=== PATIENT | female | born 1945 | race Caucasian/White ===

== ENCOUNTER → 2017-11-28 | Outpatient (CLI) | payer OTHER ==
[~2017-11-28] MED LIST: ALBINS/ INH; ANAS1TAB19 PO; ASPI81TA28 PO; CALC-354 PO; LISI-725 PO; MULT-506 PO; NAPR1TAB9 PO; POTA10CA28 PO; SERT50TA PO
[2017-11-28 14:49] VITALS: BP 158/84; PULSE 86; TEMP 36.9; O2SAT 94
--- NOTE | 2017-11-28 15:49 | Radiation Oncology Follow-Up ---
Radiation Oncology Follow-Up Date of Visit Nov 28, 2017. 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 She received 3850 cGy utilizing accelerated partial breast irradiation. Last Edited By: Alicia Madrid on Nov 05, 2017 16:25 History of Present Illness oneyda Jones is without a family history of breast cancer. She underwent annual bilateral screening mammograms on 07/18/2017. This showed in the right breast a new 5 mm focal asymmetry in the upper outer middle depth. 3-D spot compression views and MLO projections and ultrasound were recommended for further evaluation. On 07/24/2017 patient underwent additional imaging. This again demonstrated a suspicious abnormality in the right breast which persisted at the 10 o'clock position. Targeted ultrasound confirmed a 0.5 x 0.4 x 0.5 cm hypoechoic lesion. Ultrasound of the right axilla demonstrated a 2.4 x 1.2 x 1.4 cm well-defined lymph node with fatty hilum. Biopsy was recommended. On 08/08/2017 the patient underwent ultrasound-guided core biopsy of the right breast lesion at the 10 o'clock position. This confirmed an invasive ductal carcinoma histologic grade 1 of 3 with microcalcifications. The lesion measured at least 0.5 cm and was estrogen receptor strongly positive and progesterone receptor strongly positive. The lesion was HER-2/vikas negative and confirmed negative by FISH analysis. Accession #: [id number]. The patient met with Dr. Alex to discuss surgical treatment options. The patient agreed to proceed with a right needle localized lumpectomy and sentinel node biopsy performed on 09/04/2017. The partial mastectomy specimen confirmed residual invasive mammary carcinoma grade 1 which was initially present at the deep/ posterior margin. However additional tissue was taken and the final margin status was negative. The lesion measured 3 mm in size although the measurement was difficult. There was no lymphovascular invasion identified. There was no DCIS in the specimen. One sentinel lymph node was identified and was negative for metastatic carcinoma. Accession #: [id number]. The final AJCC pathologic staging was therefore pT1b pN0(sn-), ER positive, WA positive and HER-2/vikas negative. The tissue was considered for Oncotype DX analysis. However there was insufficient carcinoma present in the slides and the procedure could not be performed. The patient is scheduled to see Dr. Sheth on October 05 to discuss the role of adjuvant systemic therapy with the patient. She did not require chemotherapy. She returned to our office and had a CT simulation. She was found to be a candidate for accelerated partial breast irradiation. This was completed October 29, 2017. She received 3850 cGy. Interim History She has been doing well over the past month. She does note an area of dry skin where she was treated. She has noted no masses or tenderness and no change of the axilla. She has had no swelling of her arm. She has been seen by Dr. Sheth and started on an aromatase inhibitor. This unfortunately is causing some side effects. She has some dizziness as well as fatigue. She has taken the medication now for [address] Sheth in 1 week. She plans to continue medication and will speak to her about the potential side effects. We did discuss that radiation can cause fatigue also but this should be improving now. Mammography has already been scheduled through Dr. Alex's office. This is scheduled for March 07. Allergies Coded Allergies: Oxycodone (Unverified Adverse Reaction, Severe, HALLUCINATIONS, 12/21/10) PT AWOKE WITH RIGHT HIP PAIN AND TOOK 2 OXYCODONE. LATER SHE AWOKE ON HER BATHROOM FLOOR, CRAWLED FOR HER CELL PHONE AND CALLED FOR HELP. DOES NOT RECALL MUCH OF THE FOLLOWING 2 DAYS. Home Medications Scheduled Anastrozole (Arimidex), 1 TAB PO DAILY Aspirin (Aspirin Ec), 81 MG PO DAILY Calcium Carbonate-Cholecalcife (Caltrate 600+D), 1 TAB PO BID Lisinopril (Zestril), 20 MG PO DAILY Multivitamin (Multivitamin), 1 TAB PO DAILY Potassium Chloride (Micro-K Ext Rel), 10 MEQ PO BID Sertraline (Zoloft), 1 TAB PO DAILY Scheduled PRN Albuterol Sulf (Proventil 0.083% 2.5MG/3ML), 2.5 MG INH QID PRN for Wheezing Naproxen (Aleve), 220 MG PO BIDM PRN for Pain Review of Systems Gastrointestinal: Symptoms: WNL Oral: Symptoms: No Problems Respiratory: Symptoms: WNL Urinary: Symptoms: WNL Skin: Symptoms: No Problems Breast: Right Upper Arm Measurement: 32.0 Right Mid Arm Measurement: 26.0 Right Wrist Measurement: 17.5 Left Upper Arm Measurement: 33.0 Left Mid Arm Measurement: 26.2 Left Wrist Measurement: 17.5 Arm Dominence: Right Physical Exam Vital Signs Date Time Temp Pulse Resp B/P (MAP) Pulse Ox O2 Delivery O2 Flow Rate FiO2 11/28/17 14:49 36.9 86 16 158/84 94 Fatigue: None General Appearance: no apparent distress Eyes: normal inspection, EOMI ENT: normal ENT inspection, hearing grossly normal Neck: no adenopathy, thyroid normal Respiratory/Chest: lungs clear, no respiratory distress, no accessory muscle use Breast: Breast examination reveals well-healed incisions of the right breast. There is an area of hyperpigmentation in dry skin. There are no masses or tenderness and no axillary adenopathy. Using the [place] score cosmesis she has a good outcome. The left breast showed no masses or tenderness and no axillary adenopathy. Cardiovascular: regular rate, rhythm, no gallop, no JVD Extremities: no pedal edema Neurologic/Psychiatric: no motor/sensory deficits, alert, normal mood/affect Skin: warm/dry Pain Management Patient Reports Pain: No Initial Pain Intensity: 0.0 Pain Management Plan She denied pain therefore requires no pain management. Laboratory Laboratory Results: not applicable Pathology Pathology Results: and pertinent findings noted in HPI Imaging Imaging Studies: and pertinent findings noted in HPI Assessment & Plan Plan: Continue follow-up with Dr. Sheth. She will be seeing her next week. She is going to continue the antiestrogen therapy until she sees her and discuss her side effects. Continue follow-up with Dr. Alex she will be seeing her March 26. She has mammography scheduled for March 07. I have recommended Aquaphor for the area of skin dryness. Today we completed a cancer survivorship care plan. A copy of the document was given to the patient. She was given a survivorship booklet. We asked her to return to our office in 6 months. Today we discussed smoke cessation. We had previously discussed this at her initial consultation. She has been offered smoke cessation classes that are available at our hospital. She has been given information about the 1 800 quit line. Today we stressed the potential side effect of secondary malignancies when reviewing the cancer survivorship care plan. With continuation of smoking there is a increased risk of secondary lung cancer. She may call our office if she has any questions or concerns or if she would like to enroll in the smoke cessation program. Total Time In Follow-Up I spent 20 minutes speaking to the patient in performing examination. I spent 20 minutes reviewing information, preparing the survivorship document, and completing this note Copy To Radha Alex MD; Daria Sheth MD; Kim Draper PA-C
== END | disposition home or self-care (01) ==
LOC: C.ONC 14:38
PROVIDERS: ATTEND Physician Assistant Medical
DX: Z08 Encounter for follow-up examination after completed treatment for malignant neoplasm (principal); Z92.3 Personal history of irradiation; Z85.3 Personal history of malignant neoplasm of breast

== ENCOUNTER 2020-05-25 19:56 | Inpatient (IN) ==
[2020-05-25] MEDS ORDERED: METOPROLOL TARTRATE 1 MG/ML VIAL IV STA (20:45)
[2020-05-25] MEDS ORDERED: fentaNYL citrate 100 MCG/2 ML VIAL IV STA ×2 (20:49→21:26)
[2020-05-25] MEDS ORDERED: ONDANSETRON INJ 2 MG/ML 2 ML VIAL IV STA (20:49)
[2020-05-25 20:56] LABS: Basophils # (auto) 0.01 K/uL (0-0.2); Basophils % (auto) 0.1 %; Eosinophils # (auto) 0.07 K/uL (0-0.5); Eosinophils % (auto) 0.6 %; Hematocrit (blood only) 47.2 % (37-47); Immature Granulocytes # (auto) 0.02 K/uL (0.00-0.02); Immature Granulocytes % (auto) 0.2 %; Lymphocytes # (auto) 1.51 K/uL (1.2-3.4); Lymphocytes % (auto) 12.6 %; Mean Corpuscular Hemoglobin 34.3 pg (25-34); Mean Corpuscular Hgb Conc 33.9 g/dL (32-36); Mean Corpuscular Volume 101.3 fL (80-100); Mean Platelet Volume 10.3 fL (7.4-10.4); Monocytes # (auto) 0.93 K/uL (0.11-0.59); Monocytes % (auto) 7.8 %; Neutrophils # (auto) 9.43 K/uL (1.4-6.5); Neutrophils % (auto) 78.7 %; Platelet Count 220 K/uL (130-400); RDW Coefficient of Variation 14.2 % (11.5-14.5); RDW Standard Deviation 52.2 fL (36.4-46.3); Red Blood Count 4.66 M/uL (4.2-5.4); White Blood Count 11.97 K/uL (4.8-10.8)
[2020-05-25] MEDS ORDERED: SODIUM CHLORIDE 0.9% 1000ML 1,000 ML IV SCH (21:00)
[2020-05-25 21:06] LABS: INR 1.1 (0.9-1.1); Partial Thromboplastin Time 26.6 Seconds (21.0-31.0); Prothrombin Time 11.4 Seconds (9.0-12.0)
[2020-05-25 21:20] LABS: Creatine Kinase 742 U/L (26-192); Magnesium 2.3 mg/dl (1.8-2.4); Troponin I < 0.015 ng/ml (0-0.045)
[2020-05-25] MEDS ORDERED: PROPOFOL IV EMULSION 10 MG/ML 20 ML VIAL IV STA (21:24)
[2020-05-25 21:25] LABS: BUN Creatinine Ratio 24.5 (10-20); Calcium 8.7 mg/dl (8.5-10.1); Creatinine Clr Calc Pharmacy 63.8 ml/min; Est GFR (African American) 72.1; Est GFR (Non-African American) 62.2
[2020-05-25 21:32] LABS: Potassium 3.2 mmol/L (3.5-5.1)
--- NOTE | 2020-05-26 00:44 | Emergency Department Note ---
History of Present Illness General Chief complaint: Hip Pain Source: patient, family and RN notes reviewed Mode of arrival: EMS Limitations: no limitations History of Present Illness Provider complaint: Left hip pain Maximum Pain Intensity: 7 This patient is a 74-year-old female who presents to the emergency department with complaints of left hip pain. She states nearly 3 days ago, in the speech therapist early intervention, patient woke up sitting in the corner of her living room. She states she must have fallen the night before but has no recollection of the event. She was unable to get herself up from this position and spent several hours attempting to get a hold of her neighbor. Neighbor got a hold of the facility maintenance mechanic and cut the chain-link lock. The 2 men lifted the patient up off of the floor and placed her into her recliner. Patient states she was unable to get up from this position for 2 days. She called her daughter today who came to the home. Daughter is with her son-in-law were unable to help the patient up therefore they called the ambulance. Patient states she has been fatigued for quite a while. She is unable to specify but thinks it has been months. Her daughter states she has been falling frequently. Patient does admit to smoking 1/2 to 1 pack of cigarettes per day. She states she has a prescription for oxygen but does not use it. Patient states Dr. Reyes performed a NOE in the left hip years ago. Home Medications Home Medications Medication Instructions Recorded Confirmed Type aspirin 81 mg PO DAILY 10/02/19 05/25/20 History budesonide-formoterol [Symbicort] 2 puff INHALATION BID 10/02/19 05/25/20 History bupropion HCl 150 mg PO DAILY 10/02/19 05/25/20 History fluticasone propionate 2 spray INTRANASAL DAILY PRN 10/02/19 05/25/20 History letrozole 2.5 mg PO DAILY 10/02/19 05/25/20 History paroxetine HCl 30 mg PO DAILY 10/02/19 05/25/20 History irbesartan 75 mg PO DAILY 05/25/20 05/25/20 History Allergies Allergy/AdvReac Type Severity Reaction Status Date / Time oxycodone AdvReac Severe Hallucinati Verified 05/25/20 23:24 ons Past Med/Surg History Medical History Abdominal pain DJD (degenerative joint disease) of hip (07/17/13) Malignant neoplasm of upper-outer quadrant of right breast in female, estrogen receptor positive (08/02/17) Status post completion of radiation therapy October 29, 2017. 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 and A total of 10 systems reviewed and were otherwise negative Physical Exam Vital Signs Vital Signs - 24 hr 05/25/20 20:00 05/25/20 20:05 05/25/20 20:15 Temperature 36.8 C Temperature Source Oral Pulse Rate 160 H 159 H 155 H Pulse Rate [Right Finger] Pulse Rate from SpO2 Sensor Pulse Rhythm Irregular Respiratory Rate 27 H 22 18 Respiratory Effort / Characteristics Non-Labored Respiratory Depth Normal Respiratory Pattern Regular Blood Pressure 114/65 114/65 Blood Pressure [Right Arm] Blood Pressure Mean 71 81 Blood Pressure Mean [Right Arm] Pulse Oximetry 90 90 90 Oxygen Delivery Method Nasal Cannula Nasal Cannula Room Air Oxygen Flow Rate 2 2 Sepsis Recent Fever Within 48 Hours No Sepsis New/Unexplained Change in Mental Status N/A Sepsis Action Taken by Nursing No Action Required 05/25/20 20:29 05/25/20 20:30 05/25/20 21:00 Temperature Temperature Source Pulse Rate 147 H 149 H 131 H Pulse Rate [Right Finger] Pulse Rate from SpO2 Sensor Pulse Rhythm Respiratory Rate 16 23 18 Respiratory Effort / Characteristics Respiratory Depth Respiratory Pattern Blood Pressure Blood Pressure [Right Arm] Blood Pressure Mean Blood Pressure Mean [Right Arm] Pulse Oximetry 96 96 92 Oxygen Delivery Method Nasal Cannula Nasal Cannula Nasal Cannula Oxygen Flow Rate 2 2 2 Sepsis Recent Fever Within 48 Hours Sepsis New/Unexplained Change in Mental Status Sepsis Action Taken by Nursing 05/25/20 21:30 05/25/20 22:00 05/25/20 22:08 Temperature Temperature Source Pulse Rate 77 82 80 Pulse Rate [Right Finger] Pulse Rate from SpO2 Sensor Pulse Rhythm Respiratory Rate 22 20 17 Respiratory Effort / Characteristics Respiratory Depth Respiratory Pattern Blood Pressure 121/58 L Blood Pressure [Right Arm] Blood Pressure Mean 72 Blood Pressure Mean [Right Arm] Pulse Oximetry Oxygen Delivery Method Oxygen Flow Rate Sepsis Recent Fever Within 48 Hours Sepsis New/Unexplained Change in Mental Status Sepsis Action Taken by Nursing 05/25/20 22:10 05/25/20 22:12 05/25/20 22:28 Temperature Temperature Source Pulse Rate 82 86 Pulse Rate [Right Finger] 82 Pulse Rate from SpO2 Sensor 85 Pulse Rhythm Respiratory Rate 24 21 23 Respiratory Effort / Characteristics Respiratory Depth Respiratory Pattern Blood Pressure Blood Pressure [Right Arm] 121/76 Blood Pressure Mean Blood Pressure Mean [Right Arm] 91 Pulse Oximetry 96 96 Oxygen Delivery Method Nasal Cannula Oxygen Flow Rate 2 Sepsis Recent Fever Within 48 Hours Sepsis New/Unexplained Change in Mental Status Sepsis Action Taken by Nursing 05/25/20 22:30 05/25/20 22:32 05/25/20 22:34 Temperature Temperature Source Pulse Rate 83 85 84 Pulse Rate [Right Finger] Pulse Rate from SpO2 Sensor Pulse Rhythm Respiratory Rate 22 24 17 Respiratory Effort / Characteristics Respiratory Depth Respiratory Pattern Blood Pressure 89/60 L 92/54 L Blood Pressure [Right Arm] Blood Pressure Mean 72 66 Blood Pressure Mean [Right Arm] Pulse Oximetry Oxygen Delivery Method Oxygen Flow Rate Sepsis Recent Fever Within 48 Hours Sepsis New/Unexplained Change in Mental Status Sepsis Action Taken by Nursing 05/25/20 22:40 05/25/20 22:50 05/25/20 23:00 Temperature Temperature Source Pulse Rate 83 79 87 Pulse Rate [Right Finger] 77 Pulse Rate from SpO2 Sensor 87 Pulse Rhythm Respiratory Rate 18 19 23 Respiratory Effort / Characteristics Respiratory Depth Respiratory Pattern Blood Pressure 144/78 H Blood Pressure [Right Arm] 144/78 H Blood Pressure Mean 83 Blood Pressure Mean [Right Arm] 100 Pulse Oximetry 97 Oxygen Delivery Method Oxygen Flow Rate Sepsis Recent Fever Within 48 Hours Sepsis New/Unexplained Change in Mental Status Sepsis Action Taken by Nursing 05/25/20 23:10 05/25/20 23:20 05/25/20 23:30 Temperature Temperature Source Pulse Rate 86 78 78 Pulse Rate [Right Finger] Pulse Rate from SpO2 Sensor 85 79 81 Pulse Rhythm Respiratory Rate 19 19 19 Respiratory Effort / Characteristics Respiratory Depth Respiratory Pattern Blood Pressure 127/71 Blood Pressure [Right Arm] Blood Pressure Mean 80 Blood Pressure Mean [Right Arm] Pulse Oximetry 96 95 95 Oxygen Delivery Method Oxygen Flow Rate Sepsis Recent Fever Within 48 Hours Sepsis New/Unexplained Change in Mental Status Sepsis Action Taken by Nursing 05/25/20 23:31 05/25/20 23:40 05/25/20 23:50 Temperature Temperature Source Pulse Rate 76 82 82 Pulse Rate [Right Finger] Pulse Rate from SpO2 Sensor 77 Pulse Rhythm Respiratory Rate 19 20 19 Respiratory Effort / Characteristics Respiratory Depth Respiratory Pattern Blood Pressure Blood Pressure [Right Arm] Blood Pressure Mean Blood Pressure Mean [Right Arm] Pulse Oximetry 96 Oxygen Delivery Method Oxygen Flow Rate Sepsis Recent Fever Within 48 Hours Sepsis New/Unexplained Change in Mental Status Sepsis Action Taken by Nursing 05/26/20 00:00 05/26/20 00:01 05/26/20 00:10 Temperature Temperature Source Pulse Rate 82 82 80 Pulse Rate [Right Finger] Pulse Rate from SpO2 Sensor 79 80 77 Pulse Rhythm Respiratory Rate 16 19 19 Respiratory Effort / Characteristics Respiratory Depth Respiratory Pattern Blood Pressure 150/91 H Blood Pressure [Right Arm] Blood Pressure Mean 97 Blood Pressure Mean [Right Arm] Pulse Oximetry 91 92 94 Oxygen Delivery Method Oxygen Flow Rate Sepsis Recent Fever Within 48 Hours Sepsis New/Unexplained Change in Mental Status Sepsis Action Taken by Nursing 05/26/20 00:20 05/26/20 00:30 05/26/20 00:31 Temperature Temperature Source Pulse Rate 78 81 81 Pulse Rate [Right Finger] Pulse Rate from SpO2 Sensor 80 78 81 Pulse Rhythm Respiratory Rate 20 18 33 H Respiratory Effort / Characteristics Respiratory Depth Respiratory Pattern Blood Pressure 149/86 H Blood Pressure [Right Arm] Blood Pressure Mean 97 Blood Pressure Mean [Right Arm] Pulse Oximetry 95 96 95 Oxygen Delivery Method Oxygen Flow Rate Sepsis Recent Fever Within 48 Hours Sepsis New/Unexplained Change in Mental Status Sepsis Action Taken by Nursing 05/26/20 00:40 05/26/20 00:50 05/26/20 00:54 Temperature Temperature Source Pulse Rate 80 80 Pulse Rate [Right Finger] 83 Pulse Rate from SpO2 Sensor 80 Pulse Rhythm Respiratory Rate 20 26 H 19 Respiratory Effort / Characteristics Respiratory Depth Respiratory Pattern Blood Pressure Blood Pressure [Right Arm] 165/77 H Blood Pressure Mean Blood Pressure Mean [Right Arm] 106 Pulse Oximetry 95 96 Oxygen Delivery Method Oxygen Flow Rate Sepsis Recent Fever Within 48 Hours Sepsis New/Unexplained Change in Mental Status Sepsis Action Taken by Nursing 05/26/20 00:55 05/26/20 01:00 05/26/20 01:10 Temperature Temperature Source Pulse Rate 85 81 76 Pulse Rate [Right Finger] Pulse Rate from SpO2 Sensor Pulse Rhythm Respiratory Rate 20 18 26 H Respiratory Effort / Characteristics Respiratory Depth Respiratory Pattern Blood Pressure 165/77 H Blood Pressure [Right Arm] Blood Pressure Mean 95 Blood Pressure Mean [Right Arm] Pulse Oximetry Oxygen Delivery Method Oxygen Flow Rate Sepsis Recent Fever Within 48 Hours Sepsis New/Unexplained Change in Mental Status Sepsis Action Taken by Nursing 05/26/20 01:20 05/26/20 01:30 05/26/20 01:40 Temperature Temperature Source Pulse Rate 83 76 83 Pulse Rate [Right Finger] Pulse Rate from SpO2 Sensor 79 Pulse Rhythm Respiratory Rate 17 20 18 Respiratory Effort / Characteristics Respiratory Depth Respiratory Pattern Blood Pressure Blood Pressure [Right Arm] Blood Pressure Mean Blood Pressure Mean [Right Arm] Pulse Oximetry 90 Oxygen Delivery Method Oxygen Flow Rate Sepsis Recent Fever Within 48 Hours Sepsis New/Unexplained Change in Mental Status Sepsis Action Taken by Nursing Vital signs reviewed. General: Chronically ill-appearing 74-year-old female, in no significant distress HEENT: No scleral icterus, PERRLA, neck supple. Moist mucous membranes. Cardiovascular: Rapid and irregular, no extra sounds Pulmonary: Clear to auscultation bilaterally, normal work of breathing. On nasa l cannula oxygen Abdomen: Soft, nontender, nondistended, positive bowel sounds. Musculoskeletal: Nontender to palpation over the cervical spine. Pain with any movement of the left lower extremity. Leg is shortened and internally rotated. Neurovascularly intact distally. Patient is able to bend the knee with some discomfort. No pain to pelvic rocking. Neurologic: Patient awake alert and oriented x 3, answers questions appropri ately. Skin: Warm, dry, no rash Course Administered Medications Sodium Chloride (Nss 1000ml) 1,000 mls @ 125 mls/hr IV .Q8H ROMEL Stop: 06/24/20 20:59 Last Admin: 05/25/20 21:00 Dose: 125 mls/hr Documented by: [id number] Discontinued Medications Fentanyl Citrate (Fentanyl Citrate 100 Mcg/2 Ml Vial) 25 mcg IV NOW STA Stop: 05/25/20 20:50 Last Admin: 05/25/20 21:00 Dose: 25 mcg Documented by: [id number] Fentanyl Citrate (Fentanyl Citrate 100 Mcg/2 Ml Vial) 25 mcg IV NOW STA Stop: 05/25/20 21:27 Last Admin: 05/25/20 22:09 Dose: 25 mcg Documented by: [id number] Metoprolol Tartrate (Metoprolol Tartrate 1 Mg/Ml Vial) 5 mg IV NOW STA Stop: 05/25/20 20:46 Last Admin: 05/25/20 21:00 Dose: 5 mg Documented by: [id number] Ondansetron HCl (Ondansetron Inj 2 Mg/Ml 2 Ml Vial) 4 mg IV NOW STA Stop: 05/25/20 20:50 Last Admin: 05/25/20 21:00 Dose: 4 mg Documented by: [id number] Propofol (Propofol Iv Emulsion 10 Mg/Ml 20 Ml Vial) 200 mg IV NOW STA Stop: 05/25/20 21:25 Last Admin: 05/25/20 22:28 Dose: Not Given Documented by: [id number] Critical Care Time Critical Care Time: Yes I have personally spent greater than 40 minutes of critical care time in the direct management of this patient. This includes bedside care, interpretation o f diagnostic studies, and testing, discussion with consultants, patient, and family members, and other required patient management activities. This 40 minutes is in excess of all separately billable procedures. Medical Decision Making Differential Diagnosis Differential includes acute coronary syndrome, myocardial infarction, CVA, TIA, anemia, infection, pneumonia, UTI, pyelonephritis, poor nutrition, dehydration, electrolyte disturbance,hypoglycemia, fracture, dislocation. Medical Records Attestation: I reviewed the patient's medical records. Home Medications Current Medication List: was personally reviewed by me Laboratory Data Attestation: I reviewed the patient's lab results. Result diagrams: 05/25/20 20:08 05/25/20 20:08 Lab Results 05/25/20 05/25/20 05/25/20 Range/Units 20:08 20:08 20:08 WBC 11.97 H (4.8-10.8) K/uL RBC 4.66 (4.2-5.4) M/uL Hgb 16.0 (12.0-16.0) g/dL Hct 47.2 H (37-47) % MCV 101.3 H (80-100) fL MCH 34.3 H (25-34) pg MCHC 33.9 (32-36) g/dL RDW Std Deviation 52.2 H (36.4-46.3) fL RDW Coeff of Cesilia 14.2 (11.5-14.5) % Plt Count 220 (130-400) K/uL MPV 10.3 (7.4-10.4) fL Immature Gran % (Auto) 0.2 % Neut % (Auto) 78.7 % Lymph % (Auto) 12.6 % Clinton % (Auto) 7.8 % Eos % (Auto) 0.6 % Baso % (Auto) 0.1 % Neut # (Auto) 9.43 H (1.4-6.5) K/uL Lymph # (Auto) 1.51 (1.2-3.4) K/uL Clinton # (Auto) 0.93 H (0.11-0.59) K/uL Eos # (Auto) 0.07 (0-0.5) K/uL Baso # (Auto) 0.01 (0-0.2) K/uL Immature Gran # (Auto) 0.02 (0.00-0.02) K/uL PT 11.4 (9.0-12.0) Seconds INR 1.1 (0.9-1.1) APTT 26.6 (21.0-31.0) Seconds PTT Ratio 1.0 Sodium 139 (136-145) mmol/L Potassium 3.2 L (3.5-5.1) mmol/L Chloride 102 (98-107) mmol/L Carbon Dioxide 31 (21-32) mmol/L Anion Gap 6.0 (3-11) BUN 23 H (7-18) mg/dl Creatinine 0.92 (0.6-1.2) mg/dl Est Cr Clr Drug Dosing 63.8 ml/min Est GFR ( Amer) 72.1 Est GFR (Non-Af Amer) 62.2 BUN/Creatinine Ratio 24.5 H (10-20) Glucose 174 H (70-99) mg/dl Calcium 8.7 (8.5-10.1) mg/dl Magnesium (1.8-2.4) mg/dl Total Creatine Kinase (26-192) U/L Troponin I (0-0.045) ng/ml Blood Type Antibody Screen 05/25/20 05/25/20 Range/Units 20:08 20:52 WBC (4.8-10.8) K/uL RBC (4.2-5.4) M/uL Hgb (12.0-16.0) g/dL Hct (37-47) % MCV (80-100) fL MCH (25-34) pg MCHC (32-36) g/dL RDW Std Deviation (36.4-46.3) fL RDW Coeff of Cesilia (11.5-14.5) % Plt Count (130-400) K/uL MPV (7.4-10.4) fL Immature Gran % (Auto) % Neut % (Auto) % Lymph % (Auto) % Clinton % (Auto) % Eos % (Auto) % Baso % (Auto) % Neut # (Auto) (1.4-6.5) K/uL Lymph # (Auto) (1.2-3.4) K/uL Clinton # (Auto) (0.11-0.59) K/uL Eos # (Auto) (0-0.5) K/uL Baso # (Auto) (0-0.2) K/uL Immature Gran # (Auto) (0.00-0.02) K/uL PT (9.0-12.0) Seconds INR (0.9-1.1) APTT (21.0-31.0) Seconds PTT Ratio Sodium (136-145) mmol/L Potassium (3.5-5.1) mmol/L Chloride (98-107) mmol/L Carbon Dioxide (21-32) mmol/L Anion Gap (3-11) BUN (7-18) mg/dl Creatinine (0.6-1.2) mg/dl Est Cr Clr Drug Dosing ml/min Est GFR ( Amer) Est GFR (Non-Af Amer) BUN/Creatinine Ratio (10-20) Glucose (70-99) mg/dl Calcium (8.5-10.1) mg/dl Magnesium 2.3 (1.8-2.4) mg/dl Total Creatine Kinase 742 H (26-192) U/L Troponin I < 0.015 (0-0.045) ng/ml Blood Type A Negative Antibody Screen NEGATIVE Imaging Data My Impression: Chest x-ray to my interpretation reveals chronic interstitial change, mediastinal fullness but is negative for focal lung consolidation or failure. Left hip x-ray to my interpretation reveals evidence of a left NOE with dislocation. No evidence of fracture. Left knee x-ray to my interpretation reveals degenerative changes, no fracture or dislocation. Radiologist's Impression: CT head: Comparison to October 02, 2019. The paranasal sinuses and mastoid air cells are normally aerated. There is no skull fracture or scalp hematoma. There is a normal gyral pattern of the brain. There is no mass lesion or midline shift. The adair-white matter differentiation is maintained. There is mild periventricular white matter low-density bilateral consistent with chronic small vessel disease. There is no evidence of acute large vessel infarct or intracranial hemorrhage. Radiologist: Donavan Serrano MD ECG Data Attestation: I personally reviewed and interpreted this ECG as follows: Indication: + weakness Rate (beats per minute): 170 Rhythm: + atrial fibrillation ECG Intervals/blocks: + Normal QT-c ECG [place]: + Normal ECG ST segments: + Nonspecific ST abnormalities ECG Findings: + Q waves (Septal) Additional Comments: EKG #2 at 21:25 reveals a sinus rhythm with occasional PVCs at 79 bpm. QTc is slightly prolonged at 467. ST segments are normal. When compared to previous, sinus rhythm has replaced rapid atrial fibrillation. Blood Pressure Blood Pressure Findings: Elevated blood pressure Blood Pressure Disposition: further management by hospitalist SAL Narrative This pt was evaluated and appeared to be in no distress. IV access was obtained and laboratory work was drawn. An order for cardiac monitoring was placed and the patient is noted to be in a rapid atrial fibrillation. Patient was medicated with IV metoprolol. IV fluids were initiated. Patient did convert to a normal sinus rhythm. X-ray of the left hip reveals hardware consistent with dislocated NOE. This has likely been the case for the last 3 days. Patient is neurovascularly intact distally. She does have an oxygen requirement. Patient states she is a smoker and is prescribed oxygen but does not wear it at home. Chest x-ray was performed and revealed some mediastinal fullness however there is no evidence of focal lung consolidation or failure to my interpretation. Left knee x-ray reveals degenerative change but no acute fracture or dislocation. The patient states she had a full meal prior to leaving the house in the ambulance. This was at approximately 730pm. Given the patient's multiple comorbidities and now a full stomach, I feel the patient would best be served with an n.p.o. status overnight and orthopedic reduction of the hip dislocation tomorrow morning. I did speak with Dr. Porter who is covering for the patient's orthopedic surgeon Dr. Reyes. He agrees with the plan. Patient and daughter are aware of the plan and agree. Dr. Dang of the hospitalist service has been consulted for admission and further management. Impression & Plan Atrial fibrillation with RVR, Hip dislocation, left, S/P total hip arthroplasty, Atrial fibrillation, new onset Discharge Plan Visit Data Chief Complaint: Hip Pain ED Provider: Adeline Wen Discharge Problem: Atrial fibrillation with RVR, Hip dislocation, left, S/P total hip arthroplasty, Atrial fibrillation, new onset Discharge Instructions Interventions: ED Discharge Assessment Last Done: 05/26/20 01:43 Forms Stand Alone Forms: My [facility] Prescriptions Prescriptions: No Action aspirin 81 mg Tablet,Delayed Release (Dr/Ec) 81 mg PO DAILY RF: 0 paroxetine HCl 30 mg tablet 30 mg PO DAILY RF: 0 letrozole 2.5 mg tablet 2.5 mg PO DAILY RF: 0 fluticasone propionate 50 mcg/actuation spray,suspension 2 spray INTRANASAL DAILY PRN (Reason: Allergy Symptoms) RF: 0 bupropion HCl 150 mg tablet extended release 24 hr 150 mg PO DAILY RF: 0 budesonide-formoterol [Symbicort] 160-4.5 mcg/actuation HFA aerosol inhaler 2 puff inhalation BID RF: 0 irbesartan 75 mg tablet 75 mg PO DAILY RF: 0 Referrals Referrals: Kim Draper PA-C [Primary Care Provider] - Discharge Problem: Hip dislocation, left Qualifiers: Encounter type: initial encounter Qualified Code(s): S73.005A - Unspecified dislocation of left hip, initial encounter S/P total hip arthroplasty Qualifiers: Laterality: left Qualified Code(s): Z96.642 - Presence of left artificial hip joint
[2020-05-26] MEDS ORDERED: HYDROmorphone INJ 0.5 MG/0.5 ML SYR ONE (02:18)
[2020-05-26] MEDS: HYDROmorphone INJ 0.5 MG/0.5 ML SYR IV PRN ×2 (02:18→09:33)
[2020-05-26] MEDS ORDERED: IPRATROPIUM BROMIDE NEB SOLN 0.02% 2.5 ML VIAL INH PRN (02:41)
[2020-05-26] MEDS ORDERED: METOPROLOL TARTRATE 1 MG/ML VIAL IV PRN (02:41)
[2020-05-26] MEDS ORDERED: LEVALBUTEROL 1.25MG/0.5ML NEB INH PRN (02:41)
[2020-05-26] MEDS ORDERED: ACETAMINOPHEN 325 MG TAB PO PRN (02:41)
[2020-05-26] MEDS ORDERED: FLUTICASONE PROPIONATE NA SPR 16 GM BTL PRN (02:41)
[2020-05-26] MEDS ORDERED: ONDANSETRON INJ 2 MG/ML 2 ML VIAL IV PRN ×3 (02:41→14:43)
[2020-05-26] MEDS ORDERED: NITROGLYCERIN SL 0.4 MG/TAB TAB SL PRN (02:41)
[2020-05-26] MEDS ORDERED: XOPENEX/ATROVENT 1.25mg/0.5MG NEB COMBO NEB PRN (02:41)
--- NOTE | 2020-05-26 03:42 | History and Physical Report ---
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 The patient lives alone. The patient says she ambulates with walker and she does not remember, but thinks might have fallen on Sunday or Sunday night. She does not remember what time she fell and how did she fall and she does not know how long she was there, but on Sunday afternoon she realized she fell and she had a cell phone with her and she called the neighbor. The neighbor helped her to get up in the chair and she gave food and the patient stayed in the chair whole Sunday and Sunday she called her daughter and she was also having left hip pain and she was brought into the ER. In the ER when she came in, she was in rapid AFib and imaging showed right hip dislocation. After giving 1 dose of IV Lopressor, she converted to sinus rhythm. Ortho was consulted and plan to do reduction of dislocation under anesthesia tomorrow. Her labs are okay. Total CK is 742. Troponin is negative. Potassium is 3.2. WBC 11.9. Currently resting comfortably and hemodynamically stable. Denies any chest pain. No shortness of breath and no palpitations. No nausea, no vomiting, no headache, no blurred visions, no earache, no runny nose, no sore throat. No loss of sense of smell or taste. She has smoker's cough. Denies any fever, chills. No abdominal pain. Normal bowel and bladder movements. ALLERGIES: OXYCODONE. PAST MEDICAL HISTORY: As mentioned above. PAST SURGICAL HISTORY: Right axillary lymph node biopsy, colonoscopy, laparoscopic appendectomy, partial right mastectomy, bilateral removal of cataracts lens, bilateral hip replacements. MEDICATIONS: The patient is on bupropion XL 150 mg p.o. daily, irbesartan 75 mg p.o. daily, Flonase 1 spray into nostrils daily, Femara 2.5 mg p.o. daily, Symbicort 160/4.5 two puffs b.i.d., paroxetine 30 mg p.o. daily, melatonin 5 mg p.o. at bedtime p.r.n., albuterol 2 puffs q. 4 hours p.r.n., albuterol nebulization q. 4 hours p.r.n., aspirin 81 mg p.o. daily, calcium plus vitamin D 1 tablet b.i.d., multivitamins 1 capsule daily. FAMILY HISTORY: Significant for mother had colon cancer. SOCIAL HISTORY: Lives alone. Currently smokes 1 pack a day for 50 years. Currently not drinking any alcohol. No drug use. REVIEW OF SYSTEMS: As per HPI. Rest of the review of systems negative. PHYSICAL EXAMINATION: GENERAL: The patient is of moderate build, not in acute distress. VITAL SIGNS: Temperature 36.8, pulse 83, when she came was in the 150s, respiratory rate 19, blood pressure 165/77, oxygen 96% on 2 liters. HEENT: Pupils equal, round, reactive to light. NECK: No JVD, no neck masses. CARDIOVASCULAR: S1, S2 heard, regular rate and rhythm, no murmur, no gallop. RESPIRATORY SYSTEM: Normal AP diameter. No accessory muscle use. No wheezing, no crackles. ABDOMEN: Soft, bowel sounds present. Nontender. No distention. CENTRAL NERVOUS SYSTEM: Cranial nerves II-XII grossly intact, nonfocal. EXTREMITIES: No edema, no erythema seen. LABORATORY DATA: WBC 7.9, hemoglobin 16, hematocrit 47.2, platelets 220. PT 11.4, INR 1.1, APTT 26.6. Sodium 139, potassium 3.2, chloride 102, bicarbonate 21, BUN 23, creatinine 0.9, serum glucose 174, calcium 8.7, magnesium 2.3, total creatinine kinase 142. Troponin I less than 0.015. IMAGING DATA: CT of the head, no acute findings seen. Chest x-ray, no acute findings. EKG: When she came in, was rapid AFib with rapid ventricular response at 170. ASSESSMENT AND PLAN: This is a 74-year-old female who presents with fall and hip pain and found to have rapid atrial fibrillation and left hip dislocation. 1. Rapid atrial fibrillation, No prior history of atrial fibrillation. The patient fell it looks like a couple of days ago and stayed on the floor. Returned to normal sinus rhythm with 1 dose of IV Lopressor in the ER. Troponin is negative. We will follow serial enzymes, echocardiogram. Monitor in the tele floor. Follow the echocardiogram. IV Lopressor prn. Consult cardiology in a.m. for further recommendations. Not starting on any anticoagulation currently. 2. Left hip dislocation. Ortho was consulted by the ER. Plan to do reduction in the OR tomorrow in the a.m. Pain control. 3. Asthma and chronic obstructive pulmonary disease, currently not on exacerbation. Continue her home inhalers and nebulization p.r.n. 4. History of prediabetes, currently n.p.o. We will check HbA1c levels. Will be restarting diabetic diet when able to take po. ISS.. 5. Hypertension. Continue her home medications of irbesartan. Currently also placed on IV Lopressor p.r.n. We will monitor the blood pressure. 6. Depression. Continue her Wellbutrin and paroxetine. 7. Tobacco use disorder, needs counseling. 8. Elevated ck. Follow repeat labs. Ob fluids. 9. Deep venous thrombosis prophylaxis, sequential compression devices for now. 10. Disposition: Admit to tele floor. Expect to discharge home and follow with family doctor. Level 1 full code. MTDD
[2020-05-26] MEDS: SODIUM CHLORIDE 0.9% 1000ML 1,000 ML IV SCH ×3 (03:59→18:43)
[2020-05-26 05:27] LABS: Basophils # (auto) 0.01 K/uL (0-0.2); Basophils % (auto) 0.1 %; Eosinophils # (auto) 0.13 K/uL (0-0.5); Eosinophils % (auto) 1.3 %; Hematocrit (blood only) 44.3 % (37-47); Hemoglobin 14.3 g/dL (12.0-16.0); Immature Granulocytes # (auto) 0.02 K/uL (0.00-0.02); Immature Granulocytes % (auto) 0.2 %; Lymphocytes # (auto) 1.15 K/uL (1.2-3.4); Lymphocytes % (auto) 11.7 %; Mean Corpuscular Hemoglobin 33.6 pg (25-34); Mean Corpuscular Hgb Conc 32.3 g/dL (32-36); Monocytes # (auto) 0.92 K/uL (0.11-0.59); Monocytes % (auto) 9.4 %; Neutrophils # (auto) 7.59 K/uL (1.4-6.5); Neutrophils % (auto) 77.3 %; Platelet Count 171 K/uL (130-400); RDW Coefficient of Variation 14.5 % (11.5-14.5); Red Blood Count 4.26 M/uL (4.2-5.4); White Blood Count 9.82 K/uL (4.8-10.8)
[2020-05-26 05:31] LABS: Appearance Urine Clear (Clear); Bacteria Urine Automated Negative (Negative); Blood Urine Negative (Negative); Epithelial Cell Urine Auto >30 /lpf (0-5); Glucose Urine UA Negative (Negative); Ketones Urine Negative (Negative); Leukocyte Esterase Urine Trace (Negative); Nitrite Urine Positive (Negative); Protein Urine Trace (Negative); RBC Urine Automated 0-4 /hpf (0-4); Urobilinogen Urine Negative (Negative); pH Urine 5.5 (4.5-7.5)
[2020-05-26 05:37] LABS: Bilirubin Urine Negative (Negative); Color Urine Orange; Ictotest Urine Negative (Negative)
[2020-05-26 05:51] LABS: BUN Creatinine Ratio 31.8 (10-20); Blood Urea Nitrogen 21 mg/dl (7-18); Calcium 8.1 mg/dl (8.5-10.1); Carbon Dioxide 32 mmol/L (21-32); Chloride 107 mmol/L (98-107); Creatinine Clr Calc Pharmacy 89.6 ml/min; Est GFR (African American) 102.8; Est GFR (Non-African American) 88.7; Glucose 110 mg/dl (70-99); Magnesium 2.4 mg/dl (1.8-2.4); Potassium 3.6 mmol/L (3.5-5.1); Sodium 142 mmol/L (136-145)
[2020-05-26 05:55] LABS: Troponin I < 0.015 ng/ml (0-0.045)
[2020-05-26] MEDS ORDERED: GLUCOSE 10 TABS/TUBE PO PRN (06:15)
[2020-05-26] MEDS ORDERED: GLUCOSE 40% GEL 15 GM TUBE PO PRN (06:15)
[2020-05-26] MEDS ORDERED: GLUCAGON FOR INJ 1 MG VIAL IM PRN (06:15)
[2020-05-26] MEDS ORDERED: CARBOHYDRATES FOR HYPOGLYCEMIA PO PRN (06:15)
[2020-05-26] MEDS ORDERED: DEXTROSE 50% 50 ML SYRINGE IV PRN (06:15)
[2020-05-26] MEDS: INSULIN ASPART 100 UNITS/ML 3 ML PEN SC SCH ×4 (06:47→20:12)
--- NOTE | 2020-05-26 07:10 | CT Scan Report ---
HEAD CT NONCONTRAST CT DOSE: 614.27 mGy.cm HISTORY: fall, + LOC TECHNIQUE: Multiaxial CT images of the head were performed without the use of intravenous contrast. A utomated exposure control was utilized for this study. A dose lowering technique was utilized adheri ng to the principles of ALARA. Comparison: Head CT 10/02/2019. Findings: The paranasal sinuses and mastoid air cells are clear. The calvarium and skull base are int act. There is no mass, hematoma, midline shift, acute infarct. White matter hypodensity is nonspecifi c but suggestive of microvascular ischemic change. The ventricles and sulci demonstrate mild age-rela hilary involutional changes. Impression: No significant change compared to the prior study. No acute intracranial abnormality. ACT 112: Negative or not required by law. Electronically signed by: Agusto Bourgeois M.D. 05/26/2020 7:08 AM
--- NOTE | 2020-05-26 07:51 | XRay Report ---
LEFT HIP 2 VIEWS CLINICAL HISTORY: Fall. Left hip injury. FINDINGS: AP and crosstable lateral views of the left hip are compared to study dated 07/17/2013. The skeletal structures are osteopenic. No fracture is seen. A left hip arthroplasty is in place. There is superior dislocation of the femoral component of the arthroplasty. No periprosthetic lucency is id entified. Overlying soft tissue edema is noted. IMPRESSION: 1. No fracture is identified. 2. Dislocated left hip arthroplasty as above with overlying soft tissue edema. Electronically signed by: Tejinder Garza M.D. 05/26/2020 7:50 AM
--- NOTE | 2020-05-26 07:53 | XRay Report ---
SINGLE VIEW CHEST CLINICAL HISTORY: Preoperative examination. FINDINGS: An AP, portable, supine chest radiograph is compared to study dated 12/01/2013. The examinat ion is degraded by portable technique and patient rotation. The heart is top normal for projection. T he mediastinal contour is within normal limits. There is mild atherosclerotic calcification of the th oracic aorta. Chronic interstitial thickening is similar to previous. No airspace consolidation or la rge pleural effusion is identified. No pneumothorax is seen. The skeletal structures are osteopenic. The bony thorax is grossly intact. IMPRESSION: No active disease in the chest. ACT 112: Negative or not required by law. Electronically signed by: Tejinder Garza M.D. 05/26/2020 7:51 AM
--- NOTE | 2020-05-26 07:55 | XRay Report ---
LEFT KNEE 2 VIEWS CLINICAL HISTORY: Fall with left knee injury. FINDINGS: Oblique views of the left knee are compared to study dated 05/12/2019. The skeletal structur es are osteopenic. There is no radiographic evidence of fracture. There is at least mild tricompartme ntal degenerative joint space narrowing. The presence of a joint effusion cannot be assessed. Mild so ft tissue edema is noted around the knee. IMPRESSION: Soft tissue swelling with no fracture identified on the provided images. Electronically signed by: Tejinder Garza M.D. 05/26/2020 7:54 AM
[2020-05-26] MEDS: PARoxetine HCL 20 MG TAB PO SCH (08:18)
[2020-05-26] MEDS: FLUTICASONE/VILANTEROL 200/25MCG 14 PUFFS/INHALER INH SCH (08:18)
[2020-05-26] MEDS: LETROZOLE 2.5 MG TAB PO SCH (08:20)
[2020-05-26] MEDS: BuPROPion XL 150 MG TABCR PO SCH (08:20)
[2020-05-26] MEDS: ASPIRIN 81 MG ECTAB PO SCH (08:20)
[2020-05-26] MEDS: IRBESARTAN 75 MG TAB PO SCH (08:21)
--- NOTE | 2020-05-26 08:58 | Orthopedic Consultation ---
Date of Consultation May 26, 2020 Assessment & Plan (1) Hip dislocation, left: Patient is currently NPO. She is on the OR schedule for later this AM for closed reduction vs. possible open reduction left total hip arthroplasty. She understands and agrees with the plan. I will call her daughter to discuss plan as well, per patient request. Post operative course was discussed, patient would like to go home immediately, but explained to her that we need to get the A-Fib treated, make sure that she is safe out of bed. She will have physical and occupation therapy after her procedure. She will be wearing a hip brace to prevent further dislocations. Posterior hip precautions will be followed after surgery. She will remain NPO for plans for OR later this morning. Consent will be obtained by Dr. Reyes prior to procedure. We will perform a Rapid COVID test now as well as new updated EKG per Anesthesia request. All questions answered. We will await cardiology clearance, they are aware of surgery planned for this AM. Echo performed this AM. Present on Admission?: Yes History of Present Illness Reason for Consultation: left NOE dislocation Attending Physician: David Meza MD History of Present Illness Patient is a 74 year old female, s/p left total hip replacement by Dr. Reyes approximately 2012. She has been doing fine, no recollection of ever having issues with her hips in the past. No recent hip pain. States that she "woke up Sunday on the floor in the corner of her living room". She does not recall when she fell or how she got there. States that she sat there until Sunday when her neighbor stopped by to check on her and found her, left to get help and got her into a chair. She states that she didn't notice any pain when on the floor until she tried to get up. She states she only had pain in her left hip and was unable to get up herself. She states that she has no pain at rest. She was able to get into a chair with the help of her neighbors, didn't want to come to hospital, but family told her they wanted to get her checked out. She continued to have left hip pain with movement. In the ED, x- rays were taken and she was found to have a left NOE dislocation. She states that she hasn't been out of bed here in the hospital. She doesn't seem to be aware that plans were for her to go to the OR today for reduction. When told that she has a hip dislocation, she asked "well how did that happen". Denies any other injuries, denies any issues with her left hip prior to the fall. She does live alone and uses a walker for ambulation. Upon arrival to the ED she was in atrial fibrillation. She was converted to regular rhythym with medication. Cardiology consult is pending and Echo performed this AM. Allergies Allergy/AdvReac Type Severity Reaction Status Date / Time oxycodone AdvReac Severe Hallucinati Verified 05/25/20 23:24 ons Home Medications Home Medications Medication Instructions Recorded Confirmed Type aspirin 81 mg PO DAILY 10/02/19 05/25/20 History budesonide-formoterol [Symbicort] 2 puff INHALATION BID 10/02/19 05/25/20 Histo ry bupropion HCl 150 mg PO DAILY 10/02/19 05/25/20 History fluticasone propionate 2 spray INTRANASAL DAILY PRN 10/02/19 05/25/20 History letrozole 2.5 mg PO DAILY 10/02/19 05/25/20 History paroxetine HCl 30 mg PO DAILY 10/02/19 05/25/20 History irbesartan 75 mg PO DAILY 05/25/20 05/25/20 History Patient History Medical History (Updated 05/26/20 @ 08:58 by Agusto Abreu MD) Abdominal pain Atrial fibrillation DJD (degenerative joint disease) of hip (07/17/13) Malignant neoplasm of upper-outer quadrant of right breast in female, estrogen receptor positive (08/02/17) Status post completion of radiation therapy October 29, 2017. 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, progesterone receptor positive, and HER-2/vikas negative Status post right partial mastectomy and sentinel lymph node biopsy 09/04/2017 Stage pT1b pN0 M0" Perforated viscus Peritonitis Sepsis Sinusitis Surgical History (Updated 05/26/20 @ 02:08 by Adeline Wen MD) History of hip surgery Family History Other Cancer Diabetes Heart disease Hypertension Social History Smoking Status: Current every day smoker Cigarettes Per Day: 10-20/day; Second Hand Exposure: No; Do You Dip or Chew Tobacco: No; Tobacco Cessation Education Requested by Patient: No Hx Alcohol Use: Yes Alcohol type: beer Hx Substance Use: No Preferred Language: Icelandic Communication Ability: Effective Teletype Technician Required: No Beliefs That Will Affect Care: None Current Living Situation: Alone Feels Safe at Home: Yes Safety Concerns: Feels Safe At This Time Review of Systems Review of Systems: All systems reviewed & are unremarkable except as noted in Subjective Physical Exam Constitutional: WD/WN, vitals as above average body habitus Eyes: PERRL, conjunctivae normal, anicteric sclerae Neck: normal visual inspection Respiratory: normal respiratory effort Cardiovascular: Vessels: dorsalis pedis pulses present Extremities: normal capillary refill; no calf tenderness and no pedal edema Gastrointestinal (Abdomen): Inspection/Auscultation: abdomen normal to inspection Percussion/Palpation: abdomen nontender Musculoskeletal: Tolerates full ROM bilateral upper extremities all joints. No visible ecchymosis bilateral upper extremities. Tolerates active and passive ROM right hip, knee and ankle without discomfort. No visible ecchymosis, nontender to palpation of right hip, right knee, and right ankle. no calf tenderness bilateral lower extremities. no distal edema. Distal sensation normal bilateral lower extremities. Left leg shortened. Tolerates gentle log rolling and flexion of left hip passively. Unable to actively hazel knee more than 10 degrees off the bed due to pain in her left hip. No visible ecchymosis left hip. Skin intact. No open wounds. No effusion to either knee. Full dorsiflexion and plantarflexion left ankle and great toe. Strength at ankle is 5/5. Sensation left lower extremity normal and same as other side. Results & Data ([facility]) Vital Signs (Past 12 Hours) Vital Signs Temp Pulse Pulse Resp BP BP Pulse Ox 05/26/20 06:53 36.7 C 84 16 123/75 92 05/26/20 03:19 36.9 C 83 16 108/66 92 05/26/20 02:41 36.9 C 83 18 117/71 91 05/26/20 02:00 81 05/26/20 01:40 83 18 90 05/26/20 01:30 76 20 05/26/20 01:20 83 17 05/26/20 01:10 76 26 H 05/26/20 01:00 81 18 05/26/20 00:55 85 20 165/77 H 05/26/20 00:54 83 19 165/77 H 96 05/26/20 00:50 80 26 H 95 05/26/20 00:40 80 20 05/26/20 00:31 81 33 H 95 05/26/20 00:30 81 18 149/86 H 96 05/26/20 00:20 78 20 95 05/26/20 00:10 80 19 94 05/26/20 00:01 82 19 92 05/26/20 00:00 82 16 150/91 H 91 05/25/20 23:50 82 19 05/25/20 23:40 82 20 05/25/20 23:31 76 19 96 05/25/20 23:30 78 19 127/71 95 05/25/20 23:20 78 19 95 05/25/20 23:10 86 19 96 05/25/20 23:00 87 77 23 144/78 H 144/78 H 97 05/25/20 22:50 79 19 05/25/20 22:40 83 18 05/25/20 22:34 84 17 92/54 L 05/25/20 22:32 85 24 89/60 L 05/25/20 22:30 83 22 05/25/20 22:28 86 23 96 05/25/20 22:12 82 21 121/76 96 05/25/20 22:10 82 24 05/25/20 22:08 80 17 121/58 L 05/25/20 22:00 82 20 05/25/20 21:30 77 22 05/25/20 21:00 131 H 18 92 Laboratory Results 05/26/20 05/26/20 05/26/20 Range/Units 06:34 05:09 05:09 WBC 9.82 (4.8-10.8) K/uL RBC 4.26 (4.2-5.4) M/uL Hgb 14.3 (12.0-16.0) g/dL Hct 44.3 (37-47) % MCV 104.0 H (80-100) fL MCH 33.6 (25-34) pg MCHC 32.3 (32-36) g/dL RDW Std Deviation 55.0 H (36.4-46.3) fL RDW Coeff of Cesilia 14.5 (11.5-14.5) % Plt Count 171 (130-400) K/uL MPV 10.0 (7.4-10.4) fL Immature Gran % (Auto) 0.2 % Neut % (Auto) 77.3 % Lymph % (Auto) 11.7 % [place] % (Auto) 9.4 % Eos % (Auto) 1.3 % Baso % (Auto) 0.1 % Neut # (Auto) 7.59 H (1.4-6.5) K/uL Lymph # (Auto) 1.15 L (1.2-3.4) K/uL [place] # (Auto) 0.92 H (0.11-0.59) K/uL Eos # (Auto) 0.13 (0-0.5) K/uL Baso # (Auto) 0.01 (0-0.2) K/uL Immature Gran # (Auto) 0.02 (0.00-0.02) K/uL PT (9.0-12.0) Seconds INR (0.9-1.1) APTT (21.0-31.0) Seconds PTT Ratio Sodium 142 (136-145) mmol/L Potassium 3.6 (3.5-5.1) mmol/L Chloride 107 (98-107) mmol/L Carbon Dioxide 32 (21-32) mmol/L Anion Gap 3.0 (3-11) BUN 21 H (7-18) mg/dl Creatinine 0.65 (0.6-1.2) mg/dl Est Cr Clr Drug Dosing 89.6 ml/min Est GFR ( Amer) 102.8 Est GFR (Non-Af Amer) 88.7 BUN/Creatinine Ratio 31.8 H (10-20) Glucose 110 H (70-99) mg/dl POC Glucose 105 H (70-99) mg/dl Calcium 8.1 L (8.5-10.1) mg/dl Magnesium 2.4 (1.8-2.4) mg/dl Total Creatine Kinase (26-192) U/L Troponin I < 0.015 (0-0.045) ng/ml Urine Color Urine Appearance (Clear) Urine pH (4.5-7.5) Ur Specific [place] (1.000-1.030) Urine Protein (Negative) Urine Glucose (UA) (Negative) Urine Ketones (Negative) Urine Blood (Negative) Urine Nitrite (Negative) Urine Bilirubin (Negative) Urine Urobilinogen (Negative) Ur Leukocyte Esterase (Negative) Urine WBC (Auto) (0-5) /hpf Urine RBC (Auto) (0-4) /hpf U Hyaline Cast (Auto) (0-5) /lpf U Epithel Cells (Auto) (0-5) /lpf Urine Bacteria (Auto) (Negative) Blood Type Antibody Screen 05/26/20 05/25/20 05/25/20 Range/Units 04:20 20:52 20:08 WBC (4.8-10.8) K/uL RBC (4.2-5.4) M/uL Hgb (12.0-16.0) g/dL Hct (37-47) % MCV (80-100) fL MCH (25-34) pg MCHC (32-36) g/dL RDW Std Deviation (36.4-46.3) fL RDW Coeff of Cesilia (11.5-14.5) % Plt Count (130-400) K/uL MPV (7.4-10.4) fL Immature Gran % (Auto) % Neut % (Auto) % Lymph % (Auto) % [place] % (Auto) % Eos % (Auto) % Baso % (Auto) % Neut # (Auto) (1.4-6.5) K/uL Lymph # (Auto) (1.2-3.4) K/uL [place] # (Auto) (0.11-0.59) K/uL Eos # (Auto) (0-0.5) K/uL Baso # (Auto) (0-0.2) K/uL Immature Gran # (Auto) (0.00-0.02) K/uL PT (9.0-12.0) Seconds INR (0.9-1.1) APTT (21.0-31.0) Seconds PTT Ratio Sodium (136-145) mmol/L Potassium (3.5-5.1) mmol/L Chloride (98-107) mmol/L Carbon Dioxide (21-32) mmol/L Anion Gap (3-11) BUN (7-18) mg/dl Creatinine (0.6-1.2) mg/dl Est Cr Clr Drug Dosing ml/min Est GFR ( Amer) Est GFR (Non-Af Amer) BUN/Creatinine Ratio (10-20) Glucose (70-99) mg/dl POC Glucose (70-99) mg/dl Calcium (8.5-10.1) mg/dl Magnesium 2.3 (1.8-2.4) mg/dl Total Creatine Kinase 742 H (26-192) U/L Troponin I < 0.015 (0-0.045) ng/ml Urine Color Cooper Urine Appearance Clear (Clear) Urine pH 5.5 (4.5-7.5) Ur Specific [place] 1.030 (1.000-1.030) Urine Protein Trace H (Negative) Urine Glucose (UA) Negative (Negative) Urine Ketones Negative (Negative) Urine Blood Negative (Negative) Urine Nitrite Positive A (Negative) Urine Bilirubin Negative (Negative) Urine Urobilinogen Negative (Negative) Ur Leukocyte Esterase Trace H (Negative) Urine WBC (Auto) 1-5 (0-5) /hpf Urine RBC (Auto) 0-4 (0-4) /hpf U Hyaline Cast (Auto) 10-30 H (0-5) /lpf U Epithel Cells (Auto) >30 H (0-5) /lpf Urine Bacteria (Auto) Negative (Negative) Blood Type A Negative Antibody Screen NEGATIVE 05/25/20 05/25/20 05/25/20 Range/Units 20:08 20:08 20:08 WBC 11.97 H (4.8-10.8) K/uL RBC 4.66 (4.2-5.4) M/uL Hgb 16.0 (12.0-16.0) g/dL Hct 47.2 H (37-47) % MCV 101.3 H (80-100) fL MCH 34.3 H (25-34) pg MCHC 33.9 (32-36) g/dL RDW Std Deviation 52.2 H (36.4-46.3) fL RDW Coeff of Cesilia 14.2 (11.5-14.5) % Plt Count 220 (130-400) K/uL MPV 10.3 (7.4-10.4) fL Immature Gran % (Auto) 0.2 % Neut % (Auto) 78.7 % Lymph % (Auto) 12.6 % [place] % (Auto) 7.8 % Eos % (Auto) 0.6 % Baso % (Auto) 0.1 % Neut # (Auto) 9.43 H (1.4-6.5) K/uL Lymph # (Auto) 1.51 (1.2-3.4) K/uL [place] # (Auto) 0.93 H (0.11-0.59) K/uL Eos # (Auto) 0.07 (0-0.5) K/uL Baso # (Auto) 0.01 (0-0.2) K/uL Immature Gran # (Auto) 0.02 (0.00-0.02) K/uL PT 11.4 (9.0-12.0) Seconds INR 1.1 (0.9-1.1) APTT 26.6 (21.0-31.0) Seconds PTT Ratio 1.0 Sodium 139 (136-145) mmol/L Potassium 3.2 L (3.5-5.1) mmol/L Chloride 102 (98-107) mmol/L Carbon Dioxide 31 (21-32) mmol/L Anion Gap 6.0 (3-11) BUN 23 H (7-18) mg/dl Creatinine 0.92 (0.6-1.2) mg/dl Est Cr Clr Drug Dosing 63.8 ml/min Est GFR ( Amer) 72.1 Est GFR (Non-Af Amer) 62.2 BUN/Creatinine Ratio 24.5 H (10-20) Glucose 174 H (70-99) mg/dl POC Glucose (70-99) mg/dl Calcium 8.7 (8.5-10.1) mg/dl Magnesium (1.8-2.4) mg/dl Total Creatine Kinase (26-192) U/L Troponin I (0-0.045) ng/ml Urine Color Urine Appearance (Clear) Urine pH (4.5-7.5) Ur Specific [place] (1.000-1.030) Urine Protein (Negative) Urine Glucose (UA) (Negative) Urine Ketones (Negative) Urine Blood (Negative) Urine Nitrite (Negative) Urine Bilirubin (Negative) Urine Urobilinogen (Negative) Ur Leukocyte Esterase (Negative) Urine WBC (Auto) (0-5) /hpf Urine RBC (Auto) (0-4) /hpf U Hyaline Cast (Auto) (0-5) /lpf U Epithel Cells (Auto) (0-5) /lpf Urine Bacteria (Auto) (Negative) Blood Type Antibody Screen Diagnostic Findings LEFT HIP 2 VIEWS CLINICAL HISTORY: Fall. Left hip injury. FINDINGS: AP and crosstable lateral views of the left hip are compared to study dated 07/17/2013. The skeletal structures are osteopenic. No fracture is seen. A left hip arthroplasty is in place. There is superior dislocation of the femoral component of the arthroplasty. No periprosthetic lucency is identified. Overlying soft tissue edema is noted. IMPRESSION: 1. No fracture is identified. 2. Dislocated left hip arthroplasty as above with overlying soft tissue edema. LEFT KNEE 2 VIEWS CLINICAL HISTORY: Fall with left knee injury. FINDINGS: Oblique views of the left knee are compared to study dated 05/12/2019. The skeletal structures are osteopenic. There is no radiographic evidence of fracture. There is at least mild tricompartmental degenerative joint space narrowing. The presence of a joint effusion cannot be assessed. Mild soft tissue edema is noted around the knee. IMPRESSION: Soft tissue swelling with no fracture identified on the provided images. SINGLE VIEW CHEST CLINICAL HISTORY: Preoperative examination. FINDINGS: An AP, portable, supine chest radiograph is compared to study dated 12/01/2013. The examination is degraded by portable technique and patient rotation. The heart is top normal for projection. The mediastinal contour is within normal limits. There is mild atherosclerotic calcification of the thoracic aorta. Chronic interstitial thickening is similar to previous. No ai rspace consolidation or large pleural effusion is identified. No pneumothorax is seen. The skeletal structures are osteopenic. The bony thorax is grossly intact. IMPRESSION: No active disease in the chest. HEAD CT NONCONTRAST CT DOSE: 614.27 mGy.cm HISTORY: fall, + LOC TECHNIQUE: Multiaxial CT images of the head were performed without the use of intravenous contrast. Automated exposure control was utilized for this study. A dose lowering technique was utilized adhering to the principles of ALARA. Comparison: Head CT 10/02/2019. Findings: The paranasal sinuses and mastoid air cells are clear. The calvarium and skull base are intact. There is no mass, hematoma, midline shift, acute infarct. White matter hypodensity is nonspecific but suggestive of microvascular ischemic change. The ventricles and sulci demonstrate mild age-related involutional changes. Impression: No significant change compared to the prior study. No acute intracranial abnormality. (1) Hip dislocation, left Encounter type: initial encounter Qualified Code(s): S73.005A - Unspecified dislocation of left hip, initial encounter
[2020-05-26] MEDS ORDERED: ATROPINE SULFATE 0.1 MG/ML 10ML SYR IV PRN (09:49)
[2020-05-26] MEDS ORDERED: PHENYLEPHRINE 100MCG/ML 5ML SYR IV PRN (09:49)
[2020-05-26] MEDS ORDERED: ePHEDrine sulfate 50 MG/ML AMP IV PRN (09:49)
[2020-05-26] MEDS ORDERED: LABETALOL HCL IV 5 MG/ML 20ML IV PRN (09:49)
[2020-05-26] MEDS ORDERED: fentaNYL citrate 100 MCG/2 ML VIAL IV PRN (09:49)
--- NOTE | 2020-05-26 10:02 | Anesthesiology Consultation ---
Date of Service May 26, 2020 Covid 19 negative today. The patient had an echocardiogram this morning. The patient came in atrial fibrillation with RVR. She is now rate controlled in SR with premature SVCs. 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 Assessment & Plan (1) Encounter for pre-operative examination: Chart Review Chart Review: Acceptable Risk for Surgery and Patient NOT seen in Pre Admission Testing Consults Requested none History Surgery Operation Date: 05/26/20 08:10 Proposed Procedures p Left Total Hip Arthroplasty - Jhon Reyes MD Height/Weight Height: 5 ft 7 in Weight: 89 kg Allergies Allergy/AdvReac Type Severity Reaction Status Date / Time oxycodone AdvReac Severe Hallucinati Verified 05/25/20 23:24 ons Medications Home Medications Medication Instructions Recorded Confirmed Last Taken aspirin 81 mg PO DAILY 10/02/19 05/25/20 10/02/19 budesonide-formoterol [Symbicort] 2 puff INHALATION BID 10/02/19 05/25/20 Unknown bupropion HCl 150 mg PO DAILY 10/02/19 05/25/20 10/02/19 fluticasone propionate 2 spray INTRANASAL DAILY PRN 10/02/19 05/25/20 Unknown letrozole 2.5 mg PO DAILY 10/02/19 05/25/20 10/02/19 paroxetine HCl 30 mg PO DAILY 10/02/19 05/25/20 10/02/19 irbesartan 75 mg PO DAILY 05/25/20 05/25/20 Unknown Active Medications Generic Name Dose Route Start Last Admin Trade Name Ernst PRN Reason Stop Dose Admin Aspirin 81 mg 05/26/20 09:00 05/26/20 08:20 Aspirin 81 Mg Ectab PO 06/25/20 08:59 81 mg DAILY ROMEL Administration Bupropion HCl 150 mg 05/26/20 09:00 05/26/20 08:20 Bupropion Xl 150 Mg Tabcr PO 06/25/20 08:59 150 mg DAILY ROMEL Administration Fluticasone/Vilanterol 1 puffs 05/26/20 09:00 05/26/20 08:18 Fluticasone/Vilanterol 200/25mcg 14 Puffs/Inhaler INH 06/25/20 08:59 1 puffs DAILY ROMEL Administration Hydromorphone HCl 0.5 mg 05/26/20 02:41 05/26/20 09:33 Hydromorphone Inj 0.5 Mg/0.5 Ml Syr IV 06/09/20 02:40 0.5 mg Q3H PRN Administration Pain Sodium Chloride 1,000 mls @ 125 mls/hr 05/26/20 02:41 05/26/20 03:59 Nss 1000ml IV 06/25/20 02:40 125 mls/hr .Q8H ROMEL Administration Insulin Aspart 0 units 05/26/20 06:15 05/26/20 06:47 Insulin Aspart 100 Units/Ml 3 Ml Pen SC 06/25/20 06:14 Not Given Q6 ROMEL Irbesartan 75 mg 05/26/20 09:00 05/26/20 08:21 Irbesartan 75 Mg Tab PO 06/25/20 08:59 75 mg DAILY ROMEL Administration Letrozole 2.5 mg 05/26/20 09:00 05/26/20 08:20 Letrozole 2.5 Mg Tab PO 06/25/20 08:59 2.5 mg DAILY ROMEL Administration Paroxetine HCl 30 mg 05/26/20 09:00 05/26/20 08:18 Paroxetine Hcl 20 Mg Tab PO 06/25/20 08:59 30 mg DAILY ROMEL Administration Past Medical History Medical History Abdominal pain Atrial fibrillation DJD (degenerative joint disease) of hip (07/17/13) Malignant neoplasm of upper-outer quadrant of right breast in female, estrogen receptor positive (08/02/17) Status post completion of radiation therapy October 29, 2017. 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, progesterone receptor positive, and HER-2/vikas neg ative Status post right partial mastectomy and sentinel lymph node biopsy 09/04/2017 Stage pT1b pN0 M0" Perforated viscus Peritonitis Sepsis Sinusitis Past Family History Family History Other Cancer Diabetes Heart disease Hypertension Past Surgical History Surgical History History of hip surgery Social History Smoking Status: Current every day smoker tobacco type: cigarettes Smoking cigarettes per day: 10-20/day Do You Dip or Chew Tobacco: No Hx Alcohol Use: Yes Alcohol type: beer alcohol intake frequency: a few times a week Hx Substance Use: No Physical Exam Vital Signs Last Vital Signs Temp 36.7 C 05/26/20 06:53 Pulse 81 05/26/20 08:00 Resp 16 05/26/20 06:53 BP 123/75 05/26/20 06:53 Pulse Ox 92 05/26/20 06:53 Testing Laboratory Results 05/26/20 05:09 05/26/20 05:09 PT 11.4 Seconds (9.0-12.0) 05/25/20 20:08 INR 1.1 (0.9-1.1) 05/25/20 20:08 APTT 26.6 Seconds (21.0-31.0) 05/25/20 20:08 Urine Color Sierra 05/26/20 04:20 Urine Appearance Clear (Clear) 05/26/20 04:20 Urine pH 5.5 (4.5-7.5) 05/26/20 04:20 Ur Specific Kemp 1.030 (1.000-1.030) 05/26/20 04:20 Urine Protein Trace (Negative) H 05/26/20 04:20 Urine Glucose (UA) Negative (Negative) 05/26/20 04:20 Urine Ketones Negative (Negative) 05/26/20 04:20 Urine Nitrite Positive (Negative) A 05/26/20 04:20 Ur Leukocyte Esterase Trace (Negative) H 05/26/20 04:20 Urine WBC (Auto) 1-5 /hpf (0-5) 05/26/20 04:20 Urine RBC (Auto) 0-4 /hpf (0-4) 05/26/20 04:20 U Hyaline Cast (Auto) 10-30 /lpf (0-5) H 05/26/20 04:20 U Epithel Cells (Auto) >30 /lpf (0-5) H 05/26/20 04:20 Urine Bacteria (Auto) Negative (Negative) 05/26/20 04:20 Blood Type A Negative 05/25/20 20:52 Antibody Screen NEGATIVE 05/25/20 20:52 05/26/20 06:34 POC Glucose 105 H Electrocardiogram Date: 05/26/20 SR with premature SVCs rate 82 Chest X-Ray Date: 05/26/20 SINGLE VIEW CHEST CLINICAL HISTORY: Preoperative examination. FINDINGS: An AP, portable, supine chest radiograph is compared to study dated 12/01/2013. The examination is degraded by portable technique and patient rotation. The heart is top normal for projection. The mediastinal contour is within normal limits. There is mild atherosclerotic calcification of the thoracic aorta. Chronic interstitial thickening is similar to previous. No airspace consolidation or large pleural effusion is identified. No pneumothorax is seen. The skeletal structures are osteopenic. The bony thorax is grossly intact. IMPRESSION: No active disease in the chest. ACT 112: Negative or not required by law. Electronically signed by: Tejinder Garza M.D. 05/26/2020 7:51 AM Dictated: 05/26/20 0750 Transcribed: 05/26/[address] NON[address]AST CT DOSE: 614.27 mGy.cm HISTORY: fall, + LOC TECHNIQUE: Multiaxial CT images of the head were performed without the use of intravenous contrast. Automated exposure control was utilized for this study. A dose lowering technique was utilized adhering to the principles of ALARA. Comparison: Head CT 10/02/2019. Findings: The paranasal sinuses and mastoid air cells are clear. The calvarium and skull base are intact. There is no mass, hematoma, midline shift, acute infarct. White matter hypodensity is nonspecific but suggestive of microvascular ischemic change. The ventricles and sulci demonstrate mild age-related involutional changes. Impression: No significant change compared to the prior study. No acute intracranial abnormality. ACT 112: Negative or not required by law. Electronically signed by: Agusto Borugeois M.D. 05/26/2020 7:08 AM Dictated: 05/26/20 0707 Transcribed: 05/26/20706
[2020-05-26] MEDS ORDERED: ONDANSETRON INJ 2 MG/ML 2 ML VIAL ONE (10:27)
[2020-05-26] MEDS ORDERED: LIDOCAINE HCL 2% 2 ML VIAL/AMP(20MG/ML) INFIL ONE (10:27)
[2020-05-26] MEDS ORDERED: PROPOFOL IV EMULSION 10 MG/ML 20 ML VIAL IV ONE (10:27)
[2020-05-26] MEDS ORDERED: fentaNYL citrate 100 MCG/2 ML VIAL ONE (10:27)
[2020-05-26] MEDS ORDERED: MIDAZOLAM HCL 1 MG/ML 2ML VIAL ONE (10:28)
--- NOTE | 2020-05-26 10:46 | Cardiology Consultation ---
Date of Consultation May 26, 2020 Assessment & Plan (1) Atrial fibrillation with RVR: (2) Hip dislocation, left: Patient presented to the emergency department overnight with left hip pain, was found to have a dislocated prosthesis. She was also noted to have newly recognized atrial fibrillation with rapid ventricular response, initial EKG included ventricular rate of 170 bpm. She received 5 mg of IV metoprolol and subsequently converted to sinus rhythm and has remained in sinus rhythm in the meantime. EKG performed on arrival revealed significant inferior lateral ST segment depression consistent with rate related ischemia, which had resolved on the repeat EKG. Initial EKG was also concerning for age-indeterminate septal infarction, this is resolved on follow-up EKG, anterior wall motion was normal on echocardiogram. The details around her injury are still somewhat unclear. Recommend ongoing telemetry monitoring. The patient's rhythm has been stable, and she is optimized from a cardiac perspective to proceed with surgical intervention of her left hip. Her [id number] score is ate least 3 for risk factors of age over 65, female, and history of hypertension and moving forward she is likely best protected against stroke with treatment to include systemic anticoagulation with a direct oral anticoagulant or warfarin. CT of the brain on presentation revealed no acute pathology. We will need to monitor her she recovers from her surgical procedure to determine if she has a candidate for anticoagulation based on her gait and mental status. Post operatively will plan on adding low dose metoprolol. (3) Encounter for pre-operative examination: History of Present Illness Attending Physician: David Meza MD History of Present Illness Mariola Jones is a 74 year old female seen in cardiology consultation per the request of Dr Dang for the evaluation of newly recognized paroxysmal atrial fibrillation and preoperative evaluation prior to surgical intervention for a dislocation of a left hip arthroplasty prosthesis. The patient does not follow with cardiology as an outpatient. She has a long standing history of cigarette smoking and states that she smokes 1/2 to 1 pack of cigarettes per day "depending upon her stress level ". She has a history of hypertension and is on irbesartan. She denies any past cardiac history. She presented to the emergency room yesterday with hip pain. 2 days prior, she describes having woken up in the corner of her home facing the corner, and she did not know how she got there. She received assistance to her recliner, and remained in that position for 2 days until her daughter and son-in-law a sister and she was found to have left hip pain culminating in emergency room visit and x-ray findings of left hip dislocation. At present during my interview, she denies any cardiac complaint. She endorses a chronic history of exertional shortness of breath. EKG performed on arrival revealed atrial fibrillation with very rapid ventricular rate of 170 bpm, and age-indeterminate septal infarction pattern was noted in lead V2. Mild ST segment depression noted in the inferior and lateral leads suggestive of rate related ischemia. Per review of telemetry she spontaneously converted to sinus rhythm last evening while still in the emergency room, 05/25/2020 at 2109. Follow-up EKG performed at 2124 revealed sinus rhythm at 79 bpm with 1 noted PVC. Compared to the prior tracing sinus rhythm had replaced atrial fibrillation and the ventricular rate had decreased by 91 bpm. The previously noted repolarization changes have resolved, and R wave is now noted in V2 rather than age-indeterminate septal infarction pattern. Echocardiogram reveals no regional wall motion abnormalities with normal LVEF, 60-65%. The study was somewhat technically limited in the valvular anatomy was poorly visualized however no significant stenosis or regurgitation noted on Doppler interrogation. Allergies Allergy/AdvReac Type Severity Reaction Status Date / Time oxycodone AdvReac Severe Hallucinati Verified 05/25/20 23:24 ons Home Medications Home Medications Medication Instructions Recorded Confirmed Type aspirin 81 mg PO DAILY 10/02/19 05/25/20 History budesonide-formoterol [Symbicort] 2 puff INHALATION BID 10/02/19 05/25/20 History bupropion HCl 150 mg PO DAILY 10/02/19 05/25/20 History fluticasone propionate 2 spray INTRANASAL DAILY PRN 10/02/19 05/25/20 History letrozole 2.5 mg PO DAILY 10/02/19 05/25/20 History paroxetine HCl 30 mg PO DAILY 10/02/19 05/25/20 History irbesartan 75 mg PO DAILY 05/25/20 05/25/20 History Patient History Medical History Abdominal pain Atrial fibrillation DJD (degenerative joint disease) of hip (07/17/13) Malignant neoplasm of upper-outer quadrant of right breast in female, estrogen receptor positive (08/02/17) Status post completion of radiation therapy October 29, 2017. 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, progesterone receptor positive, and HER-2/vikas negative Status post right partial mastectomy and sentinel lymph node biopsy 09/04/2017 Stage pT1b pN0 M0" Perforated viscus Peritonitis Sepsis Sinusitis Surgical History History of hip surgery Family History Other Cancer Diabetes Heart disease Hypertension Social History Smoking Status: Current every day smoker Cigarettes Per Day: 10-20/day; Second Hand Exposure: No; Do You Dip or Chew Tobacco: No; Tobacco Cessation Education Requested by Patient: No Hx Alcohol Use: Yes Alcohol type: beer Hx Substance Use: No Preferred Language: [place] Communication Ability: Effective Potato Picker Required: No Beliefs That Will Affect Care: None Current Living Situation: Alone Feels Safe at Home: Yes Safety Concerns: Feels Safe At This Time Review of Systems Review of Systems: All systems reviewed & are unremarkable except as noted in HPI & below Physical Exam Physical Exam: Temp Pulse Resp BP Pulse Ox 37 C 78 20 113/70 98 05/26/20 09:44 05/26/20 09:44 05/26/20 09:44 05/26/20 09:44 05/26/20 09:44 Constitutional: WD/WN, vitals as above Respiratory: normal respiratory effort, lungs clear to auscultation Cardiovascular: RRR, no murmur, no edema Gastrointestinal (Abdomen): normal bowel sounds, soft, nontender, no hepatosplenomegaly Neurologic: No focal deficits, although patient is noted to be a poor historian, I am not certain what her baseline mental status is. Results & Data ([facility]) Vital Signs (Past 12 Hours) Vital Signs Temp Pulse Pulse Resp BP BP BP 05/26/20 09:44 37 C 78 20 113/70 05/26/20 08:00 81 05/26/20 06:53 36.7 C 84 16 123/75 05/26/20 03:19 36.9 C 83 16 108/66 05/26/20 02:41 36.9 C 83 18 117/71 05/26/20 02:00 81 05/26/20 01:40 83 18 05/26/20 01:30 76 20 05/26/20 01:20 83 17 05/26/20 01:10 76 26 H 05/26/20 01:00 81 18 05/26/20 00:55 85 20 165/77 H 05/26/20 00:54 83 19 165/77 H 05/26/20 00:50 80 26 H 05/26/20 00:40 80 20 05/26/20 00:31 81 33 H 05/26/20 00:30 81 18 149/86 H 05/26/20 00:20 78 20 05/26/20 00:10 80 19 05/26/20 00:01 82 19 05/26/20 00:00 82 16 150/91 H 05/25/20 23:50 82 19 05/25/20 23:40 82 20 05/25/20 23:31 76 19 05/25/20 23:30 78 19 127/71 05/25/20 23:20 78 19 05/25/20 23:10 86 19 05/25/20 23:00 87 77 23 144/78 H 144/78 H 05/25/20 22:50 79 19 05/25/20 22:40 83 18 05/25/20 22:34 84 17 92/54 L Pulse Ox 05/26/20 09:44 98 05/26/20 08:00 05/26/20 06:53 92 05/26/20 03:19 92 05/26/20 02:41 91 05/26/20 02:00 05/26/20 01:40 90 05/26/20 01:30 05/26/20 01:20 05/26/20 01:10 05/26/20 01:00 05/26/20 00:55 05/26/20 00:54 96 05/26/20 00:50 95 05/26/20 00:40 05/26/20 00:31 95 05/26/20 00:30 96 05/26/20 00:20 95 09/09/20 00:10 94 05/26/20 00:01 92 05/26/20 00:00 91 05/25/20 23:50 05/25/20 23:40 05/25/20 23:31 96 05/25/20 23:30 95 05/25/20 23:20 95 05/25/20 23:10 96 05/25/20 23:00 97 05/25/20 22:50 05/25/20 22:40 05/25/20 22:34 Laboratory Results Cardiac Enzymes 05/25/20 05/26/20 Range/Units 20:08 05:09 Troponin I < 0.015 < 0.015 (0-0.045) ng/ml Coagulation 05/25/20 Range/Units 20:08 PT 11.4 (9.0-12.0) Seconds APTT 26.6 (21.0-31.0) Seconds CBC 05/25/20 05/26/20 Range/Units 20:08 05:09 WBC 11.97 H 9.82 (4.8-10.8) K/uL RBC 4.66 4.26 (4.2-5.4) M/uL Hgb 16.0 14.3 (12.0-16.0) g/dL Hct 47.2 H 44.3 (37-47) % Plt Count 220 171 (130-400) K/uL Neut # (Auto) 9.43 H 7.59 H (1.4-6.5) K/uL Lymph # (Auto) 1.51 1.15 L (1.2-3.4) K/uL Victoria # (Auto) 0.93 H 0.92 H (0.11-0.59) K/uL Eos # (Auto) 0.07 0.13 (0-0.5) K/uL Baso # (Auto) 0.01 0.01 (0-0.2) K/uL Comprehensive Metabolic Panel 05/25/20 05/26/20 Range/Units 20:08 05:09 Sodium 139 142 (136-145) mmol/L Potassium 3.2 L 3.6 (3.5-5.1) mmol/L Chloride 102 107 (98-107) mmol/L Carbon Dioxide 31 32 (21-32) mmol/L BUN 23 H 21 H (7-18) mg/dl Creatinine 0.92 0.65 (0.6-1.2) mg/dl Glucose 174 H 110 H (70-99) mg/dl Calcium 8.7 8.1 L (8.5-10.1) mg/dl Intake and Output 05/25/20 05/26/20 05/26/20 22:59 06:59 14:59 Intake Total 841.667 / 841.667 Output Total 250 / 250 Balance 591.667 / 591.667 Intake: IV 841.667 / 841.667 Nss 1000ML 1,000 ml @ 125 mls/ 841.667 / 841.667 hr IV .Q8H [facility] Rx#:[id number] Output: Urine Amount (Catheter) 250 / 250 Johnson/Indwelling 250 / 250 Other: Other Intake Source NPO Weight 90.36 kg 89 kg 89 kg Patient Weight 05/27/20 06:59 Weight 89 kg (1) Hip dislocation, left Encounter type: initial encounter Qualified Code(s): S73.005A - Unspecified dislocation of left hip, initial encounter
[2020-05-26] MEDS ORDERED: SUCCINYLCHOLINE CHLORIDE 20 MG/ML 10 ML VIAL IV ONE (10:50)
[2020-05-26] MEDS ORDERED: ROCURONIUM BROMIDE 10 MG/ML 5 ML VIAL IV ONE ×2 (10:50→12:29)
--- NOTE | 2020-05-26 11:26 | History & Physical Bridge Note ---
Date of Service May 26, 2020 History & Physical Bridge Note I have examined the patient, reviewed the History & Physical and in the interval since the performance of the History & Physical I have noted the following changes of clinical significance:site verified /consent obtained. no changes noted
[2020-05-26] MEDS ORDERED: ePHEDrine sulfate 50 MG/ML SYR ONE (11:47)
[2020-05-26] MEDS ORDERED: PHENYLEPHRINE 100MCG/ML 5ML SYR ONE (11:51)
[2020-05-26] MEDS ORDERED: DEXAMETHASONE SOD INJ 4 MG/ML VIAL ONE (11:52)
--- NOTE | 2020-05-26 12:28 | Fluoroscopy Report ---
FL hip LT 2-3V CLINICAL HISTORY: OPEN REDUCTION VS CLOSED REDUCTION LEFT HIP COMPARISON STUDY: Left hip 05/25/2020. FLUOROSCOPY TIME: 20 seconds. FINDINGS: A single fluoroscopic spot image of the left hip demonstrates posterior dislocation of the femoral prosthesis in relation to the acetabular cup. IMPRESSION: Fluoroscopy provided for left hip reduction. ACT 112: Negative or not required by law. Electronically signed by: Agusto Bourgeois M.D. 05/26/2020 12:27 PM
[2020-05-26] MEDS ORDERED: NEOSTIGMINE METHYLSULFATE 5 MG/5 ML SYR ONE (12:30)
[2020-05-26] MEDS ORDERED: GLYCOPYRROLATE 0.2 MG/ML VIAL ONE (12:30)
[2020-05-26] MEDS ORDERED: CEFAZOLIN 2000MG 2,000 MG/15 ML SYR IV ONE (12:32)
--- NOTE | 2020-05-26 12:44 | Post Operative Brief Note ---
Immediate Post Op Note v1 Date of Surgery May 26, 2020 Pre & Post Diagnosis Operation Date: 05/26/20 08:10 Pre-Op Diagnosis: Dislocated Left Total Hip Arthroplasty Post-Op Diagnosis: Reduced Dislocated Left Total Hip Arthroplasty I identified the patient and participated in the time-out.: Yes Procedure Operation Date: 05/26/20 08:10 Actual Procedures p attempted Closed Reduction Left Total Hip(Left) - Jhon Reyes MD s successful Open Reduction Left Total Hip Arthroplasty(Left) - Jhon Reyes MD Surgeon Jhon Reyes MD Pharmacy Intake Technician maggi/chelly Estimated Blood Loss 50 Findings Consistent with Post-Op Diagnosis
--- NOTE | 2020-05-26 13:26 | Operative Report (OR) ---
DATE OF OPERATION: 05/26/2020 PREOPERATIVE DIAGNOSIS: Subacute dislocated left total hip replacement. POSTOPERATIVE DIAGNOSIS: Subacute dislocated left total hip replacement. OPERATION PERFORMED: 1. Attempted closed reduction. 2. Open reduction of subacute left hip total hip replacement dislocation. PERIOPERATIVE SITUATION: Medically cleared female who was found on the floor and refused to come to the hospital for several days, up to 3 days since her fall. She does not know why she fell and could have been medically related, please see medical chart. At this point in time, she is cleared for us to try to get her hip to reduce. It was discussed in detail with her that this may not be able to be achieved closed based on the chronicity of the dislocation and the well positioned implants with a lip liner. She states she understands and knows the risks and consequences including sciatic nerve injury. DESCRIPTION OF PROCEDURE: The patient was appropriately identified, site verified, consent verified and antibiotics were held until the open procedure part. Closed reduction was attempted with fluoroscopic control, could not get it to reduce. At this point in time, it was deemed appropriate to proceed with open reduction. She was carefully placed in the right lateral decubitus position with Stulberg positioners. The left lower extremity prepped and draped in the usual routine fashion. The old incision was utilized. Full thickness flaps raised. There was a large buttock. The fascia was then opened. The femoral head was then palpated and it was approximately 5 inches proximal to the center of the hip. Soft tissue releases were performed in order to mobilize the hip in a very careful conservative manner. Care was taken to protect the sciatic nerve by palpation. It was not exposed. The hip cup was cleared of any tissue and appropriate mobility was obtained. It required maximum traction, maximum flexion and maximum pressure from lateral to medial to get it to reduce. It then reduced and was stable with flexion beyond 110-115 degrees. With flexion at 90 degrees, internal rotation of 40 degrees, it was still located and the leg lengths were equal. The procedure was then terminated. All instruments and fluid removed. Fluoroscopy was brought in at the end once it was closed with #2 Vicryl, 2-0 Vicryl and stainless steel clips. The fluoroscopy in the OR revealed a stable reduction. No fractures. The patient's wound was appropriately dressed and then transferred to the recovery room in satisfactory condition having tolerated the procedure well. A hip brace was applied. EBL was roughly 50 mL. She will be weightbearing to tolerance with the brace on for 6 weeks. If this occurs again, she was told that she would need to have things revised based on soft tissue issues. There did not appear to be any major disruption to the hip abductors. The dislocation was buttonholed between the abductors and the capsule and the short external rotator remnants. I attest to the content of the Intraoperative Record and any orders documented therein. Any exceptions are noted below. GISEL
--- NOTE | 2020-05-26 13:30 | Fluoroscopy Report ---
FL hip LT 1V CLINICAL HISTORY: IMPLANT CHECK COMPARISON STUDY: Left hip radiographs May 25, 2020. FLUOROSCOPY TIME: 5 seconds. FLUOROSCOPIC IMAGES: 1 FINDINGS: Fluoroscopy of the left hip was performed. Alignment of the left hip arthroplasty is anatom ic. Acetabular cup is in place. There is an acetabular screw. The mid to distal aspect of the femoral component was not imaged on this exam. IMPRESSION: Anatomic alignment of the left hip arthroplasty ACT 112: Negative or not required by law. Electronically signed by: Toni Mccloud M.D. 05/26/2020 1:29 PM
[2020-05-26] MEDS ORDERED: ALBUT/IPRATROP 3MG/0.5MG NEB 3 ML VIAL NEB STA (13:37)
--- NOTE | 2020-05-26 13:39 | Operative Report ---
Post Operative Report Pre & Post Diagnosis Operation Date: 05/26/20 08:10 Pre-Op Diagnosis: Dislocated Left Total Hip Arthroplasty Post-Op Diagnosis: Dislocated Left Total Hip Arthroplasty I identified the patient and participated in the time-out.: Yes Procedure Operation Date: 05/26/20 08:10 Actual Procedures p Attempted Closed Reduction Left Total Hip(Left) - Jhon Reyes MD s Open Reduction Left Total Hip Arthroplasty(Left) - hJon Reyes MD Surgeon LG Reyes MD Rn Social Work maggi/chelly Estimated Blood Loss 50 Findings Consistent with Post-Op Diagnosis Specimens None Drains None Complications none Disposition Accompanied Patient To Recovery: Yes Disposition: Recovery Room Indications This 74-year-old white female presented to the ED after falling at home and being unable to move. She sat in her chair for 3 days and finally went to the ED for evaluation. She has thought to have had dislocated her total hip arthroplasty 3 days ago. Necessity of reduction was discussed. She elected to proceed with closed versus open reduction after being educated about potential risks and outcomes. Description of Procedure Patient was taken to the operating room where she was given general anesthesia. Close reduction was attempted and was unsuccessful. She was then prepped and draped in usual sterile fashion. Please see Dr. Reyes's operative report for specifics of the procedure. I was present for the entire case from initial patient positioning through final wound closure. Assistance was provided in tissue retraction, hemostasis, implant reduction, and final wound closure. Patient was taken to the recovery room in satisfactory condition. I attest to the content of the Intraoperative Record and any orders documented therein. Any exceptions are noted below.
--- NOTE | 2020-05-26 14:11 | Anesthesiology Progress Note ---
Date of Service May 26, 2020 Anesthesia Post Procedure Vital Signs Vital Signs: Temp Pulse Pulse Pulse Resp BP BP 05/26/20 14:00 89 17 129/63 05/26/20 13:50 93 H 16 131/57 L 05/26/20 13:40 94 H 18 127/63 05/26/20 13:30 96 H 17 139/65 05/26/20 13:20 100 H 16 144/79 H 05/26/20 13:14 36.3 C L 80 28 H 166/73 H 05/26/20 09:44 37 C 78 20 113/70 05/26/20 08:00 81 05/26/20 06:53 36.7 C 84 16 05/26/20 03:19 36.9 C 83 16 05/26/20 02:41 36.9 C 83 18 05/26/20 02:00 81 05/26/20 01:40 83 18 05/26/20 01:30 76 20 05/26/20 01:20 83 17 05/26/20 01:10 76 26 H 05/26/20 01:00 81 18 05/26/20 00:55 85 20 165/77 H 05/26/20 00:54 83 19 05/26/20 00:50 80 26 H 05/26/20 00:40 80 20 05/26/20 00:31 81 33 H 05/26/20 00:30 81 18 149/86 H 05/26/20 00:20 78 20 05/26/20 00:10 80 19 05/26/20 00:01 82 19 05/26/20 00:00 82 16 150/91 H 05/25/20 23:50 82 19 05/25/20 23:40 82 20 05/25/20 23:31 76 19 05/25/20 23:30 78 19 127/71 05/25/20 23:20 78 19 05/25/20 23:10 86 19 05/25/20 23:00 87 77 23 144/78 H 05/25/20 22:50 79 19 05/25/20 22:40 83 18 05/25/20 22:34 84 17 92/54 L 05/25/20 22:32 85 24 89/60 L 05/25/20 22:30 83 22 05/25/20 22:28 86 23 05/25/20 22:12 82 21 05/25/20 22:10 82 24 05/25/20 22:08 80 17 121/58 L 05/25/20 22:00 82 20 05/25/20 21:30 77 22 05/25/20 21:00 131 H 18 05/25/20 20:30 149 H 23 05/25/20 20:29 147 H 16 05/25/20 20:15 36.8 C 155 H 18 114/65 05/25/20 20:05 159 H 22 05/25/20 20:00 160 H 27 H 114/65 BP Pulse Ox 05/26/20 14:00 96 05/26/20 13:50 96 05/26/20 13:40 92 05/26/20 13:30 92 05/26/20 13:20 92 05/26/20 13:14 95 05/26/20 09:44 98 05/26/20 08:00 05/26/20 06:53 123/75 92 05/26/20 03:19 108/66 92 05/26/20 02:41 117/71 91 05/26/20 02:00 05/26/20 01:40 90 05/26/20 01:30 05/26/20 01:20 05/26/20 01:10 05/26/20 01:00 05/26/20 00:55 05/26/20 00:54 165/77 H 96 05/26/20 00:50 95 05/26/20 00:40 05/26/20 00:31 95 05/26/20 00:30 96 05/26/20 00:20 95 05/26/20 00:10 94 05/26/20 00:01 92 05/26/20 00:00 91 05/25/20 23:50 05/25/20 23:40 05/25/20 23:31 96 05/25/20 23:30 95 05/25/20 23:20 95 05/25/20 23:10 96 05/25/20 23:00 144/78 H 97 05/25/20 22:50 05/25/20 22:40 05/25/20 22:34 05/25/20 22:32 05/25/20 22:30 05/25/20 22:28 96 09/08/20 22:12 121/76 96 05/25/20 22:10 05/25/20 22:08 05/25/20 22:00 05/25/20 21:30 05/25/20 21:00 92 05/25/20 20:30 96 05/25/20 20:29 96 05/25/20 20:15 90 05/25/20 20:05 90 05/25/20 20:00 90 Pain Intensity Left Hip: Pain Intensity: 0 Transfer of Care Handoff Completed per policy Notes Mental Status: alert / awake / arousable Patient Amnestic to Procedure: Yes Nausea / Vomiting: adequately controlled Pain: adequately controlled Airway Patency, RR, SpO2: stable & adequate BP & HR: stable & adequate Hydration State: stable & adequate Anesthetic Complications: no major complications apparent and Pt Satisfied with anesthetic care Notes: The patient did well with surgery. In recovery she was initially sleepy and had a smoker's cough. Her SpO2 was 91 on 15 L oxygen by face mask. She was given a Duoneb treatment and an incentive spirometer to use. She is more awake as well. Her SpO2 is now 94 on 4 L oxygen by PA. The patient will have continuous pulse oximetry on the telemetry floor. Her other vital signs have all been stable.
[2020-05-26] MEDS ORDERED: ALUMINUM/MAGNESIUM SUSP 30 ML UDC PO PRN (14:43)
[2020-05-26] MEDS ORDERED: MAGNESIUM HYDROXIDE SUSP 30 ML UDC PO PRN (14:43)
[2020-05-26] MEDS ORDERED: NALOXONE HCL 0.4 MG/1 ML VIAL/CARP IV PRN (14:43)
[2020-05-26] MEDS ORDERED: DiphenhydrAMINE HCL 50 MG/ML VIAL IV PRN (14:43)
[2020-05-26] MEDS ORDERED: METOCLOPRAMIDE HCL INJ 5 MG/ML 2 ML VIAL IV PRN (14:43)
[2020-05-26] MEDS ORDERED: bisacodyL 10 MG SUPP PR PRN (14:43)
--- NOTE | 2020-05-26 15:21 | Hospitalist Progress Note ---
Date of Service May 26, 2020 Assessment & Plan (1) Hip dislocation, left: Patient is a 74 yr female with multiple comorbidities presents with history of left hip pain after a fall, was found to be in Afib RVR. Afib RVR No known history of Afib Converted to Sinus after one dose of IV Lopressor Troponin X 2 :Negative CXR:No active disease in the chest. ECHO: EF 60 to 65%. No regional wall motion abnormalities noted. Diastolic dysfunction, grade II. Poorly visualized valvular anatomy without significant stenosis or regurgitation by Doppler interrogation. Check TSH Started on Metoprolol 25mg BID Monitor on Tele Need to be started on systemic anticoagulation as able (Likely tomorrow as currently Post Op) Left hip dislocation H/O Fall Hip X ray:Dislocated left hip arthroplasty as above with overlying soft tissue edema. 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 Discussed with patient's daughter in detail at bedside No significant pain at surgical site Offers no other complaints Review of Systems Review of Systems: All systems reviewed & are unremarkable except as noted in HPI & below Physical Exam Physical Exam: Physical Exam: Vitals signs as noted above General Appearance:Moderately built and nourished, no apparent distress Head: normocephalic, Atraumatic Eyes: normal inspection, EOMI Neck: supple, Trachea midline Respiratory/Chest: Decreased breath sounds, CTA, No accessory muscle use Cardiovascular: S1, S2, No murmur Abdomen/GI:Soft, Non tender, Bowel sounds present Extremities/Musculoskelatal:normal inspection, no edema, Left hip in surgical dressing Neurologic/Psych:AAOX3, grossly no focal neurological deficits Skin: normal color, warm Results & Data Results & Data ([facility]) Vital Signs (Past 12 Hours) Vital Signs Temp Pulse Pulse Pulse Resp BP BP 05/26/20 15:05 36.7 C 82 18 105/61 05/26/20 14:34 16 05/26/20 14:20 87 18 120/53 L 05/26/20 14:10 37.1 C 88 20 107/55 L 05/26/20 14:00 89 17 129/63 05/26/20 13:50 93 H 16 131/57 L 05/26/20 13:40 94 H 18 127/63 05/26/20 13:30 96 H 17 139/65 05/26/20 13:20 100 H 16 144/79 H 05/26/20 13:14 36.3 C L 80 28 H 166/73 H 05/26/20 09:44 37 C 78 20 113/70 05/26/20 08:00 81 05/26/20 06:53 36.7 C 84 16 123/75 05/26/20 03:19 36.9 C 83 16 108/66 Pulse Ox 05/26/20 15:05 91 05/26/20 14:34 96 05/26/20 14:20 93 05/26/20 14:10 94 05/26/20 14:00 96 05/26/20 13:50 96 05/26/20 13:40 92 05/26/20 13:30 92 05/26/20 13:20 92 05/26/20 13:14 95 05/26/20 09:44 98 05/26/20 08:00 05/26/20 06:53 92 05/26/20 03:19 92 Laboratory Results Short CBC 05/25/20 05/26/20 Range/Units 20:08 05:09 WBC 11.97 H 9.82 (4.8-10.8) K/uL Hgb 16.0 14.3 (12.0-16.0) g/dL Hct 47.2 H 44.3 (37-47) % Plt Count 220 171 (130-400) K/uL BMP 05/25/20 05/26/20 20:08 05:09 Sodium 139 142 Potassium 3.2 L 3.6 Chloride 102 107 Carbon Dioxide 31 32 BUN 23 H 21 H Creatinine 0.92 0.65 Glucose 174 H 110 H Calcium 8.7 8.1 L Cardiac Enzymes 05/25/20 05/26/20 05/26/20 Range/Units 20:08 05:09 10:44 Total Creatine Kinase 742 H (26-192) U/L Troponin I < 0.015 < 0.015 < 0.015 (0-0.045) ng/ml Urine 05/26/20 Range/Units 04:20 Urine Color [place] Urine Appearance Clear (Clear) Urine pH 5.5 (4.5-7.5) Ur Specific [place] 1.030 (1.000-1.030) Urine Protein Trace H (Negative) Urine Glucose (UA) Negative (Negative) (1) Hip dislocation, left Encounter type: initial encounter Qualified Code(s): S73.005A - Unspecified dislocation of left hip, initial encounter
[2020-05-26] MEDS ORDERED: VANCOMYCIN HCL 1,250 MG in SODIUM CHLORIDE 0.9% 250 ML IV ONE (16:00)
[2020-05-26] MEDS ORDERED: METOPROLOL TARTRATE 25 MG TAB PO ONE (16:00)
[2020-05-26] MEDS: ASCORBIC ACID 500 MG TAB PO SCH (16:08)
[2020-05-26] MEDS: FERROUS GLUCONATE 324 MG TAB PO SCH (16:08)
[2020-05-26] MEDS: KETOROLAC TROMETHAMINE 15 MG/ML VIAL IV SCH ×2 (17:13→23:48)
--- NOTE | 2020-05-26 19:12 | Electrocardiogram Report ---
Test Reason : Blood Pressure : / mmHG Vent. Rate : 170 BPM Atrial Rate : 170 BPM P-R Int : 000 ms QRS Dur : 072 ms QT Int : 262 ms P-R-T Axes : 000 078 -88 degrees QTc Int : 440 ms Atrial fibrillation with rapid ventricular response Abnormal ECG Confirmed by Mitchell Gann ([id number]) on 05/26/2020 7:12:03 PM Referred By: REFERRED SELF Confirmed By:August Gann
--- NOTE | 2020-05-26 19:13 | Electrocardiogram Report ---
Test Reason : Blood Pressure : / mmHG Vent. Rate : 079 BPM Atrial Rate : 079 BPM P-R Int : 156 ms QRS Dur : 076 ms QT Int : 408 ms P-R-T Axes : 069 079 073 degrees QTc Int : 467 ms Sinus rhythm with occasional Premature ventricular complexes Otherwise normal ECG When compared with ECG of 25-MAY-2020 20:02, (unconfirmed) Sinus rhythm has replaced Atrial fibrillation Vent. rate has decreased BY [address] no longer depressed in Anterolateral leads T wave inversion no longer evident in Inferior leads T wave inversion no longer evident in Lateral leads Confirmed by Mitchell Gann ([id number]) on 05/26/2020 7:13:02 PM Referred By: REFERRED SELF Confirmed By:August Gann
[2020-05-26] MEDS: SENNA 8.6 MG TAB PO SCH (20:08)
[2020-05-26] MEDS: DOCUSATE SODIUM 100 MG CAP PO SCH (20:08)
[2020-05-26] MEDS: CEFAZOLIN 2000MG 2,000 MG/15 ML SYR IV SCH (20:11)
[2020-05-27] MEDS: CEFAZOLIN 2000MG 2,000 MG/15 ML SYR IV SCH (03:57)
[2020-05-27] MEDS: SODIUM CHLORIDE 0.9% 1000ML 1,000 ML IV SCH (04:37)
[2020-05-27] MEDS: KETOROLAC TROMETHAMINE 15 MG/ML VIAL IV SCH ×2 (05:13→12:45)
[2020-05-27 06:13] LABS: Hematocrit (blood only) 41.2 % (37-47); Hemoglobin 12.8 g/dL (12.0-16.0); Mean Corpuscular Hemoglobin 33.3 pg (25-34); Mean Corpuscular Hgb Conc 31.1 g/dL (32-36); Mean Corpuscular Volume 107.3 fL (80-100); Mean Platelet Volume 10.1 fL (7.4-10.4); Platelet Count 174 K/uL (130-400); RDW Coefficient of Variation 14.4 % (11.5-14.5); RDW Standard Deviation 56.3 fL (36.4-46.3); Red Blood Count 3.84 M/uL (4.2-5.4); White Blood Count 9.46 K/uL (4.8-10.8)
[2020-05-27 06:44] LABS: BUN Creatinine Ratio 40.2 (10-20); Calcium 7.8 mg/dl (8.5-10.1); Creatinine Clr Calc Pharmacy 130.1 ml/min; Est GFR (African American) 114.4; Est GFR (Non-African American) 98.7; Magnesium 2.1 mg/dl (1.8-2.4); Potassium 3.8 mmol/L (3.5-5.1)
[2020-05-27 06:54] LABS: Thyroid Stimulating Hormone 0.299 uIu/ml (0.300-4.500)
[2020-05-27 06:57] LABS: Estimated Average Glucose 111 mg/dl; Hemoglobin A1C 5.5 % (4.5-5.6)
--- NOTE | 2020-05-27 07:02 | Progress Notes ---
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 OBJECTIVE: Neurovascular check, femoral sciatic nerve is normal. Wound dressing clean, dry and intact. Will change it later today. She can be weightbearing. She needs to wear her brace. Her postop hematocrit stable at 41. ASSESSMENT AND PLAN: From orthopedic perspective, can be discharged at any time. Discharge process based more on medical conditions at this point in time. Can be full weightbearing with brace on. She needs to wear the brace for 6 weeks. Needs to have postural discretion for at least another 12 weeks. Advised her and her daughter of such, hopefully she will comply. Told to return if issues arise much sooner than 72 hours. She states she understands.
[2020-05-27 07:07] LABS: T4 Free Thyroxine 1.29 ng/dl (0.8-1.6)
[2020-05-27] MEDS: INSULIN ASPART 100 UNITS/ML 3 ML PEN SC SCH ×3 (07:53→17:55)
[2020-05-27] MEDS ORDERED: dexAMETHasone 10 MG in SYRINGE 0 ML IV SCH (08:00)
[2020-05-27] MEDS: PARoxetine HCL 20 MG TAB PO SCH (08:30)
[2020-05-27] MEDS: BuPROPion XL 150 MG TABCR PO SCH (08:31)
[2020-05-27] MEDS: MULTIVITAMIN TAB PO SCH (08:32)
[2020-05-27] MEDS: LETROZOLE 2.5 MG TAB PO SCH (08:32)
[2020-05-27] MEDS: ASPIRIN 81 MG ECTAB PO SCH (08:33)
[2020-05-27] MEDS: DOCUSATE SODIUM 100 MG CAP PO SCH ×2 (08:33→20:12)
[2020-05-27] MEDS: METOPROLOL TARTRATE 25 MG TAB PO SCH ×2 (08:33→20:12)
[2020-05-27] MEDS: ASCORBIC ACID 500 MG TAB PO SCH ×2 (08:34→19:28)
[2020-05-27] MEDS: IRBESARTAN 75 MG TAB PO SCH (08:34)
[2020-05-27] MEDS: FERROUS GLUCONATE 324 MG TAB PO SCH ×2 (08:35→17:11)
[2020-05-27] MEDS: FLUTICASONE/VILANTEROL 200/25MCG 14 PUFFS/INHALER INH SCH (08:35)
--- NOTE | 2020-05-27 12:06 | Orthopedic Progress Note ---
Date of Service May 27, 2020 Assessment & Plan (1) Hip dislocation, left: Patient's left hip dressing was changed today by me. Brace was readjusted and she stated it felt better. Continue wearing brace at all times. Start PT/OT. We will defer to medicine service regarding anticoagulation and DVT prophylaxis We will continue to follow while she is in the hospital. Follow-up in the office on June 10 for staple removal. Admission and Anticipated Discharge Date Admission Date: May 26, 2020 Subjective Patient is seen in her room this morning. Nursing staff are present as well. She has been out of bed this morning. States her left hip hurts. She denies any chest pain, shortness of breath, nausea, vomiting, or abdominal pain. She does not like her hip brace and states it is tight. Review of Systems Review of Systems: Unchanged from yesterday. Physical Exam Physical Exam: Patient's left hip dressing is intact. No visible exterior drainage. Upon removal, she has several areas of skin abrasion and superficial skin loss from the tape. Wound is closed. No active bleeding. Expected postoperative ecchymosis. Nothing is expressible. Patient is able to actively flex and rotate her left hip. Neurologic: Gross sensation is intact across the left leg by soft touch. Peripheral pulses are 2+. Results & Data ([facility]) Vital Signs (Past 12 Hours) Vital Signs Temp Pulse Resp BP Pulse Ox 05/27/20 11:49 36.7 C 69 20 133/69 95 05/27/20 07:50 36.8 C 76 18 128/74 96 05/27/20 03:26 37 C 88 20 131/97 91 Diagnostic Findings H&H obtained today is 12.8 and 41.2. BUN and creatinine obtained today are elevated at 19 and 0.47. (1) Hip dislocation, left Encounter type: initial encounter Qualified Code(s): S73.005A - Unspecified dislocation of left hip, initial encounter
[2020-05-27 12:55] LABS: Base Excess VBG 2.2 mEq/L; HCO3 VBG 30 mmol/L; PCO2 VBG 63 mmHg (38-50); PO2 VBG 34 mmHg
[2020-05-27] MEDS: NICOTINE 21 MG/24 HR TDSY TD SCH (13:15)
[2020-05-27] MEDS: THIAMINE HCL 100 MG TAB PO SCH (13:16)
[2020-05-27 13:57] LABS: Oxygen Saturation VBG < 60.0 %
--- NOTE | 2020-05-27 16:37 | Hospitalist Progress Note ---
Date of Service May 27, 2020 Assessment & Plan (1) Hip dislocation, left: Patient is a 74 yr female with multiple comorbidities presents with history of left hip pain after a fall, was found to be in Afib RVR. Afib RVR No known history of Afib Converted to Sinus after one dose of IV Lopressor Troponin X 2 :Negative CXR:No active disease in the chest. ECHO: EF 60 to 65%. No regional wall motion abnormalities noted. Diastolic dysfunction, grade II. Poorly visualized valvular anatomy without significant stenosis or regurgitation by Doppler interrogation. TSH near normal, Normal Free T4 Continue Metoprolol 25mg BID Monitor on Tele Started on Lovenox SQ for DVT prophylaxis Monitor CBC for postop anemia Left hip dislocation H/O Fall Hip X ray:Dislocated left hip arthroplasty as above with overlying soft tissue edema. 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 Intermittent confusion per RN Denies chest pain, SOB, dizziness, nausea, abdominal pain Requiring minimal supplemental oxygen to maintain saturations Offers no other complaints Family at bedside Review of Systems Review of Systems: All systems reviewed & are unremarkable except as noted in HPI & below Physical Exam Physical Exam: Physical Exam: Vitals signs as noted above General Appearance:Moderately built and nourished, no apparent distress Head: normocephalic, Atraumatic Eyes: normal inspection, EOMI Neck: supple, Trachea midline Respiratory/Chest: Decreased breath sounds, CTA, No accessory muscle use Cardiovascular: S1, S2, No murmur Abdomen/GI:Soft, Non tender, Bowel sounds present Extremities/Musculoskelatal:normal inspection, no edema, Left hip dressing, +brace Neurologic/Psych:Alert, awake, grossly no focal neurological deficits Skin: normal color, warm Results & Data Results & Data ([facility]) Vital Signs (Past 12 Hours) Vital Signs Temp Pulse Resp BP Pulse Ox Pulse Ox Pulse Ox 05/27/20 16:11 36.3 C L 74 18 139/70 93 05/27/20 14:16 88 L 88 L 05/27/20 13:14 92 05/27/20 11:49 36.7 C 69 20 133/69 95 05/27/20 07:50 36.8 C 76 18 128/74 96 Pulse Ox 05/27/20 16:11 05/27/20 14:16 74 L 05/27/20 13:14 05/27/20 11:49 05/27/20 07:50 Laboratory Results Short CBC 05/27/20 Range/Units 05:19 WBC 9.46 (4.8-10.8) K/uL Hgb 12.8 (12.0-16.0) g/dL Hct 41.2 (37-47) % Plt Count 174 (130-400) K/uL BMP 05/27/20 05:19 Sodium 141 Potassium 3.8 Chloride 107 Carbon Dioxide 34 H BUN 19 H Creatinine 0.47 L Glucose 90 Calcium 7.8 L Cardiac Enzymes 05/27/20 Range/Units 05:19 Total Creatine Kinase 287 H (26-192) U/L (1) Hip dislocation, left Encounter type: initial encounter Qualified Code(s): S73.005A - Unspecified dislocation of left hip, initial encounter
--- NOTE | 2020-05-27 16:48 | Operative Report ---
Post Operative Report Pre & Post Diagnosis Operation Date: 05/26/20 08:10 Pre-Op Diagnosis: Dislocated Left Total Hip Arthroplasty Post-Op Diagnosis: Dislocated Left Total Hip Arthroplasty I identified the patient and participated in the time-out.: Yes Procedure Operation Date: 05/26/20 08:10 Actual Procedures s Attempted Closed Reduction Left Total Hip(Left) - Jhon Reyes MD p Open Reduction Left Total Hip Arthroplasty(Left) - Jhon Reyes MD Surgeon Jhon Reyes Insurance Risk Manager maggi/chelly Estimated Blood Loss 50 Findings Consistent with Post-Op Diagnosis Specimens none Anesthesia Type General Complications none Disposition Accompanied Patient To Recovery: Yes Disposition: Recovery Room Description of Procedure as per dr Reyes's note, I assisted in scrubbing and draping, instruments handling, certain parts of the procedure and wound closure. I attest to the content of the Intraoperative Record and any orders documented therein. Any exceptions are noted below.
--- NOTE | 2020-05-27 16:55 | Cardiology Progress Note ---
Date of Service May 27, 2020 Assessment & Plan (1) Atrial fibrillation: (2) Hip dislocation, left: . Postop day 1, status post open reduction of dislocated left hip arthroplasty, 05/26/20. No recurrence of atrial fibrillation thus far. Toprol. Aspirin and Risk factors of female sex, age, and hypertension, would ideally be on anticoagulation for stroke prophylaxis moving forward, but I think we need to clarify how she dislocated her hip to begin with as the details are not clear. Agree with positive pressure ventilation for presumed CO2 retention, confusion. Admission and Anticipated Discharge Date Admission Date: May 26, 2020 Subjective No cardiac complaints at present. Physical Exam Physical Exam: Temp Pulse Resp BP Pulse Ox 36.3 C L 74 18 139/70 93 05/27/20 16:11 05/27/20 16:11 05/27/20 16:11 05/27/20 16:11 05/27/20 16:11 Respiratory: normal respiratory effort, lungs clear to auscultation Cardiovascular: RRR, no murmur, no edema Neurologic: PERRL, EOMI, accommodation nl, no face palsy, no dysarthria Results & Data ([facility]) Vital Signs (Past 12 Hours) Vital Signs Temp Pulse Resp BP Pulse Ox Pulse Ox Pulse Ox 05/27/20 16:11 36.3 C L 74 18 139/70 93 05/27/20 14:16 88 L 88 L 05/27/20 13:14 92 05/27/20 11:49 36.7 C 69 20 133/69 95 05/27/20 07:50 36.8 C 76 18 128/74 96 Pulse Ox 05/27/20 16:11 05/27/20 14:16 74 L 05/27/20 13:14 05/27/20 11:49 05/27/20 07:50 Laboratory Results CBC 05/27/20 Range/Units 05:19 WBC 9.46 (4.8-10.8) K/uL RBC 3.84 L (4.2-5.4) M/uL Hgb 12.8 (12.0-16.0) g/dL Hct 41.2 (37-47) % Plt Count 174 (130-400) K/uL Comprehensive Metabolic Panel 05/27/20 Range/Units 05:19 Sodium 141 (136-145) mmol/L Potassium 3.8 (3.5-5.1) mmol/L Chloride 107 (98-107) mmol/L Carbon Dioxide 34 H (21-32) mmol/L BUN 19 H (7-18) mg/dl Creatinine 0.47 L (0.6-1.2) mg/dl Glucose 90 (70-99) mg/dl Calcium 7.8 L (8.5-10.1) mg/dl Intake and Output 05/27/20 05/27/20 05/27/20 06:59 14:59 22:59 Intake Total 1000 / 3100 1275.00 / 1275.00 Output Total 300 / 700 Balance 700 / 2400 1275.00 / 1275.00 Intake: IV 1000 / 1900 1000.00 / 1000.00 Nss 1000ML 1,000 ml @ 75 mls/hr 1000 / 1650 1000.00 / 1000.00 IV .[id number] [facility] Rx#:[id number] Oral 275 / 275 Output: Urine Amount (Catheter) 300 / 650 Johnson/Indwelling 300 / 650 Other: Weight 98 kg (1) Hip dislocation, left Encounter type: initial encounter Qualified Code(s): S73.005A - Unspecified dislocation of left hip, initial encounter
[2020-05-27] MEDS ORDERED: LORazepam 1 MG TAB PO PRN (18:28)
--- NOTE | 2020-05-27 18:58 | Electrocardiogram Report ---
Test Reason : Blood Pressure : / mmHG Vent. Rate : 086 BPM Atrial Rate : 086 BPM P-R Int : 128 ms QRS Dur : 076 ms QT Int : 370 ms P-R-T Axes : 060 071 063 degrees QTc Int : 442 ms Sinus rhythm with occasional Premature ventricular complexes Otherwise normal ECG When compared with ECG of 26-MAY-2020 09:11, Premature ventricular complexes are now Present Premature supraventricular complexes are no longer Present Confirmed by Mitchell Gann ([id number]) on 05/27/2020 6:58:37 PM Referred By: REFERRED SELF Confirmed By:August Gann
--- NOTE | 2020-05-27 19:09 | CT Scan Report ---
HEAD CT NONCONTRAST CT DOSE: 537.48 mGy.cm HISTORY: Altered mental status TECHNIQUE: Multiaxial CT images of the head were performed without the use of intravenous contrast. A utomated exposure control was utilized for this study. A dose lowering technique was utilized adheri ng to the principles of ALARA. Comparison: Head CT 05/25/2020. Findings: The paranasal sinuses and mastoid air cells are clear. The calvarium and skull base are int act. There is no mass, hematoma, midline shift, acute infarct. White matter hypodensity is nonspecifi c but suggestive of microvascular ischemic change. The ventricles and sulci demonstrate mild age-rela hilary involutional changes. Impression: No acute intracranial abnormality. Atrophy and microvascular ischemic changes. ACT 112: Negative or not required by law. Electronically signed by: Agusto Bourgeois M.D. 05/27/2020 7:07 PM
[2020-05-27] MEDS: ENOXAPARIN INJ 40 MG/0.4 ML SYR SQ SCH (19:28)
[2020-05-27] MEDS: SENNA 8.6 MG TAB PO SCH (20:11)
[2020-05-27 21:24] LABS: HCO3 ABG 30 mmol/L (19-24); Oxygen Saturation ABG 91.2 % (90-95); PCO2 ABG 48 mmHg (35-46); PO2 ABG 60 mmHg (80-95)
[2020-05-27 21:25] LABS: Allen Test Pos (Pos)
[2020-05-27] MEDS ORDERED: CEFEPIME CONSULT ACTIVE PRN (21:45)
[2020-05-27] MEDS ORDERED: CEFEPIME 2,000 MG/20 ML VIAL IV STA (21:45)
[2020-05-27] MEDS: LACTULOSE SYRUP 30 GM/45 ML UDP PO SCH (22:36)
[2020-05-27] MEDS: CEFEPIME 2,000 MG in SYRINGE 7.5 ML IV SCH (22:36)
--- NOTE | 2020-05-27 22:59 | Communication Note ---
Date of Service: May 27, 2020 Patient with episodic confusion. serum ammonia 53.7 UA (05/26) WBC esterase, nitrite positive AP Encephalopathy Multifactorial Possible hepatic encephalopathy rule out chronic liver disease Complicated UTI Lactulose trial Liver ultrasound in a.m. to rule out chronic liver disease May need GI consultation pending results urine CS (05/26 specimen), IV Cefepime for now. Will relay to AM provider.
[2020-05-28 05:55] LABS: Hematocrit (blood only) 39.6 % (37-47); Hemoglobin 12.7 g/dL (12.0-16.0); Mean Corpuscular Hemoglobin 33.3 pg (25-34); Mean Corpuscular Hgb Conc 32.1 g/dL (32-36); Mean Corpuscular Volume 103.9 fL (80-100); Mean Platelet Volume 9.5 fL (7.4-10.4); Platelet Count 167 K/uL (130-400); RDW Coefficient of Variation 13.9 % (11.5-14.5); RDW Standard Deviation 52.2 fL (36.4-46.3); Red Blood Count 3.81 M/uL (4.2-5.4); White Blood Count 8.81 K/uL (4.8-10.8)
[2020-05-28 06:23] LABS: Albumin Level 2.7 gm/dl (3.4-5.0); BUN Creatinine Ratio 39.8 (10-20); Calcium 8.3 mg/dl (8.5-10.1); Creatinine Clr Calc Pharmacy 149.1 ml/min; Est GFR (African American) 119.6; Est GFR (Non-African American) 103.2
[2020-05-28 06:26] LABS: Albumin Globulin Ratio 0.8 (0.9-2); Bilirubin,Total 1.1 mg/dl (0.2-1); Globulin 3.5 gm/dl (2.5-4.0); Total Protein 6.2 gm/dl (6.4-8.2)
--- NOTE | 2020-05-28 09:46 | Orthopedic Progress Note ---
Date of Service May 28, 2020 Assessment & Plan (1) Hip dislocation, left: Continue wearing brace at all times. Patient is not doing well with PT/OT Anticipate that she will need to be discharged to a SNF. We will defer to medicine service regarding anticoagulation and DVT prophylaxis We will continue to follow while she is in the hospital. Follow-up in the office on June 10 for staple removal. Admission and Anticipated Discharge Date Admission Date: May 26, 2020 Subjective This 74 yo F was seen this AM. She is 2 days s/p left hip dislocation with open reduction. Patient was with nursing staff when I was in room after soiling her bedding. Her dressing and brace were clean, dry and in place. She had no complaints of pain. She denies CP, SOB, nausea or vomiting but state that her bowels have been moving uncontrollably for the past day. Review of Systems Review of Systems: All systems reviewed & are unremarkable except as noted in Subjective Physical Exam Physical Exam: Left Hip: Brace in place and intact. Dressing clean, dry and intact. Patient was able to actively dorsi/plantar flex her foot. Difficulty performing SLRT. Light log roll and very light passive internal/external hip rotation caused no pain. Knee ROM 0-70. NV intact. Results & Data ([facility]) Vital Signs (Past 12 Hours) Vital Signs Temp Pulse Pulse Resp BP Pulse Ox 05/28/20 08:06 37.5 C 82 18 169/78 H 94 05/28/20 04:43 36.8 C 74 18 166/72 H 95 05/27/20 23:39 37.6 C H 73 20 174/95 H 94 05/27/20 22:19 61 20 96 Laboratory Results 05/28/20 05/28/20 05/28/20 Range/Units 07:26 05:40 05:40 WBC (4.8-10.8) K/uL RBC (4.2-5.4) M/uL Hgb (12.0-16.0) g/dL Hct (37-47) % MCV (80-100) fL MCH (25-34) pg MCHC (32-36) g/dL RDW Std Deviation (36.4-46.3) fL RDW Coeff of Cesilia (11.5-14.5) % Plt Count (130-400) K/uL MPV (7.4-10.4) fL ABG pH (7.35-7.45) ABG pCO2 (35-46) mmHg ABG pO2 (80-95) mmHg ABG HCO3 (19-24) mmol/L ABG O2 Saturation (90-95) % ABG Base Excess (-9-1.8) mEq/L Ramez Test (Pos) VBG pH (7.36-7.41) VBG pCO2 (38-50) mmHg VBG pO2 mmHg VBG HCO3 mmol/L VBG O2 Saturation % VBG Base Excess mEq/L Barometric Pressure mm/Hg Oxygen Given Sodium 141 (136-145) mmol/L Potassium 4.0 (3.5-5.1) mmol/L Chloride 107 (98-107) mmol/L Carbon Dioxide 31 (21-32) mmol/L Anion Gap 3.0 (3-11) BUN 16 (7-18) mg/dl Creatinine 0.41 L (0.6-1.2) mg/dl Est Cr Clr Drug Dosing 149.1 ml/min Est GFR ( Amer) 119.6 Est GFR (Non-Af Amer) 103.2 BUN/Creatinine Ratio 39.8 H (10-20) Glucose 124 H (70-99) mg/dl POC Glucose 114 H (70-99) mg/dl Calcium 8.3 L (8.5-10.1) mg/dl Total Bilirubin 1.1 H (0.2-1) mg/dl AST 40 H (15-37) U/L ALT 35 (12-78) U/L Alkaline Phosphatase 91 (45-117) U/L Ammonia 50.0 H (11-32) umol/L Total Protein 6.2 L (6.4-8.2) gm/dl Albumin 2.7 L (3.4-5.0) gm/dl Globulin 3.5 (2.5-4.0) gm/dl Albumin/Globulin Ratio 0.8 L (0.9-2) Folate 05/28/20 05/28/20 05/27/20 Range/Units 05:40 05:40 21:12 WBC 8.81 (4.8-10.8) K/uL RBC 3.81 L (4.2-5.4) M/uL Hgb 12.7 (12.0-16.0) g/dL Hct 39.6 (37-47) % MCV 103.9 H (80-100) fL MCH 33.3 (25-34) pg MCHC 32.1 (32-36) g/dL RDW Std Deviation 52.2 H (36.4-46.3) fL RDW Coeff of Cesilia 13.9 (11.5-14.5) % Plt Count 167 (130-400) K/uL MPV 9.5 (7.4-10.4) fL ABG pH (7.35-7.45) ABG pCO2 (35-46) mmHg ABG pO2 (80-95) mmHg ABG HCO3 (19-24) mmol/L ABG O2 Saturation (90-95) % ABG Base Excess (-9-1.8) mEq/L Ramez Test (Pos) VBG pH (7.36-7.41) VBG pCO2 (38-50) mmHg VBG pO2 mmHg VBG HCO3 mmol/L VBG O2 Saturation % VBG Base Excess mEq/L Barometric Pressure mm/Hg Oxygen Given Sodium (136-145) mmol/L Potassium (3.5-5.1) mmol/L Chloride (98-107) mmol/L Carbon Dioxide (21-32) mmol/L Anion Gap (3-11) BUN (7-18) mg/dl Creatinine (0.6-1.2) mg/dl Est Cr Clr Drug Dosing ml/min Est GFR ( Amer) Est GFR (Non-Af Amer) BUN/Creatinine Ratio (10-20) Glucose (70-99) mg/dl POC Glucose (70-99) mg/dl Calcium (8.5-10.1) mg/dl Total Bilirubin (0.2-1) mg/dl AST (15-37) U/L ALT (12-78) U/L Alkaline Phosphatase (45-117) U/L Ammonia 53.7 H (11-32) umol/L Total Protein (6.4-8.2) gm/dl Albumin (3.4-5.0) gm/dl Globulin (2.5-4.0) gm/dl Albumin/Globulin Ratio (0.9-2) Folate Pending 05/27/20 05/27/20 05/27/20 Range/Units 21:12 20:35 16:46 WBC (4.8-10.8) K/uL RBC (4.2-5.4) M/uL Hgb (12.0-16.0) g/dL Hct (37-47) % MCV (80-100) fL MCH (25-34) pg MCHC (32-36) g/dL RDW Std Deviation (36.4-46.3) fL RDW Coeff of Cesilia (11.5-14.5) % Plt Count (130-400) K/uL MPV (7.4-10.4) fL ABG pH 7.40 (7.35-7.45) ABG pCO2 48 H (35-46) mmHg ABG pO2 60 L (80-95) mmHg ABG HCO3 30 H (19-24) mmol/L ABG O2 Saturation 91.2 (90-95) % ABG Base Excess 4.0 H (-9-1.8) mEq/L Ramez Test Pos (Pos) VBG pH (7.36-7.41) VBG pCO2 (38-50) mmHg VBG pO2 mmHg VBG HCO3 mmol/L VBG O2 Saturation % VBG Base Excess mEq/L Barometric Pressure 735.9 mm/Hg Oxygen Given 2 L Sodium (136-145) mmol/L Potassium (3.5-5.1) mmol/L Chloride (98-107) mmol/L Carbon Dioxide (21-32) mmol/L Anion Gap (3-11) BUN (7-18) mg/dl Creatinine (0.6-1.2) mg/dl Est Cr Clr Drug Dosing ml/min Est GFR ( Amer) Est GFR (Non-Af Amer) BUN/Creatinine Ratio (10-20) Glucose (70-99) mg/dl POC Glucose 163 H 141 H (70-99) mg/dl Calcium (8.5-10.1) mg/dl Total Bilirubin (0.2-1) mg/dl AST (15-37) U/L ALT (12-78) U/L Alkaline Phosphatase (45-117) U/L Ammonia (11-32) umol/L Total Protein (6.4-8.2) gm/dl Albumin (3.4-5.0) gm/dl Globulin (2.5-4.0) gm/dl Albumin/Globulin Ratio (0.9-2) Folate 05/27/20 05/27/20 Range/Units 12:43 11:32 WBC (4.8-10.8) K/uL RBC (4.2-5.4) M/uL Hgb (12.0-16.0) g/dL Hct (37-47) % MCV (80-100) fL MCH (25-34) pg MCHC (32-36) g/dL RDW Std Deviation (36.4-46.3) fL RDW Coeff of Cesilia (11.5-14.5) % Plt Count (130-400) K/uL MPV (7.4-10.4) fL ABG pH (7.35-7.45) ABG pCO2 (35-46) mmHg ABG pO2 (80-95) mmHg ABG HCO3 (19-24) mmol/L ABG O2 Saturation (90-95) % ABG Base Excess (-9-1.8) mEq/L Ramez Test (Pos) VBG pH 7.30 L (7.36-7.41) VBG pCO2 63 H (38-50) mmHg VBG pO2 34 mmHg VBG HCO3 30 mmol/L VBG O2 Saturation < 60.0 % VBG Base Excess 2.2 mEq/L Barometric Pressure 737.8 mm/Hg Oxygen Given Sodium (136-145) mmol/L Potassium (3.5-5.1) mmol/L Chloride (98-107) mmol/L Carbon Dioxide (21-32) mmol/L Anion Gap (3-11) BUN (7-18) mg/dl Creatinine (0.6-1.2) mg/dl Est Cr Clr Drug Dosing ml/min Est GFR ( Amer) Est GFR (Non-Af Amer) BUN/Creatinine Ratio (10-20) Glucose (70-99) mg/dl POC Glucose 145 H (70-99) mg/dl Calcium (8.5-10.1) mg/dl Total Bilirubin (0.2-1) mg/dl AST (15-37) U/L ALT (12-78) U/L Alkaline Phosphatase (45-117) U/L Ammonia (11-32) umol/L Total Protein (6.4-8.2) gm/dl Albumin (3.4-5.0) gm/dl Globulin (2.5-4.0) gm/dl Albumin/Globulin Ratio (0.9-2) Folate (1) Hip dislocation, left Encounter type: initial encounter Qualified Code(s): S73.005A - Unspecified dislocation of left hip, initial encounter
[2020-05-28] MEDS: NICOTINE 21 MG/24 HR TDSY TD SCH (10:05)
[2020-05-28] MEDS: THIAMINE HCL 100 MG TAB PO SCH (10:05)
[2020-05-28] MEDS: LETROZOLE 2.5 MG TAB PO SCH (10:06)
[2020-05-28] MEDS: MULTIVITAMIN TAB PO SCH (10:06)
[2020-05-28] MEDS: METOPROLOL TARTRATE 25 MG TAB PO SCH ×2 (10:06→20:12)
[2020-05-28] MEDS: IRBESARTAN 75 MG TAB PO SCH (10:06)
[2020-05-28] MEDS: DOCUSATE SODIUM 100 MG CAP PO SCH ×2 (10:06→20:11)
[2020-05-28] MEDS: LACTULOSE SYRUP 30 GM/45 ML UDP PO SCH ×3 (10:07→20:11)
[2020-05-28] MEDS: FLUTICASONE/VILANTEROL 200/25MCG 14 PUFFS/INHALER INH SCH (10:07)
[2020-05-28] MEDS: ASPIRIN 81 MG ECTAB PO SCH (10:07)
[2020-05-28] MEDS: BuPROPion XL 150 MG TABCR PO SCH (10:07)
[2020-05-28] MEDS: PARoxetine HCL 20 MG TAB PO SCH (10:08)
[2020-05-28] MEDS: ASCORBIC ACID 500 MG TAB PO SCH ×2 (10:09→17:16)
[2020-05-28] MEDS: FERROUS GLUCONATE 324 MG TAB PO SCH ×2 (10:09→17:15)
[2020-05-28] MEDS: CEFEPIME 2,000 MG in SYRINGE 7.5 ML IV SCH (10:18)
--- NOTE | 2020-05-28 10:33 | Ultrasound Report ---
US liver HISTORY: 74 years-old Female hyperammonemia, ro chronic liver dse COMPARISON: CT abdomen and pelvis 12/01/2013 TECHNIQUE: Multiple real-time sonographic images of the abdominal right upper quadrant were obtained assessing grayscale appearance and color flow FINDINGS: Study is mildly limited secondary to obscuring bowel gas. Liver is unremarkable without focal mass or intrahepatic biliary ductal dilation. No marginal nodularity of the liver. There is edematous gallbl adder wall thickening, most pronounced along the hepatic surface with probable trace pericholecystic fluid. Gallbladder wall is thickened measuring up to 5 mm. Trace layering gallbladder sludge without shadowing cholelithiasis. Sonographic Prabhakar sign was not reported. Common bile duct is normal, 5 mm. Imaged right kidney is unremarkable without hydronephrosis. 8 mm probable cyst of the superior pole right kidney. IMPRESSION: 1. Trace layering gallbladder sludge. There is edematous gallbladder wall thickening which is most pr onounced along the hepatic surface and there is trace pericholecystic fluid without cholelithiasis. T hese findings may be secondary to hepatocellular disease such as hepatitis with acute acalculus erick cystitis also within the differential. Correlate with laboratory analysis. 2. No biliary ductal dilation. ACT 112: Negative or not required by law. The above report was generated using voice recognition software. It may contain grammatical, syntax o r spelling errors. Electronically signed by: Nicolas Jeter M.D. 05/28/2020 10:32 AM
--- NOTE | 2020-05-28 12:44 | Electrocardiogram Report ---
Test Reason : Blood Pressure : / mmHG Vent. Rate : 080 BPM Atrial Rate : 080 BPM P-R Int : 146 ms QRS Dur : 070 ms QT Int : 376 ms P-R-T Axes : 065 074 064 degrees QTc Int : 433 ms Normal sinus rhythm Normal ECG When compared with ECG of 27-MAY-2020 06:28, Premature ventricular complexes are no longer Present Confirmed by Mitchell Gann ([id number]) on 05/28/2020 12:44:19 PM Referred By: REFERRED SELF Confirmed By:August Gann
--- NOTE | 2020-05-28 15:26 | Consultation Report ---
DATE OF CONSULTATION: 05/28/2020 NEUROLOGY CONSULTATION NOTE CHIEF COMPLAINT: Altered mental status. HISTORY OF PRESENT ILLNESS: A 74-year-old woman with multiple medical comorbidities including prediabetes, asthma, COPD, hypertension, alcohol dependence -- in remission, depression, admitted to the hospital on 05/26 after a fall and found to have a left hip dislocation and also found to be in rapid atrial fibrillation. The patient normally ambulates at home with a walker, but believed she had fallen 2 days prior to admission. Upon arrival to the hospital, she was found to be in AFib with RVR and imaging showed a hip dislocation. Orthopedics was consulted and plan to do a reduction of the dislocation under anesthesia the following day. The patient underwent surgery on 05/26. The patient was noted to have episodic confusion, and neurology was consulted for additional recommendations. Daughter at bedside. Patient much approved today. Patient currently without complaint. ALLERGIES: OXYCODONE. PAST MEDICAL HISTORY: Atrial fibrillation, asthma, COPD, hypertension, depression, tobacco use disorder. PAST SURGICAL HISTORY: Most recent left hip dislocation surgery. She has had a right axillary lymph node biopsy, colonoscopy, appendectomy, partial right mastectomy, bilateral cataract removal, bilateral hip replacements. HOME MEDICATIONS: Wellbutrin 150 mg daily, Flonase, Symbicort, melatonin, albuterol, vitamin D, multivitamin. FAMILY HISTORY: Her mother had colon cancer. REVIEW OF SYSTEMS: As per HPI. Rest of the review of systems was negative. PHYSICAL EXAMINATION: VITAL SIGNS: Blood pressure 160/70, pulse is 76, respiratory rate 18, temperature is 37.2, O2 saturation is 98% on nasal cannula 1 liter. EXAM: Constitutional: appears stated age, resting in bed, no distress Face: normocephalic and atraumatic Eyes: normal lids, normal conjunctiva Neck: supple Respiratory: normal effort Cardiovascular: normal pulses Abdomen: non distended Skin: no rashes, lesions, or ulcers noted Psychiatric: normal mood and normal affect NEUROLOGIC EXAMINATION: Appearance: no acute distress Orientation: awake, alert and oriented x 3 Mental Status: alert Attention: normal Knowledge: appropriate Language: no aphasia Speech: no dysarthria Cranial Nerves: CN 2 - no visual defect on confrontation and pupils round, equal, reactive to light CN 3, 4, 6 - extra-ocular movements intact CN 5 - facial sensation intact CN 7 - no facial asymmetry CN 8 - intact hearing CN 9, 10 - palate symmetric CN 11 - good shoulder shrug CN 12 - tongue midline Gait: deferred Coordination: no ataxia with finger to nose testing , no tremor or myoclonus Sensory: intact and symmetric to light touch Muscle Tone: normal Muscle exam: Moving all 4 extremities against gravity Reflexes: No ankle clonus DIAGNOSTIC TESTING AND LABORATORY VALUES: WBC 8.81, hemoglobin 12.7, platelet count 167. Sodium 141, potassium 4.0, creatinine 0.41, blood glucose 115, AST 40, ALT 35. Ammonia is 50. TSH is 0.299, free T4 is 1.29. Urinalysis was positive for nitrites and trace leukocyte esterase, negative for bacteria. Liver ultrasound showed trace layering gallbladder sludge. Edematous gallbladder wall thickening, no biliary ductal dilatation. CT head noncontrast showed no acute intracranial abnormality. Atrophy and microvascular ischemic changes. PLAN: A 74-year-old woman admitted to the hospital status post a fall with a left hip dislocation status post surgery now with suspected or presumed hospital acquired delirium s/p surgery. Patient is not delirious or encephalopathic this afternoon. Patient much improved today per discussion with daughter at bedside. Discussed natural history of delirium and risk with hospital admission and room changes. Would avoid pain medications and sedatives if possible. Patient does not require neurology follow up. Please call me with any additional questions or concerns. GISEL
[2020-05-28] MEDS: ENOXAPARIN INJ 40 MG/0.4 ML SYR SQ SCH (17:16)
[2020-05-28] MEDS ORDERED: SODIUM CHLORIDE 0.9% 1000ML 1,000 ML IV ONE (18:38)
--- NOTE | 2020-05-28 18:48 | Hospitalist Progress Note ---
Date of Service May 28, 2020 Assessment & Plan (1) Hip dislocation, left: Patient is a 74 yr female with multiple comorbidities presents with history of left hip pain after a fall, was found to be in Afib RVR. Afib RVR No known history of Afib Converted to Sinus after one dose of IV Lopressor Troponin X 2 :Negative CXR:No active disease in the chest. ECHO: EF 60 to 65%. No regional wall motion abnormalities noted. Diastolic dysfunction, grade II. Poorly visualized valvular anatomy without significant stenosis or regurgitation by Doppler interrogation. TSH near normal, Normal Free T4 Continue Metoprolol 25mg BID Monitor on Tele Continue Lovenox SQ for DVT prophylaxis Need to readdress long-term anticoagulation as outpatient (Discussed with Cardiology) Left hip dislocation H/O Fall Hip X ray:Dislocated left hip arthroplasty as above with overlying soft tissue edema. S/P open reduction, left total hip arthroplasty POD#2 Weightbearing as tolerated Pain control Wound care as per orthopedics Appreciate orthopedics input PT OT, fall precautions Needs Rehab Placement Needs follow-up with orthopedics on Jun 10 for staple removal Possible acalculous cholecystitis Elevated Ammonia levels --Liver ultrasound:Trace layering gallbladder sludge. There is edematous gallbladder wall thickening which is most pronounced along the hepatic surface and there is trace pericholecystic fluid without cholelithiasis. These findings may be secondary to hepatocellular disease such as hepatitis with acute acalculus cholecystitis also within the differential. Correlate with laboratory analysis. No biliary ductal dilation. --HIDA scan pending --Hepatitis panel pending --N.p.o. after midnight --Surgery consulted for input --Started on Zosyn for now --Gentle IV fluids --Monitor ammonia levels --Continue lactulose and titrate with bowel movements Metabolic Encephalopathy/Delirium Head CT:No acute intracranial abnormality. Atrophy and microvascular ischemic changes. 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 Px: Lovenox SQ Code Status Full Code Disposition: Needs Rehab Placement Admission and Anticipated Discharge Date Admission Date: May 26, 2020 Subjective Patient is seen and examined at bedside Mental status much improved today Oriented during my encounter this morning No significant neck pain at surgical site Ammonia slightly better today Denies chest pain, shortness of breath, dizziness, nausea, abdominal pain Liver ultrasound suggestive of possible acalculous cholecystitis Low-grade fever overnight Urine culture negative for UTI Family at bedside Review of Systems Review of Systems: All systems reviewed & are unremarkable except as noted in HPI & below Physical Exam Physical Exam: Physical Exam: Vitals signs as noted above General Appearance:Moderately built and nourished, no apparent distress Head: normocephalic, Atraumatic Eyes: normal inspection, EOMI Neck: supple, Trachea midline Respiratory/Chest: Decreased breath sounds, CTA, No accessory muscle use Cardiovascular: S1, S2, No murmur Abdomen/GI:Soft, Non tender, Bowel sounds present Extremities/Musculoskelatal:normal inspection, no edema, Left hip dressing, +br shelly Neurologic/Psych:Alert, awake, grossly no focal neurological deficits Skin: normal color, warm Results & Data Results & Data ([facility]) Vital Signs (Past 12 Hours) Vital Signs Temp Pulse Resp BP Pulse Ox Pulse Ox 05/28/20 18:32 120/69 05/28/20 16:53 37.2 C 76 18 107/64 90 05/28/20 14:00 91 05/28/20 12:00 37.2 C 76 18 160/70 H 98 05/28/20 08:06 37.5 C 82 18 169/78 H 94 Laboratory Results Short CBC 05/28/20 Range/Units 05:40 WBC 8.81 (4.8-10.8) K/uL Hgb 12.7 (12.0-16.0) g/dL Hct 39.6 (37-47) % Plt Count 167 (130-400) K/uL BMP 05/28/20 05:40 Sodium 141 Potassium 4.0 Chloride 107 Carbon Dioxide 31 BUN 16 Creatinine 0.41 L Glucose 124 H Calcium 8.3 L Liver Function 05/28/20 Range/Units 05:40 Total Bilirubin 1.1 H (0.2-1) mg/dl AST 40 H (15-37) U/L ALT 35 (12-78) U/L Alkaline Phosphatase 91 (45-117) U/L Albumin 2.7 L (3.4-5.0) gm/dl (1) Hip dislocation, left Encounter type: initial encounter Qualified Code(s): S73.005A - Unspecified dislocation of left hip, initial encounter
[2020-05-28] MEDS ORDERED: PIPERACILL/TAZOBAC CONSULT ACTIVE PRN (18:56)
[2020-05-28] MEDS ORDERED: PIPERACILLIN/TAZOBACTAM 3.375 GM in DEXTROSE 5% 100 ML IV ONE (19:15)
[2020-05-28] MEDS: SENNA 8.6 MG TAB PO SCH (20:12)
--- NOTE | 2020-05-28 22:26 | Communication Note ---
Date of Service: May 28, 2020 Patient refusing HIDA despite explanation given at bedside pertaining to possible cholecystitis on liver ultrasound. Advance diet. Continue Zosyn until patient evaluated by AM provider.
[2020-05-28] MEDS: PIPERACILLIN/TAZOBACTAM 3.375 GM in DEXTROSE 5% 100 ML IV SCH (23:58)
[2020-05-29 06:55] LABS: Hematocrit (blood only) 41.1 % (37-47); Hemoglobin 12.6 g/dL (12.0-16.0); Mean Corpuscular Hemoglobin 32.1 pg (25-34); Mean Corpuscular Hgb Conc 30.7 g/dL (32-36); Mean Corpuscular Volume 104.6 fL (80-100); Mean Platelet Volume 9.8 fL (7.4-10.4); Platelet Count 179 K/uL (130-400); RDW Coefficient of Variation 13.8 % (11.5-14.5); RDW Standard Deviation 53.2 fL (36.4-46.3); Red Blood Count 3.93 M/uL (4.2-5.4); White Blood Count 6.55 K/uL (4.8-10.8)
[2020-05-29 07:24] LABS: Albumin Level 2.5 gm/dl (3.4-5.0); BUN Creatinine Ratio 33.3 (10-20); Bilirubin Direct 0.2 mg/dl (0-0.2); Calcium 8.5 mg/dl (8.5-10.1); Creatinine Clr Calc Pharmacy 124.6 ml/min; Est GFR (African American) 113.6; Potassium 3.5 mmol/L (3.5-5.1)
[2020-05-29 07:27] LABS: Bilirubin,Total 0.8 mg/dl (0.2-1); Total Protein 5.6 gm/dl (6.4-8.2)
[2020-05-29 09:25] LABS: Hepatitis C IgG 13Yrs+Old_Rflx Neg (Neg)
[2020-05-29] MEDS: PIPERACILLIN/TAZOBACTAM 3.375 GM in DEXTROSE 5% 100 ML IV SCH ×3 (09:52→23:35)
[2020-05-29] MEDS: IRBESARTAN 75 MG TAB PO SCH (09:52)
[2020-05-29] MEDS: METOPROLOL TARTRATE 25 MG TAB PO SCH ×2 (09:53→19:40)
[2020-05-29] MEDS: DOCUSATE SODIUM 100 MG CAP PO SCH ×2 (09:53→19:39)
[2020-05-29] MEDS: FLUTICASONE/VILANTEROL 200/25MCG 14 PUFFS/INHALER INH SCH (09:53)
[2020-05-29] MEDS: PARoxetine HCL 20 MG TAB PO SCH (09:53)
[2020-05-29] MEDS: MULTIVITAMIN TAB PO SCH (09:54)
[2020-05-29] MEDS: THIAMINE HCL 100 MG TAB PO SCH (09:54)
[2020-05-29] MEDS: BuPROPion XL 150 MG TABCR PO SCH (09:54)
[2020-05-29] MEDS: NICOTINE 21 MG/24 HR TDSY TD SCH (09:54)
[2020-05-29] MEDS: ASPIRIN 81 MG ECTAB PO SCH (09:54)
[2020-05-29] MEDS: LETROZOLE 2.5 MG TAB PO SCH (09:54)
[2020-05-29] MEDS: FERROUS GLUCONATE 324 MG TAB PO SCH ×2 (09:54→18:16)
[2020-05-29] MEDS: LACTULOSE SYRUP 30 GM/45 ML UDP PO SCH ×3 (09:55→19:39)
[2020-05-29] MEDS: ASCORBIC ACID 500 MG TAB PO SCH ×2 (09:55→18:16)
--- NOTE | 2020-05-29 10:22 | Cardiology Progress Note ---
Date of Service May 29, 2020 Assessment & Plan (1) Atrial fibrillation: (2) Hip dislocation, left: Postop day 3, status post open reduction of dislocated left hip arthroplasty, 05/26/20. No recurrence of atrial fibrillation since admission. Continue metoprolol and low-dose aspirin. Patient appears to be significant fall risk per discussion with daughter at bedside. I suspect there may be underlying issues due to dementia and noncompliance as well. We will continue antiplatelet therapy without anticoagulation currently. Continue to reassess as hospitalization unfolds. Fall risk assessment as per physical therapy. Admission and Anticipated Discharge Date Admission Date: May 26, 2020 Subjective Patient seen and examined at the bedside. Poor historian. Daughter is present at bedside as well. Patient denies chest pain or unusual shortness of breath. No palpitations, lightheadedness, dizziness, syncope, near syncope. Describes fall prior to admission although details are unclear. Daughter reports multiple falls over the past 12 months. Patient reportedly has a cane and walker however noncompliant with regular use. Atrial fibrillation with rapid ventricular response recorded on admission. Telemetry demonstrates sinus rhythm with brief salvos of paroxysmal supraventricular tachycardia over the past 48 hours. Review of Systems Review of Systems: All systems reviewed & are unremarkable except as noted in HPI & below Physical Exam Constitutional: well developed and well nourished; no acute distress and not ill appearing Respiratory: normal respiratory effort, lungs clear to auscultation Auscultation: no crackles, no rales, no rhonchi and no wheezes Cardiovascular: Rate/Rhythm: regular rate and regular rhythm Heart Sounds: normal S1 and normal S2; no murmur Vessels: radial pulses present; no JVD Extremities: no edema Gastrointestinal (Abdomen): Inspection/Auscultation: abdomen normal to inspection and normal bowel sounds; abdomen not distended Percussion/Palpation: abdomen soft; abdomen nontender, no guarding and abdomen not rigid Skin: no rashes, warm and dry Neurologic: moves all extremities; no focal motor deficits Speech / Cognition: normal speech Motor/Sensory: no tremor Psychiatric: Insight: + limited insight Results & Data ([facility]) Vital Signs (Past 12 Hours) Vital Signs Temp Pulse Pulse Resp BP Pulse Ox 05/29/20 08:05 36.8 C 68 16 126/74 98 05/29/20 05:12 36.9 C 70 18 139/69 91 05/28/20 23:51 74 05/28/20 23:35 37.8 C H 71 20 145/76 H 94 (1) Hip dislocation, left Encounter type: initial encounter Qualified Code(s): S73.005A - Unspecified dislocation of left hip, initial encounter
--- NOTE | 2020-05-29 13:28 | Surgery Consultation ---
Date of Consultation May 29, 2020 Assessment & Plan (1) Abnormal ultrasound of liver: This patient had elevated ammonia levels. Ultrasound showed some thickening of the wall between the gallbladder and the liver. There is no clinical or physical exam evidence of acute cholecystitis. Her liver function tests are normal. She was recommended to have a biliary scan but she is refusing that. I doubt acute cholecystitis. I do not feel there is any need for surgical intervention. History of Present Illness Reason for Consultation: Abnormal ultrasound of the liver Requesting Physician: David Meza MD Attending Physician: David Meza MD History of Present Illness I have been asked by Dr. Meza to see this 74-year-old female who had a fall at home and dislocated her prosthetic hip. She was brought to the emergency room for treatment for that. She was unsure as to why she fell. During her work-up she was found to have elevated ammonia levels. That prompted an ultrasound of the right upper quadrant and liver. There was thickening of the gallbladder wall with some fluid between the gallbladder wall and the liver. There was not diffuse gallbladder wall thickening however. She has not had an elevated liver function tests. She denies abdominal pain. She has no history of right upper quadrant or other abdominal pain. She can eat anything that she wants. She has no history of nausea or vomiting. Her bowels move regularly. There is no melena or hematochezia. There is no diarrhea or constipation. She denies dysuria and hematuria. She has no fatty food intolerance. Allergies Allergy/AdvReac Type Severity Reaction Status Date / Time oxycodone AdvReac Severe Hallucinati Verified 05/25/20 23:24 ons Home Medications Home Medications Medication Instructions Recorded Confirmed Type aspirin 81 mg PO DAILY 10/02/19 05/25/20 History budesonide-formoterol [Symbicort] 2 puff INHALATION BID 10/02/19 05/25/20 History bupropion HCl 150 mg PO DAILY 10/02/19 05/25/20 History fluticasone propionate 2 spray INTRANASAL DAILY PRN 10/02/19 05/25/20 History letrozole 2.5 mg PO DAILY 10/02/19 05/25/20 History paroxetine HCl 30 mg PO DAILY 10/02/19 05/25/20 History irbesartan 75 mg PO DAILY 05/25/20 05/25/20 History Patient History Medical History (Updated 05/29/20 @ 13:31 by Sravan Luna MD) Abdominal pain Atrial fibrillation DJD (degenerative joint disease) of hip (07/17/13) Malignant neoplasm of upper-outer quadrant of right breast in female, estrogen receptor positive (08/02/17) Status post completion of radiation therapy October 29, 2017. 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, progesterone receptor positive, and HER-2/vikas negative Status post right partial mastectomy and sentinel lymph node biopsy 09/04/2017 Stage pT1b pN0 M0" Perforated viscus Peritonitis Sepsis Sinusitis Surgical History (Updated 05/29/20 @ 13:27 by Sravan Luna MD) History of hip surgery S/P appendectomy S/P lumpectomy of breast S/P MORA-BSO S/P tonsillectomy Status post THR (total hip replacement) Bilateral Family History Other Cancer Diabetes Heart disease Hypertension Social History Smoking Status: Current every day smoker Cigarettes Per Day: 10-20/day; Second Hand Exposure: No; Do You Dip or Chew Tobacco: No; Tobacco Cessation Education Requested by Patient: No Hx Alcohol Use: Yes Alcohol type: beer Hx Substance Use: No Preferred Language: Lao Communication Ability: Effective Job Recruiter Required: No Beliefs That Will Affect Care: None Current Living Situation: Alone Feels Safe at Home: Yes Safety Concerns: Feels Safe At This Time Physical Exam Constitutional: well developed and well nourished Neck: Thyroid: normal thyroid Respiratory: normal respiratory effort, lungs clear to auscultation Cardiovascular: Rate/Rhythm: regular rate and regular rhythm Gastrointestinal (Abdomen): normal bowel sounds, soft, nontender, no hepatosplenomegaly Inspection/Auscultation: abdomen not distended Lymphatic: no cervical lymphadenopathy Results & Data ([facility]) Vital Signs (Past 12 Hours) Vital Signs Temp Pulse Resp BP Pulse Ox 05/29/20 12:07 36.8 C 61 18 131/60 95 05/29/20 08:05 36.8 C 68 16 126/74 98 05/29/20 05:12 36.9 C 70 18 139/69 91 Laboratory Results 05/29/20 05/29/20 05/29/20 Range/Units 11:31 07:34 06:27 WBC (4.8-10.8) K/uL RBC (4.2-5.4) M/uL Hgb (12.0-16.0) g/dL Hct (37-47) % MCV (80-100) fL MCH (25-34) pg MCHC (32-36) g/dL RDW Std Deviation (36.4-46.3) fL RDW Coeff of Cesilia (11.5-14.5) % Plt Count (130-400) K/uL MPV (7.4-10.4) fL Sodium (136-145) mmol/L Potassium (3.5-5.1) mmol/L Chloride (98-107) mmol/L Carbon Dioxide (21-32) mmol/L Anion Gap (3-11) BUN (7-18) mg/dl Creatinine (0.6-1.2) mg/dl Est Cr Clr Drug Dosing ml/min Est GFR ( Amer) Est GFR (Non-Af Amer) BUN/Creatinine Ratio (10-20) Glucose (70-99) mg/dl POC Glucose 99 101 H (70-99) mg/dl Calcium (8.5-10.1) mg/dl Total Bilirubin (0.2-1) mg/dl Direct Bilirubin (0-0.2) mg/dl AST (15-37) U/L ALT (12-78) U/L Alkaline Phosphatase (45-117) U/L Ammonia (11-32) umol/L Total Protein (6.4-8.2) gm/dl Albumin (3.4-5.0) gm/dl Hepatitis A IgM Ab Pending Hep Bs Antigen Pending (Neg) Hep B Core IgM Ab Pending Hepatitis C Antibody (Neg) 05/29/20 05/29/20 05/29/20 Range/Units 06:27 06:27 06:27 WBC (4.8-10.8) K/uL RBC (4.2-5.4) M/uL Hgb (12.0-16.0) g/dL Hct (37-47) % MCV (80-100) fL MCH (25-34) pg MCHC (32-36) g/dL RDW Std Deviation (36.4-46.3) fL RDW Coeff of Cesilia (11.5-14.5) % Plt Count (130-400) K/uL MPV (7.4-10.4) fL Sodium 143 (136-145) mmol/L Potassium 3.5 (3.5-5.1) mmol/L Chloride 106 (98-107) mmol/L Carbon Dioxide 32 (21-32) mmol/L Anion Gap 5.0 (3-11) BUN 16 (7-18) mg/dl Creatinine 0.48 L (0.6-1.2) mg/dl Est Cr Clr Drug Dosing 124.6 ml/min Est GFR ( Amer) 113.6 Est GFR (Non-Af Amer) 98.0 BUN/Creatinine Ratio 33.3 H (10-20) Glucose 93 (70-99) mg/dl POC Glucose (70-99) mg/dl Calcium 8.5 (8.5-10.1) mg/dl Total Bilirubin 0.8 (0.2-1) mg/dl Direct Bilirubin 0.2 (0-0.2) mg/dl AST 26 (15-37) U/L ALT 29 (12-78) U/L Alkaline Phosphatase 78 (45-117) U/L Ammonia 24.1 (11-32) umol/L Total Protein 5.6 L (6.4-8.2) gm/dl Albumin 2.5 L (3.4-5.0) gm/dl Hepatitis A IgM Ab Hep Bs Antigen Prelim Pos A (Neg) Hep B Core IgM Ab Hepatitis C Antibody Neg (Neg) 05/29/20 05/28/20 05/28/20 Range/Units 06:27 20:57 16:42 WBC 6.55 (4.8-10.8) K/uL RBC 3.93 L (4.2-5.4) M/uL Hgb 12.6 (12.0-16.0) g/dL Hct 41.1 (37-47) % MCV 104.6 H (80-100) fL MCH 32.1 (25-34) pg MCHC 30.7 L (32-36) g/dL RDW Std Deviation 53.2 H (36.4-46.3) fL RDW Coeff of Cesilia 13.8 (11.5-14.5) % Plt Count 179 (130-400) K/uL MPV 9.8 (7.4-10.4) fL Sodium (136-145) mmol/L Potassium (3.5-5.1) mmol/L Chloride (98-107) mmol/L Carbon Dioxide (21-32) mmol/L Anion Gap (3-11) BUN (7-18) mg/dl Creatinine (0.6-1.2) mg/dl Est Cr Clr Drug Dosing ml/min Est GFR ( Amer) Est GFR (Non-Af Amer) BUN/Creatinine Ratio (10-20) Glucose (70-99) mg/dl POC Glucose 114 H 127 H (70-99) mg/dl Calcium (8.5-10.1) mg/dl Total Bilirubin (0.2-1) mg/dl Direct Bilirubin (0-0.2) mg/dl AST (15-37) U/L ALT (12-78) U/L Alkaline Phosphatase (45-117) U/L Ammonia (11-32) umol/L Total Protein (6.4-8.2) gm/dl Albumin (3.4-5.0) gm/dl Hepatitis A IgM Ab Hep Bs Antigen (Neg) Hep B Core IgM Ab Hepatitis C Antibody (Neg) Diagnostic Findings US liver HISTORY: 74 years-old Female hyperammonemia, ro chronic liver dse COMPARISON: CT abdomen and pelvis 12/01/2013 TECHNIQUE: Multiple real-time sonographic images of the abdominal right upper quadrant were obtained assessing grayscale appearance and color flow FINDINGS: Study is mildly limited secondary to obscuring bowel gas. Liver is unremarkable without focal mass or intrahepatic biliary ductal dilation. No marginal nodularity of the liver. There is edematous gallbladder wall thickening, most pronounced along the hepatic surface with probable trace pericholecystic fluid. Gallbladder wall is thickened measuring up to 5 mm. Trace layering gallbladder sludge without shadowing cholelithiasis. Sonographic Prabhakar sign was not reported. Common bile duct is normal, 5 mm. Imaged right kidney is unremarkable without hydronephrosis. 8 mm probable cyst of the superior pole right kidney. IMPRESSION: 1. Trace layering gallbladder sludge. There is edematous gallbladder wall thickening which is most pronounced along the hepatic surface and there is trace pericholecystic fluid without cholelithiasis. These findings may be secondary to hepatocellular disease such as hepatitis with acute acalculus cholecystitis also within the differential. Correlate with laboratory analysis. 2. No biliary ductal dilation.
--- NOTE | 2020-05-29 14:24 | XRay Report ---
XR chest 2V PA/lateral CLINICAL HISTORY: Hypoxia COMPARISON STUDY: 05/25/2020 FINDINGS: The cardiac and mediastinal contours are normal. The patient is hyperinflated. There is no focal pulmonary consolidation. There is no evidence of failure. There is minimal blunting of the post erior costophrenic angles. Trace effusions cannot be excluded.[ IMPRESSION: 1. Hyperinflation. 2. Probable trace effusions 3. No evidence of focal pulmonary consolidation ACT 112: Negative or not required by law. Electronically signed by: Reg Tran M.D. 05/29/2020 2:22 PM
--- NOTE | 2020-05-29 15:49 | Hospitalist Progress Note ---
Date of Service May 29, 2020 Assessment & Plan (1) Hip dislocation, left: Patient is a 74 yr female with multiple comorbidities presents with history of left hip pain after a fall, was found to be in Afib RVR. Afib RVR No known history of Afib Converted to Sinus after one dose of IV Lopressor Troponin X 2 :Negative CXR:No active disease in the chest. ECHO: EF 60 to 65%. No regional wall motion abnormalities noted. Diastolic dysfunction, grade II. Poorly visualized valvular anatomy without significant stenosis or regurgitation by Doppler interrogation. TSH near normal, Normal Free T4 Continue Metoprolol 25mg BID Monitor on Tele Continue Lovenox SQ for DVT prophylaxis Need to readdress long-term anticoagulation as outpatient (Discussed with Cardiology) Left hip dislocation H/O Fall Hip X ray:Dislocated left hip arthroplasty as above with overlying soft tissue edema. S/P open reduction, left total hip arthroplasty POD#2 Weightbearing as tolerated Pain control Wound care as per orthopedics Appreciate orthopedics input PT OT, fall precautions Needs Rehab Placement Needs follow-up with orthopedics on Jun 10 for staple removal Possible acalculous cholecystitis Elevated Ammonia levels --Liver ultrasound:Trace layering gallbladder sludge. There is edematous gallbladder wall thickening which is most pronounced along the hepatic surface and there is trace pericholecystic fluid without cholelithiasis. These findings may be secondary to hepatocellular disease such as hepatitis with acute acalculus cholecystitis also within the differential. Correlate with laboratory analysis. No biliary ductal dilation. --HIDA scan:Patient refused --Hepatitis panel pending --Tolerated diet --No abdominal tenderness on palpation --Appreciate surgery input --Continue Zosyn for now --Continue lactulose and titrate with bowel movements Metabolic Encephalopathy/Delirium Head CT:No acute intracranial abnormality. Atrophy and microvascular ischemic changes. 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 DVT Px: Lovenox SQ Code Status Full Code Disposition: Plan to discharge to Rehab facility in next 24-48 hours Admission and Anticipated Discharge Date Admission Date: May 26, 2020 Subjective Patient is seen and examined at bedside States feeling well today Mental status back to baseline Denies chest pain, SOB, abdominal pain, nausea, vomiting Refused HIDA scan Afebrile today Review of Systems Review of Systems: All systems reviewed & are unremarkable except as noted in HPI & below Physical Exam Physical Exam: Physical Exam: Vitals signs as noted above General Appearance:Moderately built and nourished, no apparent distress Head: normocephalic, Atraumatic Eyes: normal inspection, EOMI Neck: supple, Trachea midline Respiratory/Chest: Decreased breath sounds, CTA, No accessory muscle use Cardiovascular: S1, S2, No murmur Abdomen/GI:Soft, Non tender, Bowel sounds present Extremities/Musculoskelatal:normal inspection, no edema, Left hip dressing, +brace Neurologic/Psych:Alert, awake, grossly no focal neurological deficits Skin: normal color, warm Results & Data Results & Data ([facility]) Vital Signs (Past 12 Hours) Vital Signs Temp Pulse Resp BP Pulse Ox 05/29/20 12:07 36.8 C 61 18 131/60 95 05/29/20 08:05 36.8 C 68 16 126/74 98 05/29/20 05:12 36.9 C 70 18 139/69 91 Laboratory Results Short CBC 05/29/20 Range/Units 06:27 WBC 6.55 (4.8-10.8) K/uL Hgb 12.6 (12.0-16.0) g/dL Hct 41.1 (37-47) % Plt Count 179 (130-400) K/uL BMP 05/29/20 06:27 Sodium 143 Potassium 3.5 Chloride 106 Carbon Dioxide 32 BUN 16 Creatinine 0.48 L Glucose 93 Calcium 8.5 Liver Function 05/29/20 Range/Units 06:27 Total Bilirubin 0.8 (0.2-1) mg/dl Direct Bilirubin 0.2 (0-0.2) mg/dl AST 26 (15-37) U/L ALT 29 (12-78) U/L Alkaline Phosphatase 78 (45-117) U/L Albumin 2.5 L (3.4-5.0) gm/dl (1) Hip dislocation, left Encounter type: initial encounter Qualified Code(s): S73.005A - Unspecified dislocation of left hip, initial encounter
[2020-05-29] MEDS: ENOXAPARIN INJ 40 MG/0.4 ML SYR SQ SCH (18:17)
[2020-05-29] MEDS: SENNA 8.6 MG TAB PO SCH (19:40)
[2020-05-30 05:37] LABS: HBSAG REACTIVE (NON-REACTIVE); Hepatitis A Antibody IgM NON-REACTIVE (NON-REACTIVE); Hepatitis B Core Antibody IgM NON-REACTIVE (NON-REACTIVE)
[2020-05-30 06:40] LABS: Hematocrit (blood only) 39.7 % (37-47); Hemoglobin 12.8 g/dL (12.0-16.0); Mean Corpuscular Hgb Conc 32.2 g/dL (32-36); Mean Corpuscular Volume 102.3 fL (80-100); Mean Platelet Volume 9.9 fL (7.4-10.4); Platelet Count 179 K/uL (130-400); RDW Coefficient of Variation 13.7 % (11.5-14.5); RDW Standard Deviation 51.4 fL (36.4-46.3); Red Blood Count 3.88 M/uL (4.2-5.4); White Blood Count 6.04 K/uL (4.8-10.8)
[2020-05-30 07:25] LABS: BUN Creatinine Ratio 28.2 (10-20); Calcium 8.3 mg/dl (8.5-10.1); Creatinine Clr Calc Pharmacy 135.8 ml/min; Est GFR (African American) 116.9; Est GFR (Non-African American) 100.8; Potassium 3.4 mmol/L (3.5-5.1)
[2020-05-30] MEDS: METOPROLOL TARTRATE 25 MG TAB PO SCH (08:33)
[2020-05-30] MEDS: PIPERACILLIN/TAZOBACTAM 3.375 GM in DEXTROSE 5% 100 ML IV SCH (08:33)
[2020-05-30] MEDS: DOCUSATE SODIUM 100 MG CAP PO SCH (08:33)
[2020-05-30] MEDS: ASCORBIC ACID 500 MG TAB PO SCH (08:34)
[2020-05-30] MEDS: IRBESARTAN 75 MG TAB PO SCH (08:34)
[2020-05-30] MEDS: ASPIRIN 81 MG ECTAB PO SCH (08:34)
[2020-05-30] MEDS: MULTIVITAMIN TAB PO SCH (08:34)
[2020-05-30] MEDS: THIAMINE HCL 100 MG TAB PO SCH (08:34)
[2020-05-30] MEDS: PARoxetine HCL 20 MG TAB PO SCH (08:34)
[2020-05-30] MEDS: LETROZOLE 2.5 MG TAB PO SCH (08:34)
[2020-05-30] MEDS: NICOTINE 21 MG/24 HR TDSY TD SCH (08:34)
[2020-05-30] MEDS: FERROUS GLUCONATE 324 MG TAB PO SCH (08:34)
[2020-05-30] MEDS: LACTULOSE SYRUP 30 GM/45 ML UDP PO SCH (08:35)
[2020-05-30] MEDS: FLUTICASONE/VILANTEROL 200/25MCG 14 PUFFS/INHALER INH SCH (08:35)
[2020-05-30] MEDS: BuPROPion XL 150 MG TABCR PO SCH (08:35)
[2020-05-30] MEDS ORDERED: POTASSIUM CHLORIDE 20 MEQ TABCR PO ONE (08:36)
--- NOTE | 2020-05-30 11:10 | Surgery Progress Note ---
Date of Service May 30, 2020 Assessment & Plan (1) Abnormal ultrasound of liver: Patient has no abdominal symptoms. There is no evidence of acute cholecystitis Tolerated diet without pain Plan is for discharge to rehab services later today Admission and Anticipated Discharge Date Admission Date: May 26, 2020 Subjective Feels well today Denies shortness of breath Denies abdominal pain Denies nausea and vomiting Tolerated diet Physical Exam Gastrointestinal (Abdomen): Inspection/Auscultation: abdomen normal to inspection and normal bowel sounds; abdomen not distended Percussion/Palpation: abdomen soft; abdomen nontender Results & Data ([facility]) Vital Signs (Past 12 Hours) Vital Signs Temp Pulse Pulse Resp BP Pulse Ox 05/30/20 08:13 36.5 C 73 20 150/78 H 97 05/30/20 08:00 72 05/30/20 03:43 37.0 C 65 20 155/96 H 91 05/30/20 00:12 64 05/30/20 00:00 37.1 C 69 19 173/84 H 94
--- NOTE | 2020-05-30 11:25 | Cardiology Progress Note ---
Date of Service May 30, 2020 Assessment & Plan (1) Atrial fibrillation: (2) Hip dislocation, left: Postop day 4, status post open reduction of dislocated left hip arthroplasty, 05/26/20. No recurrence of atrial fibrillation since admission. Continue metoprolol and low-dose aspirin. Patient appears to be significant fall risk per discussion with daughter. I suspect there may be underlying issues due to dementia and noncompliance as well. Currently, risk outweighs benefit for long-term anticoagulation. Recommend outpatient cardiology follow-up in 2 weeks to discuss potential addition of anticoagulation pending fall risk assessment. If patient improves compliance with cane/walker and can demonstrate gait stability without falls for at least 6-12 weeks, I would consider addition of long-term anticoagulation. Admission and Anticipated Discharge Date Admission Date: May 26, 2020 Subjective Patient seen and examined at the bedside. More alert today. Daughter present at bedside as well. She reports at least 4-5 falls over the past 12 months. Patient is a poor historian. Denies chest pain or palpitations. Brief moshe of paroxysmal supraventricular tachycardia recorded on telemetry. No recurrent atrial fibrillation. Patient is scheduled for transfer to rehab at [facility] today. Review of Systems Review of Systems: All systems reviewed & are unremarkable except as noted in HPI & below Physical Exam Constitutional: well developed and well nourished; no acute distress and not ill appearing Respiratory: normal respiratory effort, lungs clear to auscultation Auscultation: no crackles, no rales, no rhonchi and no wheezes Cardiovascular: Rate/Rhythm: regular rate and regular rhythm Heart Sounds: normal S1 and normal S2; no murmur Vessels: radial pulses present; no JVD Extremities: no edema Gastrointestinal (Abdomen): Inspection/Auscultation: abdomen normal to inspection and normal bowel sounds; abdomen not distended Percussion/Palpation: abdomen soft; abdomen nontender, no guarding and abdomen not rigid Skin: no rashes, warm and dry Neurologic: moves all extremities; no focal motor deficits Speech / Cognition: normal speech Motor/Sensory: no tremor Psychiatric: Insight: + limited insight Results & Data ([facility]) Vital Signs (Past 12 Hours) Vital Signs Temp Pulse Pulse Resp BP Pulse Ox 05/30/20 08:13 36.5 C 73 20 150/78 H 97 05/30/20 08:00 72 05/30/20 03:43 37.0 C 65 20 155/96 H 91 05/30/20 00:12 64 05/30/20 00:00 37.1 C 69 19 173/84 H 94 (1) Hip dislocation, left Encounter type: initial encounter Qualified Code(s): S73.005A - Unspecified dislocation of left hip, initial encounter
--- NOTE | 2020-05-30 11:33 | Hospitalist Progress Note ---
Date of Service May 30, 2020 Assessment & Plan (1) Hip dislocation, left: Patient is a 74 yr female with multiple comorbidities presents with history of left hip pain after a fall, was found to be in Afib RVR. Afib RVR No known history of Afib Converted to Sinus after one dose of IV Lopressor Troponin X 2 :Negative CXR:No active disease in the chest. ECHO: EF 60 to 65%. No regional wall motion abnormalities noted. Diastolic dysfunction, grade II. Poorly visualized valvular anatomy without significant stenosis or regurgitation by Doppler interrogation. TSH near normal, Normal Free T4 Continue Metoprolol 25mg BID Monitor on Tele Continue Lovenox SQ for DVT prophylaxis until more ambulatory Need to readdress long-term anticoagulation as outpatient (Discussed with Cardiology) Currently Risks overweigh benefits for terminal manager anticoagulation due to multiple falls Needs follow-up with cardiology in 2 weeks upon discharge Left hip dislocation H/O Fall Hip X ray:Dislocated left hip arthroplasty as above with overlying soft tissue edema. S/P open reduction, left total hip arthroplasty POD#2 Weightbearing as tolerated Pain control Wound care as per orthopedics Appreciate orthopedics input PT OT, fall precautions Needs Rehab Placement Needs follow-up with orthopedics on Jun 10 for staple removal Possible acalculous cholecystitis Elevated Ammonia levels --Liver ultrasound:Trace layering gallbladder sludge. There is edematous gallbladder wall thickening which is most pronounced along the hepatic surface and there is trace pericholecystic fluid without cholelithiasis. These findings may be secondary to hepatocellular disease such as hepatitis with acute acalculus cholecystitis also within the differential. Correlate with laboratory analysis. No biliary ductal dilation. --HIDA scan:Patient refused --Hepatitis panel pending --Patient prefers no further evaluation for liver/gallbladder --Tolerated diet --No abdominal tenderness on palpation --Appreciate surgery input --Continue Zosyn >> plan to transition to Augmentin upon discharge to complete the course --Ammonia levels normalized --Consider following up with gastroenterology as outpatient if patient prefers Metabolic Encephalopathy/Delirium Head CT:No acute intracranial abnormality. Atrophy and microvascular ischemic changes. 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 DVT Px: Lovenox SQ Code Status Full Code Disposition: Plan to discharge to Rehab facility today Admission and Anticipated Discharge Date Admission Date: May 26, 2020 Subjective Patient is seen and examined at bedside No new complaints today Discussed with cardiology Plan to be discharged to rehab facility today Denies chest pain, SOB, abdominal pain, nausea, vomiting Denies any significant pain at the surgical site Saturating well off oxygen Review of Systems Review of Systems: All systems reviewed & are unremarkable except as noted in HPI & below Physical Exam Physical Exam: Physical Exam: Vitals signs as noted above General Appearance:Moderately built and nourished, no apparent distress Head: normocephalic, Atraumatic Eyes: normal inspection, EOMI Neck: supple, Trachea midline Respiratory/Chest: Decreased breath sounds, CTA, No accessory muscle use Cardiovascular: S1, S2, No murmur Abdomen/GI:Soft, Non tender, Bowel sounds present Extremities/Musculoskelatal:normal inspection, no edema, Left hip dressing, +brace Neurologic/Psych:Alert, awake, grossly no focal neurological deficits Skin: normal color, warm Results & Data Results & Data ([facility]) Vital Signs (Past 12 Hours) Vital Signs Temp Pulse Pulse Resp BP Pulse Ox 05/30/20 08:13 36.5 C 73 20 150/78 H 97 05/30/20 08:00 72 05/30/20 03:43 37.0 C 65 20 155/96 H 91 05/30/20 00:12 64 05/30/20 00:00 37.1 C 69 19 173/84 H 94 Laboratory Results Short CBC 05/30/20 Range/Units 06:28 WBC 6.04 (4.8-10.8) K/uL Hgb 12.8 (12.0-16.0) g/dL Hct 39.7 (37-47) % Plt Count 179 (130-400) K/uL BMP 05/30/20 06:28 Sodium 142 Potassium 3.4 L Chloride 105 Carbon Dioxide 33 H BUN 12 Creatinine 0.44 L Glucose 101 H Calcium 8.3 L (1) Hip dislocation, left Encounter type: initial encounter Qualified Code(s): S73.005A - Unspecified dislocation of left hip, initial encounter
--- NOTE | 2020-05-30 11:52 | Discharge Summary ---
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 The patient lives alone. The patient says she ambulates with walker and she does not remember, but thinks might have fallen on Sunday or Sunday night. She does not remember what time she fell and how did she fall and she does not know how long she was there, but on Sunday afternoon she realized she fell and she had a cell phone with her and she called the neighbor. The neighbor helped her to get up in the chair and she gave food and the patient stayed in the chair whole Sunday and Sunday she called her daughter and she was also having left hip pain and she was brought into the ER. In the ER when she came in, she was in rapid AFib and imaging showed right hip dislocation. After giving 1 dose of IV Lopressor, she converted to sinus rhythm. Ortho was consulted and plan to do reduction of dislocation under anesthesia tomorrow. Her labs are okay. Total CK is 742. Troponin is negative. Potassium is 3.2. WBC 11.9. Currently resting comfortably and hemodynamically stable. Denies any chest pain. No shortness of breath and no palpitations. No nausea, no vomiting, no headache, no blurred visions, no earache, no runny nose, no sore throat. No loss of sense of smell or taste. She has smoker's cough. Denies any fever, chills. No abdominal pain. Normal bowel and bladder movements. Admission Exam Per Admitting Provider PHYSICAL EXAMINATION: GENERAL: The patient is of moderate build, not in acute distress. VITAL SIGNS: Temperature 36.8, pulse 83, when she came was in the 150s, respiratory rate 19, blood pressure 165/77, oxygen 96% on 2 liters. HEENT: Pupils equal, round, reactive to light. NECK: No JVD, no neck masses. CARDIOVASCULAR: S1, S2 heard, regular rate and rhythm, no murmur, no gallop. RESPIRATORY SYSTEM: Normal AP diameter. No accessory muscle use. No wheezing, no crackles. ABDOMEN: Soft, bowel sounds present. Nontender. No distention. CENTRAL NERVOUS SYSTEM: Cranial nerves II-XII grossly intact, nonfocal. EXTREMITIES: No edema, no erythema seen. Principal Diagnosis Left hip s/p open reduction of prosthesis dislocation New onset atrial fibrillation Possible acalculous cholecystitis Hypoxia Discharge Data Allergies Allergy/AdvReac Type Severity Reaction Status Date / Time oxycodone AdvReac Severe Hallucinati Verified 05/25/20 23:24 ons Consultations 05/25/20 23:09 Consult Orthopedic Surgery Stat ED Decision to Admit Stat 05/26/20 02:41 Consult Case Management - Discharge Planning Routine 05/26/20 08:00 Consult Cardiology Routine 05/26/20 14:43 Consult Case Management - Discharge Planning Routine 05/28/20 08:00 Consult Neurology Routine 05/29/20 07:00 Consult General Surgery Routine Procedures Performed Operation Date: 05/26/20 08:10 Actual Procedures s Attempted Closed Reduction Left Total Hip(Left) - Jhon Reyes MD p Open Reduction Left Total Hip Arthroplasty(Left) - Jhon Reyes MD ECHO: EF 60 to 65%. No regional wall motion abnormalities noted. Diastolic dysfunction, grade II. Poorly visualized valvular anatomy without significant stenosis or regurgitation by Doppler interrogation. Hip X ray:Dislocated left hip arthroplasty as above with overlying soft tissue edema. Liver ultrasound:Trace layering gallbladder sludge. There is edematous gallbladder wall thickening which is most pronounced along the hepatic surface and there is trace pericholecystic fluid without cholelithiasis. These findings may be secondary to hepatocellular disease such as hepatitis with acute acalculus cholecystitis also within the differential. Correlate with laboratory analysis. No biliary ductal dilation. Ordered Studies 05/25/20 21:56 CT head/brain wo con Urgent 05/26/20 FL fluoroscopy <1hr Routine FL hip LT 1V Routine FL hip LT 2-3V Routine 05/27/20 18:25 CT head/brain wo con Urgent 05/28/20 08:30 US liver Routine Hospital Course (1) Hip dislocation, left: Patient is a 74 yr female with multiple comorbidities presents with history of left hip pain after a fall, was found to be in Afib RVR. Afib RVR No known history of Afib Converted to Sinus after one dose of IV Lopressor Troponin X 2 :Negative CXR:No active disease in the chest. ECHO: EF 60 to 65%. No regional wall motion abnormalities noted. Diastolic dysfunction, grade II. Poorly visualized valvular anatomy without significant stenosis or regurgitation by Doppler interrogation. TSH near normal, Normal Free T4 Continue Metoprolol 25mg BID Monitor on Tele Continue Lovenox SQ for DVT prophylaxis until more ambulatory Need to readdress long-term anticoagulation as outpatient (Discussed with Cardiology) Currently Risks overweigh benefits for shelter anticoagulation due to multiple falls Needs follow-up with cardiology in 2 weeks upon discharge Left hip dislocation H/O Fall Hip X ray:Dislocated left hip arthroplasty as above with overlying soft tissue edema. S/P open reduction, left total hip arthroplasty POD#2 Weightbearing as tolerated Pain control Wound care as per orthopedics Appreciate orthopedics input PT OT, fall precautions Needs Rehab Placement Needs follow-up with orthopedics on Jun 10 for staple removal Possible acalculous cholecystitis Elevated Ammonia levels --Liver ultrasound:Trace layering gallbladder sludge. There is edematous gallbladder wall thickening which is most pronounced along the hepatic surface and there is trace pericholecystic fluid without cholelithiasis. These findings may be secondary to hepatocellular disease such as hepatitis with acute acalculus cholecystitis also within the differential. Correlate with laboratory analysis. No biliary ductal dilation. --HIDA scan:Patient refused --Hepatitis panel pending --Patient prefers no further evaluation for liver/gallbladder --Tolerated diet --No abdominal tenderness on palpation --Appreciate surgery input --Continue Zosyn >> plan to transition to Augmentin upon discharge to complete the course --Ammonia levels normalized --Consider following up with gastroenterology as outpatient if patient prefers Metabolic Encephalopathy/Delirium Head CT:No acute intracranial abnormality. Atrophy and microvascular ischemic changes. Mental status back to baseline Management as above Appreciate Neurology Input Resolved Asthma COPD Hypoxia No signs of exacerbation Continue home inhalers Nebs PRN 2 STEP: Requires 2 L of supplemental oxygen with activity ONLY. 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 Px: Lovenox SQ Code Status Full Code Disposition: Plan to discharge to Rehab facility today Total Time Total Time Spent Total Time Spent (In Minutes): 45 MINUTES Total Time Includes: Examination of the Patient, Discharge Planning, Medication Reconciliation, Communication With Other Providers and Other Discharge Plan Discharge Items Patient Disposition: Transfer Inpatient Rehab Fac Reason For Visit: HIP PAIN Discharge Diagnosis: Left hip s/p open reduction of prosthesis dislocation New onset atrial fibrillation Possible acalculous cholecystitis Hypoxia Condition on Discharge: Good Activity: Per Instructions section Lifting: Gradually increase as tolerated Bathing: Keep incision dry Exercise/Sports: Wait until after follow-up appointment Weightbearing: Full weightbearing Weightbearing Comment: must have hip brace on at all times Non-emergency contact: Primary Care Provider, Surgeon and Insulation Cutter Call non-emergency contact if: you have any medication questions, your pain is not controlled, your temperature is above 101, your wound has increased redness, your wound has increased drainage and your wound pain has increased Follow-up/Referrals: Kim Draper PA-C [Primary Care Provider] - Diet: Heart Healthy Addtl Attending Provider Instructions: Follow-up with your primary care physician Kim Draper PA-C in 1 week upon discharge from rehab facility Follow-up with your director of career services Dr. Hawkins/Jessica in 2 to 3 weeks as advised Follow-up with your orthopedic surgeon on June 10 for staple removal Complete the antibiotic course(Augmentin) for 5 more days as advised Consider further evaluation of your gallbladder if you develop any worsening symptoms. Your hepatitis panel is pending at the time of discharge. Follow-up with your physician for results. Use Lovenox 40mg SQ for DVT prophylaxis will need rehab facility--duration to be determined by your physician at rehab facility Use oxygen 2 L via nasal cannula with ambulation. Seek immediate medical attention if your symptoms reoccur or worsen Addtl Home Health Caregiver Provider Instructions: Patient must have brace on at all times other than bathing. This includes sleep. Maintain total hip precautions Weight bear as tolerable Follow up in the office on Jun 10 for staple removal as scheduled Pending Studies at Discharge: Yes Studies:: Serological Studies Stand-Alone Forms: My [facility] [employer] Skilled Items Patient informed of condition?: Yes DNR: No Discharge Level of Care: Acute rehab Communicable Disease: No Discharge Prognosis: Improving Lines: None Urinary Catheter: No Medications and DC Order Prescriptions: New docusate sodium 100 mg Capsule 100 mg PO BID PRN (Reason: constipation) Qty: 60 RF: 0 metoprolol tartrate 25 mg Tablet 25 mg PO BID 30 Days Qty: 60 RF: 0 thiamine HCl (vitamin B1) [Vitamin B-1] 100 mg Tablet 100 mg PO QAM 30 Days Qty: 30 RF: 0 ascorbic acid (vitamin C) [Vitamin C] 500 mg Tablet 500 mg PO BIDM 30 Days Qty: 60 RF: 0 folic acid 1 mg tablet 1 mg PO DAILY Qty: 30 RF: 0 amoxicillin-pot clavulanate [Augmentin] 875-125 mg tablet 1 tab PO BID Qty: 10 RF: 0 enoxaparin 40 mg/0.4 mL Syringe 40 mg subcut Q24H 30 Days Qty: 0 RF: 0 Continued aspirin 81 mg Tablet,Delayed Release (Dr/Ec) 81 mg PO DAILY RF: 0 paroxetine HCl 30 mg tablet 30 mg PO DAILY RF: 0 letrozole 2.5 mg tablet 2.5 mg PO DAILY RF: 0 fluticasone propionate 50 mcg/actuation spray,suspension 2 spray INTRANASAL DAILY PRN (Reason: Allergy Symptoms) RF: 0 bupropion HCl 150 mg tablet extended release 24 hr 150 mg PO DAILY RF: 0 budesonide-formoterol [Symbicort] 160-4.5 mcg/actuation HFA aerosol inhaler 2 puff inhalation BID RF: 0 irbesartan 75 mg tablet 75 mg PO DAILY RF: 0 Discharge Orders: Discharge Order (Routine); Ordered 05/30/20 Ordered By: David Meza Admission Data Admit Date/Time: 05/26/20 01:09 Attending Provider: David Meza Admit Provider: Sukh Dang Primary Care Provider: Kim Draper Other Providers: Stephan Porter ; Sukh Dang ; Jaime Florez ; Jacques Hawkins ; Gunner Baker ; Kin Lopez ; Souleymane Conklin ; Sravan Phan ; Annita Case ; Jonna Evans ; Sravan Zaldivar ; [facility] ; Otis Lorenzana ; Sravan Luna
[2020-05-30 12:22] VITALS: BP 144/69; TEMP 97.9; O2SAT 96
[2020-05-30 12:51] VITALS: PULSE 76
== END 2020-05-30 14:17 | DRG 480 ==
LOC: ED 19:56 → SUATTDRO 05-26 01:09 → 2S 05-26 01:09

== ENCOUNTER 2022-08-26 13:41 | Inpatient (IN) ==
--- NOTE | 2022-08-26 13:51 | Emergency Department Note ---
History of Present Illness General Chief complaint: Illness Stated complaint: WEAKNESS, POSSIBLE UTI Time Seen by Provider: 08/26/22 13:48 History of Present Illness This 76-year-old female with known history of atrial fibrillation with RVR, peritonitis, sepsis, perforated viscus, breast cancer, and osteoarthritis, presents today for evaluation of generalized weakness that she has had for several weeks. She is unsure of a specific timeline. She denies feeling bad. She states that she just does not have any pep. She denies any fevers, chills, sweats, nausea, vomiting, abdominal pain, headache, or neck pain. Family members have confirmed that she is not herself. She is having difficulty with ambulation secondary to weakness. She is also complaining of increasing right hip pain. She is a known history of total hip arthroplasties. Her daughters have noted increased confusion over the last few days. Her daughter is with her today. She states that she filled the patient's pillbox on Sunday night. Today the patient took this morning's medication, this evening's medication, tomorrow morning's medication, and Sunday mornings medication. When asked about this and why she took more than prescribed, patient states she became confused. She forgot taking her medicine. She denies self-harm. No other complaints. Patient arrives by BLS ambulance. Home Medications Medication Instructions Recorded Confirmed Type budesonide-formoterol HFA 160 2 puff inhalation BID 10/02/19 08/26/22 History mcg-4.5 mcg/actuation aerosol inhaler (Symbicort) fluticasone propionate 50 2 spray intranasal DAILY PRN 10/02/19 08/26/22 History mcg/actuation nasal Allergy Symptoms spray,suspension letrozole 2.5 mg tablet 2.5 mg PO DAILY 10/02/19 08/26/22 History irbesartan 75 mg tablet 75 mg PO DAILY 05/25/20 08/26/22 History apixaban 5 mg tablet (Eliquis) 5 mg PO BID 08/26/22 08/26/22 History atorvastatin 40 mg tablet 40 mg PO DAILY 08/26/22 08/26/22 History bupropion HCl 200 mg tablet,12 hr 200 mg PO BID 08/26/22 08/26/22 History sustained-release duloxetine 30 mg capsule,delayed 3 mg PO DAILY 08/26/22 08/26/22 History release metoprolol succinate 50 mg 75 mg PO HS 08/26/22 08/26/22 History tablet,extended release 24 hr Allergies Allergy/AdvReac Type Severity Reaction Status Date / Time oxycodone AdvReac Severe Hallucinati Verified 08/26/22 17:23 ons Past Med/Surg History Medical History Abdominal pain Atrial fibrillation DJD (degenerative joint disease) of hip (07/17/13) Malignant neoplasm of upper-outer quadrant of right breast in female, estrogen receptor positive (08/02/17) Mass of upper lobe of right lung Perforated viscus Peritonitis Sepsis Sinusitis Surgical History History of hip surgery S/P appendectomy S/P lumpectomy of breast S/P MORA-BSO S/P tonsillectomy Status post THR (total hip replacement) Bilateral Family History Other Cancer Diabetes Heart disease Hypertension Social History Smoking Status: Current every day smoker Tobacco Type: Cigarettes Age Started Using Tobacco: 17; Cigarettes Per Day: 10-20/day; Second Hand Exposure: No; Hx Alcohol Use: No Hx Substance Use: No Preferred Language: Kyrgyz Communication Ability: Effective Visual Impairment: No Limitations Chief Of Staff Doctor Required: No Beliefs That Will Affect Care: None marital status: Current Living Situation: Alone How many Children do You have: 3 Feels Safe at Home: Yes caffeine: Yes (one cup per day) Dental Care, Regularly: No Physical Activity Frequency: Does not Exercise Physical Activity Frequency Comment: currently wears a brace Assistive Devices: Cane, CPAP and Walker Review of Systems A total of 10 systems reviewed and were otherwise negative Physical Exam Vital Signs Vital Signs - 24 hr 08/26/22 13:34 08/26/22 13:59 08/26/22 14:00 Temperature 36.5 C Temperature Source Oral Pulse Rate 67 49 L 79 Pulse Rate from SpO2 Sensor 70 70 Respiratory Rate 20 17 24 Respiratory Effort / Characteristics Spontaneous Respiratory Depth Normal Blood Pressure 113/68 Blood Pressure Mean 83 Pulse Oximetry 91 92 91 Oxygen Delivery Method Room Air Oxygen Flow Rate Sepsis Recent Fever Within 48 Hours No Sepsis New/Unexplained Change in Mental Status N/A Sepsis Action Taken by Nursing No Action Required 08/26/22 14:15 08/26/22 14:30 08/26/22 14:30 Temperature Temperature Source Pulse Rate 65 72 Pulse Rate from SpO2 Sensor 68 72 Respiratory Rate 26 H 23 Respiratory Effort / Characteristics Respiratory Depth Blood Pressure 130/81 Blood Pressure Mean 97 Pulse Oximetry 91 91 Oxygen Delivery Method Oxygen Flow Rate Sepsis Recent Fever Within 48 Hours Sepsis New/Unexplained Change in Mental Status Sepsis Action Taken by Nursing 08/26/22 14:45 08/26/22 15:00 08/26/22 15:01 Temperature Temperature Source Pulse Rate 71 66 65 Pulse Rate from SpO2 Sensor 71 67 68 Respiratory Rate 26 H 14 17 Respiratory Effort / Characteristics Respiratory Depth Blood Pressure Blood Pressure Mean Pulse Oximetry 92 87 L 87 L Oxygen Delivery Method Nasal Cannula Oxygen Flow Rate 2 Sepsis Recent Fever Within 48 Hours Sepsis New/Unexplained Change in Mental Status Sepsis Action Taken by Nursing 08/26/22 15:01 08/26/22 15:15 08/26/22 15:30 Temperature Temperature Source Pulse Rate 68 66 Pulse Rate from SpO2 Sensor 68 67 Respiratory Rate 19 14 Respiratory Effort / Characteristics Respiratory Depth Blood Pressure 107/72 Blood Pressure Mean 83 Pulse Oximetry 99 84 L Oxygen Delivery Method Oxygen Flow Rate Sepsis Recent Fever Within 48 Hours Sepsis New/Unexplained Change in Mental Status Sepsis Action Taken by Nursing 08/26/22 15:31 08/26/22 15:31 08/26/22 16:08 Temperature Temperature Source Pulse Rate 66 Pulse Rate from SpO2 Sensor 64 65 Respiratory Rate 17 Respiratory Effort / Characteristics Respiratory Depth Blood Pressure 146/90 H Blood Pressure Mean 108 Pulse Oximetry 93 100 Oxygen Delivery Method Oxygen Flow Rate Sepsis Recent Fever Within 48 Hours Sepsis New/Unexplained Change in Mental Status Sepsis Action Taken by Nursing 08/26/22 16:09 08/26/22 16:09 08/26/22 16:15 Temperature Temperature Source Pulse Rate 82 Pulse Rate from SpO2 Sensor 67 72 Respiratory Rate 24 Respiratory Effort / Characteristics Respiratory Depth Blood Pressure 147/82 H Blood Pressure Mean 103 Pulse Oximetry 100 82 L Oxygen Delivery Method Oxygen Flow Rate Sepsis Recent Fever Within 48 Hours Sepsis New/Unexplained Change in Mental Status Sepsis Action Taken by Nursing 08/26/22 16:30 08/26/22 16:31 08/26/22 16:31 Temperature Temperature Source Pulse Rate 72 72 Pulse Rate from SpO2 Sensor 69 70 Respiratory Rate 16 23 Respiratory Effort / Characteristics Respiratory Depth Blood Pressure 158/104 H Blood Pressure Mean 122 Pulse Oximetry 94 93 Oxygen Delivery Method Oxygen Flow Rate Sepsis Recent Fever Within 48 Hours Sepsis New/Unexplained Change in Mental Status Sepsis Action Taken by Nursing 08/26/22 16:45 08/26/22 17:00 08/26/22 17:11 Temperature Temperature Source Pulse Rate 74 72 65 Pulse Rate from SpO2 Sensor 73 73 66 Respiratory Rate 23 22 25 H Respiratory Effort / Characteristics Respiratory Depth Blood Pressure Blood Pressure Mean Pulse Oximetry 92 99 94 Oxygen Delivery Method Oxygen Flow Rate Sepsis Recent Fever Within 48 Hours Sepsis New/Unexplained Change in Mental Status Sepsis Action Taken by Nursing 08/26/22 17:11 Temperature Temperature Source Pulse Rate Pulse Rate from SpO2 Sensor Respiratory Rate Respiratory Effort / Characteristics Respiratory Depth Blood Pressure 142/74 H Blood Pressure Mean 96 Pulse Oximetry Oxygen Delivery Method Oxygen Flow Rate Sepsis Recent Fever Within 48 Hours Sepsis New/Unexplained Change in Mental Status Sepsis Action Taken by Nursing General: Well-developed, well-nourished, elderly white female, in no acute distress. Laying in bed. Alert and oriented. Somewhat somnolent. Skin: Warm and dry with fair turgor. No rashes or lesions. No ecchymosis or erythema. The patient is not diaphoretic. No abrasions. HEENT: Normocephalic atraumatic. Eyes PERRLA, EOMI. No conjunctiva or scleral injection. Ears TMs intact bilaterally with good light reflexes. No erythema or bulging. No hemotympanum. Canals are patent. Nares patent bilaterally without turbinate enlargement. No significant drainage. No epistaxis. Oropharynx without erythema or exudate. Uvula midline, oral mucosa moist. No lesions present. Dentures are present. Heart: Irregularly irregular. No murmurs, gallops, or rubs. Lungs: Inspiratory and expiratory wheezing and crackles present in all goldman. Fair air movement. Occasional wet cough. Abdomen: Abdomen was inspected, auscultated, and palpated. Bowel sounds present x 4. Soft, nontender to palpation. No hepato-splenomegaly. No masses noted. No rebound. Musculoskeletal: Gross motor function of the upper and lower extremities is intact and unremarkable. She complains of pain with palpation over the right groin and right ASIS. Neurologic: Gross sensation is intact across both lower extremities by soft touch. Peripheral pulses are 2+. Course Administered Medications Acetaminophen (Acetaminophen 325 Mg Tab) 650 mg PO Q4H PRN PRN Reason: Pain or Fever Stop: 09/25/22 20:00 Last Admin: 08/30/22 16:52 Dose: 650 mg Documented By: ARV Atorvastatin Calcium (Atorvastatin 40 Mg Tab) 40 mg PO DAILY ROMEL Stop: 09/29/22 11:29 Last Admin: 08/31/22 08:56 Dose: 40 mg Documented By: Admin: 08/30/22 12:41 Dose: 40 mg Documented By: ARV Bupropion HCl (Bupropion Sr 100 Mg Tabcr) 200 mg PO BID ROMEL Stop: 09/29/22 11:29 Last Admin: 08/31/22 20:49 Dose: Not Given Documented By: Admin: 08/31/22 08:56 Dose: 200 mg Documented By: Admin: 08/30/22 21:00 Dose: 200 mg Documented By: Admin: 08/30/22 12:41 Dose: 200 mg Documented By: ARV Doxycycline Hyclate (Doxycycline Hyclate 100 Mg Cap) 100 mg PO Q12H ROMEL Stop: 09/02/22 20:59 Last Admin: 08/31/22 20:50 Dose: Not Given Documented By: Admin: 08/31/22 08:56 Dose: 100 mg Documented By: Admin: 08/30/22 21:02 Dose: 100 mg Documented By: Admin: 08/30/22 08:57 Dose: 100 mg Documented By: Admin: 08/29/22 20:27 Dose: 100 mg Documented By: Admin: 08/29/22 08:38 Dose: 100 mg Documented By: Admin: 08/28/22 20:15 Dose: 100 mg Documented By: PK Heparin Sodium (Porcine) (Heparin Sod 5,000 Unit/0.5 Ml Vial) 5,000 units SQ Q12 ROMEL Stop: 09/26/22 03:59 Last Admin: 08/31/22 20:50 Dose: Not Given Documented By: Admin: 08/31/22 08:57 Dose: 5,000 units Documented By: Admin: 08/30/22 21:01 Dose: 5,000 units Documented By: Admin: 08/30/22 08:57 Dose: 5,000 units Documented By: Admin: 08/29/22 20:27 Dose: 5,000 units Documented By: Admin: 08/29/22 08:39 Dose: 5,000 units Documented By: Admin: 08/28/22 20:15 Dose: 5,000 units Documented By: Admin: 08/28/22 09:26 Dose: 5,000 units Documented By: Admin: 08/27/22 20:49 Dose: 5,000 units Documented By: Admin: 08/27/22 12:23 Dose: 5,000 units Documented By: Admin: 08/27/22 06:05 Dose: 5,000 units Documented By: LENKA Ceftriaxone Sodium 2,000 mg/ (Dextrose) 70 mls @ 100 mls/hr IV Q24H ROMEL; Protocol Stop: 09/03/22 05:59 Last Infusion: 08/31/22 10:19 Dose: 0 mls/hr Documented By: Admin: 08/31/22 06:26 Dose: 100 mls/hr Documented By: Infusion: 08/30/22 08:15 Dose: 0 mls/hr Documented By: Admin: 08/30/22 06:26 Dose: 100 mls/hr Documented By: Infusion: 08/29/22 06:18 Dose: 0 mls/hr Documented By: Admin: 08/29/22 05:33 Dose: 100 mls/hr Documented By: Infusion: 08/28/22 06:18 Dose: 0 mls/hr Documented By: Admin: 08/28/22 05:08 Dose: 100 mls/hr Documented By: Infusion: 08/27/22 07:55 Dose: 0 mls/hr Documented By: Admin: 08/27/22 06:29 Dose: 100 mls/hr Documented By: LENKA Dexamethasone 8 mg/ Syringe 2 mls @ 1 mls/min IV Q6H ROMEL Stop: 09/29/22 12:59 Last Admin: 08/31/22 20:49 Dose: Not Given Documented By: Admin: 08/31/22 12:48 Dose: 1 mls/min Documented By: Admin: 08/31/22 06:26 Dose: 1 mls/min Documented By: Admin: 08/31/22 01:07 Dose: 1 mls/min Documented By: Admin: 08/30/22 19:48 Dose: 1 mls/min Documented By: Admin: 08/30/22 12:41 Dose: 1 mls/min Documented By: ARV Hydromorphone HCl (Dilaudid/Nss) 100 mg in 100 mls @ 0.4 mls/hr IV .Q96H ROMEL; Protocol Stop: 09/14/22 14:29 Last Titration: 08/31/22 19:17 Dose: 0.4 mg/hr, 0.4 mls/hr Documented By: GLENDA Co-signed By: LISA Titration: 08/31/22 15:50 Dose: 0.4 mg/hr, 0.4 mls/hr Documented By: LISA Co-signed By: EITAN Admin: 08/31/22 15:00 Dose: 0.2 mg/hr, 0.2 mls/hr Documented By: LISA Co-signed By: EITAN Discontinued Medications Albuterol (Albut/Ipratrop 3mg/0.5mg Neb 3 Ml Vial) 12 ml NEB ONE ONE; Protocol Stop: 08/26/22 18:16 Last Admin: 08/26/22 18:35 Dose: 12 ml Documented By: CLARISSA Albuterol (Albut/Ipratrop 3mg/0.5mg Neb 3 Ml Vial) 6 ml NEB NOW STA; Protocol Stop: 08/26/22 18:17 Last Admin: 08/26/22 20:11 Dose: Not Given Documented By: STS Albuterol (Albut/Ipratrop 3mg/0.5mg Neb 3 Ml Vial) 3 ml NEB Q4R ROMEL; Protocol Stop: 09/25/22 20:00 Last Admin: 08/31/22 11:01 Dose: 3 ml Documented By: Admin: 08/31/22 07:06 Dose: 3 ml Documented By: Admin: 08/31/22 03:04 Dose: Not Given Documented By: Admin: 08/30/22 22:59 Dose: 3 ml Documented By: Admin: 08/30/22 21:01 Dose: Not Given Documented By: Admin: 08/30/22 15:03 Dose: 3 ml Documented By: Admin: 08/30/22 11:06 Dose: 3 ml Documented By: Admin: 08/30/22 07:13 Dose: Not Given Documented By: Admin: 08/30/22 03:23 Dose: 3 ml Documented By: Admin: 08/29/22 23:28 Dose: 3 ml Documented By: Admin: 08/29/22 19:52 Dose: Not Given Documented By: Admin: 08/29/22 15:26 Dose: 3 ml Documented By: Admin: 08/29/22 11:10 Dose: 3 ml Documented By: Admin: 08/29/22 07:18 Dose: Not Given Documented By: Admin: 08/29/22 03:45 Dose: 3 ml Documented By: Admin: 08/28/22 23:18 Dose: 3 ml Documented By: Admin: 08/28/22 19:24 Dose: Not Given Documented By: Admin: 08/28/22 15:33 Dose: 3 ml Documented By: Admin: 08/28/22 12:14 Dose: Not Given Documented By: Admin: 08/28/22 07:26 Dose: Not Given Documented By: Admin: 08/28/22 03:33 Dose: 3 ml Documented By: Admin: 08/27/22 21:58 Dose: 3 ml Documented By: Admin: 08/27/22 21:58 Dose: Not Given Documented By: Admin: 08/27/22 15:37 Dose: 3 ml Documented By: Admin: 08/27/22 11:19 Dose: Not Given Documented By: Admin: 08/27/22 07:26 Dose: 3 ml Documented By: Admin: 08/27/22 02:07 Dose: 3 ml Documented By: Admin: 08/26/22 22:44 Dose: 3 ml Documented By: Admin: 08/26/22 20:11 Dose: Not Given Documented By: STS Albuterol (Albut/Ipratrop 3mg/0.5mg Neb 3 Ml Vial) 3 ml NEB NOW STA; Protocol Stop: 08/27/22 04:32 Last Admin: 08/27/22 04:55 Dose: Not Given Documented By: LENKA Albuterol (Albut/Ipratrop 3mg/0.5mg Neb 3 Ml Vial) 12 ml NEB ONE ONE; Protocol Stop: 08/27/22 04:40 Last Admin: 08/27/22 04:41 Dose: 12 ml Documented By: MIGUELANGEL Alprazolam (Alprazolam 0.5 Mg Tablet) 0.5 mg PO TODAY@0820 ROMEL Stop: 08/29/22 18:00 Last Admin: 08/29/22 12:24 Dose: 0.5 mg Documented By: FER Budesonide (Budesonide 0.5 Mg/2 Ml Vial (Pulmicort)) 0.5 mg NEB BIDR ROMEL Stop: 09/26/22 18:59 Last Admin: 08/31/22 07:06 Dose: 0.5 mg Documented By: Admin: 08/30/22 19:21 Dose: 0.5 mg Documented By: Admin: 08/30/22 07:06 Dose: 0.5 mg Documented By: Admin: 08/29/22 19:23 Dose: 0.5 mg Documented By: Admin: 08/29/22 07:08 Dose: 0.5 mg Documented By: Admin: 08/28/22 19:24 Dose: 0.5 mg Documented By: Admin: 08/28/22 07:26 Dose: 0.5 mg Documented By: Admin: 08/27/22 19:24 Dose: 0.5 mg Documented By: MIGUELANGEL Dexamethasone (Dexamethasone 1 Mg Tab) 10 mg PO Q6H ROMEL Stop: 09/26/22 04:29 Last Admin: 08/27/22 04:54 Dose: Not Given Documented By: LENKA Diltiazem HCl (Diltiazem Hcl 5 Mg/Ml 5 Ml Vial) 10 mg IV NOW STA Stop: 08/28/22 00:41 Last Admin: 08/28/22 01:00 Dose: 10 mg Documented By: LENKA Co-signed By: JOSÉ LUIS Duloxetine HCl (Duloxetine Hcl 30 Mg Cap) 30 mg PO DAILY RMOEL Stop: 09/29/22 11:29 Last Admin: 08/31/22 08:56 Dose: 30 mg Documented By: Admin: 08/30/22 12:41 Dose: 30 mg Documented By: MADHURI Formoterol Fumarate (Formoterol 20 Mcg/2 Ml Vial) 20 mcg NEB BIDR ROMEL Stop: 09/26/22 10:29 Last Admin: 08/31/22 07:07 Dose: Not Given Documented By: Admin: 08/30/22 19:21 Dose: 20 mcg Documented By: Admin: 08/30/22 07:06 Dose: 20 mcg Documented By: Admin: 08/29/22 19:23 Dose: 20 mcg Documented By: Admin: 08/29/22 07:07 Dose: 20 mcg Documented By: Admin: 08/28/22 19:24 Dose: 20 mcg Documented By: Admin: 08/28/22 07:26 Dose: 20 mcg Documented By: Admin: 08/27/22 19:24 Dose: 20 mcg Documented By: Admin: 08/27/22 11:19 Dose: 20 mcg Documented By: CLARISSA Furosemide (Furosemide Inj 20 Mg/2 Ml Vial) 20 mg IV ONE ONE Stop: 08/27/22 07:21 Last Admin: 08/27/22 07:44 Dose: 20 mg Documented By: WESLEY Furosemide (Furosemide Inj 20 Mg/2 Ml Vial) 20 mg IV ONE ONE Stop: 08/28/22 13:16 Last Admin: 08/28/22 13:42 Dose: 20 mg Documented By: FER Furosemide (Furosemide 20 Mg Tab) 20 mg PO BID17 [facility] Stop: 09/28/22 16:59 Last Admin: 08/30/22 16:52 Dose: 20 mg Documented By: Admin: 08/30/22 08:57 Dose: 20 mg Documented By: Admin: 08/29/22 17:28 Dose: 20 mg Documented By: FER Gadobutrol (Gadobutrol 65ml Vial) 8 ml IV ONCE ONE Stop: 08/27/22 11:00 Last Admin: 08/27/22 10:59 Dose: 8 ml Documented By: RICHI Hydromorphone HCl (Hydromorphone Inj 0.5 Mg/0.5 Ml Syr) 0.5 mg IV NOW STA Stop: 08/31/22 10:35 Last Admin: 08/31/22 11:13 Dose: 0.5 mg Documented By: LISA Sodium Chloride (Nss) 500 mls @ 75 mls/hr IV .Q6H40M ROMEL Stop: 09/25/22 14:14 Last Admin: 08/26/22 20:03 Dose: Not Given Documented By: Infusion: 08/26/22 19:01 Dose: 0 mls/hr Documented By: BLEdwige Admin: 08/26/22 14:43 Dose: 125 mls/hr Documented By: CONNIE Acetaminophen (Ofirmev) 1,000 mg in 100 mls @ 400 mls/hr IV NOW STA Stop: 08/26/22 15:22 Last Infusion: 08/26/22 15:31 Dose: 0 mls/hr Documented By: Admin: 08/26/22 15:14 Dose: 400 mls/hr Documented By: CONNIE Ceftriaxone Sodium (Rocephin) 2,000 mg in 70 mls @ 140 mls/hr IV NOW STA Stop: 08/26/22 18:13 Last Infusion: 08/26/22 19:01 Dose: 0 mls/hr Documented By: Infusion: 08/26/22 19:01 Dose: 0 mls/hr Documented By: Admin: 08/26/22 18:15 Dose: 140 mls/hr Documented By: BELLE Calcium Gluconate () 1,000 mg in 60 mls @ 240 mls/hr IV NOW STA Stop: 08/26/22 17:58 Last Infusion: 08/26/22 18:14 Dose: 0 mls/hr Documented By: Admin: 08/26/22 17:59 Dose: 240 mls/hr Documented By: BELLE Sodium Chloride (Nss 1000ml) 1,000 mls @ 999 mls/hr IV .Q1H1M ONE Stop: 08/26/22 18:44 Last Infusion: 08/26/22 19:02 Dose: 0 mls/hr Documented By: Admin: 08/26/22 17:58 Dose: 999 mls/hr Documented By: BELLE Magnesium Sulfate/Dextrose (Magnesium Sulfate / D5w) 1 gm in 100 mls @ 100 mls/hr IV NOW STA Stop: 08/26/22 19:15 Last Infusion: 08/26/22 21:12 Dose: 0 mls/hr Documented By: Admin: 08/26/22 20:11 Dose: 100 mls/hr Documented By: LENKA Doxycycline Hyclate 100 mg/ (Dextrose) 110 mls @ 50 mls/hr IV NOW STA Stop: 08/26/22 20:26 Last Admin: 08/26/22 21:08 Dose: Not Given Documented By: LENKA Doxycycline Hyclate 100 mg/ (Dextrose) 110 mls @ 50 mls/hr IV Q12H ROMEL Stop: 09/02/22 20:59 Last Infusion: 08/28/22 12:23 Dose: 0 mls/hr Documented By: Admin: 08/28/22 09:34 Dose: 50 mls/hr Documented By: Infusion: 08/27/22 23:04 Dose: 0 mls/hr Documented By: Admin: 08/27/22 20:50 Dose: 50 mls/hr Documented By: Infusion: 08/27/22 13:05 Dose: 0 mls/hr Documented By: Admin: 08/27/22 09:44 Dose: 50 mls/hr Documented By: Infusion: 08/26/22 23:48 Dose: 0 mls/hr Documented By: Admin: 08/26/22 21:12 Dose: 50 mls/hr Documented By: LENKA Dexamethasone 10 mg/ Syringe 2.5 mls @ 1 mls/min IV Q6H ROMEL Stop: 09/26/22 04:59 Last Admin: 08/27/22 12:23 Dose: 1 mls/min Documented By: Admin: 08/27/22 06:26 Dose: 1 mls/min Documented By: LENKA Dexamethasone 10 mg/ Syringe 2.5 mls @ 1 mls/min IV Q8 ROMEL Stop: 09/26/22 19:59 Last Admin: 08/28/22 05:07 Dose: 1 mls/min Documented By: Admin: 08/27/22 20:49 Dose: 1 mls/min Documented By: LENKA Diltiazem HCl 125 mg/ Dextrose 125 mls @ 15 mls/hr IV .Q8H20M ROMEL; Protocol Stop: 09/27/22 00:44 Last Titration: 08/29/22 12:43 Dose: 0 mg/hr, 0 mls/hr Documented By: DMB Co-signed By: LEORA Admin: 08/29/22 12:17 Dose: 10 mg/hr, 10 mls/hr Documented By: DMB Co-signed By: KAE Titration: 08/29/22 12:17 Dose: 15 mg/hr, 15 mls/hr Documented By: DMB Co-signed By: KAE Admin: 08/29/22 03:58 Dose: 15 mg/hr, 15 mls/hr Documented By: PK Co-signed By: OO Titration: 08/29/22 03:58 Dose: 15 mg/hr, 15 mls/hr Documented By: PK Co-signed By: OO Admin: 08/28/22 19:45 Dose: 15 mg/hr, 15 mls/hr Documented By: PK Co-signed By: OO Titration: 08/28/22 19:45 Dose: 15 mg/hr, 15 mls/hr Documented By: PK Co-signed By: OO Titration: 08/28/22 19:00 Dose: 15 mg/hr, 15 mls/hr Documented By: PK Co-signed By: DMB Admin: 08/28/22 12:16 Dose: 15 mg/hr, 15 mls/hr Documented By: DMB Co-signed By: LDS Titration: 08/28/22 04:19 Dose: 0 mg/hr, 0 mls/hr Documented By: LENKA Co-signed By: OO Titration: 08/28/22 02:31 Dose: 15 mg/hr, 15 mls/hr Documented By: LENKA Co-signed By: CM Titration: 08/28/22 01:45 Dose: 10 mg/hr, 10 mls/hr Documented By: LENKA Co-signed By: TMG Admin: 08/28/22 01:05 Dose: 5 mg/hr, 5 mls/hr Documented By: LENKA Co-signed By: JOSÉ LUIS Dexamethasone 4 mg/ Syringe 1 mls @ 1 mls/min IV Q6H ROMEL Stop: 09/27/22 11:59 Last Admin: 08/30/22 06:21 Dose: 1 mls/min Documented By: Admin: 08/30/22 00:21 Dose: 1 mls/min Documented By: Admin: 08/29/22 17:28 Dose: 1 mls/min Documented By: Admin: 08/29/22 11:48 Dose: 1 mls/min Documented By: Admin: 08/29/22 05:32 Dose: 1 mls/min Documented By: Admin: 08/29/22 00:56 Dose: 1 mls/min Documented By: Admin: 08/28/22 17:57 Dose: 1 mls/min Documented By: Admin: 08/28/22 12:17 Dose: 1 mls/min Documented By: DMB Ioversol (Optiray 320 500ml) 86 ml IV ONCE ONE Stop: 08/26/22 18:48 Last Admin: 08/26/22 18:47 Dose: 86 ml Documented By: BUD Ioversol (Optiray 320 500ml) 114 ml IV ONCE ONE Stop: 08/27/22 02:15 Last Admin: 08/27/22 02:15 Dose: 114 ml Documented By: STEVAN Menthol (Cough Drop (Sugar Free) Alisha 24 Alisha/1 Box) Confirm Administered Dose 24 alisha BUCCAL .STK-MED ONE Stop: 08/27/22 16:16 Last Admin: 08/27/22 17:05 Dose: 24 alisha Documented By: WESLEY Methylprednisolone (Methylprednisolone 125 Mg/2 Ml Vial) 125 mg IV NOW STA Stop: 08/26/22 18:16 Last Admin: 08/26/22 21:08 Dose: Not Given Documented By: LENKA Metoprolol Succinate (Metoprolol Succ 25mg Ext Rel Tab) 75 mg PO QAM ROMEL Stop: 09/27/22 08:59 Last Admin: 08/28/22 09:25 Dose: 75 mg Documented By: FER Metoprolol Tartrate (Metoprolol Tartrate 1 Mg/Ml Vial) 5 mg IV NOW STA Stop: 08/28/22 00:24 Last Admin: 08/28/22 00:28 Dose: 5 mg Documented By: LENKA Metoprolol Tartrate (Metoprolol Tartrate 50 Mg Tab) 50 mg PO BID [facility] Stop: 09/27/22 20:59 Last Admin: 08/29/22 20:27 Dose: 50 mg Documented By: Admin: 08/29/22 08:42 Dose: 50 mg Documented By: Admin: 08/28/22 20:15 Dose: 50 mg Documented By: BRENTON Metoprolol Tartrate (Metoprolol Tartrate 1 Mg/Ml Vial) 5 mg IV NOW STA Stop: 08/30/22 06:00 Last Admin: 08/30/22 06:20 Dose: 5 mg Documented By: BRENTON Metoprolol Tartrate (Metoprolol Tartrate 100 Mg Tab) 100 mg PO BID [facility] Stop: 09/29/22 08:59 Last Admin: 08/31/22 08:57 Dose: 100 mg Documented By: Admin: 08/30/22 21:00 Dose: 100 mg Documented By: Admin: 08/30/22 08:56 Dose: 100 mg Documented By: ARV Sodium Chloride (Sodium Chlor 7% 4 Ml Neb) 4 ml NEB BIDR ROMEL Stop: 09/25/22 20:00 Last Admin: 08/31/22 07:19 Dose: 4 ml Documented By: Admin: 08/30/22 19:30 Dose: 4 ml Documented By: Admin: 08/30/22 07:06 Dose: 4 ml Documented By: Admin: 08/29/22 19:23 Dose: 4 ml Documented By: Admin: 08/29/22 07:08 Dose: 4 ml Documented By: Admin: 08/28/22 19:24 Dose: 4 ml Documented By: Admin: 08/28/22 07:26 Dose: 4 ml Documented By: Admin: 08/27/22 19:24 Dose: 4 ml Documented By: Admin: 08/27/22 07:26 Dose: 4 ml Documented By: Admin: 08/26/22 22:44 Dose: 4 ml Documented By: [email or web address] Medical Decision Making Differential Diagnosis Electrolyte imbalance, anemia, sepsis, UTI, intracranial mass, dementia Medical Records Attestation: I reviewed the patient's medical records. Home Medications Current Medication List: was personally reviewed by me Laboratory Data CBC, chemistry panel, troponin, bio fire, INR, and UA were obtained. CBC is unremarkable. INR is 1.5. Chemistry panel shows normal electrolytes. Slightly elevated BUN with low creatinine. Glucose normal. LFTs are unremarkable. Bio fire is negative for RSV, influenza, and COVID. Troponin was negative. UA shows dark yellow urine with protein, ketones, blood, nitrates, and 4+ bacteria. Result diagrams: 08/31/22 06:52 08/31/22 06:52 Lab Results 08/26/22 08/26/22 08/26/22 Range/Units 14:37 14:41 14:41 WBC 7.76 (4.8-10.8) K/ul RBC 4.08 (3.93-5.22) M/uL Hgb 11.4 L (12.0-16.0) g/dl Hct 36.2 (34.1-44.9) % MCV 88.7 (80.0-100.0) fL MCH 27.9 (25.0-34.0) pg MCHC 31.5 L (32.0-36.0) g/dL RDW Std Deviation 52.9 H (36.4-46.3) fL RDW Coeff of Cesilia 16.2 H (11.5-14.5) % Plt Count 249 (130-400) K/uL MPV 10.2 (9.4-12.3) fL Immature Gran % (Auto) 0.4 % Neut % (Auto) 82.5 % Lymph % (Auto) 8.5 % [place] % (Auto) 8.2 % Eos % (Auto) 0.1 % Baso % (Auto) 0.3 % Neut # (Auto) 6.40 (1.4-6.5) K/uL Lymph # (Auto) 0.66 L (1.2-3.4) K/uL [place] # (Auto) 0.64 (0.24-0.82) K/uL Eos # (Auto) 0.01 (0-0.50) K/uL Baso # (Auto) 0.02 (0-0.2) K/uL Immature Gran # (Auto) 0.03 H (0.00-0.02) K/uL PT (9.0-12.0) Seconds INR (0.9-1.1) Sodium 140 (136-145) mmol/L Potassium 3.9 (3.5-5.1) mmol/L Chloride 105 (98-107) mmol/L Carbon Dioxide 28 (21-32) mmol/L Anion Gap 7 (3-11) BUN 25 H (6-23) mg/dl Creatinine 0.54 L (0.6-1.2) mg/dl Est Cr Clr Drug Dosing 104.1 ml/min Est GFR ( Amer) 107.7 ml/min Est GFR (Non-Af Amer) 93.0 ml/min BUN/Creatinine Ratio 46.3 H (10-20) Glucose 115 H (70-99(Fasting)) mg/dl Calcium 8.2 L (8.5-10.1) mg/dl Total Bilirubin 1.0 (0.2-1.0) mg/dl AST 16 (13-39) U/L ALT 13 (7-52) U/L Alkaline Phosphatase 75 (34-104) U/L Troponin I High Sens 9.3 (0-14) pg/ml Total Protein 6.2 (6.0-8.3) gm/dl Albumin 3.6 (3.4-5.0) gm/dl Globulin 2.6 (2.5-4.0) gm/dl Albumin/Globulin Ratio 1.4 (0.9-2) Urine Color Urine Appearance (Clear) Urine pH (4.5-7.5) Ur Specific [place] (1.000-1.030) Urine Protein (Negative) Urine Glucose (UA) (Negative) Urine Ketones (Negative) Urine Blood (Negative) Urine Nitrite (Negative) Urine Bilirubin (Negative) Urine Urobilinogen (Negative) Ur Leukocyte Esterase (Negative) Urine WBC (Auto) (0-5) /hpf Urine RBC (Auto) (0-4) /hpf U Hyaline Cast (Auto) (0-5) /lpf U Epithel Cells (Auto) (0-5) /lpf Urine Bacteria (Auto) (Negative) SARS-CoV-2 (PCR) NEGATIVE (Negative) Influenza Type A (PCR) Negative (Neg) Influenza Type B (PCR) Negative (Neg) RSV (RT-PCR) Negative (Neg) 08/26/22 08/26/22 Range/Units 14:41 16:41 WBC (4.8-10.8) K/ul RBC (3.93-5.22) M/uL Hgb (12.0-16.0) g/dl Hct (34.1-44.9) % MCV (80.0-100.0) fL MCH (25.0-34.0) pg MCHC (32.0-36.0) g/dL RDW Std Deviation (36.4-46.3) fL RDW Coeff of Ces[place] (11.5-14.5) % Plt Count (130-400) K/uL MPV (9.4-12.3) fL Immature Gran % (Auto) % Neut % (Auto) % Lymph % (Auto) % [place] % (Auto) % Eos % (Auto) % Baso % (Auto) % Neut # (Auto) (1.4-6.5) K/uL Lymph # (Auto) (1.2-3.4) K/uL [place] # (Auto) (0.24-0.82) K/uL Eos # (Auto) (0-0.50) K/uL Baso # (Auto) (0-0.2) K/uL Immature Gran # (Auto) (0.00-0.02) K/uL PT 15.2 H (9.0-12.0) Seconds INR 1.5 H (0.9-1.1) Sodium (136-145) mmol/L Potassium (3.5-5.1) mmol/L Chloride (98-107) mmol/L Carbon Dioxide (21-32) mmol/L Anion Gap (3-11) BUN (6-23) mg/dl Creatinine (0.6-1.2) mg/dl Est Cr Clr Drug Dosing ml/min Est GFR ( Amer) ml/min Est GFR (Non-Af Amer) ml/min BUN/Creatinine Ratio (10-20) Glucose (70-99(Fasting)) mg/dl Calcium (8.5-10.1) mg/dl Total Bilirubin (0.2-1.0) mg/dl AST (13-39) U/L ALT (7-52) U/L Alkaline Phosphatase (34-104) U/L Troponin I High Sens (0-14) pg/ml Total Protein (6.0-8.3) gm/dl Albumin (3.4-5.0) gm/dl Globulin (2.5-4.0) gm/dl Albumin/Globulin Ratio (0.9-2) Urine Color Dark Yellow Urine Appearance Cloudy A (Clear) Urine pH 5.5 (4.5-7.5) Ur Specific [place] 1.032 H (1.000-1.030) Urine Protein 1+ H (Negative) Urine Glucose (UA) Negative (Negative) Urine Ketones Trace H (Negative) Urine Blood 2+ H (Negative) Urine Nitrite Positive A (Negative) Urine Bilirubin Negative (Negative) Urine Urobilinogen Negative (Negative) Ur Leukocyte Esterase Trace H (Negative) Urine WBC (Auto) 10-30 H (0-5) /hpf Urine RBC (Auto) 10-30 H (0-4) /hpf U Hyaline Cast (Auto) 10-30 H (0-5) /lpf U Epithel Cells (Auto) 20-30 H (0-5) /lpf Urine Bacteria (Auto) 4+ H (Negative) SARS-CoV-2 (PCR) (Negative) Influenza Type A (PCR) (Neg) Influenza Type B (PCR) (Neg) RSV (RT-PCR) (Neg) Imaging Data My Impression: Chest x-ray obtained today shows a 6.8 cm right suprahilar nodular airspace opacity with cavitation. This may reflect pneumonia but a neoplasm could appear similar. Chest CT was recommended. She has trace bilateral pleural effusions. Chest CT obtained today without IV contrast was also reviewed by me and read by radiology. Patient has a 7.2 x 3 x 8 cm thick-walled masslike cavitary opacity within the anterior right upper lobe. This is suggestive of lung malignancy. She has extensive thoracic, cervical, and upper abdominal lymphadenopathy representing spread of disease. There is suspected minimal superior vena cava and invasion. She has several segmental pulmonary emboli within the left lung. There is a small right pleural effusion. Radiologist's Impression: Chest X-Ray 08/26/22 14:00 XR chest 2V PA/lateral CLINICAL HISTORY: cough, wheezing, weakness COMPARISON STUDY: Chest radiograph May 29, 2020. FINDINGS: There is no pneumothorax. Trace bilateral pleural effusions are present. Mild cardiomegaly. A 6.8 cm right suprahilar nodular airspace opacity is present. This contains equivocal cavitation. There is mild interstitial pulmonary edema. IMPRESSION: 1. 6.8 cm right suprahilar nodular airspace opacity with equivocal cavitation. This may reflect pneumonia. However, a neoplasm could appear similar. Radiographic follow up to ensure resolution is recommended. Alternatively, a chest CT could be obtained for further evaluation. 2. Mild interstitial pulmonary edema with trace bilateral pleural effusions. ACT 112: Positive. There are findings on this exam that require communication between the performing entity and the patient following Patient Test Result Information Act [place] Act 112) guidelines. Electronically signed by: Toni Mccloud M.D. 08/26/2022 4:34 PM ECG Data Additional Comments: EKG obtained today shows a normal sinus rhythm with sinus arrhythmia and a rate of 68. Nonspecific ST abnormality. No significant change was found when compared to May 2020. This was reviewed with Dr. Dempsey. Blood Pressure Blood Pressure Findings: Normal blood pressure MDM Narrative Temperature 36.5 pulse 67 respirations 20 with an O2 sat of 91% on room air BP 113/68 patient was seen in room B6. Conservative care measures were discussed. IV was established. Labs were obtained. She was hydrated gently with normal sterile saline at 75 mL/h. She was also given Tylenol 1000 mg IV for pain control. Patient was placed on a cardiac cath technician and remained in a sinus arrhythmia with a rate in the 60s. Labs were unremarkable. Chest x-ray obtained today was suspicious for a pulmonary mass. 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 Numerous PEs were also noted. This is likely the source of the patient's confusion. She was placed on oxygen at 4 L by nasal cannula, which improved her saturations into the mid 90s. Possibility that her UTI is also making her confused was discussed with she and her daughter. I did speak with poison control regarding the patient's overdose of her medications. They were not worried about the multiple doses of Eliquis, atorvastatin, duloxetine, or irbesartan. They are most worried about the bupropion, and the possibility of seizures over the next 2 days. Patient was strongly recommended to stay. Initially she refused. Her daughter was able to convince her to stay for admission. Hospitalist service was consulted. Please see that dictation for final management. She remained stable while in the ED. Patient was seen in conjunction with Dr. Ahn, who also evaluated the patient and concurred with today's diagnosis and treatment plan. Impression & Plan Lung mass, Confusion, Urinary tract infection Admission Discharge Plan Visit Data Chief Complaint: Illness Stated Complaint: WEAKNESS, POSSIBLE UTI ED Provider: Jose Dempsey ED Midlevel Provider: Alfonso Camacho Discharge Problem: Lung mass, Confusion, Urinary tract infection Patient Disposition: Admitted As Inpatient Discharge Instructions Interventions: ED Discharge Assessment Last Done: 08/26/22 19:06
[2022-08-26] MEDS: SODIUM CHLORIDE 0.9% 500 ML IV SCH ×2 (14:43→20:03)
[2022-08-26 14:57] LABS: Basophils # (auto) 0.02 K/uL (0-0.2); Basophils % (auto) 0.3 %; Eosinophils # (auto) 0.01 K/uL (0-0.50); Eosinophils % (auto) 0.1 %; Hematocrit (blood only) 36.2 % (34.1-44.9); Hemoglobin 11.4 g/dl (12.0-16.0); Immature Granulocytes # (auto) 0.03 K/uL (0.00-0.02); Immature Granulocytes % (auto) 0.4 %; Lymphocytes # (auto) 0.66 K/uL (1.2-3.4); Lymphocytes % (auto) 8.5 %; Mean Corpuscular Hemoglobin 27.9 pg (25.0-34.0); Mean Corpuscular Hgb Conc 31.5 g/dL (32.0-36.0); Mean Corpuscular Volume 88.7 fL (80.0-100.0); Mean Platelet Volume 10.2 fL (9.4-12.3); Monocytes # (auto) 0.64 K/uL (0.24-0.82); Monocytes % (auto) 8.2 %; Neutrophils % (auto) 82.5 %; Platelet Count 249 K/uL (130-400); RDW Coefficient of Variation 16.2 % (11.5-14.5); RDW Standard Deviation 52.9 fL (36.4-46.3); Red Blood Count 4.08 M/uL (3.93-5.22); White Blood Count 7.76 K/ul (4.8-10.8)
[2022-08-26] MEDS ORDERED: ACETAMINOPHEN 1,000 MG/100 ML VIAL IV STA (15:08)
[2022-08-26 15:10] LABS: INR 1.5 (0.9-1.1); Prothrombin Time 15.2 Seconds (9.0-12.0)
[2022-08-26 15:21] LABS: Albumin Globulin Ratio 1.4 (0.9-2); Albumin Level 3.6 gm/dl (3.4-5.0); BUN Creatinine Ratio 46.3 (10-20); Calcium 8.2 mg/dl (8.5-10.1); Creatinine Clr Calc Pharmacy 104.1 ml/min; Est GFR (African American) 107.7 ml/min; Globulin 2.6 gm/dl (2.5-4.0); Potassium 3.9 mmol/L (3.5-5.1); Total Protein 6.2 gm/dl (6.0-8.3)
[2022-08-26 15:24] LABS: Troponin I High Sensitivity 9.3 pg/ml (0-14)
[2022-08-26 15:25] LABS: Influenza A virus by PCR Negative (Neg); Influenza B virus by PCR Negative (Neg); RSV by PCR Negative (Neg); SARS CoV2 RNA(COVID-19) Ceph NEGATIVE (Negative)
--- NOTE | 2022-08-26 16:36 | XRay Report ---
XR chest 2V PA/lateral CLINICAL HISTORY: cough, wheezing, weakness COMPARISON STUDY: Chest radiograph May 29, 2020. FINDINGS: There is no pneumothorax. Trace bilateral pleural effusions are present. Mild cardiomegaly. A 6.8 cm right suprahilar nodular airspace opacity is present. This contains equivocal cavitation. T here is mild interstitial pulmonary edema. IMPRESSION: 1. 6.8 cm right suprahilar nodular airspace opacity with equivocal cavitation. This may reflect pneum onia. However, a neoplasm could appear similar. Radiographic follow up to ensure resolution is recomm ended. Alternatively, a chest CT could be obtained for further evaluation. 2. Mild interstitial pulmonary edema with trace bilateral pleural effusions. ACT 112: Positive. There are findings on this exam that require communication between the performing entity and the patient following Patient Test Result Information Act [place] Act 112) guidelines. Electronically signed by: Toni Mccloud M.D. 08/26/2022 4:34 PM
[2022-08-26 17:01] LABS: Appearance Urine Cloudy (Clear); Bacteria Urine Automated 4+ (Negative); Bilirubin Urine Negative (Negative); Blood Urine 2+ (Negative); Color Urine Dark Yellow; Epithelial Cell Urine Auto 20-30 /lpf (0-5); Glucose Urine UA Negative (Negative); Ketones Urine Trace (Negative); Leukocyte Esterase Urine Trace (Negative); Nitrite Urine Positive (Negative); Protein Urine 1+ (Negative); Specific Gravity Urine 1.032 (1.000-1.030); Urobilinogen Urine Negative (Negative); pH Urine 5.5 (4.5-7.5)
[2022-08-26] MEDS ORDERED: SODIUM CHLORIDE 0.9% 1000ML 1,000 ML IV ONE (17:44)
[2022-08-26] MEDS ORDERED: CALCIUM GLUCONATE 1,000 MG/60 ML BAG IV STA (17:44)
[2022-08-26] MEDS ORDERED: cefTRIAXone SODIUM 2,000 MG/70 ML BAG IV STA (17:44)
--- NOTE | 2022-08-26 17:45 | Emergency Department Note ---
ED Visit Note I was consulted by the Advanced Practice Provider, Alfonso Camacho PA-C. I saw the patient personally and performed a substantive portion of the visit. This includes aspects of the HPI, MDM, diagnostic interpretations, and disposition/plan. Patient presented due to concern for possible overdose post control was contacted and there was concern for Wellbutrin. The patient had taken for 3 extra doses. The patient was requiring some supplemental nasal cannula but was easily arousable. Patient does have a history of COPD. I did order the patient Rocephin for UTI in addition possible chest coverage. Patient was also ordered breathing treatment steroids Doxy and mag. Patient was also ordered IV fluid bolus given the patient's prerenal azotemia. Patient was admitted to the medicine service. .
[2022-08-26] MEDS ORDERED: methylPREDNISolone 125 MG/2 ML VIAL IV STA (18:15)
[2022-08-26] MEDS ORDERED: ALBUT/IPRATROP 3MG/0.5MG NEB 3 ML VIAL NEB ONE (18:15)
[2022-08-26] MEDS ORDERED: DOXYCYCLINE HYCLATE 100 MG in DEXTROSE 5% 100 ML IV STA (18:15)
[2022-08-26] MEDS ORDERED: ALBUT/IPRATROP 3MG/0.5MG NEB 3 ML VIAL NEB STA (18:16)
[2022-08-26] MEDS ORDERED: MAGNESIUM SULFATE / D5W 1 GM/100 ML BAG IV STA (18:16)
[2022-08-26] MEDS ORDERED: OPTIRAY 320 500ml IV ONE (18:47)
--- NOTE | 2022-08-26 19:06 | CT Scan Report ---
CT OF THE HEAD WITHOUT CONTRAST CLINICAL HISTORY: Confusion; on eliquis COMPARISON STUDY: Head CT May 27, 2020. MRI of the brain November 19, 2008. TECHNIQUE: Helical axial images of the head were obtained without IV contrast. Automated exposure con trol was utilized for the study. A dose lowering technique was utilized adhering to the principles o f ALARA. FINDINGS: No acute intracranial hemorrhage is present. Note is made of a hypodense 3.2 cm right front oparietal lesion on axial image 24 of 32. Moderate associated vasogenic edema is present. There is mi ld mass effect with sulcal effacement, mild compression of the right lateral ventricle and minimal le ftward midline shift. A few additional cystic/necrotic lesions within the anterior right frontal lobe measure up to 2.3 cm. Basal cisterns are patent. There are no extra-axial fluid collections. A small vessel disease is noted. There are no findings to suggest acute dural sinus thrombosis or acute terr itorial infarct. IMPRESSION: Multiple intraaxial lesions, the largest of which is a 3.2 cm right frontoparietal lesion with moderate associated vasogenic edema and mass effect. These are highly suggestive of metastases. An MRI of the brain with and without contrast could be obtained for further evaluation. ACT 112: Positive. There are findings on this exam that require communication between the performing entity and the patient following Patient Test Result Information Act ([place] Act 112[place] guidelines. Electronically signed by: Toni Mccloud M.D. 08/26/2022 7:04 PM
--- NOTE | 2022-08-26 19:13 | History & Physical Report ---
Date of Service August 26, 2022 Assessment & Plan (1) Confusion: (2) Lung mass: (3) Metastasis to brain: (4) Urinary tract infection: (5) COPD (chronic obstructive pulmonary disease): Plan Patient brought to the hospital by her daughter due to confusion for last 2 weeks which has worsened recently. Patient took multiple doses of her home medication including Eliquis, Wellbutrin, metoprolol Chest x-ray concerning for cavitary lesion CT head concerning for multiple intra-axial lesions UTI concerning for infection Plan; - Finding of the chest x-ray along with CT head concerning for metastatic lung cancer. Awaiting CT chest reading. Discussed with oncology; to be started on steroid to reduce vasogenic edema. Patient received methylprednisolone 125 mg in the ED which is equivalent to 22 mg of dexamethasone. We will start 4 mg dexamethasone every 6 hourly from tomorrow AM. -Obtain MRI brain with and without contrast Obtain CT abdomen and pelvis Started on ceftriaxone, doxycycline for UTI/pneumonia. Sputum culture and AFB stain sent. DuoNebs, hypertonic saline nebs. Telemetry monitoring; EKG in a.m. -Her home medication are on hold Discussed with daughter at bedside. Full code DVT prophylaxis SCDs. 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 fib on Eliquis Last confinement in May 2020 with A. fib with RVR, left hip dislocation Patient was brought to the ED by her daughter due to increasing confusion since last 2 weeks. Patient's daughter had noticed patient being forgetful since last 2 days; today, patient was delirious and disoriented to time and place. Patient took 4 doses of her home medication from the pillbox; which include duloxetine, bupropion, Lipitor, Eliquis, irbesartan, metoprolol. Patient is lethargic; but he is able to have conversation. She is not sure why she is in the hospital. She denies any fever, chills, chest pain or cough. In the ED, patient was found to be hypertensive, afebrile and saturating well at 3 L via nasal cannula. CBC and CMP are unremarkable for any significant findings. Urinalysis is suggestive of infection. CXR showed 6.8 cm right suprahilar airway opacity. CT head showed multiple intraaxial lesions; 3.2 cm right frontoparietal lesion with associated edema and mass effect; highly suggestive metastases. Discussed with Oncology; plan to give steroids to reduce edema and also obtain CT abdomen and pelvis. Allergies Allergy/AdvReac Type Severity Reaction Status Date / Time oxycodone AdvReac Severe Hallucinati Verified 08/26/22 17:23 ons Home Medications Medication Instructions Recorded Confirmed Type budesonide-formoterol HFA 160 2 puff inhalation BID 10/02/19 08/26/22 History mcg-4.5 mcg/actuation aerosol inhaler (Symbicort) fluticasone propionate 50 2 spray intranasal DAILY PRN 10/02/19 08/26/22 History mcg/actuation nasal Allergy Symptoms spray,suspension letrozole 2.5 mg tablet 2.5 mg PO DAILY 10/02/19 08/26/22 History irbesartan 75 mg tablet 75 mg PO DAILY 05/25/20 08/26/22 History apixaban 5 mg tablet (Eliquis) 5 mg PO BID 08/26/22 08/26/22 History atorvastatin 40 mg tablet 40 mg PO DAILY 08/26/22 08/26/22 History bupropion HCl 200 mg tablet,12 hr 200 mg PO BID 08/26/22 08/26/22 History sustained-release duloxetine 30 mg capsule,delayed 3 mg PO DAILY 08/26/22 08/26/22 History release metoprolol succinate 50 mg 75 mg PO HS 08/26/22 08/26/22 History tablet,extended release 24 hr Past Med/Surg History Medical History Abdominal pain Atrial fibrillation DJD (degenerative joint disease) of hip (07/17/13) Malignant neoplasm of upper-outer quadrant of right breast in female, estrogen receptor positive (08/02/17) Perforated viscus Peritonitis Sepsis Sinusitis Surgical History History of hip surgery S/P appendectomy S/P lumpectomy of breast S/P MORA-BSO S/P tonsillectomy Status post THR (total hip replacement) Bilateral Family History Other Cancer Diabetes Heart disease Hypertension Social History Smoking Status: Current every day smoker Tobacco Type: Cigarettes Age Started Using Tobacco: 17; Cigarettes Per Day: 10-20/day; Second Hand Exposure: No; Hx Alcohol Use: No ("I quit before I fell") Hx Substance Use: No Preferred Language: Persian Communication Ability: Effective Visual Impairment: No Limitations Wire Insulator Required: No Beliefs That Will Affect Care: None marital status: Current Living Situation: Alone How many Children do You have: 3 Feels Safe at Home: Yes caffeine: Yes (one cup per day) Dental Care, Regularly: No Physical Activity Frequency: Does not Exercise Physical Activity Frequency Comment: currently wears a brace Assistive Devices: Brace/Splint/Immobilizer, Glasses, Oxygen - Continuous and Walker Review of Systems Review of Systems: All systems reviewed & are unremarkable except as noted in Subjective Physical Exam Physical Exam: Constitutional: Lethargic but able to follow conversation; Respiratory: Bilateral coarse crackles; more on right side. Cardiovascular: RRR, no murmur, no edema Vessels: no JVD or carotid bruit Chest: normal inspection of chest Abdomen: normal bowel sounds, soft, nontender, no hepatosplenomegaly Musculoskeletal: no cyanosis or clubbing, extremities motor strength 5/5 Skin: no rashes, warm and dry normal turgor Neurologic: Follows commands intermittently. Psychiatric: A+Ox3, euthymic affect Lymphatic: no cervical or axillary lymphadenopathy : deferred Results & Data Results & Data ([facility]) Vital Signs (Past 12 Hours) Vital Signs Temp Pulse Pulse Resp BP BP Pulse Ox 08/26/22 18:36 75 20 92 08/26/22 18:02 68 16 123/105 H 95 08/26/22 17:11 142/74 H 08/26/22 17:11 65 25 H 94 08/26/22 17:00 72 22 99 08/26/22 16:45 74 23 92 08/26/22 16:31 158/104 H 08/26/22 16:31 72 23 93 08/26/22 16:30 72 16 94 08/26/22 16:15 82 24 82 L 12/10/22 16:09 147/82 H 08/26/22 16:09 100 08/26/22 16:08 100 08/26/22 15:31 146/90 H 08/26/22 15:31 66 17 93 08/26/22 15:30 66 14 84 L 08/26/22 15:15 68 19 99 08/26/22 15:01 107/72 08/26/22 15:01 65 17 87 L 08/26/22 15:00 66 14 87 L 08/26/22 14:45 71 26 H 92 08/26/22 14:30 72 23 91 08/26/22 14:30 130/81 08/26/22 14:15 65 26 H 91 08/26/22 14:00 79 24 91 08/26/22 13:59 49 L 17 92 08/26/22 13:34 36.5 C 67 20 113/68 91 O2 Del Method O2 Flow Rate 08/26/22 18:36 Room Air 3 08/26/22 18:02 Nasal Cannula 3 08/26/22 17:11 08/26/22 17:11 08/26/22 17:00 08/26/22 16:45 08/26/22 16:31 08/26/22 16:31 08/26/22 16:30 08/26/22 16:15 08/26/22 16:09 08/26/22 16:09 08/26/22 16:08 08/26/22 15:31 08/26/22 15:31 08/26/22 15:30 08/26/22 15:15 08/26/22 15:01 08/26/22 15:01 08/26/22 15:00 Nasal Cannula 2 08/26/22 14:45 08/26/22 14:30 08/26/22 14:30 08/26/22 14:15 08/26/22 14:00 08/26/22 13:59 08/26/22 13:34 Room Air Laboratory Results Laboratory Results WBC 7.76 K/ul (4.8-10.8) 08/26/22 14:41 RBC 4.08 M/uL (3.93-5.22) 08/26/22 14:41 Hgb 11.4 g/dl (12.0-16.0) L 08/26/22 14:41 Hct 36.2 % (34.1-44.9) 08/26/22 14:41 MCV 88.7 fL (80.0-100.0) 08/26/22 14:41 MCH 27.9 pg (25.0-34.0) 08/26/22 14:41 MCHC 31.5 g/dL (32.0-36.0) L 08/26/22 14:41 RDW Std Deviation 52.9 fL (36.4-46.3) H 08/26/22 14:41 RDW Coeff of Cesilia 16.2 % (11.5-14.5) H 08/26/22 14:41 Plt Count 249 K/uL (130-400) 08/26/22 14:41 MPV 10.2 fL (9.4-12.3) 08/26/22 14:41 Immature Gran % (Auto) 0.4 % 08/26/22 14:41 Neut % (Auto) 82.5 % 08/26/22 14:41 Lymph % (Auto) 8.5 % 08/26/22 14:41 [place] % (Auto) 8.2 % 08/26/22 14:41 Eos % (Auto) 0.1 % 08/26/22 14:41 Baso % (Auto) 0.3 % 08/26/22 14:41 Neut # (Auto) 6.40 K/uL (1.4-6.5) 08/26/22 14:41 Lymph # (Auto) 0.66 K/uL (1.2-3.4) L 08/26/22 14:41 [place] # (Auto) 0.64 K/uL (0.24-0.82) 08/26/22 14:41 Eos # (Auto) 0.01 K/uL (0-0.50) 08/26/22 14:41 Baso # (Auto) 0.02 K/uL (0-0.2) 08/26/22 14:41 Immature Gran # (Auto) 0.03 K/uL (0.00-0.02) H 08/26/22 14:41 PT 15.2 Seconds (9.0-12.0) H 08/26/22 14:41 INR 1.5 (0.9-1.1) H 08/26/22 14:41 Sodium 140 mmol/L (136-145) 08/26/22 14:41 Potassium 3.9 mmol/L (3.5-5.1) 08/26/22 14:41 Chloride 105 mmol/L (98-107) 08/26/22 14:41 Carbon Dioxide 28 mmol/L (21-32) 08/26/22 14:41 Anion Gap 7 (3-11) 08/26/22 14:41 BUN 25 mg/dl (6-23) H 08/26/22 14:41 Creatinine 0.54 mg/dl (0.6-1.2) L 08/26/22 14:41 Est Cr Clr Drug Dosing 104.1 ml/min 08/26/22 14:41 Est GFR ( Amer) 107.7 ml/min 08/26/22 14:41 Est GFR (Non-Af Amer) 93.0 ml/min 08/26/22 14:41 BUN/Creatinine Ratio 46.3 (10-20) H 08/26/22 14:41 Glucose 115 mg/dl (70-99(Fasting)) H 08/26/22 14:41 Calcium 8.2 mg/dl (8.5-10.1) L 08/26/22 14:41 Total Bilirubin 1.0 mg/dl (0.2-1.0) 08/26/22 14:41 AST 16 U/L (13-39) 08/26/22 14:41 ALT 13 U/L (7-52) 08/26/22 14:41 Alkaline Phosphatase 75 U/L (34-104) 08/26/22 14:41 Troponin I High Sens 9.3 pg/ml (0-14) 08/26/22 14:41 Total Protein 6.2 gm/dl (6.0-8.3) 08/26/22 14:41 Albumin 3.6 gm/dl (3.4-5.0) 08/26/22 14:41 Globulin 2.6 gm/dl (2.5-4.0) 08/26/22 14:41 Albumin/Globulin Ratio 1.4 (0.9-2) 08/26/22 14:41 Urine Color Dark Yellow 08/26/22 16:41 Urine Appearance Cloudy (Clear) A 08/26/22 16:41 Urine pH 5.5 (4.5-7.5) 08/26/22 16:41 Ur Specific [place] 1.032 (1.000-1.030) H 08/26/22 16:41 Urine Protein 1+ (Negative) H 08/26/22 16:41 Urine Glucose (UA) Negative (Negative) 08/26/22 16:41 Urine Ketones Trace (Negative) H 08/26/22 16:41 Urine Blood 2+ (Negative) H 08/26/22 16:41 Urine Nitrite Positive (Negative) A 08/26/22 16:41 Urine Bilirubin Negative (Negative) 08/26/22 16:41 Urine Urobilinogen Negative (Negative) 08/26/22 16:41 Ur Leukocyte Esterase Trace (Negative) H 08/26/22 16:41 Urine WBC (Auto) 10-30 /hpf (0-5) H 08/26/22 16:41 Urine RBC (Auto) 10-30 /hpf (0-4) H 08/26/22 16:41 U Hyaline Cast (Auto) 10-30 /lpf (0-5) H 08/26/22 16:41 U Epithel Cells (Auto) 20-30 /lpf (0-5) H 08/26/22 16:41 Urine Bacteria (Auto) 4+ (Negative) H 08/26/22 16:41 SARS-CoV-2 (PCR) NEGATIVE (Negative) 08/26/22 14:37 Influenza Type A (PCR) Negative (Neg) 08/26/22 14:37 Influenza Type B (PCR) Negative (Neg) 08/26/22 14:37 RSV (RT-PCR) Negative (Neg) 08/26/22 14:37 Impressions Chest X-Ray 08/26/22 14:00 XR chest 2V PA/lateral CLINICAL HISTORY: cough, wheezing, weakness COMPARISON STUDY: Chest radiograph May 29, 2020. FINDINGS: There is no pneumothorax. Trace bilateral pleural effusions are present. Mild cardiomegaly. A 6.8 cm right suprahilar nodular airspace opacity is present. This contains equivocal cavitation. There is mild interstitial pulmonary edema. IMPRESSION: 1. 6.8 cm right suprahilar nodular airspace opacity with equivocal cavitation. This may reflect pneumonia. However, a neoplasm could appear similar. Ra diographic follow up to ensure resolution is recommended. Alternatively, a chest CT could be obtained for further evaluation. 2. Mild interstitial pulmonary edema with trace bilateral pleural effusions. ACT 112: Positive. There are findings on this exam that require communication between the performing entity and the patient following Patient Test Result Information Act [place] Act 112) guidelines. Electronically signed by: Toni Mccloud M.D. 08/26/2022 4:[address] 08/26/22 17:56 CT OF THE CHEST WITH IV CONTRAST CLINICAL HISTORY: 6.8cm cavitation COMPARISON STUDY: Chest radiograph May 29, 2020 and August 26, 2022. Treatment planning CT October 03, 2017. TECHNIQUE: Following IV administration of 86 mL of Optiray, helical axial images of the chest were obtained. Sagittal and coronal reconstructions were viewed as well as maximal intensity projections on an independent 3-D workstation. Automated exposure control was utilized for the study. A dose lowering technique was utilized adhering to the principles of ALARA. CT DOSE: 973.07 mGy.cm FINDINGS: There is no thoracic aortic dissection. There are multiple suspected small segmental pulmonary emboli within the left lung, suboptimally assessed on this exam due to respiratory motion. There is no pericardial effusion. A small right pleural effusion is noted. There is a cavitary mass-like opacity within the anterior segment of the right upper lobe that measures 7.2 x 3.8 cm. This corresponds to the finding on chest radiograph. Adjacent airspace opacity is pr esent. This suspected mass extends to the mediastinum. In addition, there is extensive mediastinal and right hilar lymphadenopathy. This lymphadenopathy may be necrotic. Index subcarinal lymph node measures 3.6 x 2.3 cm. A right suprahilar lymph node measures 2.7 x 2 cm. A 1.6 cm lymph node adjacent to the mid descending thoracic aorta is present. In addition, there is bilateral supraclavicular lymphadenopathy. Index right supraclavicular lymph node measures 1.6 cm. The mediastinal lymphadenopathy results in mild to moderate distal tracheal narrowing. The lymphadenopathy also results in moderate narrowing of the lobar and segmental bronchi within the right lung. Suspected minimal invasion of the SVC is noted. Diffuse bronchial wall thickening is noted. There is mild interlobular septal thickening. Post therapy changes within the right breast are present. There is focal soft tissue thickening within the interspace between the right fourth and fifth ribs. A few suspected implants within the right upper quadrant of the abdomen are noted. These measure up to 1.6 cm. Pathologic gastrohepatic ligament lymphadenopathy is also present. There is trace perihepatic ascites. IMPRESSION: 1. 7.2 x 3.8 cm thick-walled mass-like cavitary opacity within the anterior segment of the right upper lobe. This is suggestive of a lung malignancy. 2. Extensive thoracic, lower cervical and upper abdominal lymphadenopathy, as described above. This represents karen spread of disease. Lymphadenopathy results in mild to moderate distal tracheal narrowing. Suspected minimal SVC invasion. 3. Several suspected segmental pulmonary emboli within the left lung. A PE protocol chest CT could be obtained for confirmation. 4. Mild interstitial pulmonary edema. Small right pleural effusion. ACT 112: Negative or not required by law. Electronically signed by: Toni Mccloud M.D. 08/26/2022 7:[address] 08/26/22 18:29 CT OF THE HEAD WITHOUT CONTRAST CLINICAL HISTORY: Confusion; on eliquis COMPARISON STUDY: Head CT May 27, 2020. MRI of the brain November 19, 2008. TECHNIQUE: Helical axial images of the head were obtained without IV contrast. Automated exposure control was utilized for the study. A dose lowering technique was utilized adhering to the principles of ALARA. FINDINGS: No acute intracranial hemorrhage is present. Note is made of a hypodense 3.2 cm right frontoparietal lesion on axial image 24 of 32. Moderate associated vasogenic edema is present. There is mild mass effect with sulcal effacement, mild compression of the right lateral ventricle and minimal leftward midline shift. A few additional cystic/necrotic lesions within the anterior right frontal lobe measure up to 2.3 cm. Basal cisterns are patent. There are no extra-axial fluid collections. A small vessel disease is noted. There are no findings to suggest acute dural sinus thrombosis or acute territorial infarct. IMPRESSION: Multiple intraaxial lesions, the largest of which is a 3.2 cm right frontoparietal lesion with moderate associated vasogenic edema and mass effect. These are highly suggestive of metastases. An MRI of the brain with and without contrast could be obtained for further evaluation. ACT 112: Positive. There are findings on this exam that require communication between the performing entity and the patient following Patient Test Result Information Act [place] Act 112[place] guidelines. Electronically signed by: Toni Mccloud M.D. 08/26/2022 7:04 PM
--- NOTE | 2022-08-26 19:32 | CT Scan Report ---
CT OF THE CHEST WITH IV CONTRAST CLINICAL HISTORY: 6.8cm cavitation COMPARISON STUDY: Chest radiograph May 29, 2020 and August 26, 2022. Treatment planning CT J anuary 2017. TECHNIQUE: Following IV administration of 86 mL of Optiray, helical axial images of the chest were o btained. Sagittal and coronal reconstructions were viewed as well as maximal intensity projections o n an independent 3-D workstation. Automated exposure control was utilized for the study. A dose low ering technique was utilized adhering to the principles of ALARA. CT DOSE: 973.07 mGy.cm FINDINGS: There is no thoracic aortic dissection. There are multiple suspected small segmental pulmo nary emboli within the left lung, suboptimally assessed on this exam due to respiratory motion. There is no pericardial effusion. A small right pleural effusion is noted. There is a cavitary mass-like o pacity within the anterior segment of the right upper lobe that measures 7.2 x 3.8 cm. This correspon ds to the finding on chest radiograph. Adjacent airspace opacity is present. This suspected mass exte nds to the mediastinum. In addition, there is extensive mediastinal and right hilar lymphadenopathy. This lymphadenopathy may be necrotic. Index subcarinal lymph node measures 3.6 x 2.3 cm. A right supr ahilar lymph node measures 2.7 x 2 cm. A 1.6 cm lymph node adjacent to the mid descending thoracic ao rta is present. In addition, there is bilateral supraclavicular lymphadenopathy. Index right supracla vicular lymph node measures 1.6 cm. The mediastinal lymphadenopathy results in mild to moderate dista l tracheal narrowing. The lymphadenopathy also results in moderate narrowing of the lobar and segment al bronchi within the right lung. Suspected minimal invasion of the SVC is noted. Diffuse bronchial w all thickening is noted. There is mild interlobular septal thickening. Post therapy changes within th e right breast are present. There is focal soft tissue thickening within the interspace between the r ight fourth and fifth ribs. A few suspected implants within the right upper quadrant of the abdomen a re noted. These measure up to 1.6 cm. Pathologic gastrohepatic ligament lymphadenopathy is also prese nt. There is trace perihepatic ascites. IMPRESSION: 1. 7.2 x 3.8 cm thick-walled mass-like cavitary opacity within the anterior segment of the right uppe r lobe. This is suggestive of a lung malignancy. 2. Extensive thoracic, lower cervical and upper abdominal lymphadenopathy, as described above. This r epresents karen spread of disease. Lymphadenopathy results in mild to moderate distal tracheal narrow ing. Suspected minimal SVC invasion. 3. Several suspected segmental pulmonary emboli within the left lung. A PE protocol chest CT could be obtained for confirmation. 4. Mild interstitial pulmonary edema. Small right pleural effusion. ACT 112: Negative or not required by law. Electronically signed by: Toin Mccloud M.D. 08/26/2022 7:29 PM
--- NOTE | 2022-08-26 19:47 | XRay Report ---
XR hip LT 2V w pelvis CLINICAL HISTORY: Left hip pain. History of total hip arthroplasty. COMPARISON: Pelvis and left hip radiographs July 19, 2020. FINDINGS: Incidental note is made of contrast within the bladder from recent contrast-enhanced CT. A lignment of the hip arthroplasties is anatomic. No periprosthetic fracture or lucency is noted. Hardw are is intact. IMPRESSION: 1. No acute fracture within the pelvis or hips. 2. Intact total bilateral hip arthroplasties. ACT 112: Negative or not required by law. Electronically signed by: Toni Mccloud M.D. 08/26/2022 7:45 PM
[2022-08-26] MEDS ORDERED: POLYETHYLENE (MIRALAX) 17 GM PACK PO PRN (20:01)
[2022-08-26] MEDS ORDERED: ACETAMINOPHEN 325 MG TAB PO PRN (20:01)
[2022-08-26] MEDS: ALBUT/IPRATROP 3MG/0.5MG NEB 3 ML VIAL NEB SCH ×2 (20:11→22:44)
[2022-08-26] MEDS: DOXYCYCLINE HYCLATE 100 MG in DEXTROSE 5% 100 ML IV SCH (21:12)
[2022-08-26] MEDS: SODIUM CHLOR 7% 4 ML NEB NEB SCH (22:44)
[2022-08-27 01:21] LABS: HCO3 ABG 28 mmol/L (19-24); PCO2 ABG 65 mmHg (35-46); PO2 ABG 158 mmHg (80-95); pH ABG 7.24 (7.35-7.45)
[2022-08-27 01:33] LABS: Allen Test Pos (Pos)
[2022-08-27] MEDS: ALBUT/IPRATROP 3MG/0.5MG NEB 3 ML VIAL NEB SCH ×6 (02:07→21:58)
[2022-08-27] MEDS ORDERED: OPTIRAY 320 500ml IV ONE (02:14)
[2022-08-27 03:06] LABS: Base Excess ABG -1.5 mEq/L (-9-1.8); HCO3 ABG 28 mmol/L (19-24); Oxygen Saturation ABG 93.5 % (90-95); PCO2 ABG 66 mmHg (35-46); PO2 ABG 70 mmHg (80-95); pH ABG 7.23 (7.35-7.45)
[2022-08-27 03:09] LABS: Allen Test Pos (Pos)
[2022-08-27 03:14] LABS: Basophils # (auto) 0.02 K/uL (0-0.2); Basophils % (auto) 0.2 %; Hematocrit (blood only) 37.6 % (34.1-44.9); Hemoglobin 11.2 g/dl (12.0-16.0); Immature Granulocytes # (auto) 0.08 K/uL (0.00-0.02); Immature Granulocytes % (auto) 0.7 %; Lymphocytes # (auto) 0.71 K/uL (1.2-3.4); Lymphocytes % (auto) 6.4 %; Mean Corpuscular Hemoglobin 27.9 pg (25.0-34.0); Mean Corpuscular Hgb Conc 29.8 g/dL (32.0-36.0); Mean Corpuscular Volume 93.6 fL (80.0-100.0); Mean Platelet Volume 10.1 fL (9.4-12.3); Monocytes # (auto) 1.13 K/uL (0.24-0.82); Monocytes % (auto) 10.2 %; Neutrophils # (auto) 9.14 K/uL (1.4-6.5); Neutrophils % (auto) 82.5 %; Platelet Count 238 K/uL (130-400); RDW Coefficient of Variation 16.2 % (11.5-14.5); RDW Standard Deviation 55.5 fL (36.4-46.3); Red Blood Count 4.02 M/uL (3.93-5.22); White Blood Count 11.08 K/ul (4.8-10.8)
[2022-08-27 03:20] LABS: INR 1.3 (0.9-1.1); Prothrombin Time 13.9 Seconds (9.0-12.0)
[2022-08-27 03:31] LABS: Albumin Globulin Ratio 1.3 (0.9-2); Albumin Level 3.4 gm/dl (3.4-5.0); BUN Creatinine Ratio 34.7 (10-20); Bilirubin,Total 0.6 mg/dl (0.2-1.0); Calcium 7.9 mg/dl (8.5-10.1); Creatinine Clr Calc Pharmacy 76.1 ml/min; Est GFR (African American) 95.6 ml/min; Est GFR (Non-African American) 82.5 ml/min; Globulin 2.6 gm/dl (2.5-4.0); Potassium 4.6 mmol/L (3.5-5.1)
[2022-08-27] MEDS ORDERED: dexAMETHasone 1 MG TAB PO SCH (04:30)
[2022-08-27] MEDS ORDERED: ALBUT/IPRATROP 3MG/0.5MG NEB 3 ML VIAL NEB STA (04:31)
[2022-08-27] MEDS ORDERED: ALBUT/IPRATROP 3MG/0.5MG NEB 3 ML VIAL NEB ONE (04:39)
[2022-08-27] MEDS ORDERED: DEXAMETHASONE SOD INJ 4 MG/ML VIAL IV SCH (04:45)
[2022-08-27 06:01] LABS: iSTAT Allen Test Pass; iSTAT Art Bld Gas pCO2 Correct 63 mmHg (35-46); iSTAT Art Bld Gas pH Corrected 7.267 (7.35-7.45); iSTAT Arterial Blood Gas HCO3 29 meg/L (19-24); iSTAT Arterial Blood Gas pCO2 63 mmHg (35-46); iSTAT Arterial Blood Gas pH 7.27 (7.35-7.45); iSTAT Arterial Blood Gas pO2 78 mmHg (80-95); iSTAT Arterial Blood Gas pO2 C 78; iSTAT Carbon Dioxide 31 mmol/L (24-31); iSTAT Hematocrit 36 % (37-47); iSTAT Hemoglobin 12.2 g/dl (12.0-16.0); iSTAT Potassium 4.2 mmol/L (3.3-5.0); iSTAT Site L Radial; iSTAT Sodium 142 mmol/L (135-144)
[2022-08-27] MEDS: HEPARIN SOD 5,000 UNIT/0.5 ML VIAL SQ SCH ×3 (06:05→20:49)
[2022-08-27] MEDS: dexAMETHasone 10 MG in SYRINGE 0 ML IV SCH ×3 (06:26→20:49)
[2022-08-27] MEDS: cefTRIAXone SODIUM 2,000 MG in DEXTROSE 5% 50 ML IV SCH (06:29)
[2022-08-27] MEDS ORDERED: FUROSEMIDE INJ 20 MG/2 ML VIAL IV ONE (07:20)
[2022-08-27] MEDS: SODIUM CHLOR 7% 4 ML NEB NEB SCH ×2 (07:26→19:24)
[2022-08-27] MEDS ORDERED: dexAMETHasone 4 MG TAB PO SCH (07:30)
--- NOTE | 2022-08-27 08:01 | CT Scan Report ---
CT ANGIOGRAPHY OF THE CHEST, PULMONARY EMBOLUS PROTOCOL CLINICAL HISTORY: Suspected lung cancer. Possible pulmonary emboli on prior chest CT. COMPARISON STUDY: Chest radiograph and chest CT August 26, 2022. TECHNIQUE: Following IV administration of 114 mL of Optiray, helical axial images of the chest were o btained utilizing the pulmonary embolus protocol. Maximal intensity projections and sagittal and cor onal reformats were viewed on an independent 3D workstation. IV contrast was administered without co mplication. Automated exposure control was utilized for the study. A dose lowering technique was ut ilized adhering to the principles of ALARA. FINDINGS: The study confirms multiple segmental pulmonary emboli within the left lung. There is no p ericardial effusion. A small right pleural effusion has increased in size since prior exam. A trace l eft pleural effusion has developed. Pulmonary edema is again noted with interlobular septal thickenin g. The cavitary 7 cm thick-walled right upper lobe mass within the anterior segment is again noted. T here is adjacent groundglass opacity. Extensive mediastinal and right hilar lymphadenopathy is noted. This exam is compromised by motion artifact however this adenopathy results in mild to moderate narr owing of the central airways. Suspected SVC invasion is also present. Lower cervical and upper abdomi nal lymphadenopathy is also noted. Post therapy changes within the right breast are present. A mild T 12 compression fracture is noted. The abdomen and pelvis CT will be reported separately. IMPRESSION: 1. Multiple segmental pulmonary emboli within the left lung. 2. Redemonstration of a 7 cm thick-walled cavitary mass-like opacity within the anterior segment of t he right upper lobe suggestive of lung malignancy. 3. Associated extensive mediastinal and hilar lymphadenopathy, as detailed above. This results in mil d to moderate central airway narrowing. Suspected SVC invasion. 4. Interstitial pulmonary edema with increasing bilateral pleural effusions. ACT 112: Negative or not required by law. Electronically signed by: Toni Mccloud M.D. 08/27/2022 7:58 AM
--- NOTE | 2022-08-27 08:14 | CT Scan Report ---
CT OF THE ABDOMEN AND PELVIS WITH CONTRAST CLINICAL HISTORY: lung cancer, mets? COMPARISON STUDY: CT of the abdomen and pelvis December 01, 2013 TECHNIQUE: Following IV administration of 114 mL of Optiray, axial images of the abdomen and pelvis w ere obtained from the lung bases to the proximal femurs. Images were reviewed in the axial, sagittal, and coronal planes. IV contrast was administered without complication. Automated exposure control w as utilized for the study. A dose lowering technique was utilized adhering to the principles of YVETTE Aponte. CT DOSE: 1560.92 mGy.cm FINDINGS: Interlobular septal thickening within the lungs represents pulmonary edema. Small bilateral pleural effusions, right larger left, are noted. Please note that the chest CT will be reported sepa rately. Heterogeneity of the liver favors passive hepatic congestion. A hypodense focus within the me dial segment favors focal fat. A small amount of perihepatic ascites noted. Moderate gallbladder wall thickening may also be due to volume overload/right heart dysfunction. There is a small amount of fl uid adjacent to the proximal duodenum. No pneumatosis, free air or portal venous gas is present. A 1. 9 cm right retroperitoneal implant on axial image 107 of 421 is noted. Pathologic gastrohepatic ligam ent nodes are noted. Index node measures 2.7 x 1.6 cm. There is no biliary or pancreatic ductal dilat ation. There is pancreatic glandular atrophy. Spleen, adrenal glands and kidneys are unremarkable wit h the exception of a few suspected right renal cysts. There is no hydronephrosis. There is no evidenc e for a bowel obstruction. Images of the pelvis are degraded by streak artifact from hip arthroplasti es. Contrast within the collecting systems, ureters and bladder from prior contrast enhanced CT. Smal l amount of pelvic ascites is present. A T12 fracture with mild loss of vertebral body height is note d. There is also a pathologic fracture within the right iliac bone due to an underlying lesion which measures approximately 3.3 cm. This extends into the adjacent musculature. IMPRESSION: 1. Evidence for metastatic disease, including upper abdominal lymphadenopathy, right retroperitoneal implants and a 3.3 cm right iliac bone metastasis with pathologic fracture. A mild T12 fracture may b e benign or pathologic. 2. No bowel obstruction. No bowel wall thickening. 3. Interstitial pulmonary edema with bilateral pleural effusions and a small amount of ascites within the abdomen and pelvis. Heterogeneity of the liver favors passive hepatic congestion. 4. Moderate gallbladder wall thickening. Small amount of fluid adjacent to the duodenum. Although non specific, these findings may be related to volume overload/right heart dysfunction. ACT 112: Negative or not required by law. Electronically signed by: Toni Mccloud M.D. 08/27/2022 8:12 AM
--- NOTE | 2022-08-27 08:24 | Consultation ---
Date of Consultation August 27, 2022 Assessment & Plan (1) Lung mass: She has a history of breast cancer that was very early stage, treated appropriately, and presented 5 years ago. The likelihood of that recurring as this presentation is extremely unlikely. Statistically most likely we are dealing with a primary lung cancer given her prolonged smoking history. Cavitarylung lesion suggests against a small cell process and particularly might suggest a squamous cell carcinoma. Cancer is widespread with HOSE SPRAYER, both thoracic and abdominal karen, peritoneal and bony metastases. Immediate issues are stabilization with respect to the HOSE SPRAYER metastases, pulmonary embolism and her general medical condition particularly with respect to her atrial fibrillation and COPD. We will then need to consider moving onto more specific tissue diagnosis which will both inform prognosis and set stage for discussion of potential treatment options. By description her current performance status is no better than ECOG 3. For patients with poor performance status and non-small cell lung cancer, our usual guidelines would suggest against any role for cytotoxic chemotherapy as unfortunately the experience is that there are more life shortening complications than significantly beneficial responses that extend quality and quantity of life. Her current situation would certainly be considered incurable. There have already been some indications from her daughters that, completely appropriately, they feel we should set some reasonable limits to the aggression of her care. Would get palliative care involved early on in the overall conversations and in that setting even as we approach additional diagnostic stud ies we will need to make sure that those things that we pursue will offer worthwhile information or potential for response for the patient herself. That vein of discussion and intervention has already begun, specifically in terms of approaching her pulmonary emboli which are discussed separately. Through the weekend, I suggest your focus will need to be on medical stabilization as above. If we find that she is doing reasonably well, could approach our radiology department to see if we can within this institution consider image guided biopsy of her peritoneal deposits, any of her nodes, or t he bone lesion. Bronchoscopy would technically offer an alternative path or diagnosis but would be concerned with her respiratory status however she would tolerate that and given that there will be ongoing issues of anticoagulation, bleeding there might be a greater risk and more problematic. While the iliac lesion may be more easily accessible, I am not sure we have technical capability for biopsy of that here and bone biopsies produce less optimal material for full NGS studies but would at least provide a broad initial definition of disease. May want to "curbside" orthopedics with regards to the pelvic fracture though I do not think that this represents a structurally unstable situation that requires immediate operative intervention I would also get radiation oncology involved for short-term stabilization of the HOSE SPRAYER disease. While we will sometimes hold off on HOSE SPRAYER irradiation in patients with small cell lung cancer, this seems unlikely to be in that diagnosis category and even if it were, given her symptomatology upfront palliative radiation could be worthwhile. As above, it is not clear that she will good candidate for cytotoxic chemotherapy but if she has appropriate biological markers she might be considered for immune checkpoint inhibitor therapy or targeted therapy. Even for those, it would be preferable to see her performance status more stable but given those possibilitoes, unless we reach a definitive consensus with her family that palliative care/comfort care only are appropriate we should develop a plan for tissue diagnosis. That may require transfer to another institution. (2) Malignant neoplasm of upper-outer quadrant of right breast in female, estrogen receptor positive: Early stage breast cancer appropriately treated in 2017 now on ongoing letrozole hormonal suppression therapy. The risk of recurrence is extremely small and with an overwhelmingly alternative diagnosis suggested here, we are much more likely dealing with a metachronous primary lung ca than with metastatic breast ca. Particularly since she is 5 years out from diagnosis, she does not necessarily need to continue her letrozole therapy. (3) Atrial fibrillation with RVR: Could review with cardiology as well but for the short-term should be on less than full dose anticoagulation as discussed wrt her PEs. 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 These did occur while on Eliquis which she was presumably taking regularly, in fact she may have taken some extra doses as per the admission history and physical. Dilemma is the risk of bleeding from particularly in the HOSE SPRAYER though with cavitation there could be bleeding risk there as well. Somewhat reassuring that on outpatient Eliquis, she did not have bleeding of note at presentation in either location. I reviewed with hospitalist team indicating that "standard" would probably need to place an IVC filter. Also, I have historically consulted neurosurgery and in such cases to get their own sense as to whether or not it is safe to institute anticoagulation. Frankly, my experience has been that neurosurgery recommendations in cases such as this have been all over the map more reflective of the individual neurosurgeon's biases perhaps than a consistent algorithmic recommendation for or against anticoagulation in the absence of established bleeding within HOSE SPRAYER metastasis. My general sense is for intermediately sized metastases such as we have here without clear evidence of bleeding, it is not completely unsafe to initiate anticoagulation as long as it includes shared decision making with patient and/order family with regards to the bleeding risk versus concerns for additional more life-threatening VTE events. Both the IVC filter and neurosurgical review would require transfer to another institution. In the larger sense of setting prognostically defined limits in terms of overaggressive management, discussion with the daughters apparently reached the conclusion that we should do what we can here and that does seem reasonable approach given the overall challenging situation. They are apparently very aware that there may be immediately life-threatening complications from the disease and from our attempted treatment. Suggest keeping her on "prophylactic" dose heparin for now which offers quick reversibility if needed. If she does well for 36 hours on that could consider going to a heparin drip starting without a bolus and at the lower end of the suggested range with tight control of anticoagulation monitoring PTT closely. While the DOAC's are increasingly considered alternative options for the treatment of malignancy related hypercoagulability, the "gold standard" continues to be heparin or heparin like anticoagulation. Further, in the near term heparin offers both optimization to the individual dosing requirements and easier reversibility which could be important if she has a late episode of bleeding. If she has any clinically significant bleeding would be to stop anticoagulation after arrange for an IVC filter if we are continuing with more than comfort care only like care Plan 1. Immediate issues should focus on medical stabilization with regards to her COPD, atrial fibrillation, and general medical status 2 With specific regards to pulmonary embolism, as discussed above would suggest prophylactic dose anticoagulation with heparin subcutaneously for 36 hours. If she remains stable can consider transition to continuous intravenous heparin without a bolus and at the lower end of therapeutic wenge 3. We will need ongoing discussion with the family and, to the extent that she can participate, the patient herself to set appropriate parameters for how aggressively he approach prognosis and treatment of what appears to be almost certainly an underlying lung cancer most probably a non-small cell lung cancer. Unless her performance is dramatically improves, she is not going to be a candidate for traditional chemotherapy. Tissue diagnosis nevertheless may be helpful in affirming that but also to provide material for NGS studies that might indicate some non-cytotoxic options. Even if so, it is important to bear in mind that the process of establishing diagnosis and treatment options, starting that treatment, and achieving a response could take weeks, however, so cannot be counted on to offer any near-term improvement in her status. This will be important as we set diagnostic and therapeutic parameters and goals 4. Will be important to get palliative care involved in conversations 5. I would also involve radiation oncology in discussions of at least short-term stabilization of the HOSE SPRAYER lesions 6. It is unlikely that her pelvic mass needs stabilization but I might ask orthopedics for "curbside" review. 7. In terms of diagnosis, we can explore with our radiology team whether we they feel comfortable with biopsying her one of peritoneal, karen or bone lesions. Can also approach pulmonary about bronchoscopy however COPD and potential bleeding issues might create some concern about that approach. 8. Did discuss potential for transfer to an institution that would have greater capabilities particularly with respect to placement of an IVC filter, neurosurgical review and/or biopsy. She is not a good neurosurgical candidate so neurosurgical option would only be for advice with respect to anticoagulation which I believe we can reasonably approach as above. There has been discussion with the daughters and the determination is to stay here. Given that there are probably significant limits to what we can achieve overall it is quite reasonable to already begin the process of setting such confined parameters of care. I am not available on site until Sunday, but will be available electronicallly overnight on-call and then Dr. Thomas will be available for for any acute concerns tomorrow. I will follow up on Sunday History of Present Illness Reason for Consultation: 62-year tobacco user presents with a cavitary right upper lung mass of what looks like widespread metastases including HOSE SPRAYER lesions. Note that this is an electronic consultation 1.5 today. I evaluated examined patient directly but have been able to review the extensive database established by hospital medicine and as well as have spoken directly with Dr. Dang to assess the current situation. Attending Physician: Shelton Carballo MD History of Present Illness Currently smoking 10 to 20 cigarettes/day with some intermittent episodes of abstinence but apparently overall relatively steady tobacco history since the age of 17. Patient did have a very early stage right-sided breast cancer diagnosed in 2017 hormone receptor positive HER2 negative. This was treated with lumpectomy and radiation. She has been followed elsewhere and continues on letrozole. She has no other documented historical malignancy. Patient was brought to the emergency department by her daughter based on a 2- week history of worsening confusion. She apparently has responsive though confused. She is having some moderate respiratory difficulties and by her laboratory certainly does show some signs of CO2 retention. Past medical history is primarily significant for COPD, atrial fibrillation with rapid ventricular response, and orthopedic issues. There is apparently no family history of an unusual pattern of cancers. Allergies Allergy/AdvReac Type Severity Reaction Status Date / Time oxycodone AdvReac Severe Hallucinati Verified 08/26/22 17:23 ons Home Medications Medication Instructions Recorded Confirmed Type budesonide-formoterol HFA 160 2 puff inhalation BID 10/02/19 08/26/22 History mcg-4.5 mcg/actuation aerosol inhaler (Symbicort) fluticasone propionate 50 2 spray intranasal DAILY PRN 10/02/19 08/26/22 History mcg/actuation nasal Allergy Symptoms spray,suspension letrozole 2.5 mg tablet 2.5 mg PO DAILY 10/02/19 08/26/22 History irbesartan 75 mg tablet 75 mg PO DAILY 05/25/20 08/26/22 History apixaban 5 mg tablet (Eliquis) 5 mg PO BID 08/26/22 08/26/22 History atorvastatin 40 mg tablet 40 mg PO DAILY 08/26/22 08/26/22 History bupropion HCl 200 mg tablet,12 hr 200 mg PO BID 08/26/22 08/26/22 History sustained-release duloxetine 30 mg capsule,delayed 3 mg PO DAILY 08/26/22 08/26/22 History release metoprolol succinate 50 mg 75 mg PO HS 08/26/22 08/26/22 History tablet,extended release 24 hr Patient History Medical History Abdominal pain Atrial fibrillation DJD (degenerative joint disease) of hip (07/17/13) Malignant neoplasm of upper-outer quadrant of right breast in female, estrogen receptor positive (08/02/17) Perforated viscus Peritonitis Sepsis Sinusitis Surgical History History of hip surgery S/P appendectomy S/P lumpectomy of breast S/P MORA-BSO S/P tonsillectomy Status post THR (total hip replacement) Bilateral Family History Other Cancer Diabetes Heart disease Hypertension Social History Smoking Status: Current every day smoker Tobacco Type: Cigarettes Age Started Using Tobacco: 17; Cigarettes Per Day: 10-20/day; Second Hand Exposure: No; Do You Dip or Chew Tobacco: No; Hx Alcohol Use: No Hx Substance Use: No Preferred Language: [place] Communication Ability: Impaired Communication Ability Comment: Patient extremely confused/disoriented Visual Impairment: No Limitations Therapeutic Activities Services Worker Required: No Beliefs That Will Affect Care: None marital status: Current Living Situation: Alone How many Children do You have: 3 Other Information That Helps Us Care for You: No Feels Safe at Home: Yes caffeine: Yes (one cup per day) Dental Care, Regularly: No Physical Activity Frequency: Does not Exercise Physical Activity Frequency Comment: currently wears a brace Assistive Devices: Oxygen - Continuous and Walker Physical Exam Physical Exam: Vital signs are stable and pulse is well controlled. Oxygen levels are adequate on BiPAP. Exams on admission did not suggest any major focal changes on lung or abdominal examination. She is described as following commands but obviously confused. There is no description of meningismus. There was no pathologic adenopathy identified peripherally. Results & Data ([facility]) Vital Signs (Past 12 Hours) Vital Signs Temp Pulse Pulse Resp BP Pulse Ox O2 Del Method 08/27/22 07:47 BiPAP 08/27/22 07:38 36.6 C 68 22 103/74 93 BiPAP 08/27/22 07:27 77 22 93 08/27/22 07:27 77 19 93 BiPAP 08/27/22 06:10 71 08/27/22 04:45 70 25 H 94 08/27/22 04:45 70 25 H 97 BiPAP 08/27/22 04:06 64 23 08/27/22 03:03 36.3 C L 71 20 126/68 92 CPAP 08/27/22 02:08 62 22 99 08/27/22 02:08 62 20 100 BiPAP 08/27/22 02:00 20 95 08/27/22 00:05 66 08/26/22 23:45 67 19 97 08/26/22 23:39 67 22 127/65 95 CPAP 08/26/22 22:47 69 26 H 90 Nasal Cannula 08/26/22 21:41 71 O2 Flow Rate FiO2 08/27/22 07:47 08/27/22 07:38 08/27/22 07:27 40 08/27/22 07:27 40 08/27/22 06:10 08/27/22 04:45 40 08/27/22 04:45 40 08/27/22 04:06 40 08/27/22 03:03 08/27/22 02:08 50 08/27/22 02:08 50 08/27/22 02:00 60 08/27/22 00:05 08/26/22 23:45 60 08/26/22 23:39 12 100 08/26/22 22:47 3 08/26/22 21:41 Laboratory Results Abnormal lab results 08/26/22 08/26/22 08/26/22 Range/Units 14:41 14:41 14:41 WBC (4.8-10.8) K/ul Hgb 11.4 L (12.0-16.0) g/dl POC Hct (37-47) % MCHC 31.5 L (32.0-36.0) g/dL RDW Std Deviation 52.9 H (36.4-46.3) fL RDW Coeff of Cesilia 16.2 H (11.5-14.5) % Neut # (Auto) (1.4-6.5) K/uL Lymph # (Auto) 0.66 L (1.2-3.4) K/uL [place] # (Auto) (0.24-0.82) K/uL Immature Gran # (Auto) 0.03 H (0.00-0.02) K/uL PT 15.2 H (9.0-12.0) Seconds INR 1.5 H (0.9-1.1) POC pH (7.35-7.45) POC pCO2 (35-46) mmHg POC pO2 (80-95) mmHg POC HCO3 (19-24) jamee/L POC Base Excess (-9-1.8) jamee/L ABG pH (7.35-7.45) ABG pH (Temp Correct) (7.35-7.45) ABG pCO2 (35-46) mmHg ABG pCO2 (Temp Corrct (35-46) mmHg ABG pO2 (80-95) mmHg ABG HCO3 (19-24) mmol/L ABG O2 Saturation (90-95) % BUN 25 H (6-23) mg/dl Creatinine 0.54 L (0.6-1.2) mg/dl BUN/Creatinine Ratio 46.3 H (10-20) Glucose 115 H (70-99(Fasting)) mg/dl Calcium 8.2 L (8.5-10.1) mg/dl Urine Appearance (Clear) Ur Specific [place] (1.000-1.030) Urine Protein (Negative) Urine Ketones (Negative) Urine Blood (Negative) Urine Nitrite (Negative) Ur Leukocyte Esterase (Negative) Urine WBC (Auto) (0-5) /hpf Urine RBC (Auto) (0-4) /hpf U Hyaline Cast (Auto) (0-5) /lpf U Epithel Cells (Auto) (0-5) /lpf Urine Bacteria (Auto) (Negative) 08/26/22 08/27/22 08/27/22 Range/Units 16:41 01:01 02:57 WBC 11.08 H (4.8-10.8) K/ul Hgb 11.2 L (12.0-16.0) g/dl POC Hct (37-47) % MCHC 29.8 L (32.0-36.0) g/dL RDW Std Deviation 55.5 H (36.4-46.3) fL RDW Coeff of Cesilia 16.2 H (11.5-14.5) % Neut # (Auto) 9.14 H (1.4-6.5) K/uL Lymph # (Auto) 0.71 L (1.2-3.4) K/uL [place] # (Auto) 1.13 H (0.24-0.82) K/uL Immature Gran # (Auto) 0.08 H (0.00-0.02) K/uL PT (9.0-12.0) Seconds INR (0.9-1.1) POC pH (7.35-7.45) POC pCO2 (35-46) mmHg POC pO2 (80-95) mmHg POC HCO3 (19-24) jamee/L POC Base Excess (-9-1.8) jamee/L ABG pH 7.24 L (7.35-7.45) ABG pH (Temp Correct) (7.35-7.45) ABG pCO2 65 H (35-46) mmHg ABG pCO2 (Temp Corrct (35-46) mmHg ABG pO2 158 H (80-95) mmHg ABG HCO3 28 H (19-24) mmol/L ABG O2 Saturation 96.0 H (90-95) % BUN (6-23) mg/dl Creatinine (0.6-1.2) mg/dl BUN/Creatinine Ratio (10-20) Glucose (70-99(Fasting)) mg/dl Calcium (8.5-10.1) mg/dl Urine Appearance Cloudy A (Clear) Ur Specific [place] 1.032 H (1.000-1.030) Urine Protein 1+ H (Negative) Urine Ketones Trace H (Negative) Urine Blood 2+ H (Negative) Urine Nitrite Positive A (Negative) Ur Leukocyte Esterase Trace H (Negative) Urine WBC (Auto) 10-30 H (0-5) /hpf Urine RBC (Auto) 10-30 H (0-4) /hpf U Hyaline Cast (Auto) 10-30 H (0-5) /lpf U Epithel Cells (Auto) 20-30 H (0-5) /lpf Urine Bacteria (Auto) 4+ H (Negative) 08/27/22 08/27/22 08/27/22 Range/Units 02:57 02:57 02:57 WBC (4.8-10.8) K/ul Hgb (12.0-16.0) g/dl POC Hct (37-47) % MCHC (32.0-36.0) g/dL RDW Std Deviation (36.4-46.3) fL RDW Coeff of Cesilia (11.5-14.5) % Neut # (Auto) (1.4-6.5) K/uL Lymph # (Auto) (1.2-3.4) K/uL [place] # (Auto) (0.24-0.82) K/uL Immature Gran # (Auto) (0.00-0.02) K/uL PT 13.9 H (9.0-12.0) Seconds INR 1.3 H (0.9-1.1) POC pH (7.35-7.45) POC pCO2 (35-46) mmHg POC pO2 (80-95) mmHg POC HCO3 (19-24) jamee/L POC Base Excess (-9-1.8) jamee/L ABG pH 7.23 L (7.35-7.45) ABG pH (Temp Correct) (7.35-7.45) ABG pCO2 66 H (35-46) mmHg ABG pCO2 (Temp Corrct (35-46) mmHg ABG pO2 70 L (80-95) mmHg ABG HCO3 28 H (19-24) mmol/L ABG O2 Saturation (90-95) % BUN 25 H (6-23) mg/dl Creatinine (0.6-1.2) mg/dl BUN/Creatinine Ratio 34.7 H (10-20) Glucose 104 H (70-99(Fasting)) mg/dl Calcium 7.9 L (8.5-10.1) mg/dl Urine Appearance (Clear) Ur Specific [place] (1.000-1.030) Urine Protein (Negative) Urine Ketones (Negative) Urine Blood (Negative) Urine Nitrite (Negative) Ur Leukocyte Esterase (Negative) Urine WBC (Auto) (0-5) /hpf Urine RBC (Auto) (0-4) /hpf U Hyaline Cast (Auto) (0-5) /lpf U Epithel Cells (Auto) (0-5) /lpf Urine Bacteria (Auto) (Negative) 08/27/22 Range/Units 05:44 WBC (4.8-10.8) K/ul Hgb (12.0-16.0) g/dl POC Hct 36 L (37-47) % MCHC (32.0-36.0) g/dL RDW Std Deviation (36.4-46.3) fL RDW Coeff of Cesilia (11.5-14.5) % Neut # (Auto) (1.4-6.5) K/uL Lymph # (Auto) (1.2-3.4) K/uL [place] # (Auto) (0.24-0.82) K/uL Immature Gran # (Auto) (0.00-0.02) K/uL PT (9.0-12.0) Seconds INR (0.9-1.1) POC pH 7.27 L (7.35-7.45) POC pCO2 63 H (35-46) mmHg POC pO2 78 L (80-95) mmHg POC HCO3 29 H (19-24) jamee/L POC Base Excess 2.0 H (-9-1.8) jamee/L ABG pH (7.35-7.45) ABG pH (Temp Correct) 7.267 L (7.35-7.45) ABG pCO2 (35-46) mmHg ABG pCO2 (Temp Corrct 63 H (35-46) mmHg ABG pO2 (80-95) mmHg ABG HCO3 (19-24) mmol/L ABG O2 Saturation (90-95) % BUN (6-23) mg/dl Creatinine (0.6-1.2) mg/dl BUN/Creatinine Ratio (10-20) Glucose (70-99(Fasting)) mg/dl Calcium (8.5-10.1) mg/dl Urine Appearance (Clear) Ur Specific [place] (1.000-1.030) Urine Protein (Negative) Urine Ketones (Negative) Urine Blood (Negative) Urine Nitrite (Negative) Ur Leukocyte Esterase (Negative) Urine WBC (Auto) (0-5) /hpf Urine RBC (Auto) (0-4) /hpf U Hyaline Cast (Auto) (0-5) /lpf U Epithel Cells (Auto) (0-5) /lpf Urine Bacteria (Auto) (Negative) Diagnostic Findings Chest X-Ray 08/26/22 14:00 XR chest 2V PA/lateral CLINICAL HISTORY: cough, wheezing, weakness COMPARISON STUDY: Chest radiograph May 29, 2020. FINDINGS: There is no pneumothorax. Trace bilateral pleural effusions are present. Mild cardiomegaly. A 6.8 cm right suprahilar nodular airspace opacity is present. This contains equivocal cavitation. There is mild interstitial pulmonary edema. IMPRESSION: 1. 6.8 cm right suprahilar nodular airspace opacity with equivocal cavitation. This may reflect pneumonia. However, a neoplasm could appear similar. Radiographic follow up to ensure resolution is recommended. Alternatively, a chest CT could be obtained for further evaluation. 2. Mild interstitial pulmonary edema with trace bilateral pleural effusions. ACT 112: Positive. There are findings on this exam that require communication between the performing entity and the patient following Patient Test Result Information Act [place] Act 112) guidelines. Electronically signed by: Toni Mccloud M.D. 08/26/2022 4:[address] 08/26/22 17:56 CT OF THE CHEST WITH IV CONTRAST CLINICAL HISTORY: 6.8cm cavitation COMPARISON STUDY: Chest radiograph May 29, 2020 and August 26, 2022. Treatment planning CT October 03, 2017. TECHNIQUE: Following IV administration of 86 mL of Optiray, helical axial images of the chest were obtained. Sagittal and coronal reconstructions were viewed as well as maximal intensity projections on an independent 3-D workstation. Automated exposure control was utilized for the study. A dose lowering technique was utilized adhering to the principles of ALARA. CT DOSE: 973.07 mGy.cm FINDINGS: There is no thoracic aortic dissection. There are multiple suspected small segmental pulmonary emboli within the left lung, suboptimally assessed on this exam due to respiratory motion. There is no pericardial effusion. A small right pleural effusion is noted. There is a cavitary mass-like opacity within the anterior segment of the right upper lobe that measures 7.2 x 3.8 cm. This corresponds to the finding on chest radiograph. Adjacent airspace opacity is present. This suspected mass extends to the mediastinum. In addition, there is extensive mediastinal and right hilar lymphadenopathy. This lymphadenopathy may be necrotic. Index subcarinal lymph node measures 3.6 x 2.3 cm. A right suprahilar lymph node measures 2.7 x 2 cm. A 1.6 cm lymph node adjacent to the mid descending thoracic aorta is present. In addition, there is bilateral supraclavicular lymphadenopathy. Index right supraclavicular lymph node measures 1.6 cm. The mediastinal lymphadenopathy results in mild to moderate distal tracheal narrowing. The lymphadenopathy also results in moderate narrowing of the lobar and segmental bronchi within the right lung. Suspected minimal invasion of the SVC is noted. Diffuse bronchial wall thickening is noted. There is mild interlobular septal thickening. Post therapy changes within the right breast are present. There is focal soft tissue thickening within the interspace between the right fourth and fifth ribs. A few suspected implants within the right upper quadrant of the abdomen are noted. These measure up to 1.6 cm. Pathologic gastrohepatic ligament lymphadenopathy is also present. There is trace perihepatic ascites. IMPRESSION: 1. 7.2 x 3.8 cm thick-walled mass-like cavitary opacity within the anterior segment of the right upper lobe. This is suggestive of a lung malignancy. 2. Extensive thoracic, lower cervical and upper abdominal lymphadenopathy, as described above. This represents karen spread of disease. Lymphadenopathy results in mild to moderate distal tracheal narrowing. Suspected minimal SVC invasion. 3. Several suspected segmental pulmonary emboli within the left lung. A PE protocol chest CT could be obtained for confirmation. 4. Mild interstitial pulmonary edema. Small right pleural effusion. ACT 112: Negative or not required by law. Electronically signed by: Toni Mccloud M.D. 08/26/2022 7:29 PM Hip/Pelvis X-Ray 08/26/22 17:56 XR hip LT 2V w pelvis CLINICAL HISTORY: Left hip pain. History of total hip arthroplasty. COMPARISON: Pelvis and left hip radiographs July 19, 2020. FINDINGS: Incidental note is made of contrast within the bladder from recent contrast-enhanced CT. Alignment of the hip arthroplasties is anatomic. No periprosthetic fracture or lucency is noted. Hardware is intact. IMPRESSION: 1. No acute fracture within the pelvis or hips. 2. Intact total bilateral hip arthroplasties. ACT 112: Negative or not required by law. Electronically signed by: Toni Mccloud M.D. 08/26/2022 7:[address] 08/26/22 18:29 CT OF THE HEAD WITHOUT CONTRAST CLINICAL HISTORY: Confusion; on eliquis COMPARISON STUDY: Head CT May 27, 2020. MRI of the brain November 19, 2008. TECHNIQUE: Helical axial images of the head were obtained without IV contrast. Automated exposure control was utilized for the study. A dose lowering technique was utilized adhering to the principles of ALARA. FINDINGS: No acute intracranial hemorrhage is present. Note is made of a hypodense 3.2 cm right frontoparietal lesion on axial image 24 of 32. Moderate associated vasogenic edema is present. There is mild mass effect with sulcal effacement, mild compression of the right lateral ventricle and minimal leftward midline shift. A few additional cystic/necrotic lesions within the anterior right frontal lobe measure up to 2.3 cm. Basal cisterns are patent. There are no extra-axial fluid collections. A small vessel disease is noted. There are no findings to suggest acute dural sinus thrombosis or acute territorial infarct. IMPRESSION: Multiple intraaxial lesions, the largest of which is a 3.2 cm right frontoparietal lesion with moderate associated vasogenic edema and mass effect. These are highly suggestive of metastases. An MRI of the brain with and without contrast could be obtained for further evaluation. ACT 112: Positive. There are findings on this exam that require communication between the performing entity and the patient following Patient Test Result Information Act ([place] Act 112[place] guidelines. Electronically signed by: Toni Mccloud M.D. 08/26/2022 7:04 PM Chest CTA 08/27/22 00:14 CT ANGIOGRAPHY OF THE CHEST, PULMONARY EMBOLUS PROTOCOL CLINICAL HISTORY: Suspected lung cancer. Possible pulmonary emboli on prior chest CT. COMPARISON STUDY: Chest radiograph and chest CT August 26, 2022. TECHNIQUE: Following IV administration of 114 mL of Optiray, helical axial images of the chest were obtained utilizing the pulmonary embolus protocol. Maximal intensity projections and sagittal and coronal reformats were viewed on an independent 3D workstation. IV contrast was administered without complication. Automated exposure control was utilized for the study. A dose lowering technique was utilized adhering to the principles of ALARA. FINDINGS: The study confirms multiple segmental pulmonary emboli within the left lung. There is no pericardial effusion. A small right pleural effusion has increased in size since prior exam. A trace left pleural effusion has developed. Pulmonary edema is again noted with interlobular septal thickening. The cavitary 7 cm thick-walled right upper lobe mass within the anterior segment is again noted. There is adjacent groundglass opacity. Extensive mediastinal and right hilar lymphadenopathy is noted. This exam is compromised by motion artifact however this adenopathy results in mild to moderate narrowing of the central airways. Suspected SVC invasion is also present. Lower cervical and upper abdominal lymphadenopathy is also noted. Post therapy changes within the right breast are present. A mild T12 compression fracture is noted. The abdomen and pelvis CT will be reported separately. IMPRESSION: 1. Multiple segmental pulmonary emboli within the left lung. 2. Redemonstration of a 7 cm thick-walled cavitary mass-like opacity within the anterior segment of the right upper lobe suggestive of lung malignancy. 3. Associated extensive mediastinal and hilar lymphadenopathy, as detailed above. This results in mild to moderate central airway narrowing. Suspected SVC invasion. 4. Interstitial pulmonary edema with increasing bilateral pleural effusions. ACT 112: Negative or not required by law. Electronically signed by: Toni Mccloud M.D. 08/27/2022 7:58 AM Abdomen/Pelvis CT 08/27/22 01:16 CT OF THE ABDOMEN AND PELVIS WITH CONTRAST CLINICAL HISTORY: lung cancer, mets? COMPARISON STUDY: CT of the abdomen and pelvis December 01, 2013 TECHNIQUE: Following IV administration of 114 mL of Optiray, axial images of the abdomen and pelvis were obtained from the lung bases to the proximal femurs. Images were reviewed in the axial, sagittal, and coronal planes. IV contrast was administered without complication. Automated exposure control was utilized for the study. A dose lowering technique was utilized adhering to the principles of ALARA. CT DOSE: 1560.92 mGy.cm FINDINGS: Interlobular septal thickening within the lungs represents pulmonary edema. Small bilateral pleural effusions, right larger left, are noted. Please note that the chest CT will be reported separately. Heterogeneity of the liver favors passive hepatic congestion. A hypodense focus within the medial segment favors focal fat. A small amount of perihepatic ascites noted. Moderate gallbladder wall thickening may also be due to volume overload/right heart dysfunction. There is a small amount of fluid adjacent to the proximal duodenum. No pneumatosis, free air or portal venous gas is present. A 1.9 cm right retroperitoneal implant on axial image 107 of 421 is noted. Pathologic gastrohepatic ligament nodes are noted. Index node measures 2.7 x 1.6 cm. There is no biliary or pancreatic ductal dilatation. There is pancreatic glandular atrophy. Spleen, adrenal glands and kidneys are unremarkable with the exception of a few suspected right renal cysts. There is no hydronephrosis. There is no evidence for a bowel obstruction. Images of the pelvis are degraded by streak artifact from hip arthroplasties. Contrast within the collecting systems, ureters and bladder from prior contrast enhanced CT. Small amount of pelvic ascites is present. A T12 fracture with mild loss of vertebral body height is noted. There is also a pathologic fracture within the right iliac bone due to an underlying lesion which measures approximately 3.3 cm. This extends into the adjacent musculature. IMPRESSION: 1. Evidence for metastatic disease, including upper abdominal lymphadenopathy, right retroperitoneal implants and a 3.3 cm right iliac bone metastasis with pathologic fracture. A mild T12 fracture may be benign or pathologic. 2. No bowel obstruction. No bowel wall thickening. 3. Interstitial pulmonary edema with bilateral pleural effusions and a small amount of ascites within the abdomen and pelvis. Heterogeneity of the liver fa vors passive hepatic congestion. 4. Moderate gallbladder wall thickening. Small amount of fluid adjacent to the duodenum. Although nonspecific, these findings may be related to volume overload/right heart dysfunction. ACT 112: Negative or not required by law. Electronically signed by: Toni Mccloud M.D. 08/27/2022 PG Care Time/CCT Total # of Minutes Spent Total Time Spent with Patient: Total time spent is greater than 50% in coordination of care (as documented) at patient's floor/unit and/or counseling patient: [place] [address] Inpt Consult Level 4 Patient Type New History Expanded Problem Focused Medical Decision Making High Complexity Diagnoses Lung mass R91.8 Malignant neoplasm of upper-outer quadrant of right breast in female, estrogen receptor positive C50.411; Z17.0 Atrial fibrillation with RVR I48.91 Pulmonary emboli I26.99 Time Spent (min) 70 Comment 20 speaking w hospitalist; 50 reviewing records & compiling assessment & recommendations
[2022-08-27] MEDS: DOXYCYCLINE HYCLATE 100 MG in DEXTROSE 5% 100 ML IV SCH ×2 (09:44→20:50)
--- NOTE | 2022-08-27 10:44 | Pulmonary Consultation ---
Date of Consultation August 27, 2022 Assessment & Plan (1) COPD (chronic obstructive pulmonary disease): Continue BiPA as needed P. She is already receiving steroids for the multiple brain lesions noted on CT of her head which will also treat a COPD exacerbation. Continue with empiric antibiotics. Continue with Brovana and nebulized budesonide. Recheck ABG if symptoms worsen. Recommend readdressing her CODE STATUS given her widespread metastatic disease and advanced COPD. She is currently listed as a full code. I discussed with the patient's family that she likely has widely metastatic cancer. (2) Mass of upper lobe of right lung: Certainly the mass and mediastinal adenopathy is amenable to bronchoscopic biopsy. However, I would recommend stabilizing her neuro status prior to bronchoscopy which can be performed electively in the next day or 2. She also has a small right pleural effusion which is not amenable to thoracentesis at this time. Would wait for the Eliquis to washout. (3) Metastasis to brain: Likely secondary to lung primary. Recommend palliative care consultation. Recommend radiation oncology consultation as well for palliative radiation. (4) Pulmonary emboli: Would hold anticoagulation given the presence of acute neuro status changes and multiple metastatic deposits in her brain. Agree with consideration of IVC filter placement which could be potentially performed by vascular surgery on Sunday. Possible tumor emboli syndrome. Recommend obtaining an echo to evaluate the RV. Troponin was not elevated. Doubtful of submassive pulmonary embolism. Certainly the pulmonary embolism is not causing hemodynamic compromise or collapse. She is not a candidate for systemic thrombolysis given the severity of her metastatic cancer and brain lesions. If her pulmonary embolism becomes more symptomatic, recommend transfer to tertiary center for thrombectomy. Again I recommend goals of care discussion by the primary team with the patient and her family. History of Present Illness Reason for Consultation: Lung mass Attending Physician: Shelton Carballo MD History of Present Illness 76-year-old female with a past medical history of tobacco abuse and breast cancer diagnosed in 2017 who presented with confusion. CT head demonstrated multiple large metastatic lesions in the brain and a large right upper lobe lung mass. There is also concern of pulmonary embolism despite being on Eliquis. She is currently hypercapnic and was requiring BiPAP. Oncology has evaluated the patient and noted that her malignancy is widespread and recommended transfer to a tertiary center. I had a lengthy discussion with the patient's family at bedside. They were unaware of the patient's diagnosis. Patient relates that she has had some mild weight loss and decreased appetite. She is confused at times. She has a [id number] smoking history and continues to smoke cigarettes. Allergies Allergy/AdvReac Type Severity Reaction Status Date / Time oxycodone AdvReac Severe Hallucinati Verified 08/26/22 17:23 ons Home Medications Medication Instructions Recorded Confirmed Type budesonide-formoterol HFA 160 2 puff inhalation BID 10/02/19 08/26/22 History mcg-4.5 mcg/actuation aerosol inhaler (Symbicort) fluticasone propionate 50 2 spray intranasal DAILY PRN 10/02/19 08/26/22 History mcg/actuation nasal Allergy Symptoms spray,suspension letrozole 2.5 mg tablet 2.5 mg PO DAILY 10/02/19 08/26/22 History irbesartan 75 mg tablet 75 mg PO DAILY 05/25/20 08/26/22 History apixaban 5 mg tablet (Eliquis) 5 mg PO BID 08/26/22 08/26/22 History atorvastatin 40 mg tablet 40 mg PO DAILY 08/26/22 08/26/22 History bupropion HCl 200 mg tablet,12 hr 200 mg PO BID 08/26/22 08/26/22 History sustained-release duloxetine 30 mg capsule,delayed 3 mg PO DAILY 08/26/22 08/26/22 History release metoprolol succinate 50 mg 75 mg PO HS 08/26/22 08/26/22 History tablet,extended release 24 hr Patient History Medical History (Updated 08/27/22 @ 10:38 by Willard River MD) Abdominal pain Atrial fibrillation DJD (degenerative joint disease) of hip (07/17/13) Malignant neoplasm of upper-outer quadrant of right breast in female, estrogen receptor positive (08/02/17) Mass of upper lobe of right lung Perforated viscus Peritonitis Sepsis Sinusitis Surgical History History of hip surgery S/P appendectomy S/P lumpectomy of breast S/P MORA-BSO S/P tonsillectomy Status post THR (total hip replacement) Bilateral Family History Other Cancer Diabetes Heart disease Hypertension Social History Smoking Status: Current every day smoker Tobacco Type: Cigarettes Age Started Using Tobacco: 17; Cigarettes Per Day: 10-20/day; Second Hand Exposure: No; Do You Dip or Chew Tobacco: No; Hx Alcohol Use: No Hx Substance Use: No Preferred Language: Danish Communication Ability: Impaired Communication Ability Comment: Patient extremely confused/disoriented Visual Impairment: No Limitations Entry Level Account Representative Required: No Beliefs That Will Affect Care: None marital status: Current Living Situation: Alone How many Children do You have: 3 Other Information That Helps Us Care for You: No Feels Safe at Home: Yes caffeine: Yes (one cup per day) Dental Care, Regularly: No Physical Activity Frequency: Does not Exercise Physical Activity Frequency Comment: currently wears a brace Assistive Devices: Oxygen - Continuous and Walker Review of Systems Review of Systems: Limited due to patient's cognition. Physical Exam Physical Exam: Constitutional: Frail-appearing female no apparent distress. Eyes: Pupils are equal round and reactive to light. Conjunctivae are normal. Anicteric sclera. Ears nose, mouth and throat: Mallampati class 2. Normal posterior oropharynx. Uvula is midline. Neck: Trachea is midline. Visual inspection is normal. Respiratory: Prolonged phase of exhalation and diffuse wheeze. Cardiovascular: Regular rate and rhythm. No murmurs. No edema. Gastrointestinal: Normal bowel sounds, soft, nontender and nondistended. No hepatosplenomegaly noted. Musculoskeletal: No cyanosis. Patient is able to move all extremities. Skin: No rashes, warm dry and intact. Neurologic: No obvious focal neurological deficits seen. Psychiatric: Confused. Results & Data Results & Data ([facility]) Vital Signs (Past 12 Hours) Vital Signs Temp Pulse Pulse Resp BP Pulse Ox O2 Del Method 08/27/22 07:47 BiPAP 08/27/22 07:38 36.6 C 68 22 103/74 93 BiPAP 08/27/22 07:27 77 22 93 08/27/22 07:27 77 19 93 BiPAP 08/27/22 06:10 71 08/27/22 04:45 70 25 H 94 08/27/22 04:45 70 25 H 97 BiPAP 08/27/22 04:06 64 23 08/27/22 03:03 36.3 C L 71 20 126/68 92 CPAP 08/27/22 02:08 62 22 99 08/27/22 02:08 62 20 100 BiPAP 08/27/22 02:00 20 95 08/27/22 00:05 66 08/26/22 23:45 67 19 97 08/26/22 23:39 67 22 127/65 95 CPAP 08/26/22 22:47 69 26 H 90 Nasal Cannula O2 Flow Rate FiO2 08/27/22 07:47 08/27/22 07:38 08/27/22 07:27 40 08/27/22 07:27 40 08/27/22 06:10 08/27/22 04:45 40 08/27/22 04:45 40 08/27/22 04:06 40 08/27/22 03:03 08/27/22 02:08 50 08/27/22 02:08 50 08/27/22 02:00 60 08/27/22 00:05 08/26/22 23:45 60 08/26/22 23:39 12 100 08/26/22 22:47 3 PG Care Time/CCT Total # of Minutes Spent Total Time Spent with Patient: Total time spent is greater than 50% in coordination of care (as documented) at patient's floor/unit and/or counseling patient: Coding Level of Care Code 98011 Initial Inpt Care Lvl 3 Diagnoses COPD (chronic obstructive pulmonary disease) J44.9 Mass of upper lobe of right lung R91.8 Metastasis to brain C79.31 Pulmonary emboli I26.99
[2022-08-27] MEDS ORDERED: GADOBUTROL 65ML VIAL IV ONE (10:59)
[2022-08-27] MEDS: FORMOTEROL 20 MCG/2 ML VIAL NEB SCH ×2 (11:19→19:24)
--- NOTE | 2022-08-27 11:26 | Magnetic Resonance Report ---
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 No restricted diffusion to sugg est acute or subacute infarct. Motion degraded exam, notably the postcontrast series. Partially empty sella. No acute intracranial hemorrhage or abnormal extra-axial collection identified. 3 mm leftward midline shift. There are at least 8 peripherally enhancing intra-axial masses involving the right gr eater than left cerebral hemispheres, largest of which measures 3.5 x 3.0 x 3.4 cm within the right p arietal lobe. These lesions demonstrate heterogeneously increased T2 signal. The largest lesion demon strates restricted diffusion. Moderate associated vasogenic edema. Involutional changes with moderate to extensive chronic microvascular ischemic disease. The cerebral venous sinuses and major arterial flow voids appear patent. Prior bilateral lens repair. Minimal mucosal thickening of the paranasal sinuses. The mastoid air cells are clear. No acute faiza rial fracture. Degenerative changes of the imaged cervical spine. IMPRESSION: 1. Motion degraded exam. 2. Numerous peripherally enhancing intra-axial mass lesions of the right greater than left cerebral h emispheres with moderate associated vasogenic edema, most pronounced within the right frontal and par ietal lobes. Findings are compatible with metastatic disease. 3. 3 mm leftward midline shift. ACT 112: Negative or not required by law. The above report was generated using voice recognition software. It may contain grammatical, syntax o r spelling errors. Electronically signed by: Anmol Jeter M.D. 08/27/2022 11:23 AM
[2022-08-27 12:19] LABS: Base Excess ABG 1.9 mEq/L (-9-1.8); HCO3 ABG 29 mmol/L (19-24); Oxygen Saturation ABG 94.6 % (90-95); PCO2 ABG 55 mmHg (35-46); PO2 ABG 69 mmHg (80-95); pH ABG 7.33 (7.35-7.45)
[2022-08-27 12:20] LABS: Allen Test Pos (Pos)
--- NOTE | 2022-08-27 13:42 | Hospitalist Progress Note ---
Date of Service August 27, 2022 Assessment & Plan (1) Confusion: (2) Lung mass: (3) Metastasis to brain: (4) Urinary tract infection: (5) COPD exacerbation: (6) Pulmonary emboli: (7) Acute hypercapnic respiratory failure: Plan Patient brought to the hospital by her daughter due to confusion for last 2 weeks which has worsened recently. Patient took multiple doses of her home medication including Eliquis, Wellbutrin, metoprolol Initial chest x-ray on admission showed 6.8 cm right supraclavicular nodular opacity. Subsequent CT chest showed 7.2 into 3.8 thick-walled masslike cavity in right upper lobe suggestive of lung malignancy. Extensive lymphadenopathy was also se en. Several suspected segmental PE was also seen. Subsequent CT angios showed multiple segmental PE in left lung. CT head showed multiple intra-axial lesions largest of which is 3.2 cm right frontoparietal lesion with associated vasogenic edema MRI brain showed numerous peripherally enhancing intra-axial mass lesions of the right greater than left cerebral hemisphere with associated vasogenic edema. 3 mm leftward midline shift is present. CT abdomen/pelvis showed evidence of metastatic disease including upper abdominal lymphadenopathy, 3.3 cm right iliac bone metastasis with pathological fracture. On the night of the admission on August 26, patient developed acute hypercapnic respiratory failure. She was also found to have PE for which she was started on heparin 5000 twice daily as per oncology recommendation. She was placed on BiPAP as well. Plan; Continue on duo nebs [id number], formoterol, budesonide, hypertonic saline nebulization along with IV dexamethasone. Continue on ceftriaxone. Given 1 dose of Lasix 20 mg to improve congestion. BIpap at night. Currently on heparin 5000 subcu every 12 hours. will continue to monitor mental health status. Currently her home medication are on hold. Will reintroduce them gradually. Family meeting was done with patient's 3 daughters ( one of them joined by phone) along with patient's two son-in-law. Patient also participated in the conversation. However, it was difficult to assess whether patient fully comprehended the medical issues that she was dealing with. The finding of the C T scan of the chest, CT abdomen and MRI brain was discussed. They are informed that cancer is widespread through with CHIEF STEWARD/STEWARDESS, thoracic, karen, peritoneal and bony metastasis. They were informed that medical stabilization is currently the focus. Discussion regarding pursuit of diagnostic/therapeutic intervention versus palliative/hospice approach was done. As per them, patient values quality of life and comfort, Patient does not want life support/CPR. They are open to the idea of palliative care/hospice. They want to get opinion radiation oncology to see if palliative radiation could help her. Also, want to see if any orthopedic intervention can help for with regards with her pathological fracture. CODE STATUS changes as per the discussion with patient/family member. Palliative care consulted to continue to discuss goals of care/possible hospice enrollment. Will also consult orthopedic on request of the patient's family to get recommendation regarding pathological fracture. DNR/DNI DVT ppx Heparin Admission and Anticipated Discharge Date Admission Date: August 26, 2022 Subjective Patient seen in the morning and later in the afternoon when family were present. In the morning, patient was on the BiPAP. She was able to follow commands and have a conversation. In the afternoon, patient was awake oriented to family members around her. She was able to participate in the conversation somewhat. Her respiratory distress had improved. Review of Systems Review of Systems: All systems reviewed & are unremarkable except as noted in Subjective Physical Exam Physical Exam: Constitutional: Awake, alert, oriented to time, person and family members. Respiratory: Bilateral wheeze heard. Crackles present on right mid lung field Cardiovascular: RRR, no murmur, no edema Vessels: no JVD or carotid bruit Chest: normal inspection of chest Abdomen: normal bowel sounds, soft, nontender, no hepatosplenomegaly Musculoskeletal: no cyanosis or clubbing, extremities motor strength 5/5 Skin: no rashes, warm and dry normal turgor Neurologic: Follows commands intermittently. Psychiatric: Awake, alert, oriented to time, place and person. Lymphatic: no cervical or axillary lymphadenopathy : deferred Results & Data Results & Data ([facility]) Vital Signs (Past 12 Hours) Vital Signs Temp Pulse Pulse Resp BP Pulse Ox O2 Del Method 08/27/22 11:56 36.8 C 71 20 94 Oxymask 08/27/22 11:20 84 18 94 Oxymask 08/27/22 10:00 93 Oxymask 08/27/22 07:47 BiPAP 08/27/22 07:38 36.6 C 68 22 103/74 93 BiPAP 08/27/22 07:27 77 22 93 08/27/22 07:27 77 19 93 BiPAP 08/27/22 06:10 71 08/27/22 04:45 70 25 H 94 08/27/22 04:45 70 25 H 97 BiPAP 08/27/22 04:06 64 23 08/27/22 03:03 36.3 C L 71 20 126/68 92 CPAP 08/27/22 02:08 62 22 99 08/27/22 02:08 62 20 100 BiPAP 08/27/22 02:00 20 95 O2 Flow Rate FiO2 08/27/22 11:56 8 08/27/22 11:20 8 08/27/22 10:00 8 08/27/22 07:47 08/27/22 07:38 08/27/22 07:27 40 08/27/22 07:27 40 08/27/22 06:10 08/27/22 04:45 40 08/27/22 04:45 40 08/27/22 04:06 40 08/27/22 03:03 08/27/22 02:08 50 08/27/22 02:08 50 08/27/22 02:00 60 Laboratory Results Laboratory Results WBC 11.08 K/ul (4.8-10.8) H 08/27/22 02:57 RBC 4.02 M/uL (3.93-5.22) 08/27/22 02:57 Hgb 11.2 g/dl (12.0-16.0) L 08/27/22 02:57 POC Hgb 12.2 g/dl (12.0-16.0) 08/27/22 05:44 Hct 37.6 % (34.1-44.9) 08/27/22 02:57 POC Hct 36 % (37-47) L 08/27/22 05:44 MCV 93.6 fL (80.0-100.0) D 08/27/22 02:57 MCH 27.9 pg (25.0-34.0) 08/27/22 02:57 MCHC 29.8 g/dL (32.0-36.0) L 08/27/22 02:57 RDW Std Deviation 55.5 fL (36.4-46.3) H 08/27/22 02:57 RDW Coeff of Cesilia 16.2 % (11.5-14.5) H 08/27/22 02:57 Plt Count 238 K/uL (130-400) 08/27/22 02:57 MPV 10.1 fL (9.4-12.3) 08/27/22 02:57 Immature Gran % (Auto) 0.7 % 08/27/22 02:57 Neut % (Auto) 82.5 % 08/27/22 02:57 Lymph % (Auto) 6.4 % 08/27/22 02:57 Leake % (Auto) 10.2 % 08/27/22 02:57 Eos % (Auto) 0.0 % 08/27/22 02:57 Baso % (Auto) 0.2 % 08/27/22 02:57 Neut # (Auto) 9.14 K/uL (1.4-6.5) H 08/27/22 02:57 Lymph # (Auto) 0.71 K/uL (1.2-3.4) L 08/27/22 02:57 Leake # (Auto) 1.13 K/uL (0.24-0.82) H 08/27/22 02:57 Eos # (Auto) 0.00 K/uL (0-0.50) 08/27/22 02:57 Baso # (Auto) 0.02 K/uL (0-0.2) 08/27/22 02:57 Immature Gran # (Auto) 0.08 K/uL (0.00-0.02) H 08/27/22 02:57 PT 13.9 Seconds (9.0-12.0) H 08/27/22 02:57 INR 1.3 (0.9-1.1) H 08/27/22 02:57 Sample Site L Radial 08/27/22 05:44 POC pH 7.27 (7.35-7.45) L 08/27/22 05:44 POC pCO2 63 mmHg (35-46) H 08/27/22 05:44 POC pO2 78 mmHg (80-95) L 08/27/22 05:44 POC HCO3 29 jamee/L (19-24) H 08/27/22 05:44 POC Total CO2 31 mmol/L (24-31) 08/27/22 05:44 POC Base Excess 2.0 jamee/L (-9-1.8) H 08/27/22 05:44 ABG pH 7.33 (7.35-7.45) L 08/27/22 12:10 ABG pH (Temp Correct) 7.267 (7.35-7.45) L 08/27/22 05:44 ABG pCO2 55 mmHg (35-46) H 08/27/22 12:10 ABG pCO2 (Temp Corrct 63 mmHg (35-46) H 08/27/22 05:44 ABG pO2 69 mmHg (80-95) L 08/27/22 12:10 POC ABG pO2 at Pt Temp 78 08/27/22 05:44 ABG HCO3 29 mmol/L (19-24) H 08/27/22 12:10 POC ABG O2 Sat 93.0 % (90-95) 08/27/22 05:44 ABG O2 Saturation 94.6 % (90-95) 08/27/22 12:10 ABG Base Excess 1.9 mEq/L (-9-1.8) H 08/27/22 12:10 Ramez Test Pos (Pos) 08/27/22 12:10 Barometric Pressure Cancelled 08/27/22 10:25 Oxygen Given 12L 08/27/22 12:10 O2 Delivery Device BIPAP 08/27/22 05:44 POC O2 Rate 20 08/27/22 05:44 IPAP 14 08/27/22 05:44 POC Sodium 142 mmol/L (135-144) 08/27/22 05:44 Sodium 139 mmol/L (136-145) 08/27/22 02:57 POC Potassium 4.2 mmol/L (3.3-5.0) 08/27/22 05:44 Potassium 4.6 mmol/L (3.5-5.1) 08/27/22 02:57 Chloride 104 mmol/L (98-107) 08/27/22 02:57 Carbon Dioxide 30 mmol/L (21-32) 08/27/22 02:57 Anion Gap 5 (3-11) 08/27/22 02:57 BUN 25 mg/dl (6-23) H 08/27/22 02:57 Creatinine 0.72 mg/dl (0.6-1.2) 08/27/22 02:57 Est Cr Clr Drug Dosing 76.1 ml/min 08/27/22 02:57 Est GFR ( Amer) 95.6 ml/min 08/27/22 02:57 Est GFR (Non-Af Amer) 82.5 ml/min 08/27/22 02:57 BUN/Creatinine Ratio 34.7 (10-20) H 08/27/22 02:57 Glucose 104 mg/dl (70-99(Fasting)) H 08/27/22 02:57 Calcium 7.9 mg/dl (8.5-10.1) L 08/27/22 02:57 Total Bilirubin 0.6 mg/dl (0.2-1.0) 08/27/22 02:57 AST 25 U/L (13-39) 08/27/22 02:57 ALT 18 U/L (7-52) 08/27/22 02:57 Alkaline Phosphatase 84 U/L (34-104) 08/27/22 02:57 Troponin I High Sens 9.3 pg/ml (0-14) 08/26/22 14:41 Total Protein 6.0 gm/dl (6.0-8.3) 08/27/22 02:57 Albumin 3.4 gm/dl (3.4-5.0) 08/27/22 02:57 Globulin 2.6 gm/dl (2.5-4.0) 08/27/22 02:57 Albumin/Globulin Ratio 1.3 (0.9-2) 08/27/22 02:57 Urine Color Dark Yellow 08/26/22 16:41 Urine Appearance Cloudy (Clear) A 08/26/22 16:41 Urine pH 5.5 (4.5-7.5) 08/26/22 16:41 Ur Specific [place] 1.032 (1.000-1.030) H 08/26/22 16:41 Urine Protein 1+ (Negative) H 08/26/22 16:41 Urine Glucose (UA) Negative (Negative) 08/26/22 16:41 Urine Ketones Trace (Negative) H 08/26/22 16:41 Urine Blood 2+ (Negative) H 08/26/22 16:41 Urine Nitrite Positive (Negative) A 08/26/22 16:41 Urine Bilirubin Negative (Negative) 08/26/22 16:41 Urine Urobilinogen Negative (Negative) 08/26/22 16:41 Ur Leukocyte Esterase Trace (Negative) H 08/26/22 16:41 Urine WBC (Auto) 10-30 /hpf (0-5) H 08/26/22 16:41 Urine RBC (Auto) 10-30 /hpf (0-4) H 08/26/22 16:41 U Hyaline Cast (Auto) 10-30 /lpf (0-5) H 08/26/22 16:41 U Epithel Cells (Auto) 20-30 /lpf (0-5) H 08/26/22 16:41 Urine Bacteria (Auto) 4+ (Negative) H 08/26/22 16:41 SARS-CoV-2 (PCR) NEGATIVE (Negative) 08/26/22 14:37 Influenza Type A (PCR) Negative (Neg) 08/26/22 14:37 Influenza Type B (PCR) Negative (Neg) 08/26/22 14:37 RSV (RT-PCR) Negative (Neg) 08/26/22 14:37 Impressions Chest X-Ray 08/26/22 14:00 XR chest 2V PA/lateral CLINICAL HISTORY: cough, wheezing, weakness COMPARISON STUDY: Chest radiograph May 29, 2020. FINDINGS: There is no pneumothorax. Trace bilateral pleural effusions are present. Mild cardiomegaly. A 6.8 cm right suprahilar nodular airspace opacity is present. This contains equivocal cavitation. There is mild interstitial pulmonary edema. IMPRESSION: 1. 6.8 cm right suprahilar nodular airspace opacity with equivocal cavitation. This may reflect pneumonia. However, a neoplasm could appear similar. Radiographic follow up to ensure resolution is recommended. Alternatively, a chest CT could be obtained for further evaluation. 2. Mild interstitial pulmonary edema with trace bilateral pleural effusions. ACT 112: Positive. There are findings on this exam that require communication between the performing entity and the patient following Patient Test Result Information Act [place] Act 112) guidelines. Electronically signed by: Toni Mccloud M.D. 08/26/2022 4:[address] 08/26/22 17:56 CT OF THE CHEST WITH IV CONTRAST CLINICAL HISTORY: 6.8cm cavitation COMPARISON STUDY: Chest radiograph May 29, 2020 and August 26, 2022. Treatment planning CT October 03, 2017. TECHNIQUE: Following IV administration of 86 mL of Optiray, helical axial images of the chest were obtained. Sagittal and coronal reconstructions were viewed as well as maximal intensity projections on an independent 3-D workstation. Automated exposure control was utilized for the study. A dose lowering technique was utilized adhering to the principles of ALARA. CT DOSE: 973.07 mGy.cm FINDINGS: There is no thoracic aortic dissection. There are multiple suspected small segmental pulmonary emboli within the left lung, suboptimally assessed on this exam due to respiratory motion. There is no pericardial effusion. A small right pleural effusion is noted. There is a cavitary mass-like opacity within the anterior segment of the right upper lobe that measures 7.2 x 3.8 cm. This corresponds to the finding on chest radiograph. Adjacent airspace opacity is present. This suspected mass extends to the mediastinum. In addition, there is extensive mediastinal and right hilar lymphadenopathy. This lymphadenopathy may be necrotic. Index subcarinal lymph node measures 3.6 x 2.3 cm. A right suprahilar lymph node measures 2.7 x 2 cm. A 1.6 cm lymph node adjacent to the mid descending thoracic aorta is present. In addition, there is bilateral supraclavicular lymphadenopathy. Index right supraclavicular lymph node measures 1.6 cm. The mediastinal lymphadenopathy results in mild to moderate distal tracheal narrowing. The lymphadenopathy also results in moderate narrowing of the lobar and segmental bronchi within the right lung. Suspected minimal invasion of the SVC is noted. Diffuse bronchial wall thickening is noted. There is mild interlobular septal thickening. Post therapy changes within the right breast are present. There is focal soft tissue thickening within the interspace between the right fourth and fifth ribs. A few suspected implants within the right upper quadrant of the abdomen are noted. These measure up to 1.6 cm. Pathologic gastrohepatic ligament lymphadenopathy is also present. There is trace perihepatic ascites. IMPRESSION: 1. 7.2 x 3.8 cm thick-walled mass-like cavitary opacity within the anterior segment of the right upper lobe. This is suggestive of a lung malignancy. 2. Extensive thoracic, lower cervical and upper abdominal lymphadenopathy, as described above. This represents karen spread of disease. Lymphadenopathy results in mild to moderate distal tracheal narrowing. Suspected minimal SVC invasion. 3. Several suspected segmental pulmonary emboli within the left lung. A PE protocol chest CT could be obtained for confirmation. 4. Mild interstitial pulmonary edema. Small right pleural effusion. ACT 112: Negative or not required by law. Electronically signed by: Toni Mccloud M.D. 08/26/2022 7:29 PM Hip/Pelvis X-Ray 08/26/22 17:56 XR hip LT 2V w pelvis CLINICAL HISTORY: Left hip pain. History of total hip arthroplasty. COMPARISON: Pelvis and left hip radiographs July 19, 2020. FINDINGS: Incidental note is made of contrast within the bladder from recent contrast-enhanced CT. Alignment of the hip arthroplasties is anatomic. No periprosthetic fracture or lucency is noted. Hardware is intact. IMPRESSION: 1. No acute fracture within the pelvis or hips. 2. Intact total bilateral hip arthroplasties. ACT 112: Negative or not required by law. Electronically signed by: Toni Mccloud M.D. 08/26/2022 7:[address] 08/26/22 18:29 CT OF THE HEAD WITHOUT CONTRAST CLINICAL HISTORY: Confusion; on eliquis COMPARISON STUDY: Head CT May 27, 2020. MRI of the brain November 19, 2008. TECHNIQUE: Helical axial images of the head were obtained without IV contrast. Automated exposure control was utilized for the study. A dose lowering technique was utilized adhering to the principles of ALARA. FINDINGS: No acute intracranial hemorrhage is present. Note is made of a hypodense 3.2 cm right frontoparietal lesion on axial image 24 of 32. Moderate associated vasogenic edema is present. There is mild mass effect with sulcal effacement, mild compression of the right lateral ventricle and minimal leftward midline shift. A few additional cystic/necrotic lesions within the anterior right frontal lobe measure up to 2.3 cm. Basal cisterns are patent. There are no extra-axial fluid collections. A small vessel disease is noted. There are no findings to suggest acute dural sinus thrombosis or acute territorial infarct. IMPRESSION: Multiple intraaxial lesions, the largest of which is a 3.2 cm right frontoparietal lesion with moderate associated vasogenic edema and mass effect. These are highly suggestive of metastases. An MRI of the brain with and without contrast could be obtained for further evaluation. ACT 112: Positive. There are findings on this exam that require communication between the performing entity and the patient following Patient Test Result Information Act ([place] Act 112[place] guidelines. Electronically signed by: Toni Mccloud M.D. 08/26/2022 7:04 PM Chest CTA 08/27/22 00:14 CT ANGIOGRAPHY OF THE CHEST, PULMONARY EMBOLUS PROTOCOL CLINICAL HISTORY: Suspected lung cancer. Possible pulmonary emboli on prior chest CT. COMPARISON STUDY: Chest radiograph and chest CT August 26, 2022. TECHNIQUE: Following IV administration of 114 mL of Optiray, helical axial images of the chest were obtained utilizing the pulmonary embolus protocol. Maximal intensity projections and sagittal and coronal reformats were viewed on an independent 3D workstation. IV contrast was administered without complication. Automated exposure control was utilized for the study. A dose lowering technique was utilized adhering to the principles of ALARA. FINDINGS: The study confirms multiple segmental pulmonary emboli within the left lung. There is no pericardial effusion. A small right pleural effusion has increased in size since prior exam. A trace left pleural effusion has developed. Pulmonary edema is again noted with interlobular septal thickening. The cavitary 7 cm thick-walled right upper lobe mass within the anterior segment is again not ed. There is adjacent groundglass opacity. Extensive mediastinal and right hilar lymphadenopathy is noted. This exam is compromised by motion artifact however this adenopathy results in mild to moderate narrowing of the central airways. Suspected SVC invasion is also present. Lower cervical and upper abdominal lymphadenopathy is also noted. Post therapy changes within the right breast are present. A mild T12 compression fracture is noted. The abdomen and pelvis CT will be reported separately. IMPRESSION: 1. Multiple segmental pulmonary emboli within the left lung. 2. Redemonstration of a 7 cm thick-walled cavitary mass-like opacity within the anterior segment of the right upper lobe suggestive of lung malignancy. 3. Associated extensive mediastinal and hilar lymphadenopathy, as detailed above. This results in mild to moderate central airway narrowing. Suspected SVC invasion. 4. Interstitial pulmonary edema with increasing bilateral pleural effusions. ACT 112: Negative or not required by law. Electronically signed by: Toni Mccloud M.D. 08/27/2022 7:58 AM Abdomen/Pelvis CT 08/27/22 01:16 CT OF THE ABDOMEN AND PELVIS WITH CONTRAST CLINICAL HISTORY: lung cancer, mets? COMPARISON STUDY: CT of the abdomen and pelvis December 01, 2013 TECHNIQUE: Following IV administration of 114 mL of Optiray, axial images of the abdomen and pelvis were obtained from the lung bases to the proximal femurs. Images were reviewed in the axial, sagittal, and coronal planes. IV contrast was administered without complication. Automated exposure control was utilized for the study. A dose lowering technique was utilized adhering to the principles of ALARA. CT DOSE: 1560.92 mGy.cm FINDINGS: Interlobular septal thickening within the lungs represents pulmonary edema. Small bilateral pleural effusions, right larger left, are noted. Please note that the chest CT will be reported separately. Heterogeneity of the liver favors passive hepatic congestion. A hypodense focus within the medial segment favors focal fat. A small amount of perihepatic ascites noted. Moderate gallbladder wall thickening may also be due to volume overload/right heart dysfunction. There is a small amount of fluid adjacent to the proximal duodenum. No pneumatosis, free air or portal venous gas is present. A 1.9 cm right retroperitoneal implant on axial image 107 of 421 is noted. Pathologic gastrohepatic ligament nodes are noted. Index node measures 2.7 x 1.6 cm. There is no biliary or pancreatic ductal dilatation. There is pancreatic glandular a trophy. Spleen, adrenal glands and kidneys are unremarkable with the exception of a few suspected right renal cysts. There is no hydronephrosis. There is no evidence for a bowel obstruction. Images of the pelvis are degraded by streak artifact from hip arthroplasties. Contrast within the collecting systems, ureters and bladder from prior contrast enhanced CT. Small amount of pelvic ascites is present. A T12 fracture with mild loss of vertebral body height is noted. There is also a pathologic fracture within the right iliac bone due to an underlying lesion which measures approximately 3.3 cm. This extends into the adjacent musculature. IMPRESSION: 1. Evidence for metastatic disease, including upper abdominal lymphadenopathy, right retroperitoneal implants and a 3.3 cm right iliac bone metastasis with pathologic fracture. A mild T12 fracture may be benign or pathologic. 2. No bowel obstruction. No bowel wall thickening. 3. Interstitial pulmonary edema with bilateral pleural effusions and a small amount of ascites within the abdomen and pelvis. Heterogeneity of the liver favors passive hepatic congestion. 4. Moderate gallbladder wall thickening. Small amount of fluid adjacent to the duodenum. Although nonspecific, these findings may be related to volume overload/right heart dysfunction. ACT 112: Negative or not required by law. Electronically signed by: Toni Mccloud M.D. 08/27/2022 8:12 AM Brain MRI 08/27/22 19:12 MR brain wo/w con HISTORY: 76 years-old Female Concern for metastasis acutely altered mental status COMPARISON: Head CT 08/26/2022 TECHNIQUE: Multiplanar multisequence MRI the brain was obtained both with and without the use of 8 cc Gadavist FINDINGS: Acting Instructor localizer images demonstrate no gross extracranial abnormality. No restricted diffusion to suggest acute or subacute infarct. Motion degraded exam, notably the postcontrast series. Partially empty sella. No acute intracranial hemorrhage or abnormal extra-axial collection identified. 3 mm leftward midline shift. There are at least 8 peripherally enhancing intra-axial masses involving the right greater than left cerebral hemispheres, largest of which measures 3.5 x 3.0 x 3.4 cm within the right parietal lobe. These lesions demonstrate heterogeneously increased T2 signal. The largest lesion demonstrates restricted diffusion. Moderate associated vasogenic edema. Involutional changes with moderate to extensive chronic microvascular ischemic disease. The cerebral venous sinuses and major arterial flow voids appear patent. Prior bilateral lens repair. Minimal mucosal thickening of the paranasal sinuses. The mastoid air cells are clear. No acute calvarial fracture. Degenerative changes of the imaged cervical spine. IMPRESSION: 1. Motion degraded exam. 2. Numerous peripherally enhancing intra-axial mass lesions of the right greater than left cerebral hemispheres with moderate associated vasogenic edema, most pronounced within the right frontal and parietal lobes. Findings are compatible with metastatic disease. 3. 3 mm leftward midline shift. ACT 112: Negative or not required by law. The above report was generated using voice recognition software. It may contain grammatical, syntax or spelling errors. Electronically signed by: Anmol Jeter M.D. 08/27/2022 11:23 AM
[2022-08-27] MEDS ORDERED: FUROSEMIDE INJ 20 MG/2 ML VIAL IV SCH (14:00)
[2022-08-27] MEDS ORDERED: COUGH DROP (SUGAR FREE) LOZ 24 LOZ/1 BOX BUCCAL ONE (16:15)
[2022-08-27] MEDS: BUDESONIDE 0.5 MG/2 ML VIAL (PULMICORT) NEB SCH (19:24)
--- NOTE | 2022-08-27 19:42 | Orthopedic Consultation ---
Date of Service August 27, 2022 Assessment & Plan (1) Pathologic pelvic fracture: I discussed diagnosis and treatment options with her at bedside. There is no surgical management for this type fracture. It is metastatic lung cancer to the iliac crest and there is a small fracture picked up on CT scan. I told her that the x-rays of her right hip show the prosthesis to be in good alignment and she was happy to hear that. I called her daughter and she was fairly concerned of her declining function and increased pain in the right hip over the past few weeks. I reached out to [facility] orthopedics who has been managing her and they have agreed to follow her up while she is in the hospital. At this point I do not see any operative indications for her right hip and we will continue with pain control. History of Present Illness Reason for Consultation: Pathologic right iliac crest fracture. Requesting Physician: . Attending Physician: Shelton Carballo MD Mariola is a pleasant 76-year-old female who is dealing with metastatic lung cancer. Unfortunately she is also been dealing with increasing right hip and groin pain. I spoke with the family and they said she is been downgraded to a walker because of her hip and groin pain. She does have a history of a right hip replacement by Dr. Reyes in the past. Upon admission she had a CT scan of her abdomen and pelvis and the CAT scan showed a nondisplaced fracture of the tip of the iliac crest. Appears to be a pathologic fracture. The x-rays of her hips look okay. Orthopedics was consulted to evaluate and treat.. Allergies Allergy/AdvReac Type Severity Reaction Status Date / Time oxycodone AdvReac Severe Hallucinati Verified 08/26/22 17:23 ons Home Medications Medication Instructions Recorded Confirmed Type budesonide-formoterol HFA 160 2 puff inhalation BID 10/02/19 08/26/22 History mcg-4.5 mcg/actuation aerosol inhaler (Symbicort) fluticasone propionate 50 2 spray intranasal DAILY PRN 10/02/19 08/26/22 History mcg/actuation nasal Allergy Symptoms spray,suspension letrozole 2.5 mg tablet 2.5 mg PO DAILY 10/02/19 08/26/22 History irbesartan 75 mg tablet 75 mg PO DAILY 05/25/20 08/26/22 History apixaban 5 mg tablet (Eliquis) 5 mg PO BID 08/26/22 08/26/22 History atorvastatin 40 mg tablet 40 mg PO DAILY 08/26/22 08/26/22 History bupropion HCl 200 mg tablet,12 hr 200 mg PO BID 08/26/22 08/26/22 History sustained-release duloxetine 30 mg capsule,delayed 3 mg PO DAILY 08/26/22 08/26/22 History release metoprolol succinate 50 mg 75 mg PO HS 08/26/22 08/26/22 History tablet,extended release 24 hr Past Med/Surg History Medical History Abdominal pain Atrial fibrillation DJD (degenerative joint disease) of hip (07/17/13) Malignant neoplasm of upper-outer quadrant of right breast in female, estrogen receptor positive (08/02/17) Mass of upper lobe of right lung Perforated viscus Peritonitis Sepsis Sinusitis Surgical History History of hip surgery S/P appendectomy S/P lumpectomy of breast S/P MORA-BSO S/P tonsillectomy Status post THR (total hip replacement) Bilateral Family History Other Cancer Diabetes Heart disease Hypertension Social History Smoking Status: Current every day smoker Tobacco Type: Cigarettes Age Started Using Tobacco: 17; Cigarettes Per Day: 10-20/day; Second Hand Exposure: No; Do You Dip or Chew Tobacco: No; Hx Alcohol Use: No Hx Substance Use: No Preferred Language: [place] Communication Ability: Impaired Communication Ability Comment: Patient extremely confused/disoriented Visual Impairment: No Limitations Box Stamper Required: No Beliefs That Will Affect Care: None marital status: Current Living Situation: Alone How many Children do You have: 3 Other Information That Helps Us Care for You: No Feels Safe at Home: Yes caffeine: Yes (one cup per day) Dental Care, Regularly: No Physical Activity Frequency: Does not Exercise Physical Activity Frequency Comment: currently wears a brace Assistive Devices: Oxygen - Continuous and Walker Review of Systems All systems reviewed & are unremarkable except as noted in HPI & below. Physical Exam On physical examination of the right hip, she does have pain with internal and external rotation. She says a lot of pain is in her groin and around the lateral aspect of her hip near the greater trochanter. She is a little bit of pain at the tip of the iliac crest but not much. Her leg lengths are equal.. Constitutional WD/WN, vitals as above Eyes PERRL, conjunctivae normal, anicteric sclerae ENMT external ear and nose normal, oropharynx normal Neck trachea midline, no thyromegaly Respiratory normal respiratory effort, lungs clear to auscultation Cardiovascular RRR, no murmur, no edema Gastrointestinal (Abdomen) normal bowel sounds, soft, nontender, no hepatosplenomegaly Skin no rashes, warm and dry Psychiatric A+Ox3, euthymic affect Results & Data Results & Data Laboratory Results . Diagnostic Findings CT scan of the right abdomen and pelvis does show very small nondisplaced fra cture of the posterior superior aspect of the iliac crest. Appears to be a pathologic fracture. X-rays of the hip and pelvis show no evidence of fracture. The prosthesis are in good alignment.. PG Care Time/CCT Total # of Minutes Spent Total Time Spent with Patient: Total time spent is greater than 50% in coordination of care (as documented) at patient's floor/unit and/or counseling patient: Coding Level of Care Code 76338 Inpt Consult Level 4 Diagnoses Pathologic pelvic fracture M84.454A
--- NOTE | 2022-08-27 23:06 | Electrocardiogram Report ---
Test Reason : Blood Pressure : / mmHG Vent. Rate : 068 BPM Atrial Rate : 068 BPM P-R Int : 178 ms QRS Dur : 088 ms QT Int : 448 ms P-R-T Axes : 077 078 085 degrees QTc Int : 476 ms Normal sinus rhythm with sinus arrhythmia Possible Left atrial enlargement Nonspecific ST abnormality Abnormal ECG When compared with ECG of 28-MAY-2020 07:12, No significant change was found Confirmed by Rogers Baxter ([id number]) on 08/27/2022 11:05:35 PM Referred By: REFERRED SELF Confirmed By:Rogers Baxter
--- NOTE | 2022-08-27 23:06 | Electrocardiogram Report ---
Test Reason : Blood Pressure : / mmHG Vent. Rate : 074 BPM Atrial Rate : 074 BPM P-R Int : 164 ms QRS Dur : 078 ms QT Int : 446 ms P-R-T Axes : 106 100 103 degrees QTc Int : 495 ms Poor data quality, interpretation may be adversely affected Suspect arm lead reversal, interpretation assumes no reversal Normal sinus rhythm Lateral infarct , age undetermined Prolonged QT Abnormal ECG When compared with ECG of 26-AUG-2022 14:10, Lateral infarct is now Present Confirmed by Rogers Baxter ([id number]) on 08/27/2022 11:06:28 PM Referred By: REFERRED SELF Confirmed By:Rogers Baxter
[2022-08-28] MEDS ORDERED: METOPROLOL TARTRATE 1 MG/ML VIAL IV STA (00:23)
[2022-08-28] MEDS ORDERED: STAT IV Infusion **Titration per Protocol STA (00:40)
[2022-08-28] MEDS ORDERED: dilTIAZem HCl 5 MG/ML 5 ML VIAL IV STA (00:40)
[2022-08-28] MEDS: dilTIAZem HCL 125 MG in DEXTROSE 5% 100 ML IV SCH ×3 (01:05→19:45)
[2022-08-28] MEDS: ALBUT/IPRATROP 3MG/0.5MG NEB 3 ML VIAL NEB SCH ×6 (03:33→23:18)
[2022-08-28] MEDS: dexAMETHasone 10 MG in SYRINGE 0 ML IV SCH (05:07)
[2022-08-28] MEDS: cefTRIAXone SODIUM 2,000 MG in DEXTROSE 5% 50 ML IV SCH (05:08)
--- NOTE | 2022-08-28 06:48 | Progress Notes ---
SUBJECTIVE: Followup of her orthopedic consult performed by Dr. Cooper yesterday. Chart reviewed. Images reviewed. The patient has extensive right iliac crest involvement with fracture areas in mul tiple sites. There is also retroperitoneal lymphadenopathy. Fortunately, there is no involvement of her total hip replacements. Her O2 requirements are increasing. She is now on BiPAP at 50%. She is becoming slightly acidotic. OBJECTIVE: The patient visualized at bedside, somnolent, arousable, but very, very tired. Physical exam limited to inspection of capsule, did not do anything else. Reviewed all of her laboratory work. ASSESSMENT AND PLAN: Unfortunate presentation with diffuse metastatic lung cancer with significant p athologic right iliac crest fracture. At this point in time, there is also some retroperitoneal lump , which is likely placing some pressure on her nerve structures going through the pelvis, giving her some leg pain as well. Ultimate care for this disease will be up to her medical hospitalist and spec ialist. From an orthopedic perspective, presently there is no other treatment other than potentially radiation therapy. Consider steroids for nerve pain if necessary. Dictated, not read. Job ID: [id number]
[2022-08-28] MEDS: FORMOTEROL 20 MCG/2 ML VIAL NEB SCH ×2 (07:26→19:24)
[2022-08-28] MEDS: SODIUM CHLOR 7% 4 ML NEB NEB SCH ×2 (07:26→19:24)
[2022-08-28] MEDS: BUDESONIDE 0.5 MG/2 ML VIAL (PULMICORT) NEB SCH ×2 (07:26→19:24)
[2022-08-28 08:04] LABS: Hematocrit (blood only) 34.1 % (34.1-44.9); Hemoglobin 10.5 g/dl (12.0-16.0); Mean Corpuscular Hemoglobin 27.6 pg (25.0-34.0); Mean Corpuscular Hgb Conc 30.8 g/dL (32.0-36.0); Mean Corpuscular Volume 89.7 fL (80.0-100.0); Mean Platelet Volume 10.9 fL (9.4-12.3); Platelet Count 224 K/uL (130-400); RDW Coefficient of Variation 15.9 % (11.5-14.5); RDW Standard Deviation 52.3 fL (36.4-46.3); White Blood Count 5.85 K/ul (4.8-10.8)
[2022-08-28 08:31] LABS: Immature Granulocytes # (auto) 0.03 K/uL (0.00-0.02); Immature Granulocytes % (auto) 0.5 %; Lymphocytes # (auto) 0.26 K/uL (1.2-3.4); Lymphocytes % (auto) 4.4 %; Monocytes # (auto) 0.14 K/uL (0.24-0.82); Monocytes % (auto) 2.4 %; Neutrophils # (auto) 5.42 K/uL (1.4-6.5); Neutrophils % (auto) 92.7 %
[2022-08-28 08:44] LABS: Anion Gap 4 (3-11); BUN Creatinine Ratio 43.4 (10-20); Blood Urea Nitrogen 23 mg/dl (6-23); Calcium 8.1 mg/dl (8.5-10.1); Carbon Dioxide 33 mmol/L (21-32); Chloride 102 mmol/L (98-107); Creatinine Clr Calc Pharmacy 103.8 ml/min; Est GFR (African American) 108.4 ml/min; Est GFR (Non-African American) 93.5 ml/min; Glucose 148 mg/dl (70-99(Fasting)); Sodium 139 mmol/L (136-145)
[2022-08-28] MEDS ORDERED: METOPROLOL SUCC 25MG EXT REL TAB PO SCH (09:00)
--- NOTE | 2022-08-28 09:08 | Electrocardiogram Report ---
Test Reason : Blood Pressure : / mmHG Vent. Rate : 070 BPM Atrial Rate : 070 BPM P-R Int : 166 ms QRS Dur : 092 ms QT Int : 430 ms P-R-T Axes : 064 079 071 degrees QTc Int : 464 ms Normal sinus rhythm Normal ECG When compared with ECG of 27-AUG-2022 05:36, Arm lead reversal corrected Confirmed by Wisam Canales ([id number]) on 08/28/2022 9:07:58 AM Referred By: REFERRED SELF Confirmed By:Wisam Canales
--- NOTE | 2022-08-28 09:16 | Radiation OncologyConsultation ---
Date of Consultation August 28, 2022 Assessment & Plan (1) Metastasis to brain: Plan This is a 76-year-old woman admitted due to hypercapnic respiratory failure. She was found to have pulmonary emboli and a large lung mass with metastatic disease. She had been having issues over the past 2 weeks with confusion and shortness of breath. Multiple studies have been completed. She has been found to have a pathologic fracture of the right iliac bone. Orthopedics has reviewed this and there is no surgical intervention for this issue. She has been seen by pulmonary and there is plan for bronchoscopy to obtain tissue. 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 She has been found to have multiple brain metastasis with vasogenic edema. She is on dexamethasone. Today she is not showing confusion. She does have some slowing of recollection. She is familiar with radiation therapy in that she was previously treated for breast cancer. She understands the process. She will first need CT simulation and begin treatment. Dr. Horowitz has recommended 5 fractions of radiation therapy to the brain. In regards to her hip area. She did initially have pain on admission. She is not complaining of pain in the hip area currently. She is not having any issues with pain in her back. Patient's daughter Em was also contacted. She was given an update in regards to plan for radiation treatment to the brain lesions. ATTENDING ADDENDUM: Assessment: Ms. Jones is a 76-year-old female with a history of right breast cancer status postlumpectomy and adjuvant radiation therapy (APBI, 3850 cGy, 10 fractions, 10/29/2017). More recently, the patient presented with confusion and was admitted to the hospital and was found to have multiple brain metastasis and evidence of potential metastatic lung cancer versus metastatic breast cancer. The patient has been started on dexamethasone due to metastatic disease in the brain which is had some improvement with her orientation and alertness. At this point given the patient's other medical issues and concerns for procedure, the patient is holding off on a biopsy however pulmonary medicine has seen the patient and is recommending a biopsy in the future. The patient has been seen by Dr. Valenzuela from medical oncology who has recommended initial consideration for radiation therapy followed by potential biopsy and consideration of systemic therapy pending of the patient's improvement in performance status. I am now seeing the patient in consultation to discuss role of radiation therapy. Recommendation: Fractionated stereotactic radiation therapy to brain metastasis. 3-5 fractions. Plan: 1. CT simulation for treatment planning for radiation therapy. IV contrast. Plan for simulation tomorrow. I have spoken with the daughter who was at bedside as well who understands the recommendation and agrees with the plan. If the patient is now more oriented at the time of CT simulation, we will obtain consent from the daughter. 2. Palliative care and medical oncology input appreciated. 3. Continue follow-up with pulmonary medicine. 4. Continue all other management as per primary medical team. Rationale/Explanation of Treatment: I explained the indications, alternatives, benefits, risks and side effects of external beam radiation therapy. I explain the most common side effects including but not limited to skin erythema, skin break down, hair loss, radiation necrosis, fatigue, short-term memory loss, decreased neurocognitive performance, cerebral edema, hearing loss, damage to cochlea structures, seizures, loss of sensory and or motor function. I explained the treatment planning process and what to expect before during and after treatment. I have explained to the patient that there is an increased risk of overlap from the previous course of radiation therapy and the current course of radiation therapy which can increase the risk of all acute and late side effects of radiation therapy. The patient and daughter had multiple questions which were answered to their full satisfaction. Thank you for allowing us to participate in the care of this patient. This chart was completed in part utilizing [employer] Speech Voice Recognition software. Attempts were made to minimize the grammatical errors, random word insertions, pronoun errors and incomplete sentences. Any formal questions or concerns about the content, text or information contained within the body of this dictation should be directly addressed to the provider for clarification. 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 She received 3850 cGy utilizing accelerated partial breast irradiation. Ms. Robert is without a family history of breast cancer. She underwent annual bilateral screening mammograms on 07/18/2017. This showed in the right breast a new 5 mm focal asymmetry in the upper outer middle depth. 3-D spot compression views and MLO projections and ultrasound were recommended for further evaluation. On 07/24/2017 patient underwent additional imaging. This again demonstrated a suspicious abnormality in the right breast which persisted at the 10 o'clock position. Targeted ultrasound confirmed a 0.5 x 0.4 x 0.5 cm hypoechoic lesion. Ultrasound of the right axilla demonstrated a 2.4 x 1.2 x 1.4 cm well-defined lymph node with fatty hilum. Biopsy was recommended. On 08/08/2017 the patient underwent ultrasound-guided core biopsy of the right breast lesion at the 10 o'clock position. This confirmed an invasive ductal carcinoma histologic grade 1 of 3 with microcalcifications. The lesion measured at least 0.5 cm and was estrogen receptor strongly positive and progesterone receptor strongly positive. The lesion was HER-2/vikas negative and confirmed negative by FISH analysis. Accession #: [id number]. The patient met with Dr. Alex to discuss surgical treatment options. The patient agreed to proceed with a right needle localized lumpectomy and sentinel node biopsy performed on 09/04/2017. The partial mastectomy specimen confirmed residual invasive mammary carcinoma grade 1 which was initially present at the deep/posterior margin. However additional tissue was taken and the final margin status was negative. The lesion measured 3 mm in size although the measurement was difficult. There was no lymphovascular invasion identified. There was no DCIS in the specimen. One sentinel lymph node was identified and was negative for metastatic carcinoma. The final AJCC pathologic staging was therefore pT1b pN0(sn-), ER positive, MO positive and HER-2/vikas negative. The tissue was considered for Oncotype DX analysis. However there was insufficient carcinoma present in the slides and the procedure could not be performed. The patient is scheduled to see Dr. Sheth on October 05, 2017 to discuss the role of adjuvant systemic therapy with the patient. She did not require chemotherapy. She returned to our office and had a CT simulation. She was found to be a candidate for accelerated partial breast irradiation. This was completed October 29, 2017. She received 3850 cGy. Increasing shortness of breath and confusion over the past 2 weeks. She is also had a poor appetite. She is had approximate 20 pound weight loss. She presented to the emergency room 08/26/2022 and was admitted. 08/26/2022. Chest x-ray. 6.8 cm right suprahilar nodular air space opacity with equivocal cavitation. This may reflect pneumonia. However neoplasm could have a similar appearance. CT was recommended. Mild interstitial pulmonary edema with trace pleural effusions. 08/26/2022. Chest CT. 7.2 x 3.8 cm thick-walled masslike cavitary opacity within the anterior segment of the right upper lobe. This is suggestive of a lung cancer. Extensive thoracic, lower cervical and upper abdominal lymphadenopathy. Several suspected segmental pulmonary emboli within the left lung. 08/26/2022. Head CT. Multiple intra-axial lesions, the largest of which is a 3.2 cm right frontal parietal lesion with moderate associated vasogenic edema and mass-effect. These are highly suggestive of metastasis. An MRI of the brain with and without contrast could be obtained for further information. 08/27/2022. Chest CTA. Multiple segmental pulmonary emboli within the left lung. 7 cm thick-walled cavitary mass like opacity within the anterior segment of the right upper lobe. 08/27/2022. CT of abdomen and pelvis. Evidence for metastatic disease including upper abdominal lymphadenopathy, right retroperitoneal implants and a 3.3 cm right iliac bone metastasis with pathologic fracture. Mild T12 fracture may be benign or pathologic. 08/27/2022. MRI of the brain. Numerous peripherally enhancing intra-axial mass lesions of the right greater than left cerebral hemispheres with moderate associated vasogenic edema, most pronounced within the right frontal and parietal lobes. Findings are compatible with metastatic disease. 3 mm leftward midline shift. 08/27/2022. Pulmonary consultation. Plan for bronchoscopy. 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 08/27/2022. Orthopedic consultation. Prosthesis is in good alignment. Small fracture noted of iliac crest. No surgical management for this type of fracture. Allergies Allergy/AdvReac Type Severity Reaction Status Date / Time oxycodone AdvReac Severe Hallucinati Verified 08/26/22 17:23 ons Home Medications Medication Instructions Recorded Confirmed Type budesonide-formoterol HFA 160 2 puff inhalation BID 10/02/19 08/26/22 History mcg-4.5 mcg/actuation aerosol inhaler (Symbicort) fluticasone propionate 50 2 spray intranasal DAILY PRN 10/02/19 08/26/22 History mcg/actuation nasal Allergy Symptoms spray,suspension letrozole 2.5 mg tablet 2.5 mg PO DAILY 10/02/19 08/26/22 History irbesartan 75 mg tablet 75 mg PO DAILY 05/25/20 08/26/22 History apixaban 5 mg tablet (Eliquis) 5 mg PO BID 08/26/22 08/26/22 History atorvastatin 40 mg tablet 40 mg PO DAILY 08/26/22 08/26/22 History bupropion HCl 200 mg tablet,12 hr 200 mg PO BID 08/26/22 08/26/22 History sustained-release duloxetine 30 mg capsule,delayed 3 mg PO DAILY 08/26/22 08/26/22 History release metoprolol succinate 50 mg 75 mg PO HS 08/26/22 08/26/22 History tablet,extended release 24 hr Patient History Medical History Abdominal pain Atrial fibrillation DJD (degenerative joint disease) of hip (07/17/13) Malignant neoplasm of upper-outer quadrant of right breast in female, estrogen receptor positive (08/02/17) Mass of upper lobe of right lung Perforated viscus Peritonitis Sepsis Sinusitis Surgical History History of hip surgery S/P appendectomy S/P lumpectomy of breast S/P MORA-BSO S/P tonsillectomy Status post THR (total hip replacement) Bilateral Family History Other Cancer Diabetes Heart disease Hypertension Social History Smoking Status: Current every day smoker Tobacco Type: Cigarettes Age Started Using Tobacco: 17; Cigarettes Per Day: 10-20/day; Second Hand Exposure: No; Do You Dip or Chew Tobacco: No; Hx Alcohol Use: No Hx Substance Use: No Preferred Language: Syriac Communication Ability: Effective Communication Ability Comment: Patient extremely confused/disoriented Visual Impairment: No Limitations Registered Diet Technician Required: No Beliefs That Will Affect Care: None marital status: Current Living Situation: Alone How many Children do You have: 3 Other Information That Helps Us Care for You: No Feels Safe at Home: Yes caffeine: Yes (one cup per day) Dental Care, Regularly: No Physical Activity Frequency: Does not Exercise Physical Activity Frequency Comment: currently wears a brace Assistive Devices: Cane, CPAP and Walker Review of Systems Review of Systems: 13 point review of systems completed. No additional comments other than what is in HPI and plan. Physical Exam Physical Exam: Oxygen via nasal cannula. Constitutional: WD/WN, vitals as above Eyes: PERRL, conjunctivae normal, anicteric sclerae ENMT: external ear and nose normal, oropharynx normal Neck: trachea midline, no thyromegaly Respiratory: no respiratory distress Auscultation: + diminished lung sounds and + wheezes (Mild) Cardiovascular: RRR, no murmur, no edema Gastrointestinal (Abdomen): normal bowel sounds, soft, nontender, no hepatosplenomegaly Skin: no rashes, warm and dry Neurologic: Normal strength and coordination. Psychiatric: A+Ox3, euthymic affect Results (Rad Onc) Imaging Studies: were reviewed and pertinent findings noted in HPI [facility], [id number] Magnetic Resonance Report Patient: MARLEY JONES Date: 08/26/22MR#: [id number]: [id number] [facility] DRAcct ID:[id number]: [address]Birth Date: 1945City Zip: [place], [place] [address]Bmt: 76Location: 2SSex: FRoom/Bed: [id number] Phy: Shelton Carballo MDDiagnosis: CONFUSION, UTIPri Phy: Kim Draper PA-CService Date: 08/27/22Fam Phy:Interpreting Phy: Anmol JeterAdmkush Phy: Shelton Carballo MD Ordering Phy: Shelton Carballo MD cc: ~ MR brain wo/w con HISTORY: 76 years-old Female Concern for metastasis acutely altered mental status COMPARISON: Head CT 08/26/2022 TECHNIQUE: Multiplanar multisequence MRI the brain was obtained both with and without the use of 8 cc Gadavist FINDINGS: Riprap Worker localizer images demonstrate no gross extracranial abnormality. No restricted diffusion to suggest acute or subacute infarct. Motion degraded exam, notably the postcontrast series. Partially empty sella. No acute intracranial hemorrhage or abnormal extra-axial collection identified. 3 mm leftward midline shift. There are at least 8 peripherally enhancing intra-axial masses involving the right greater than left cerebral hemispheres, largest of which measures 3.5 x 3.0 x 3.4 cm within the right parietal lobe. These lesions demonstrate heterogeneously increased T2 signal. The largest lesion demonstrates restricted diffusion. Moderate associated vasogenic edema. Involutional changes with moderate to extensive chronic microvascular ischemic disease. The cerebral venous sinuses and major arterial flow voids appear patent. Prior bilateral lens repair. Minimal mucosal thickening of the paranasal sinuses. The mastoid air cells are clear. No acute calvarial fracture. Degenerative changes of the imaged cervical spine. IMPRESSION: 1. Motion degraded exam. 2. Numerous peripherally enhancing intra-axial mass lesions of the right greater than left cerebral hemispheres with moderate associated vasogenic edema, most pronounced within the right frontal and parietal lobes. Findings are compatible with metastatic disease. 3. 3 mm leftward midline shift. ACT 112: Negative or not required by law. The above report was generated using voice recognition software. It may contain grammatical, syntax or spelling errors. Electronically signed by: Anmol Jeter M.D. 08/27/2022 11:23 AM Dictated: 08/27/221113Transcribed: 08/27/221113 Time Spent Midlevel I spent [15] minutes in preparation for this follow up evaluation including reviewing all the clinical records, reviewing laboratory studies, pathology reports and imaging results. I spent [30] minutes with direct face to face interaction with the patient and/or family including performing a physical exam and answering all questions. I spent [20] minutes documenting this patient's visit.
[2022-08-28] MEDS: HEPARIN SOD 5,000 UNIT/0.5 ML VIAL SQ SCH ×2 (09:26→20:15)
[2022-08-28] MEDS: DOXYCYCLINE HYCLATE 100 MG in DEXTROSE 5% 100 ML IV SCH (09:34)
--- NOTE | 2022-08-28 12:11 | Ultrasound Report ---
BILATERAL LOWER EXTREMITY VENOUS DOPPLER HISTORY: Lower extremity edema. Rule out DVT COMPARISON STUDY: None. FINDINGS: The bilateral common femoral and superficial femoral veins are patent. There is occlusive t hrombus seen within the bilateral popliteal, right peroneal, and left posterior tibial veins. The rem aining calf vessels are patent. IMPRESSION: Bilateral lower extremity DVT as described above. ACT 112: Negative or not required by law. Electronically signed by: Agusto Bourgeois M.D. 08/28/2022 12:10 PM
[2022-08-28] MEDS: dexAMETHasone 4 MG in SYRINGE 0 ML IV SCH ×2 (12:17→17:57)
--- NOTE | 2022-08-28 12:45 | Hospitalist Progress Note ---
Date of Service August 28, 2022 Assessment & Plan (1) Confusion: (2) Lung mass: (3) Metastasis to brain: (4) Urinary tract infection: (5) COPD exacerbation: (6) Pulmonary emboli: (7) Acute hypercapnic respiratory failure: (8) Atrial fibrillation with RVR: Plan Patient brought to the hospital by her daughter due to confusion for last 2 weeks which has worsened recently. Patient took multiple doses of her home medication including Eliquis, Wellbutrin, metoprolol Initial chest x-ray on admission showed 6.8 cm right supraclavicular nodular opacity. Subsequent CT chest showed 7.2 into 3.8 thick-walled masslike cavity in right upper lobe suggestive of lung malignancy. Extensive lymphadenopathy was also seen. Several suspected segmental PE was also seen. Subsequent CT angios showed multiple segmental PE in left lung. CT head showed multiple intra-axial lesions largest of which is 3.2 cm right frontoparietal lesion with associated vasogenic edema MRI brain showed numerous peripherally enhancing intra-axial mass lesions of the right greater than left cerebral hemisphere with associated vasogenic edema. 3 mm leftward midline shift is present. CT abdomen/pelvis showed evidence of metastatic disease including upper abdominal lymphadenopathy, 3.3 cm right iliac bone metastasis with pathological fracture. On the night of the admission on August 26, patient developed acute hypercapnic respiratory failure. She was also found to have PE for which she was started on heparin 5000 twice daily as per oncology recommendation. She was placed on BiPAP as well. 1) Metastatic Lung Cancer Presented with 2-week history of confusion. Chest x-ray and CT finding on admission as above. CT abdomen, MRI brain done subsequently. Widespread cancer with lung primary most likely. Plan: -Patient and family are not sure whether to pursue biopsy or not. Patient values quality of life and being at home. They also understand that she has several other medical issues that should be stabilized first before pursuing any further treatment. They are in agreement to pursue radiation for brain metastasis in the hope that it will improve her confusion. -Patient is currently on dexamethasone 4 mg every 6 hour to reduce vasogenic edema from brain metastasis -Palliative care consulted to review goals of care. Patient and family both want her to go home. Discussed regarding possibility of home with hospice. 2) COPD excerebration 3) Acute Hypercapnic Respiratory Failure Plan: Continue on duo nebs [id number], formoterol, budesonide, hypertonic saline nebulization along with IV dexamethasone. Continue on ceftriaxone. 4) Bilateral lower extremity DVT and left segmental PE Patient was previously on Eliquis at home. Stop on admission due to findings in the CT head/MRI brain. Plan; continue on heparin 5000 subcu every 12 hours for now. If she continues to tolerate it, will transition her to low-dose heparin without bolus. One of the potential option could be IVC filter placement if consistent with goals of care. 5) A. fib with RVR On the night of 07/29; patient had A. fib with RVR. Converted to sinus rhythm spontaneously. Plan; resume home metoprolol; will titrate dose as necessary. She is currently on Cardizem drip as well. 6) Urinary tract infection Urine culture positive for E. coli; sensitive to ceftriaxone. Plan; continue ceftriaxone for now. 7) Pathological fracture of right iliac bone Plan; orthopedic evaluation was completed; no intervention currently. PT OT ordered. DNR/DNI DVT ppx Heparin Admission and Anticipated Discharge Date Admission Date: August 26, 2022 Subjective Patient seen and examined at bedside. Patient is awake, alert orient x3. Patient does not remember the event leading to partial hospitalization. She reports that she is coming to the realization that she has stage 4 cancer. Review of Systems Review of Systems: All systems reviewed & are unremarkable except as noted in Subjective Physical Exam Physical Exam: Constitutional: Awake, alert, oriented to time, person and family members. Respiratory: Bilateral wheeze heard. Crackles present on right mid lung field Cardiovascular: RRR, no murmur, no edema Vessels: no JVD or carotid bruit Chest: normal inspection of chest Abdomen: normal bowel sounds, soft, nontender, no hepatosplenomegaly Musculoskeletal: no cyanosis or clubbing, extremities motor strength 5/5 Skin: no rashes, warm and dry normal turgor Neurologic: Follows commands intermittently. Psychiatric: Awake, alert, oriented to time, place and person. Lymphatic: no cervical or axillary lymphadenopathy : deferred Results & Data Results & Data ([facility]) Vital Signs (Past 12 Hours) Vital Signs Temp Pulse Pulse Pulse Resp BP Pulse Ox 08/28/22 12:17 36.3 C L 130 H 18 100/65 92 08/28/22 08:00 08/28/22 07:13 36.5 C 89 18 123/53 L 98 08/28/22 07:27 94 H 23 96 08/28/22 07:27 94 H 23 96 08/28/22 04:22 67 08/28/22 03:34 81 22 99 08/28/22 03:34 81 22 99 08/28/22 02:49 36.6 C 127 H 20 119/70 96 08/28/22 01:48 135 H 135/68 08/28/22 01:20 90 O2 Del Method O2 Flow Rate FiO2 08/28/22 12:17 Nasal Cannula 6 08/28/22 08:00 Nasal Cannula 6 08/28/22 07:13 BiPAP 08/28/22 07:27 BiPAP 50 08/28/22 07:27 50 08/28/22 04:22 08/28/22 03:34 BiPAP 50 08/28/22 03:34 60 08/28/22 02:49 BiPAP 08/28/22 01:48 08/28/22 01:20 60 Laboratory Results Laboratory Results WBC 5.85 K/ul (4.8-10.8) 08/28/22 06:44 RBC 3.80 M/uL (3.93-5.22) L 08/28/22 06:44 Hgb 10.5 g/dl (12.0-16.0) L 08/28/22 06:44 POC Hgb 12.2 g/dl (12.0-16.0) 08/27/22 05:44 Hct 34.1 % (34.1-44.9) 08/28/22 06:44 POC Hct 36 % (37-47) L 08/27/22 05:44 MCV 89.7 fL (80.0-100.0) 08/28/22 06:44 MCH 27.6 pg (25.0-34.0) 08/28/22 06:44 MCHC 30.8 g/dL (32.0-36.0) L 08/28/22 06:44 RDW Std Deviation 52.3 fL (36.4-46.3) H 08/28/22 06:44 RDW Coeff of Cesilia 15.9 % (11.5-14.5) H 08/28/22 06:44 Plt Count 224 K/uL (130-400) 08/28/22 06:44 MPV 10.9 fL (9.4-12.3) 08/28/22 06:44 Immature Gran % (Auto) 0.5 % 08/28/22 06:44 Neut % (Auto) 92.7 % 08/28/22 06:44 Lymph % (Auto) 4.4 % 08/28/22 06:44 [place] % (Auto) 2.4 % 08/28/22 06:44 Eos % (Auto) 0.0 % 08/28/22 06:44 Baso % (Auto) 0.0 % 08/28/22 06:44 Neut # (Auto) 5.42 K/uL (1.4-6.5) 08/28/22 06:44 Lymph # (Auto) 0.26 K/uL (1.2-3.4) L 08/28/22 06:44 [place] # (Auto) 0.14 K/uL (0.24-0.82) L 08/28/22 06:44 Eos # (Auto) 0.00 K/uL (0-0.50) 08/28/22 06:44 Baso # (Auto) 0.00 K/uL (0-0.2) 08/28/22 06:44 Immature Gran # (Auto) 0.03 K/uL (0.00-0.02) H 08/28/22 06:44 PT 13.9 Seconds (9.0-12.0) H 08/27/22 02:57 INR 1.3 (0.9-1.1) H 08/27/22 02:57 Sample Site L Radial 08/27/22 05:44 POC pH 7.27 (7.35-7.45) L 08/27/22 05:44 POC pCO2 63 mmHg (35-46) H 08/27/22 05:44 POC pO2 78 mmHg (80-95) L 08/27/22 05:44 POC HCO3 29 jamee/L (19-24) H 08/27/22 05:44 POC Total CO2 31 mmol/L (24-31) 08/27/22 05:44 POC Base Excess 2.0 jamee/L (-9-1.8) H 08/27/22 05:44 ABG pH 7.33 (7.35-7.45) L 08/27/22 12:10 ABG pH (Temp Correct) 7.267 (7.35-7.45) L 08/27/22 05:44 ABG pCO2 55 mmHg (35-46) H 08/27/22 12:10 ABG pCO2 (Temp Corrct 63 mmHg (35-46) H 08/27/22 05:44 ABG pO2 69 mmHg (80-95) L 08/27/22 12:10 POC ABG pO2 at Pt Temp 78 08/27/22 05:44 ABG HCO3 29 mmol/L (19-24) H 08/27/22 12:10 POC ABG O2 Sat 93.0 % (90-95) 08/27/22 05:44 ABG O2 Saturation 94.6 % (90-95) 08/27/22 12:10 ABG Base Excess 1.9 mEq/L (-9-1.8) H 08/27/22 12:10 Ramez Test Pos (Pos) 08/27/22 12:10 Barometric Pressure Cancelled 08/27/22 10:25 Oxygen Given 12L 08/27/22 12:10 O2 Delivery Device BIPAP 08/27/22 05:44 POC O2 Rate 20 08/27/22 05:44 IPAP 14 08/27/22 05:44 POC Sodium 142 mmol/L (135-144) 08/27/22 05:44 Sodium 139 mmol/L (136-145) 08/28/22 06:44 POC Potassium 4.2 mmol/L (3.3-5.0) 08/27/22 05:44 Potassium 4.3 mmol/L (3.5-5.1) 08/28/22 09:20 Chloride 102 mmol/L (98-107) 08/28/22 06:44 Carbon Dioxide 33 mmol/L (21-32) H 08/28/22 06:44 Anion Gap 4 (3-11) 08/28/22 06:44 BUN 23 mg/dl (6-23) 08/28/22 06:44 Creatinine 0.53 mg/dl (0.6-1.2) L 08/28/22 06:44 Est Cr Clr Drug Dosing 103.8 ml/min 08/28/22 06:44 Est GFR ( Amer) 108.4 ml/min 08/28/22 06:44 Est GFR (Non-Af Amer) 93.5 ml/min 08/28/22 06:44 BUN/Creatinine Ratio 43.4 (10-20) H 08/28/22 06:44 Glucose 148 mg/dl (70-99(Fasting)) H 08/28/22 06:44 Calcium 8.1 mg/dl (8.5-10.1) L 08/28/22 06:44 Total Bilirubin 0.6 mg/dl (0.2-1.0) 08/27/22 02:57 AST 25 U/L (13-39) 08/27/22 02:57 ALT 18 U/L (7-52) 08/27/22 02:57 Alkaline Phosphatase 84 U/L (34-104) 08/27/22 02:57 Troponin I High Sens 9.3 pg/ml (0-14) 08/26/22 14:41 Total Protein 6.0 gm/dl (6.0-8.3) 08/27/22 02:57 Albumin 3.4 gm/dl (3.4-5.0) 08/27/22 02:57 Globulin 2.6 gm/dl (2.5-4.0) 08/27/22 02:57 Albumin/Globulin Ratio 1.3 (0.9-2) 08/27/22 02:57 Urine Color Dark Yellow 08/26/22 16:41 Urine Appearance Cloudy (Clear) A 08/26/22 16:41 Urine pH 5.5 (4.5-7.5) 08/26/22 16:41 Ur Specific [place] 1.032 (1.000-1.030) H 08/26/22 16:41 Urine Protein 1+ (Negative) H 08/26/22 16:41 Urine Glucose (UA) Negative (Negative) 08/26/22 16:41 Urine Ketones Trace (Negative) H 08/26/22 16:41 Urine Blood 2+ (Negative) H 08/26/22 16:41 Urine Nitrite Positive (Negative) A 08/26/22 16:41 Urine Bilirubin Negative (Negative) 08/26/22 16:41 Urine Urobilinogen Negative (Negative) 08/26/22 16:41 Ur Leukocyte Esterase Trace (Negative) H 08/26/22 16:41 Urine WBC (Auto) 10-30 /hpf (0-5) H 08/26/22 16:41 Urine RBC (Auto) 10-30 /hpf (0-4) H 08/26/22 16:41 U Hyaline Cast (Auto) 10-30 /lpf (0-5) H 08/26/22 16:41 U Epithel Cells (Auto) 20-30 /lpf (0-5) H 08/26/22 16:41 Urine Bacteria (Auto) 4+ (Negative) H 08/26/22 16:41 SARS-CoV-2 (PCR) NEGATIVE (Negative) 08/26/22 14:37 Influenza Type A (PCR) Negative (Neg) 08/26/22 14:37 Influenza Type B (PCR) Negative (Neg) 08/26/22 14:37 RSV (RT-PCR) Negative (Neg) 08/26/22 14:37 Impressions Chest X-Ray 08/26/22 14:00 XR chest 2V PA/lateral CLINICAL HISTORY: cough, wheezing, weakness COMPARISON STUDY: Chest radiograph May 29, 2020. FINDINGS: There is no pneumothorax. Trace bilateral pleural effusions are present. Mild cardiomegaly. A 6.8 cm right suprahilar nodular airspace opacity is present. This contains equivocal cavitation. There is mild interstitial pulmonary edema. IMPRESSION: 1. 6.8 cm right suprahilar nodular airspace opacity with equivocal cavitation. This may reflect pneumonia. However, a neoplasm could appear similar. Radiographic follow up to ensure resolution is recommended. Alternatively, a chest CT could be obtained for further evaluation. 2. Mild interstitial pulmonary edema with trace bilateral pleural effusions. ACT 112: Positive. There are findings on this exam that require communication between the performing entity and the patient following Patient Test Result Information Act [place] Act 112) guidelines. Electronically signed by: Toni Mccloud M.D. 08/26/2022 4:[address] 08/26/22 17:56 CT OF THE CHEST WITH IV CONTRAST CLINICAL HISTORY: 6.8cm cavitation COMPARISON STUDY: Chest radiograph May 29, 2020 and August 26, 2022. Treatment planning CT October 03, 2017. TECHNIQUE: Following IV administration of 86 mL of Optiray, helical axial images of the chest were obtained. Sagittal and coronal reconstructions were viewed as well as maximal intensity projections on an independent 3-D workstation. Automated exposure control was utilized for the study. A dose lowering technique was utilized adhering to the principles of ALARA. CT DOSE: 973.07 mGy.cm FINDINGS: There is no thoracic aortic dissection. There are multiple suspected small segmental pulmonary emboli within the left lung, suboptimally assessed on this exam due to respiratory motion. There is no pericardial effusion. A small right pleural effusion is noted. There is a cavitary mass-like opacity within the anterior segment of the right upper lobe that measures 7.2 x 3.8 cm. This corresponds to the finding on chest radiograph. Adjacent airspace opacity is present. This suspected mass extends to the mediastinum. In addition, there is extensive mediastinal and right hilar lymphadenopathy. This lymphadenopathy may be necrotic. Index subcarinal lymph node measures 3.6 x 2.3 cm. A right suprahilar lymph node measures 2.7 x 2 cm. A 1.6 cm lymph node adjacent to the mid descending thoracic aorta is present. In addition, there is bilateral supraclavicular lymphadenopathy. Index right supraclavicular lymph node measures 1.6 cm. The mediastinal lymphadenopathy results in mild to moderate distal tra cheal narrowing. The lymphadenopathy also results in moderate narrowing of the lobar and segmental bronchi within the right lung. Suspected minimal invasion of the SVC is noted. Diffuse bronchial wall thickening is noted. There is mild interlobular septal thickening. Post therapy changes within the right breast are present. There is focal soft tissue thickening within the interspace between the right fourth and fifth ribs. A few suspected implants within the right upper quadrant of the abdomen are noted. These measure up to 1.6 cm. Pathologic gastrohepatic ligament lymphadenopathy is also present. There is trace perihepatic ascites. IMPRESSION: 1. 7.2 x 3.8 cm thick-walled mass-like cavitary opacity within the anterior segment of the right upper lobe. This is suggestive of a lung malignancy. 2. Extensive thoracic, lower cervical and upper abdominal lymphadenopathy, as described above. This represents karen spread of disease. Lymphadenopathy results in mild to moderate distal tracheal narrowing. Suspected minimal SVC invasion. 3. Several suspected segmental pulmonary emboli within the left lung. A PE protocol chest CT could be obtained for confirmation. 4. Mild interstitial pulmonary edema. Small right pleural effusion. ACT 112: Negative or not required by law. Electronically signed by: Toni Mccloud M.D. 08/26/2022 7:29 PM Hip/Pelvis X-Ray 08/26/22 17:56 XR hip LT 2V w pelvis CLINICAL HISTORY: Left hip pain. History of total hip arthroplasty. COMPARISON: Pelvis and left hip radiographs July 19, 2020. FINDINGS: Incidental note is made of contrast within the bladder from recent contrast-enhanced CT. Alignment of the hip arthroplasties is anatomic. No periprosthetic fracture or lucency is noted. Hardware is intact. IMPRESSION: 1. No acute fracture within the pelvis or hips. 2. Intact total bilateral hip arthroplasties. ACT 112: Negative or not required by law. Electronically signed by: Toni Mccloud M.D. 08/26/2022 7:[address] 08/26/22 18:29 CT OF THE HEAD WITHOUT CONTRAST CLINICAL HISTORY: Confusion; on eliquis COMPARISON STUDY: Head CT May 27, 2020. MRI of the brain November 19, 2008. TECHNIQUE: Helical axial images of the head were obtained without IV contrast. Automated exposure control was utilized for the study. A dose lowering technique was utilized adhering to the principles of ALARA. FINDINGS: No acute intracranial hemorrhage is present. Note is made of a hypodense 3.2 cm right frontoparietal lesion on axial image 24 of 32. Moderate associated vasogenic edema is present. There is mild mass effect with sulcal effacement, mild compression of the right lateral ventricle and minimal leftward midline shift. A few additional cystic/necrotic lesions within the anterior right frontal lobe measure up to 2.3 cm. Basal cisterns are patent. There are no extra-axial fluid collections. A small vessel disease is noted. There are no findings to suggest acute dural sinus thrombosis or acute territorial infarct. IMPRESSION: Multiple intraaxial lesions, the largest of which is a 3.2 cm right frontoparietal lesion with moderate associated vasogenic edema and mass effect. These are highly suggestive of metastases. An MRI of the brain with and without contrast could be obtained for further evaluation. ACT 112: Positive. There are findings on this exam that require communication between the performing entity and the patient following Patient Test Result Information Act ([place] Act 112[place] guidelines. Electronically signed by: Toni Mccloud M.D. 08/26/2022 7:04 PM Chest CTA 08/27/22 00:14 CT ANGIOGRAPHY OF THE CHEST, PULMONARY EMBOLUS PROTOCOL CLINICAL HISTORY: Suspected lung cancer. Possible pulmonary emboli on prior chest CT. COMPARISON STUDY: Chest radiograph and chest CT August 26, 2022. TECHNIQUE: Following IV administration of 114 mL of Optiray, helical axial images of the chest were obtained utilizing the pulmonary embolus protocol. Maximal intensity projections and sagittal and coronal reformats were viewed on an independent 3D workstation. IV contrast was administered without complication. Automated exposure control was utilized for the study. A dose lowering technique was utilized adhering to the principles of ALARA. FINDINGS: The study confirms multiple segmental pulmonary emboli within the left lung. There is no pericardial effusion. A small right pleural effusion has increased in size since prior exam. A trace left pleural effusion has developed. Pulmonary edema is again noted with interlobular septal thickening. The cavitary 7 cm thick-walled right upper lobe mass within the anterior segment is again noted. There is adjacent groundglass opacity. Extensive mediastinal and right hilar lymphadenopathy is noted. This exam is compromised by motion artifact however this adenopathy results in mild to moderate narrowing of the central airways. Suspected SVC invasion is also present. Lower cervical and upper abdominal lymphadenopathy is also noted. Post therapy changes within the right breast are present. A mild T12 compression fracture is noted. The abdomen and pelvis CT will be reported separately. IMPRESSION: 1. Multiple segmental pulmonary emboli within the left lung. 2. Redemonstration of a 7 cm thick-walled cavitary mass-like opacity within the anterior segment of the right upper lobe suggestive of lung malignancy. 3. Associated extensive mediastinal and hilar lymphadenopathy, as detailed above. This results in mild to moderate central airway narrowing. Suspected SVC invasion. 4. Interstitial pulmonary edema with increasing bilateral pleural effusions. ACT 112: Negative or not required by law. Electronically signed by: Toni Mccloud M.D. 08/27/2022 7:58 AM Abdomen/Pelvis CT 08/27/22 01:16 CT OF THE ABDOMEN AND PELVIS WITH CONTRAST CLINICAL HISTORY: lung cancer, mets? COMPARISON STUDY: CT of the abdomen and pelvis December 01, 2013 TECHNIQUE: Following IV administration of 114 mL of Optiray, axial images of the abdomen and pelvis were obtained from the lung bases to the proximal femurs. Images were reviewed in the axial, sagittal, and coronal planes. IV contrast was administered without complication. Automated exposure control was utilized for the study. A dose lowering technique was utilized adhering to the principles of ALARA. CT DOSE: 1560.92 mGy.cm FINDINGS: Interlobular septal thickening within the lungs represents pulmonary edema. Small bilateral pleural effusions, right larger left, are noted. Please note that the chest CT will be reported separately. Heterogeneity of the liver favors passive hepatic congestion. A hypodense focus within the medial segment favors focal fat. A small amount of perihepatic ascites noted. Moderate gallbladder wall thickening may also be due to volume overload/right heart dysfunction. There is a small amount of fluid adjacent to the proximal duodenum. No pneumatosis, free air or portal venous gas is present. A 1.9 cm right retroperitoneal implant on axial image 107 of 421 is noted. Pathologic gastrohepatic ligament nodes are noted. Index node measures 2.7 x 1.6 cm. There is no biliary or pancreatic ductal dilatation. There is pancreatic glandular atrophy. Spleen, adrenal glands and kidneys are unremarkable with the exception of a few suspected right renal cysts. There is no hydronephrosis. There is no evidence for a bowel obstruction. Images of the pelvis are degraded by streak artifact from hip arthroplasties. Contrast within the collecting systems, ureters and bladder from prior contrast enhanced CT. Small amount of pelvic ascites is present. A T12 fracture with mild loss of vertebral body height is noted. There is also a pathologic fracture within the right iliac bone due to an underlying lesion which measures approximately 3.3 cm. This extends into the adjacent musculature. IMPRESSION: 1. Evidence for metastatic disease, including upper abdominal lymphadenopathy, right retroperitoneal implants and a 3.3 cm right iliac bone metastasis with pathologic fracture. A mild T12 fracture may be benign or pathologic. 2. No bowel obstruction. No bowel wall thickening. 3. Interstitial pulmonary edema with bilateral pleural effusions and a small amount of ascites within the abdomen and pelvis. Heterogeneity of the liver favors passive hepatic congestion. 4. Moderate gallbladder wall thickening. Small amount of fluid adjacent to the d uodenum. Although nonspecific, these findings may be related to volume overload/right heart dysfunction. ACT 112: Negative or not required by law. Electronically signed by: Toni Mccloud M.D. 08/27/2022 8:12 AM Brain MRI 08/27/22 19:12 MR brain wo/w con HISTORY: 76 years-old Female Concern for metastasis acutely altered mental status COMPARISON: Head CT 08/26/2022 TECHNIQUE: Multiplanar multisequence MRI the brain was obtained both with and without the use of 8 cc Gadavist FINDINGS: Steel Handler localizer images demonstrate no gross extracranial abnormality. No restricted diffusion to suggest acute or subacute infarct. Motion degraded exam, notably the postcontrast series. Partially empty sella. No acute intracranial hemorrhage or abnormal extra-axial collection identified. 3 mm leftward midline shift. There are at least 8 peripherally enhancing intra-axial masses involving the right greater than left cerebral hemispheres, largest of which measures 3.5 x 3.0 x 3.4 cm within the right parietal lobe. These lesions demonstrate heterogeneously increased T2 signal. The largest lesion demonstrates restricted diffusion. Moderate associated vasogenic edema. Involutional changes with moderate to extensive chronic microvascular ischemic disease. The cerebral venous sinuses and major arterial flow voids appear patent. Prior bilateral lens repair. Minimal mucosal thickening of the paranasal sinuses. The mastoid air cells are clear. No acute calvarial fracture. Degenerative changes of the imaged cervical spine. IMPRESSION: 1. Motion degraded exam. 2. Numerous peripherally enhancing intra-axial mass lesions of the right greater than left cerebral hemispheres with moderate associated vasogenic edema, most pronounced within the right frontal and parietal lobes. Findings are compatible with metastatic disease. 3. 3 mm leftward midline shift. ACT 112: Negative or not required by law. The above report was generated using voice recognition software. It may contain grammatical, syntax or spelling errors. Electronically signed by: Anmol Jeter M.D. 08/27/2022 11:23 AM Venous Doppler Study 08/28/22 10:18 BILATERAL LOWER EXTREMITY VENOUS DOPPLER HISTORY: Lower extremity edema. Rule out DVT COMPARISON STUDY: None. FINDINGS: The bilateral common femoral and superficial femoral veins are patent. There is occlusive thrombus seen within the bilateral popliteal, right peroneal, and left posterior tibial veins. The remaining calf vessels are patent. IMPRESSION: Bilateral lower extremity DVT as described above. ACT 112: Negative or not required by law. Electronically signed by: Agusto Bourgeois M.D. 08/28/2022 12:10 PM
--- NOTE | 2022-08-28 12:59 | Pulmonology Progress Note ---
Date of Service August 28, 2022 Assessment & Plan (1) Mass of upper lobe of right lung: Plan: 76-year-old female presenting with metastatic CA of likely pulmonary origin. She has improved over the last 24 hours with intravenous steroid use alone. She is less confused at this time. She is able to contribute to decision-making process. Her daughters are at bedside and third daughter is available by phone. They had multiple questions regarding moving forward, particularly regarding biopsy and/or bronchoscopy. Per discussion with all family members, patient wishes to proceed with conservative measures at this point. They do not appear to be interested with biopsy at this point as it does not provide therapeutic benefit. She understands that we will likely not be able to provide complete diagnosis without biopsy, however she is comfortable in this decision making now. It was offered to her that if her symptoms were to improve and she felt that biopsy was in her best interest, that we certainly could perform at a later date. She and her family will consider this, however they are not interested at least in the immediate future. Patient is already receiving steroids at this time in the setting of metastatic brain metastases. She will continue with her home nebulizer treatments to this point. Had previously required CPAP, however this may have been related to her mental status. She appears to be much better at this point. Thank you for allowing us to participate in the care of this patient. Admission and Anticipated Discharge Date Admission Date: August 26, 2022 Supervising Physician Co-Signing Physician Notes Patient seen and examined. EMR reviewed. Discussed with DAMION and agree with assessment plan as noted. Met with family at bedside and discussed with palliative care. Patient has what appears to be widely metastatic cancer. Discussed with family diagnostic options to include thoracentesis versus bronchoscopy with endobronchial ultrasound and transbronchial needle aspiration. Family is leaning away towards any invasive procedures and thinks they want a focus on comfort measures only. I advised them that we would [place] back tomorrow to revisit issues and will reassess at that point time. Also advised them that these issues could be reassessed in the outpatient setting if the patient were to improve. Will reassess in the next 24 hours and answer additional questions for family. Subjective Patient was seen and evaluated by myself. She is awake, alert, and oriented at this time. She reports that she does not remember a lot of the events of yesterday, however she reports feeling much better at this time. She offers no complaints of pain at this time. She does have an ongoing cough. She and her family are present at bedside and contribute to HPI. They have questions regarding moving forward from a pulmonary standpoint, especially regarding bronchoscopy/biopsy. Review of Systems Review of Systems: A complete 10 point review of systems was reviewed with the patient with pertinent positives and negatives as per history of present illness. All else were negative. Physical Exam Physical Exam: VITAL SIGNS - Vital signs and nursing notes were reviewed. GENERAL - 76-year-old female appearing her stated age who is in no acute distress. Communicates well with provider and answers questions appropriately. LUNGS - Chest wall symmetric without accessory muscle use. Coarse breath sounds and inspiratory wheezes noted. CARDIAC - RRR with S1/S2. No murmur, rubs, or gallops appreciated. No reproducible tenderness to palpation appreciated over the anterior chest wall. ABDOMEN - Abdominal contour flat without pulsations or visible masses. BS normoactive all four quadrants. No tenderness, palpable masses, hepatosplenomegaly, or ascites noted. EXTREMITIES - No clubbing or peripheral cyanosis. No pretibial edema present. +3/5 radial and dorsalis pedis pulses palpated throughout. +5/5 strength noted in UE/LE bilaterally. PSYCH - A&Ox3 and cooperates fully with examiner. Pt is very pleasant and interacts well with examiner. Results & Data Results & Data ([facility]) Vital Signs (Past 12 Hours) Vital Signs Temp Pulse Pulse Pulse Resp BP Pulse Ox 08/28/22 12:17 36.3 C L 130 H 18 100/65 92 08/28/22 08:00 08/28/22 07:13 36.5 C 89 18 123/53 L 98 08/28/22 07:27 94 H 23 96 08/28/22 07:27 94 H 23 96 08/28/22 04:22 67 08/28/22 03:34 81 22 99 08/28/22 03:34 81 22 99 08/28/22 02:49 36.6 C 127 H 20 119/70 96 08/28/22 01:48 135 H 135/68 08/28/22 01:20 90 O2 Del Method O2 Flow Rate FiO2 08/28/22 12:17 Nasal Cannula 6 08/28/22 08:00 Nasal Cannula 6 08/28/22 07:13 BiPAP 08/28/22 07:27 BiPAP 50 12/12/22 07:27 50 08/28/22 04:22 08/28/22 03:34 BiPAP 50 08/28/22 03:34 60 08/28/22 02:49 BiPAP 08/28/22 01:48 08/28/22 01:20 60 PG Care Time/CCT Total # of Minutes Spent Total Time Spent with Patient: Total time spent is greater than 50% in coordination of care (as documented) at patient's floor/unit and/or counseling patient: Coding Level of Care Code 53335 Inpt Consult Level 4 Diagnoses Mass of upper lobe of right lung R91.8 Time Spent (min) 35
[2022-08-28] MEDS ORDERED: FUROSEMIDE INJ 20 MG/2 ML VIAL IV ONE (13:15)
--- NOTE | 2022-08-28 15:18 | Palliative Care Consultation ---
Date of Consultation August 28, 2022 History of Present Illness Reason for Consultation: goals of care Attending Physician: Shelton Carballo MD Allergies Allergy/AdvReac Type Severity Reaction Status Date / Time oxycodone AdvReac Severe Hallucinati Verified 08/26/22 17:23 ons Home Medications Medication Instructions Recorded Confirmed Type budesonide-formoterol HFA 160 2 puff inhalation BID 10/02/19 08/26/22 History mcg-4.5 mcg/actuation aerosol inhaler (Symbicort) fluticasone propionate 50 2 spray intranasal DAILY PRN 10/02/19 08/26/22 History mcg/actuation nasal Allergy Symptoms spray,suspension letrozole 2.5 mg tablet 2.5 mg PO DAILY 10/02/19 08/26/22 History irbesartan 75 mg tablet 75 mg PO DAILY 05/25/20 08/26/22 History apixaban 5 mg tablet (Eliquis) 5 mg PO BID 08/26/22 08/26/22 History atorvastatin 40 mg tablet 40 mg PO DAILY 08/26/22 08/26/22 History bupropion HCl 200 mg tablet,12 hr 200 mg PO BID 08/26/22 08/26/22 History sustained-release duloxetine 30 mg capsule,delayed 3 mg PO DAILY 08/26/22 08/26/22 History release metoprolol succinate 50 mg 75 mg PO HS 08/26/22 08/26/22 History tablet,extended release 24 hr Patient History Medical History Abdominal pain Atrial fibrillation DJD (degenerative joint disease) of hip (07/17/13) Malignant neoplasm of upper-outer quadrant of right breast in female, estrogen receptor positive (08/02/17) Mass of upper lobe of right lung Perforated viscus Peritonitis Sepsis Sinusitis Surgical History History of hip surgery S/P appendectomy S/P lumpectomy of breast S/P MORA-BSO S/P tonsillectomy Status post THR (total hip replacement) Bilateral Family History Other Cancer Diabetes Heart disease Hypertension Social History Smoking Status: Current every day smoker Tobacco Type: Cigarettes Age Started Using Tobacco: 17; Cigarettes Per Day: 10-20/day; Second Hand Exposure: No; Do You Dip or Chew Tobacco: No; Hx Alcohol Use: No Hx Substance Use: No Preferred Language: Nepali Communication Ability: Effective Communication Ability Comment: Patient extremely confused/disoriented Visual Impairment: No Limitations 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 Beliefs That Will Affect Care: None marital status: Current Living Situation: Alone How many Children do You have: 3 Other Information That Helps Us Care for You: No Feels Safe at Home: Yes caffeine: Yes (one cup per day) Dental Care, Regularly: No Physical Activity Frequency: Does not Exercise Physical Activity Frequency Comment: currently wears a brace Assistive Devices: Cane, CPAP and Walker Results & Data ([facility]) Vital Signs (Past 12 Hours) Vital Signs Temp Pulse Pulse Pulse Resp BP Pulse Ox 08/28/22 12:17 97.3 F L 130 H 18 100/65 92 08/28/22 08:00 08/28/22 07:13 97.7 F 89 18 123/53 L 98 08/28/22 07:27 94 H 23 96 08/28/22 07:27 94 H 23 96 08/28/22 04:22 67 08/28/22 03:34 81 22 99 08/28/22 03:34 81 22 99 O2 Del Method O2 Flow Rate FiO2 08/28/22 12:17 Nasal Cannula 6 08/28/22 08:00 Nasal Cannula 6 08/28/22 07:13 BiPAP 08/28/22 07:27 BiPAP 50 08/28/22 07:27 50 08/28/22 04:22 08/28/22 03:34 BiPAP 50 08/28/22 03:34 60 PG Care Time/CCT Total # of Minutes Spent Total Time Spent with Patient: Total time spent is greater than 50% in coordination of care (as documented) at patient's floor/unit and/or counseling patient: Coding
--- NOTE | 2022-08-28 15:22 | Palliative Care Consultation ---
Date of Consultation August 28, 2022 Assessment & Plan (1) Palliative care encounter: I spoke with Mrs. Jones and two of her daughters at bedside. She is aware of her diagnosis and has some idea of the extent of her disease. I asked her what her first thought was when she found out she had cancer and she told me that she was hoping that it was a mistake. She feels that she brought this on herself with her long history of smoking. We talked about what is most important to her which is her children. They are also the thing that brings meaning to her life. She has never really considered what she would want for her care though her daughters note that she has said that she would not want resuscitation. She confirms this. She is still processing her diagnosis and feels that she needs more information and some time to make a decision about how she wants to proceed. She has met with oncology, radiation oncology and pulmonology. She appeared tired and frustrated with conversation but is agreeable to further discussion tomorrow. We talked about approaching her decisions more from the perspective of what is important to her and what brings meaning and siri to her life moving forward. Knowing that, we can help guide her and her family with decisions moving forward. Information was given for family to access [email or web address] and [email or web address] to help them process some of the information they are getting. Will follow up tomorrow to discuss further. History of Present Illness Reason for Consultation: goals of care Requesting Physician: Dr. Carballo Attending Physician: Shelton Carballo MD History of Present Illness 76 yo lady with a history of COPD and atrial fibrillation who was admitted with confusion. She was found to have numerous brain lesions consistent with metastatic disease. The largest lesion was approximately 3 cm in the right parietal lobe. Additional imaging showed multisegmental pulmonary emboli and pulmonary nodule with extensive hilar and mediastinal lymphadenopathy and potential SVC invasion. She also has abdominal metastatic disease as well as bony metsastases with a 3.3 cm right iliac lesion and pathologic fracture. She had both confusion and respiratory distress on admission. Her respiratory status has improved somewhat and she is now on 6 litres NC. Her mental status has also improved on IV steroids. She is awake and alert. She is able to tell me that she's been told that she has cancer. She denies pain or dyspnea at this time. Allergies Allergy/AdvReac Type Severity Reaction Status Date / Time oxycodone AdvReac Severe Hallucinati Verified 08/26/22 17:23 ons Home Medications Medication Instructions Recorded Confirmed Type budesonide-formoterol HFA 160 2 puff inhalation BID 10/02/19 08/26/22 History mcg-4.5 mcg/actuation aerosol inhaler (Symbicort) fluticasone propionate 50 2 spray intranasal DAILY PRN 10/02/19 08/26/22 History mcg/actuation nasal Allergy Symptoms spray,suspension letrozole 2.5 mg tablet 2.5 mg PO DAILY 10/02/19 08/26/22 History irbesartan 75 mg tablet 75 mg PO DAILY 05/25/20 08/26/22 History apixaban 5 mg tablet (Eliquis) 5 mg PO BID 08/26/22 08/26/22 History atorvastatin 40 mg tablet 40 mg PO DAILY 08/26/22 08/26/22 History bupropion HCl 200 mg tablet,12 hr 200 mg PO BID 08/26/22 08/26/22 History sustained-release duloxetine 30 mg capsule,delayed 3 mg PO DAILY 08/26/22 08/26/22 History release metoprolol succinate 50 mg 75 mg PO HS 08/26/22 08/26/22 History tablet,extended release 24 hr Patient History Medical History Abdominal pain Atrial fibrillation DJD (degenerative joint disease) of hip (07/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) Malignant neoplasm of upper-outer quadrant of right breast in female, estrogen receptor positive (08/02/17) Mass of upper lobe of right lung Perforated viscus Peritonitis Sepsis Sinusitis Surgical History History of hip surgery S/P appendectomy S/P lumpectomy of breast S/P MORA-BSO S/P tonsillectomy Status post THR (total hip replacement) Bilateral Family History Other Cancer Diabetes Heart disease Hypertension Social History Smoking Status: Current every day smoker Tobacco Type: Cigarettes Age Started Using Tobacco: 17; Cigarettes Per Day: 10-20/day; Second Hand Exposure: No; Do You Dip or Chew Tobacco: No; Hx Alcohol Use: No Hx Substance Use: No Preferred Language: Portuguese Communication Ability: Effective Communication Ability Comment: Patient extremely confused/disoriented Visual Impairment: No Limitations 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 Beliefs That Will Affect Care: None marital status: Current Living Situation: Alone How many Children do You have: 3 Other Information That Helps Us Care for You: No Feels Safe at Home: Yes caffeine: Yes (one cup per day) Dental Care, Regularly: No Physical Activity Frequency: Does not Exercise Physical Activity Frequency Comment: currently wears a brace Assistive Devices: Cane, CPAP and Walker Review of Systems Review of Systems: ESAS Pain 0/3 Dyspnea 0/3 Nausea 0/3 Anxiety 1/3 Drowsiness 0/3 Physical Exam Constitutional: no acute distress Respiratory: normal respiratory effort; no labored breathing Cardiovascular: Rate/Rhythm: + tachycardic and + irregularly irregular Musculoskeletal: Extremities: extremities normal to inspection Skin: warm and dry Neurologic: awake and alert Results & Data ([facility]) Vital Signs (Past 12 Hours) Vital Signs Temp Pulse Pulse Pulse Resp BP Pulse Ox 08/28/22 12:17 97.3 F L 130 H 18 100/65 92 08/28/22 08:00 08/28/22 07:13 97.7 F 89 18 123/53 L 98 08/28/22 07:27 94 H 23 96 08/28/22 07:27 94 H 23 96 08/28/22 04:22 67 08/28/22 03:34 81 22 99 08/28/22 03:34 81 22 99 O2 Del Method O2 Flow Rate FiO2 08/28/22 12:17 Nasal Cannula 6 08/28/22 08:00 Nasal Cannula 6 08/28/22 07:13 BiPAP 08/28/22 07:27 BiPAP 50 08/28/22 07:27 50 08/28/22 04:22 08/28/22 03:34 BiPAP 50 08/28/22 03:34 60 PG Care Time/CCT Total # of Minutes Spent Total Time Spent: 65 Total Time Spent with Patient: Total time spent is greater than 50% in coordination of care (as documented) at patient's floor/unit and/or counseling patient: code status, goals of care, patient and family education and support. Coding Level of Care Code 91073 Initial Inpt Care Lvl 2 Diagnoses Palliative care encounter Z51.5
[2022-08-28] MEDS: METOPROLOL TARTRATE 50 MG TAB PO SCH (20:15)
[2022-08-28] MEDS: DOXYCYCLINE HYCLATE 100 MG CAP PO SCH (20:15)
[2022-08-29] MEDS: dexAMETHasone 4 MG in SYRINGE 0 ML IV SCH ×4 (00:56→17:28)
[2022-08-29] MEDS: ALBUT/IPRATROP 3MG/0.5MG NEB 3 ML VIAL NEB SCH ×6 (03:45→23:28)
[2022-08-29] MEDS: dilTIAZem HCL 125 MG in DEXTROSE 5% 100 ML IV SCH ×2 (03:58→12:17)
[2022-08-29] MEDS: cefTRIAXone SODIUM 2,000 MG in DEXTROSE 5% 50 ML IV SCH (05:33)
[2022-08-29 07:03] LABS: Basophils # (auto) 0.01 K/uL (0-0.2); Basophils % (auto) 0.1 %; Hematocrit (blood only) 36.4 % (34.1-44.9); Hemoglobin 11.2 g/dl (12.0-16.0); Immature Granulocytes # (auto) 0.04 K/uL (0.00-0.02); Immature Granulocytes % (auto) 0.5 %; Lymphocytes # (auto) 0.41 K/uL (1.2-3.4); Lymphocytes % (auto) 4.9 %; Mean Corpuscular Hemoglobin 27.8 pg (25.0-34.0); Mean Corpuscular Hgb Conc 30.8 g/dL (32.0-36.0); Mean Corpuscular Volume 90.3 fL (80.0-100.0); Mean Platelet Volume 10.7 fL (9.4-12.3); Monocytes % (auto) 4.7 %; Neutrophils # (auto) 7.59 K/uL (1.4-6.5); Neutrophils % (auto) 89.8 %; Platelet Count 243 K/uL (130-400); RDW Coefficient of Variation 16.2 % (11.5-14.5); RDW Standard Deviation 53.3 fL (36.4-46.3); Red Blood Count 4.03 M/uL (3.93-5.22); White Blood Count 8.45 K/ul (4.8-10.8)
[2022-08-29] MEDS: FORMOTEROL 20 MCG/2 ML VIAL NEB SCH ×2 (07:07→19:23)
[2022-08-29] MEDS: SODIUM CHLOR 7% 4 ML NEB NEB SCH ×2 (07:08→19:23)
[2022-08-29] MEDS: BUDESONIDE 0.5 MG/2 ML VIAL (PULMICORT) NEB SCH ×2 (07:08→19:23)
[2022-08-29 07:27] LABS: BUN Creatinine Ratio 44.3 (10-20); Calcium 8.2 mg/dl (8.5-10.1); Creatinine Clr Calc Pharmacy 68.8 ml/min; Est GFR (African American) 85.5 ml/min; Est GFR (Non-African American) 73.7 ml/min; Potassium 4.3 mmol/L (3.5-5.1)
[2022-08-29] MEDS ORDERED: ALPRAZolam 0.5 MG TABLET PO SCH (08:20)
[2022-08-29] MEDS: DOXYCYCLINE HYCLATE 100 MG CAP PO SCH ×2 (08:38→20:27)
[2022-08-29] MEDS: HEPARIN SOD 5,000 UNIT/0.5 ML VIAL SQ SCH ×2 (08:39→20:27)
[2022-08-29] MEDS: METOPROLOL TARTRATE 50 MG TAB PO SCH ×2 (08:42→20:27)
--- NOTE | 2022-08-29 11:38 | Pulmonology Progress Note ---
Date of Service August 29, 2022 Assessment & Plan (1) Mass of upper lobe of right lung: Plan: 76-year-old female with diffuse metastatic cancer of likely pulmonary origin. * Reevaluated patient bedside today. She appears about the same, but should be noted that her FiO2 requirement has increased. She is now on 8 L nasal cannula. She had refused CPAP last evening. She does not appear to be labored in her breathing. She does have diffuse inspiratory wheezes throughout lung [place]. We will add a chest x-ray to evaluate for possible areas of consolidation or worsening pleural effusion initially seen on CT films. She is currently receiving Pulmicort, Perforomist, Albuterol, steroids, and antibiotics. * Regarding discussion of biopsy and/or thoracentesis, patient family favor to avoid invasive procedures at this point. They are more focused on her comfort at this time. Offered our services if they change their mind. Otherwise, will defer to palliative care for focuses on goals of comfort. Thank you for allowing us to participate in the care of this patient. (2) COPD exacerbation: (3) Acute hypercapnic respiratory failure: Admission and Anticipated Discharge Date Admission Date: August 26, 2022 Supervising Physician Co-Signing Physician Notes Patient seen and examined. EMR reviewed. The patient reports no complaints. Met with daughters at bedside. They have elected to hold off on any invasive procedures currently. Her chest x-ray today's does demonstrate slight increase in the right-sided effusion. Advised patient and family that we could consider thoracentesis which may provide a tissue diagnosis and also pursue symptom relief. If the patient were to have symptoms of an enlarging effusion (cough, shortness of breath, chest pain) may be reasonable to pursue this as a potential palliative option. At this point time pulmonary will sign off. Feel free to contact us with any additional questions or concerns. Subjective Patient was seen evaluated at bedside today. She seems much more tired today and possibly slightly confused. She does not remember me from yesterday's conversation. Daughter does note that she seems a little bit more confused today. Otherwise, her oxygen saturations been stable. We did broach the s ubject of endoscopy with biopsy and thoracentesis. They continue to decline at this time, but are considered if her symptoms were to improve otherwise, she offers no complaints this time Review of Systems Review of Systems: A complete 6 point review of systems was reviewed with the patient with pertinent positives and negatives as per history of present illness. All else were negative. Physical Exam Physical Exam: VITAL SIGNS - Vital signs and nursing notes were reviewed. GENERAL - 76-year-old female appering her stated age who is in no acute distress. Slightly confused, but pleasant. LUNGS - Chest wall symmetric without accessory muscle use, intercostals retractions, or central cyanosis. Normal vesicular breath sounds with diffuse inspiratory wheezes noted. CARDIAC - RRR with S1/S2. No murmur, rubs, or gallops appreciated. ABDOMEN - Abdominal contour flat without pulsations or visible masses. BS normoactive all four quadrants. No tenderness, palpable masses, hepatosplenomegaly, or ascites noted. EXTREMITIES - No clubbing or peripheral cyanosis. No pretibial edema present. +3/5 radial and dorsalis pedis pulses palpated throughout. Results & Data Results & Data ([facility]) Vital Signs (Past 12 Hours) Vital Signs Temp Pulse Pulse Resp BP Pulse Ox O2 Del Method 08/29/22 11:11 89 20 89 L Nasal Cannula 08/29/22 08:00 Nasal Cannula 08/29/22 07:32 36.4 C L 90 20 103/55 L 90 High Flow Nasal Cannula 08/29/22 07:08 70 18 94 Nasal Cannula 08/29/22 03:48 72 18 95 Nasal Cannula 08/29/22 03:43 36.5 C 80 18 97/66 L 91 Nasal Cannula 08/29/22 01:05 85 O2 Flow Rate 08/29/22 11:11 8 08/29/22 08:00 6 08/29/22 07:32 8 08/29/22 07:08 6 08/29/22 03:48 6 08/29/22 03:43 08/29/22 01:05 PG Care Time/CCT Total # of Minutes Spent Total Time Spent with Patient: Total time spent is greater than 50% in coordination of care (as documented) at patient's floor/unit and/or counseling patient: Coding Level of Care Code 79537 Subseq Hosp Care Lvl 2 Diagnoses Mass of upper lobe of right lung R91.8 COPD exacerbation J44.1 Acute hypercapnic respiratory failure J96.02
--- NOTE | 2022-08-29 12:24 | Hospitalist Progress Note ---
Date of Service August 29, 2022 Assessment & Plan (1) Confusion: (2) Lung mass: (3) Metastasis to brain: (4) Urinary tract infection: (5) COPD exacerbation: (6) Pulmonary emboli: (7) Acute hypercapnic respiratory failure: (8) Atrial fibrillation with RVR: Plan Patient brought to the hospital by her daughter due to confusion for last 2 weeks which has worsened recently. Patient took multiple doses of her home medication including Eliquis, Wellbutrin, metoprolol Initial chest x-ray on admission showed 6.8 cm right supraclavicular nodular opacity. Subsequent CT chest showed 7.2 into 3.8 thick-walled masslike cavity in right upper lobe suggestive of lung malignancy. Extensive lymphadenopathy was also seen. Several suspected segmental PE was also seen. Subsequent CT angios showed multiple segmental PE in left lung. CT head showed multiple intra-axial lesions largest of which is 3.2 cm right frontoparietal lesion with associated vasogenic edema MRI brain showed numerous peripherally enhancing intra-axial mass lesions of the right greater than left cerebral hemisphere with associated vasogenic edema. 3 mm leftward midline shift is present. CT abdomen/pelvis showed evidence of metastatic disease including upper abdominal lymphadenopathy, 3.3 cm right iliac bone metastasis with pathological fracture. On the night of the admission on August 26, patient developed acute hypercapnic respiratory failure. She was also found to have PE for which she was started on heparin 5000 twice daily as per oncology recommendation. She was placed on BiPAP as well. 1) Metastatic Lung Cancer Presented with 2-week history of confusion. Chest x-ray and CT finding on admission as above. CT abdomen, MRI brain done subsequently. Widespread cancer with lung primary most likely. Plan: -Patient and family do not want to pursue biopsy at the moment. Patient values quality of life and being at home. They also understand that she has several other medical issues that should be stabilized first before pursuing any further treatment. They are in agreement to pursue radiation for brain metastasis in the hope that it will improve her confusion. Radiation oncology on board. Oncology to see the patient and family between 5 to 6:30 PM today to discuss further care. -Patient is currently on dexamethasone 4 mg every 6 hour to reduce vasogenic edema from brain metastasis -Palliative care consulted to review goals of care. Patient and family both want her to go home. Discussed regarding possibility of home with hospice. We will follow-up on discussion of palliative care and patient/family. 2) COPD excerebration 3) Acute Hypercapnic Respiratory Failure Plan: Continue on duo nebs [id number], formoterol, budesonide, hypertonic saline nebulization along with IV dexamethasone. Continue on ceftriaxone. 4) Bilateral lower extremity DVT and left segmental PE Patient was previously on Eliquis at home. Stop on admission due to findings in the CT head/MRI brain. Plan; continue on heparin 5000 subcu every 12 hours for now. We will follow-up on discussion of oncology and patient to decide on further treatment. 5) A. fib with RVR On the night of 07/29; patient had A. fib with RVR. Converted to sinus rhythm spontaneously. Has been in and out of A. fib Plan; was on Cardizem drip; currently on metoprolol 50 mg twice daily. 6) Urinary tract infection Urine culture positive for E. coli; sensitive to ceftriaxone. Plan; continue ceftriaxone for now. 7) Pathological fracture of right iliac bone Plan; orthopedic evaluation was completed; no intervention currently. PT OT ordered. DNR/DNI DVT ppx Heparin Admission and Anticipated Discharge Date Admission Date: August 26, 2022 Subjective Patient seen and examined at bedside. She states that she does not want to wear oxygen as she does not want anything up her nose. She appears to be slightly more confused compared to yesterday. She is in A. fib with ventricular rate in 80s to 90s. She is currently on Cardizem drip. Review of Systems Review of Systems: All systems reviewed & are unremarkable except as noted in Subjective Physical Exam Physical Exam: Constitutional: Awake, alert, oriented to time, person and family members. Respiratory: Bilateral wheeze heard. Crackles present on right mid lung field Cardiovascular: RRR, no murmur, no edema Vessels: no JVD or carotid bruit Chest: normal inspection of chest Abdomen: normal bowel sounds, soft, nontender, no hepatosplenomegaly Musculoskeletal: no cyanosis or clubbing, extremities motor strength 5/5 Skin: no rashes, warm and dry normal turgor Neurologic: Follows commands intermittently. Psychiatric: Awake, alert, oriented to time, place and person. Lymphatic: no cervical or axillary lymphadenopathy : deferred Results & Data Results & Data ([facility]) Vital Signs (Past 12 Hours) Vital Signs Temp Pulse Pulse Resp BP Pulse Ox O2 Del Method 08/29/22 11:45 36.7 C 90 20 94/58 L 90 Nasal Cannula 08/29/22 11:11 89 20 89 L Nasal Cannula 08/29/22 08:00 Nasal Cannula 08/29/22 07:32 36.4 C L 90 20 103/55 L 90 High Flow Nasal Cannula 08/29/22 07:08 70 18 94 Nasal Cannula 08/29/22 03:48 72 18 95 Nasal Cannula 08/29/22 03:43 36.5 C 80 18 97/66 L 91 Nasal Cannula 08/29/22 01:05 85 O2 Flow Rate 08/29/22 11:45 8 08/29/22 11:11 8 08/29/22 08:00 6 08/29/22 07:32 8 08/29/22 07:08 6 08/29/22 03:48 6 08/29/22 03:43 08/29/22 01:05 Laboratory Results Laboratory Results WBC 8.45 K/ul (4.8-10.8) 08/29/22 06:15 RBC 4.03 M/uL (3.93-5.22) 08/29/22 06:15 Hgb 11.2 g/dl (12.0-16.0) L 08/29/22 06:15 POC Hgb 12.2 g/dl (12.0-16.0) 08/27/22 05:44 Hct 36.4 % (34.1-44.9) 08/29/22 06:15 POC Hct 36 % (37-47) L 08/27/22 05:44 MCV 90.3 fL (80.0-100.0) 08/29/22 06:15 MCH 27.8 pg (25.0-34.0) 08/29/22 06:15 MCHC 30.8 g/dL (32.0-36.0) L 08/29/22 06:15 RDW Std Deviation 53.3 fL (36.4-46.3) H 08/29/22 06:15 RDW Coeff of Cesilia 16.2 % (11.5-14.5) H 08/29/22 06:15 Plt Count 243 K/uL (130-400) 08/29/22 06:15 MPV 10.7 fL (9.4-12.3) 08/29/22 06:15 Immature Gran % (Auto) 0.5 % 08/29/22 06:15 Neut % (Auto) 89.8 % 08/29/22 06:15 Lymph % (Auto) 4.9 % 08/29/22 06:15 [place] % (Auto) 4.7 % 08/29/22 06:15 Eos % (Auto) 0.0 % 08/29/22 06:15 Baso % (Auto) 0.1 % 08/29/22 06:15 Neut # (Auto) 7.59 K/uL (1.4-6.5) H 08/29/22 06:15 Lymph # (Auto) 0.41 K/uL (1.2-3.4) L 08/29/22 06:15 [place] # (Auto) 0.40 K/uL (0.24-0.82) 08/29/22 06:15 Eos # (Auto) 0.00 K/uL (0-0.50) 08/29/22 06:15 Baso # (Auto) 0.01 K/uL (0-0.2) 08/29/22 06:15 Immature Gran # (Auto) 0.04 K/uL (0.00-0.02) H 08/29/22 06:15 PT 13.9 Seconds (9.0-12.0) H 08/27/22 02:57 INR 1.3 (0.9-1.1) H 08/27/22 02:57 Sample Site L Radial 08/27/22 05:44 POC pH 7.27 (7.35-7.45) L 08/27/22 05:44 POC pCO2 63 mmHg (35-46) H 08/27/22 05:44 POC pO2 78 mmHg (80-95) L 08/27/22 05:44 POC HCO3 29 jamee/L (19-24) H 08/27/22 05:44 POC Total CO2 31 mmol/L (24-31) 08/27/22 05:44 POC Base Excess 2.0 jamee/L (-9-1.8) H 08/27/22 05:44 ABG pH 7.33 (7.35-7.45) L 08/27/22 12:10 ABG pH (Temp Correct) 7.267 (7.35-7.45) L 08/27/22 05:44 ABG pCO2 55 mmHg (35-46) H 08/27/22 12:10 ABG pCO2 (Temp Corrct 63 mmHg (35-46) H 08/27/22 05:44 ABG pO2 69 mmHg (80-95) L 08/27/22 12:10 POC ABG pO2 at Pt Temp 78 08/27/22 05:44 ABG HCO3 29 mmol/L (19-24) H 08/27/22 12:10 POC ABG O2 Sat 93.0 % (90-95) 08/27/22 05:44 ABG O2 Saturation 94.6 % (90-95) 08/27/22 12:10 ABG Base Excess 1.9 mEq/L (-9-1.8) H 08/27/22 12:10 Ramez Test Pos (Pos) 08/27/22 12:10 Barometric Pressure Cancelled 08/27/22 10:25 Oxygen Given 12L 08/27/22 12:10 O2 Delivery Device BIPAP 08/27/22 05:44 POC O2 Rate 20 08/27/22 05:44 IPAP 14 08/27/22 05:44 POC Sodium 142 mmol/L (135-144) 08/27/22 05:44 Sodium 138 mmol/L (136-145) 08/29/22 06:15 POC Potassium 4.2 mmol/L (3.3-5.0) 08/27/22 05:44 Potassium 4.3 mmol/L (3.5-5.1) 08/29/22 06:15 Chloride 102 mmol/L (98-107) 08/29/22 06:15 Carbon Dioxide 32 mmol/L (21-32) 08/29/22 06:15 Anion Gap 4 (3-11) 08/29/22 06:15 BUN 35 mg/dl (6-23) H 08/29/22 06:15 Creatinine 0.79 mg/dl (0.6-1.2) 08/29/22 06:15 Est Cr Clr Drug Dosing 68.8 ml/min 08/29/22 06:15 Est GFR ( Amer) 85.5 ml/min 08/29/22 06:15 Est GFR (Non-Af Amer) 73.7 ml/min 08/29/22 06:15 BUN/Creatinine Ratio 44.3 (10-20) H 08/29/22 06:15 Glucose 175 mg/dl (70-99(Fasting)) H 08/29/22 06:15 Calcium 8.2 mg/dl (8.5-10.1) L 08/29/22 06:15 Total Bilirubin 0.6 mg/dl (0.2-1.0) 08/27/22 02:57 AST 25 U/L (13-39) 08/27/22 02:57 ALT 18 U/L (7-52) 08/27/22 02:57 Alkaline Phosphatase 84 U/L (34-104) 08/27/22 02:57 Troponin I High Sens 9.3 pg/ml (0-14) 08/26/22 14:41 Total Protein 6.0 gm/dl (6.0-8.3) 08/27/22 02:57 Albumin 3.4 gm/dl (3.4-5.0) 08/27/22 02:57 Globulin 2.6 gm/dl (2.5-4.0) 08/27/22 02:57 Albumin/Globulin Ratio 1.3 (0.9-2) 08/27/22 02:57 Urine Color Dark Yellow 08/26/22 16:41 Urine Appearance Cloudy (Clear) A 08/26/22 16:41 Urine pH 5.5 (4.5-7.5) 08/26/22 16:41 Ur Specific [place] 1.032 (1.000-1.030) H 08/26/22 16:41 Urine Protein 1+ (Negative) H 08/26/22 16:41 Urine Glucose (UA) Negative (Negative) 08/26/22 16:41 Urine Ketones Trace (Negative) H 08/26/22 16:41 Urine Blood 2+ (Negative) H 08/26/22 16:41 Urine Nitrite Positive (Negative) A 08/26/22 16:41 Urine Bilirubin Negative (Negative) 08/26/22 16:41 Urine Urobilinogen Negative (Negative) 08/26/22 16:41 Ur Leukocyte Esterase Trace (Negative) H 08/26/22 16:41 Urine WBC (Auto) 10-30 /hpf (0-5) H 08/26/22 16:41 Urine RBC (Auto) 10-30 /hpf (0-4) H 08/26/22 16:41 U Hyaline Cast (Auto) 10-30 /lpf (0-5) H 08/26/22 16:41 U Epithel Cells (Auto) 20-30 /lpf (0-5) H 08/26/22 16:41 Urine Bacteria (Auto) 4+ (Negative) H 08/26/22 16:41 SARS-CoV-2 (PCR) NEGATIVE (Negative) 08/26/22 14:37 Influenza Type A (PCR) Negative (Neg) 08/26/22 14:37 Influenza Type B (PCR) Negative (Neg) 08/26/22 14:37 RSV (RT-PCR) Negative (Neg) 08/26/22 14:37 Impressions Chest X-Ray 08/26/22 14:00 XR chest 2V PA/lateral CLINICAL HISTORY: cough, wheezing, weakness COMPARISON STUDY: Chest radiograph May 29, 2020. FINDINGS: There is no pneumothorax. Trace bilateral pleural effusions are present. Mild cardiomegaly. A 6.8 cm right suprahilar nodular airspace opacity is present. This contains equivocal cavitation. There is mild interstitial pulmonary edema. IMPRESSION: 1. 6.8 cm right suprahilar nodular airspace opacity with equivocal cavitation. This may reflect pneumonia. However, a neoplasm could appear similar. Radiographic follow up to ensure resolution is recommended. Alternatively, a chest CT could be obtained for further evaluation. 2. Mild interstitial pulmonary edema with trace bilateral pleural effusions. ACT 112: Positive. There are findings on this exam that require communication between the performing entity and the patient following Patient Test Result Information Act [place] Act 112) guidelines. Electronically signed by: Toni Mccloud M.D. 08/26/2022 4:[address] 08/26/22 17:56 CT OF THE CHEST WITH IV CONTRAST CLINICAL HISTORY: 6.8cm cavitation COMPARISON STUDY: Chest radiograph May 29, 2020 and August 26, 2022. Treatment planning CT October 03, 2017. TECHNIQUE: Following IV administration of 86 mL of Optiray, helical axial images of the chest were obtained. Sagittal and coronal reconstructions were viewed as well as maximal intensity projections on an independent 3-D workstation. Automated exposure control was utilized for the study. A dose lowering technique was utilized adhering to the principles of ALARA. CT DOSE: 973.07 mGy.cm FINDINGS: There is no thoracic aortic dissection. There are multiple suspected small segmental pulmonary emboli within the left lung, suboptimally assessed on this exam due to respiratory motion. There is no pericardial effusion. A small right pleural effusion is noted. There is a cavitary mass-like opacity within the anterior segment of the right upper lobe that measures 7.2 x 3.8 cm. This corresponds to the finding on chest radiograph. Adjacent airspace opacity is present. This suspected mass extends to the mediastinum. In addition, there is extensive mediastinal and right hilar lymphadenopathy. This lymphadenopathy may be necrotic. Index subcarinal lymph node measures 3.6 x 2.3 cm. A right suprahilar lymph node measures 2.7 x 2 cm. A 1.6 cm lymph node adjacent to the mid descending thoracic aorta is present. In addition, there is bilateral supraclavicular lymphadenopathy. Index right supraclavicular lymph node measures 1.6 cm. The mediastinal lymphadenopathy results in mild to moderate distal trach eal narrowing. The lymphadenopathy also results in moderate narrowing of the lobar and segmental bronchi within the right lung. Suspected minimal invasion of the SVC is noted. Diffuse bronchial wall thickening is noted. There is mild interlobular septal thickening. Post therapy changes within the right breast are present. There is focal soft tissue thickening within the interspace between the right fourth and fifth ribs. A few suspected implants within the right upper quadrant of the abdomen are noted. These measure up to 1.6 cm. Pathologic gastrohepatic ligament lymphadenopathy is also present. There is trace perihepatic ascites. IMPRESSION: 1. 7.2 x 3.8 cm thick-walled mass-like cavitary opacity within the anterior segment of the right upper lobe. This is suggestive of a lung malignancy. 2. Extensive thoracic, lower cervical and upper abdominal lymphadenopathy, as described above. This represents karen spread of disease. Lymphadenopathy results in mild to moderate distal tracheal narrowing. Suspected minimal SVC invasion. 3. Several suspected segmental pulmonary emboli within the left lung. A PE protocol chest CT could be obtained for confirmation. 4. Mild interstitial pulmonary edema. Small right pleural effusion. ACT 112: Negative or not required by law. Electronically signed by: Toni Mccloud M.D. 08/26/2022 7:29 PM Hip/Pelvis X-Ray 08/26/22 17:56 XR hip LT 2V w pelvis CLINICAL HISTORY: Left hip pain. History of total hip arthroplasty. COMPARISON: Pelvis and left hip radiographs July 19, 2020. FINDINGS: Incidental note is made of contrast within the bladder from recent contrast-enhanced CT. Alignment of the hip arthroplasties is anatomic. No periprosthetic fracture or lucency is noted. Hardware is intact. IMPRESSION: 1. No acute fracture within the pelvis or hips. 2. Intact total bilateral hip arthroplasties. ACT 112: Negative or not required by law. Electronically signed by: Toni Mccloud M.D. 08/26/2022 7:[address] 08/26/22 18:29 CT OF THE HEAD WITHOUT CONTRAST CLINICAL HISTORY: Confusion; on eliquis COMPARISON STUDY: Head CT May 27, 2020. MRI of the brain November 19, 2008. TECHNIQUE: Helical axial images of the head were obtained without IV contrast. Automated exposure control was utilized for the study. A dose lowering technique was utilized adhering to the principles of ALARA. FINDINGS: No acute intracranial hemorrhage is present. Note is made of a hypodense 3.2 cm right frontoparietal lesion on axial image 24 of 32. Moderate associated vasogenic edema is present. There is mild mass effect with sulcal effacement, mild compression of the right lateral ventricle and minimal leftward midline shift. A few additional cystic/necrotic lesions within the anterior right frontal lobe measure up to 2.3 cm. Basal cisterns are patent. There are no extra-axial fluid collections. A small vessel disease is noted. There are no findings to suggest acute dural sinus thrombosis or acute territorial infarct. IMPRESSION: Multiple intraaxial lesions, the largest of which is a 3.2 cm right frontoparietal lesion with moderate associated vasogenic edema and mass effect. These are highly suggestive of metastases. An MRI of the brain with and without contrast could be obtained for further evaluation. ACT 112: Positive. There are findings on this exam that require communication between the performing entity and the patient following Patient Test Result Information Act ([place] Act 112[place] guidelines. Electronically signed by: Toni Mccloud M.D. 08/26/2022 7:04 PM Chest CTA 08/27/22 00:14 CT ANGIOGRAPHY OF THE CHEST, PULMONARY EMBOLUS PROTOCOL CLINICAL HISTORY: Suspected lung cancer. Possible pulmonary emboli on prior chest CT. COMPARISON STUDY: Chest radiograph and chest CT August 26, 2022. TECHNIQUE: Following IV administration of 114 mL of Optiray, helical axial images of the chest were obtained utilizing the pulmonary embolus protocol. Maximal intensity projections and sagittal and coronal reformats were viewed on an independent 3D workstation. IV contrast was administered without complication. Automated exposure control was utilized for the study. A dose lowering technique was utilized adhering to the principles of ALARA. FINDINGS: The study confirms multiple segmental pulmonary emboli within the left lung. There is no pericardial effusion. A small right pleural effusion has increased in size since prior exam. A trace left pleural effusion has developed. Pulmonary edema is again noted with interlobular septal thickening. The cavitary 7 cm thick-walled right upper lobe mass within the anterior segment is again noted. There is adjacent groundglass opacity. Extensive mediastinal and right hilar lymphadenopathy is noted. This exam is compromised by motion artifact however this adenopathy results in mild to moderate narrowing of the central airways. Suspected SVC invasion is also present. Lower cervical and upper abdominal lymphadenopathy is also noted. Post therapy changes within the right breast are present. A mild T12 compression fracture is noted. The abdomen and pelvis CT will be reported separately. IMPRESSION: 1. Multiple segmental pulmonary emboli within the left lung. 2. Redemonstration of a 7 cm thick-walled cavitary mass-like opacity within the anterior segment of the right upper lobe suggestive of lung malignancy. 3. Associated extensive mediastinal and hilar lymphadenopathy, as detailed above. This results in mild to moderate central airway narrowing. Suspected SVC invasion. 4. Interstitial pulmonary edema with increasing bilateral pleural effusions. ACT 112: Negative or not required by law. Electronically signed by: Toni Mccloud M.D. 08/27/2022 7:58 AM Abdomen/Pelvis CT 08/27/22 01:16 CT OF THE ABDOMEN AND PELVIS WITH CONTRAST CLINICAL HISTORY: lung cancer, mets? COMPARISON STUDY: CT of the abdomen and pelvis December 01, 2013 TECHNIQUE: Following IV administration of 114 mL of Optiray, axial images of the abdomen and pelvis were obtained from the lung bases to the proximal femurs. Images were reviewed in the axial, sagittal, and coronal planes. IV contrast was administered without complication. Automated exposure control was utilized for the study. A dose lowering technique was utilized adhering to the principles of ALARA. CT DOSE: 1560.92 mGy.cm FINDINGS: Interlobular septal thickening within the lungs represents pulmonary edema. Small bilateral pleural effusions, right larger left, are noted. Please note that the chest CT will be reported separately. Heterogeneity of the liver favors passive hepatic congestion. A hypodense focus within the medial segment favors focal fat. A small amount of perihepatic ascites noted. Moderate gallbladder wall thickening may also be due to volume overload/right heart d ysfunction. There is a small amount of fluid adjacent to the proximal duodenum. No pneumatosis, free air or portal venous gas is present. A 1.9 cm right retroperitoneal implant on axial image 107 of 421 is noted. Pathologic gastrohepatic ligament nodes are noted. Index node measures 2.7 x 1.6 cm. There is no biliary or pancreatic ductal dilatation. There is pancreatic glandular atrophy. Spleen, adrenal glands and kidneys are unremarkable with the exception of a few suspected right renal cysts. There is no hydronephrosis. There is no evidence for a bowel obstruction. Images of the pelvis are degraded by streak artifact from hip arthroplasties. Contrast within the collecting systems, ureters and bladder from prior contrast enhanced CT. Small amount of pelvic ascites is present. A T12 fracture with mild loss of vertebral body height is noted. There is also a pathologic fracture within the right iliac bone due to an underlying lesion which measures approximately 3.3 cm. This extends into the adjacent musculature. IMPRESSION: 1. Evidence for metastatic disease, including upper abdominal lymphadenopathy, right retroperitoneal implants and a 3.3 cm right iliac bone metastasis with pathologic fracture. A mild T12 fracture may be benign or pathologic. 2. No bowel obstruction. No bowel wall thickening. 3. Interstitial pulmonary edema with bilateral pleural effusions and a small amount of ascites within the abdomen and pelvis. Heterogeneity of the liver favors passive hepatic congestion. 4. Moderate gallbladder wall thickening. Small amount of fluid adjacent to the duodenum. Although nonspecific, these findings may be related to volume overload/right heart dysfunction. ACT 112: Negative or not required by law. Electronically signed by: Toni Mccloud M.D. 08/27/2022 8:12 AM Brain MRI 08/27/22 19:12 MR brain wo/w con HISTORY: 76 years-old Female Concern for metastasis acutely altered mental status COMPARISON: Head CT 08/26/2022 TECHNIQUE: Multiplanar multisequence MRI the brain was obtained both with and without the use of 8 cc Gadavist FINDINGS: Clinching Machine Operator localizer images demonstrate no gross extracranial abnormality. No restricted diffusion to suggest acute or subacute infarct. Motion degraded exam, notably the postcontrast series. Partially empty sella. No acute intracranial hemorrhage or abnormal extra-axial collection identified. 3 mm leftward midline shift. There are at least 8 peripherally enhancing intra-axial masses involving the right greater than left cerebral hemispheres, largest of which measures 3.5 x 3.0 x 3.4 cm within the right parietal lobe. These lesions demonstrate heterogeneously increased T2 signal. The largest lesion demonstrates restricted diffusion. Moderate associated vasogenic edema. Involutional changes with moderate to extensive chronic microvascular ischemic disease. The cerebral venous sinuses and major arterial flow voids appear patent. Prior bilateral lens repair. Minimal mucosal thickening of the paranasal sinuses. The mastoid air cells are clear. No acute calvarial fracture. Degenerative changes of the imaged cervical spine. IMPRESSION: 1. Motion degraded exam. 2. Numerous peripherally enhancing intra-axial mass lesions of the right greater than left cerebral hemispheres with moderate associated vasogenic edema, most pronounced within the right frontal and parietal lobes. Findings are compatible with metastatic disease. 3. 3 mm leftward midline shift. ACT 112: Negative or not required by law. The above report was generated using voice recognition software. It may contain grammatical, syntax or spelling errors. Electronically signed by: Anmol Jeter M.D. 08/27/2022 11:23 AM Venous Doppler Study 08/28/22 10:18 BILATERAL LOWER EXTREMITY VENOUS DOPPLER HISTORY: Lower extremity edema. Rule out DVT COMPARISON STUDY: None. FINDINGS: The bilateral common femoral and superficial femoral veins are patent. There is occlusive thrombus seen within the bilateral popliteal, right peroneal, and left posterior tibial veins. The remaining calf vessels are patent. IMPRESSION: Bilateral lower extremity DVT as described above. ACT 112: Negative or not required by law. Electronically signed by: Agusto Bourgeois M.D. 08/28/2022 12:10 PM
--- NOTE | 2022-08-29 12:47 | Palliative Care Progress Note ---
Date of Service August 29, 2022 Assessment & Plan (1) Dyspnea: Plan: Worse with exertion. CXR suggests increased effusion. She feels a little better on increased O2 (2) Palliative care encounter: Plan: I met with her daughters, Valery and Em, with Marilia on speaker phone. They have decided against biopsy or further treatment other than radiation. She did go for her sim today. They asked about whether she would need 24 hour care which she would. Daughters are discussing dividing the time up to cover that. They asked about rehab. She would not be a candidate for [facility] and short term rehab at a SNF would likely have limited and short term benefit. We discussed hospice support for them if she wanted to go home. We specifically discussed the hospice benefit and support available. They were concerned about whether it was too soon for hospice. She is absolutely appropriate for hospice however, she would not be able to do radiation therapy on hospice. It would likely be 2-3 weeks until that is complete. Mariola is too tired today to make a decision. We will meet together at 1pm tomorrow to discuss further. Discussed with case management. [id number] Admission and Anticipated Discharge Date Admission Date: August 26, 2022 Subjective Now up to 8L O2. Chest xray is pending. She tells me that she feels tired and uncomfortable today. She denies pain but breathing is a little more difficult. Review of Systems Review of Systems: ESAS Fatigue 2/3 Nausea 0/3 Anxiety 1/3 Dyspnea 1/3 Physical Exam Constitutional: + ill appearing ENMT: Mouth: + dry oral mucous membranes Respiratory: + uses accessory muscles Cardiovascular: Rate/Rhythm: + irregularly irregular Musculoskeletal: Extremities: extremities normal to inspection Neurologic: moves all extremities and awake Results & Data ([facility]) Vital Signs (Past 12 Hours) Vital Signs Temp Pulse Pulse Resp BP Pulse Ox O2 Del Method 08/29/22 11:45 98.1 F 90 20 94/58 L 90 Nasal Cannula 08/29/22 11:11 89 20 89 L Nasal Cannula 08/29/22 08:00 Nasal Cannula 08/29/22 07:32 97.5 F L 90 20 103/55 L 90 High Flow Nasal Cannula 08/29/22 07:08 70 18 94 Nasal Cannula 08/29/22 03:48 72 18 95 Nasal Cannula 08/29/22 03:43 97.7 F 80 18 97/66 L 91 Nasal Cannula 08/29/22 01:05 85 O2 Flow Rate 08/29/22 11:45 8 08/29/22 11:11 8 08/29/22 08:00 6 08/29/22 07:32 8 08/29/22 07:08 6 08/29/22 03:48 6 08/29/22 03:43 08/29/22 01:05 PG Care Time/CCT Total # of Minutes Spent Total Time Spent: 45 Total Time Spent with Patient: Total time spent is greater than 50% in coordination of care (as documented) at patient's floor/unit and/or counseling patient: goals of care, hospice, family education and support Coding Level of Care Code 25338 Subseq Hosp Care Lvl 3 Diagnoses Dyspnea R06.00 Palliative care encounter Z51.5
--- NOTE | 2022-08-29 13:01 | XRay Report ---
XR chest 1V portable HISTORY: 76 years-old Female increasing hypoxia acute hypoxia COMPARISON: CTA chest 08/27/2022 TECHNIQUE: AP view of the chest FINDINGS: Cavitary lesion of the right upper lobe redemonstrated. Cardiomegaly. Pulmonary vascular congestion. Small pleural effusions with mild right upper lung and right basilar airspace opacities. Degenerative changes of the shoulders and spine. IMPRESSION: 1. Cardiomegaly with pulmonary vascular congestion and small pleural effusions. 2. Cavitary right upper lobe mass redemonstrated. 3. Mild right upper lobe and right basilar airspace opacities may represent asymmetric pulmonary juan j a with atelectasis. ACT 112: Negative or not required by law. The above report was generated using voice recognition software. It may contain grammatical, syntax o r spelling errors. Electronically signed by: Anmol Jeter M.D. 08/29/2022 1:00 PM
[2022-08-29] MEDS: FUROSEMIDE 20 MG TAB PO SCH (17:28)
[2022-08-30] MEDS: dexAMETHasone 4 MG in SYRINGE 0 ML IV SCH ×2 (00:21→06:21)
[2022-08-30] MEDS: ALBUT/IPRATROP 3MG/0.5MG NEB 3 ML VIAL NEB SCH ×6 (03:23→22:59)
[2022-08-30] MEDS ORDERED: METOPROLOL TARTRATE 1 MG/ML VIAL IV STA (05:59)
--- NOTE | 2022-08-30 06:12 | Hospitalist Progress Note ---
Date of Service August 29, 2022 Assessment & Plan (1) Mass of upper lobe of right lung: Plan: We discussed that even without a biopsy there is an unequivocal picture for metastatic malignancy. Given her smoking history, by fas the highest likelihood that we are indeed dealing with a primary lung malignancy. This would be a very atypical event and pattern for recurrence of what was an early stage breast cancer 5 years ago. We spoke quite frankly about the very challenging overall prognosis. Noted that her performance status and general condition would preclude the use of traditional cytotoxic chemotherapy. While I did acknowledge that there might be a subset patients who show a molecular pattern that could indicate a response to immunotherapy or targeted therapy, even that would not be curative, it could have some significant side effects, and while it could have a major impact for a subset of patients it is not clear that we are likely to offer anything that really changes the "big picture." Her family and the patient alr with difficult l express a preference for a very simple approach. We did discuss that [facility]ST radiation might help to stabilize the decreased mental status and confusion allow modest tapering off of her steroids. We discussed that if there is a flare of the hip pain that could be approached with medical management, perhaps even injection therapy, but could also be modulated by radiation. Beyond completing the planned [facility] radiation, their major preference would be for her to come home on hospice. We did note that if there were a major (and frankly unexpected) improvement we could reconsider whether we want to explore biopsy and systemic options but uniformly at this point neither the patient nor family expressed any desire for further diagnostic procedures or any other treatment beyond cranial radiation and basic symptomatic management Plan Would complete cranial radiation noting that she would have some difficulty hwith wit transportation back and forth if she were discharged. Would plan to discharge to hospice with that starting after radiation is complete and focus on basic symptom management thereafter. At this time there is no desire by the patient or her family for biopsy or specific oncologic therapy. We would be receptive to an alternative assessment and discussion if she shows unexpected and significant improvement in performance status but that seems unlikely. Admission and Anticipated Discharge Date Admission Date: August 26, 2022 Subjective Patient is is alert, speaks fluently and answers at least most questions with simple with reasonably appropriate responses. Most part, however, she wants her 3 daughters to be. Her daughter there in person, third, my telephone and her son-in-law was present as well. At this time she is not having any major discomfort nor obvious respiratory distress. The patient does not express any particular desire for aggressive oncologic therapy and her family is in unison with seeking a relatively conservative approach. Physical Exam Physical Exam: She is mildly tachycardic but overall vital signs are stable and she is oxygenating adequately. Results & Data Results & Data ([facility]) Vital Signs (Past 12 Hours) Vital Signs Temp Pulse Pulse Resp BP Pulse Ox O2 Del Method 08/30/22 03:26 115 H 21 92 BiPAP 08/30/22 03:25 115 H 21 92 08/30/22 03:15 36.3 C L 119 H 18 142/99 H 95 BiPAP 08/30/22 00:18 124 H 08/29/22 23:53 36.3 C L 118 H 18 110/72 91 BiPAP 08/29/22 23:51 123 H 21 92 08/29/22 23:29 115 H 20 91 Nasal Cannula 08/29/22 21:35 High Flow Nasal Cannula 08/29/22 19:29 36.3 C L 111 H 18 110/66 92 Nasal Cannula 08/29/22 19:26 114 H 18 91 Nasal Cannula O2 Flow Rate FiO2 08/30/22 03:26 50 08/30/22 03:25 50 08/30/22 03:15 08/30/22 00:18 08/29/22 23:53 08/29/22 23:51 50 08/29/22 23:29 6 08/29/22 21:35 8 08/29/22 19:29 5 08/29/22 19:26 6 PG Care Time/CCT Total # of Minutes Spent Total Time Spent with Patient: Total time spent is greater than 50% in coordination of care (as documented) at patient's floor/unit and/or counseling patient: Coding Level of Care Code 15673 Subseq Hosp Care Lvl 2 Diagnoses Mass of upper lobe of right lung R91.8 Time Spent (min) 25
[2022-08-30] MEDS: cefTRIAXone SODIUM 2,000 MG in DEXTROSE 5% 50 ML IV SCH (06:26)
[2022-08-30 07:03] LABS: Hematocrit (blood only) 41.2 % (34.1-44.9); Hemoglobin 12.6 g/dl (12.0-16.0); Mean Corpuscular Hemoglobin 28.1 pg (25.0-34.0); Mean Corpuscular Hgb Conc 30.6 g/dL (32.0-36.0); Mean Corpuscular Volume 91.8 fL (80.0-100.0); Mean Platelet Volume 10.2 fL (9.4-12.3); Platelet Count 288 K/uL (130-400); RDW Coefficient of Variation 16.4 % (11.5-14.5); RDW Standard Deviation 54.6 fL (36.4-46.3); Red Blood Count 4.49 M/uL (3.93-5.22); White Blood Count 7.32 K/ul (4.8-10.8)
[2022-08-30] MEDS: SODIUM CHLOR 7% 4 ML NEB NEB SCH ×2 (07:06→19:30)
[2022-08-30] MEDS: FORMOTEROL 20 MCG/2 ML VIAL NEB SCH ×2 (07:06→19:21)
[2022-08-30] MEDS: BUDESONIDE 0.5 MG/2 ML VIAL (PULMICORT) NEB SCH ×2 (07:06→19:21)
[2022-08-30 07:25] LABS: BUN Creatinine Ratio 56.9 (10-20); Calcium 8.4 mg/dl (8.5-10.1); Creatinine Clr Calc Pharmacy 84.6 ml/min; Est GFR (African American) 101.4 ml/min; Est GFR (Non-African American) 87.5 ml/min; Potassium 4.6 mmol/L (3.5-5.1)
[2022-08-30 07:40] LABS: Immature Granulocytes # (auto) 0.05 K/uL (0.00-0.02); Immature Granulocytes % (auto) 0.7 %; Lymphocytes # (auto) 0.31 K/uL (1.2-3.4); Lymphocytes % (auto) 4.2 %; Monocytes # (auto) 0.25 K/uL (0.24-0.82); Monocytes % (auto) 3.4 %; Neutrophils # (auto) 6.71 K/uL (1.4-6.5); Neutrophils % (auto) 91.7 %
[2022-08-30] MEDS: METOPROLOL TARTRATE 100 MG TAB PO SCH ×2 (08:56→21:00)
[2022-08-30] MEDS: DOXYCYCLINE HYCLATE 100 MG CAP PO SCH ×2 (08:57→21:02)
[2022-08-30] MEDS: FUROSEMIDE 20 MG TAB PO SCH ×2 (08:57→16:52)
[2022-08-30] MEDS: HEPARIN SOD 5,000 UNIT/0.5 ML VIAL SQ SCH ×2 (08:57→21:01)
--- NOTE | 2022-08-30 11:05 | Hospitalist Progress Note ---
Date of Service August 30, 2022 Assessment & Plan (1) Confusion: (2) Lung mass: (3) Metastasis to brain: (4) Urinary tract infection: (5) COPD exacerbation: (6) Pulmonary emboli: (7) Acute hypercapnic respiratory failure: (8) Atrial fibrillation with RVR: Plan Patient brought to the hospital by her daughter due to confusion for last 2 weeks which has worsened recently. Patient took multiple doses of her home medication including Eliquis, Wellbutrin, metoprolol Initial chest x-ray on admission showed 6.8 cm right supraclavicular nodular opacity. Subsequent CT chest showed 7.2 into 3.8 thick-walled masslike cavity in right upper lobe suggestive of lung malignancy. Extensive lymphadenopathy was also seen. Several suspected segmental PE was also seen. Subsequent CT angios showed multiple segmental PE in left lung. CT head showed multiple intra-axial lesions largest of which is 3.2 cm right frontoparietal lesion with associated vasogenic edema MRI brain showed numerous peripherally enhancing intra-axial mass lesions of the right greater than left cerebral hemisphere with associated vasogenic edema. 3 mm leftward midline shift is present. CT abdomen/pelvis showed evidence of metastatic disease including upper abdominal lymphadenopathy, 3.3 cm right iliac bone metastasis with pathological fracture. On the night of the admission on August 26, patient developed acute hypercapnic respiratory failure. She was also found to have PE for which she was started on heparin 5000 twice daily as per oncology recommendation. She was placed on BiPAP as well. 1) Metastatic Lung Cancer Presented with 2-week history of confusion. Chest x-ray and CT finding on admission as above. CT abdomen, MRI brain done subsequently. Widespread cancer with lung primary most likely. Plan: -Patient and family has extensive discussion with pulmonology, oncology and palliative care regarding approach for metastatic cancer. They do not want to pursue biopsy or aggressive treatment at the moment. For now, plan is for radiation for brain metastasis, And, transition to hospice care at home eventually. Patient underwent CT stimulation yesterday. . If patient decompensates during the hospitalization; plan to transition to comfort care. -Increase dexamethasone to 8 mg every 6 hour as patient appears to be more confused today compared to yesterday. 2) COPD excerebration 3) Acute Hypercapnic Respiratory Failure Plan: Continue on duo nebs [id number], formoterol, budesonide, hypertonic saline nebulization along with IV dexamethasone. Continue on ceftriaxone. As needed oxygen to keep saturation above 92%. 4) Bilateral lower extremity DVT and left segmental PE Patient was previously on Eliquis at home. Stop on admission due to findings in the CT head/MRI brain. Plan; continue on heparin 5000 subcu every 12 hours. 5) A. fib with RVR On the night of 07/29; patient had A. fib with RVR. . Has been in and out of A. fib Plan; metoprolol increased 200 mg twice daily. 6) Urinary tract infection Urine culture positive for E. coli; sensitive to ceftriaxone. Plan; continue ceftriaxone for now. 7) Pathological fracture of right iliac bone Plan; orthopedic evaluation was completed; no intervention currently. PT OT ordered. 8) Overdose of multiple drugs, medicaments and biological substances: Unintentional -Patient took multiple doses of her home medications due to confusion. -EKG shows QTC of 464. Resume will provide, duloxetine. Irbesartan on hold. DNR/DNI DVT ppx Heparin Admission and Anticipated Discharge Date Admission Date: August 26, 2022 Subjective Patient seen and examined at bedside. She reports she is tired compared to yesterday. She is in A. fib with ventricular rate in the 110s to 120s throughout the night. She reports that she does not like oxygen upper nose; desaturates off oxygen. Review of Systems Review of Systems: All systems reviewed & are unremarkable except as noted in Subjective Physical Exam Physical Exam: Constitutional: Awake, alert, oriented to time, person and family members. Respiratory: Bilateral wheeze heard. Crackles present on right mid lung field Cardiovascular: RRR, no murmur, no edema Vessels: no JVD or carotid bruit Chest: normal inspection of chest Abdomen: normal bowel sounds, soft, nontender, no hepatosplenomegaly Musculoskeletal: no cyanosis or clubbing, extremities motor strength 5/5 Skin: no rashes, warm and dry normal turgor Neurologic: Follows commands intermittently. Psychiatric: Awake, alert, oriented to time, place and person. Lymphatic: no cervical or axillary lymphadenopathy : deferred Results & Data Results & Data ([facility]) Vital Signs (Past 12 Hours) Vital Signs Temp Pulse Pulse Resp BP BP Pulse Ox 08/30/22 07:00 131 H 08/30/22 07:00 08/30/22 07:43 36.5 C 118 H 18 130/60 08/30/22 07:29 119 H 22 82 L 08/30/22 06:20 123 H 126/85 08/30/22 03:26 115 H 21 92 08/30/22 03:25 115 H 21 92 08/30/22 03:15 36.3 C L 119 H 18 142/99 H 95 08/30/22 00:18 124 H 08/29/22 23:53 36.3 C L 118 H 18 110/72 91 08/29/22 23:51 123 H 21 92 08/29/22 23:29 115 H 20 91 O2 Del Method O2 Flow Rate FiO2 08/30/22 07:00 08/30/22 07:00 High Flow Nasal Cannula 10 08/30/22 07:43 Nasal Cannula 08/30/22 07:29 Room Air 08/30/22 06:20 08/30/22 03:26 BiPAP 50 08/30/22 03:25 50 08/30/22 03:15 BiPAP 08/30/22 00:18 08/29/22 23:53 BiPAP 08/29/22 23:51 50 08/29/22 23:29 Nasal Cannula 6 Laboratory Results Laboratory Results WBC 7.32 K/ul (4.8-10.8) 08/30/22 06:45 RBC 4.49 M/uL (3.93-5.22) 08/30/22 06:45 Hgb 12.6 g/dl (12.0-16.0) 08/30/22 06:45 POC Hgb 12.2 g/dl (12.0-16.0) 08/27/22 05:44 Hct 41.2 % (34.1-44.9) 08/30/22 06:45 POC Hct 36 % (37-47) L 08/27/22 05:44 MCV 91.8 fL (80.0-100.0) 08/30/22 06:45 MCH 28.1 pg (25.0-34.0) 08/30/22 06:45 MCHC 30.6 g/dL (32.0-36.0) L 08/30/22 06:45 RDW Std Deviation 54.6 fL (36.4-46.3) H 08/30/22 06:45 RDW Coeff of Cesilia 16.4 % (11.5-14.5) H 08/30/22 06:45 Plt Count 288 K/uL (130-400) 08/30/22 06:45 MPV 10.2 fL (9.4-12.3) 08/30/22 06:45 Immature Gran % (Auto) 0.7 % 08/30/22 06:45 Neut % (Auto) 91.7 % 08/30/22 06:45 Lymph % (Auto) 4.2 % 08/30/22 06:45 [place] % (Auto) 3.4 % 08/30/22 06:45 Eos % (Auto) 0.0 % 08/30/22 06:45 Baso % (Auto) 0.0 % 08/30/22 06:45 Neut # (Auto) 6.71 K/uL (1.4-6.5) H 08/30/22 06:45 Lymph # (Auto) 0.31 K/uL (1.2-3.4) L 08/30/22 06:45 [place] # (Auto) 0.25 K/uL (0.24-0.82) 08/30/22 06:45 Eos # (Auto) 0.00 K/uL (0-0.50) 08/30/22 06:45 Baso # (Auto) 0.00 K/uL (0-0.2) 08/30/22 06:45 Immature Gran # (Auto) 0.05 K/uL (0.00-0.02) H 08/30/22 06:45 PT 13.9 Seconds (9.0-12.0) H 08/27/22 02:57 INR 1.3 (0.9-1.1) H 08/27/22 02:57 Sample Site L Radial 08/27/22 05:44 POC pH 7.27 (7.35-7.45) L 08/27/22 05:44 POC pCO2 63 mmHg (35-46) H 08/27/22 05:44 POC pO2 78 mmHg (80-95) L 08/27/22 05:44 POC HCO3 29 jamee/L (19-24) H 08/27/22 05:44 POC Total CO2 31 mmol/L (24-31) 08/27/22 05:44 POC Base Excess 2.0 jamee/L (-9-1.8) H 08/27/22 05:44 ABG pH 7.33 (7.35-7.45) L 08/27/22 12:10 ABG pH (Temp Correct) 7.267 (7.35-7.45) L 08/27/22 05:44 ABG pCO2 55 mmHg (35-46) H 08/27/22 12:10 ABG pCO2 (Temp Corrct 63 mmHg (35-46) H 08/27/22 05:44 ABG pO2 69 mmHg (80-95) L 08/27/22 12:10 POC ABG pO2 at Pt Temp 78 08/27/22 05:44 ABG HCO3 29 mmol/L (19-24) H 08/27/22 12:10 POC ABG O2 Sat 93.0 % (90-95) 08/27/22 05:44 ABG O2 Saturation 94.6 % (90-95) 08/27/22 12:10 ABG Base Excess 1.9 mEq/L (-9-1.8) H 08/27/22 12:10 Ramez Test Pos (Pos) 08/27/22 12:10 Barometric Pressure Cancelled 08/27/22 10:25 Oxygen Given 12L 08/27/22 12:10 O2 Delivery Device BIPAP 08/27/22 05:44 POC O2 Rate 20 08/27/22 05:44 IPAP 14 08/27/22 05:44 POC Sodium 142 mmol/L (135-144) 08/27/22 05:44 Sodium 139 mmol/L (136-145) 08/30/22 06:45 POC Potassium 4.2 mmol/L (3.3-5.0) 08/27/22 05:44 Potassium 4.6 mmol/L (3.5-5.1) 08/30/22 06:45 Chloride 102 mmol/L (98-107) 08/30/22 06:45 Carbon Dioxide 32 mmol/L (21-32) 08/30/22 06:45 Anion Gap 5 (3-11) 08/30/22 06:45 BUN 37 mg/dl (6-23) H 08/30/22 06:45 Creatinine 0.65 mg/dl (0.6-1.2) 08/30/22 06:45 Est Cr Clr Drug Dosing 84.6 ml/min 08/30/22 06:45 Est GFR ( Amer) 101.4 ml/min 08/30/22 06:45 Est GFR (Non-Af Amer) 87.5 ml/min 08/30/22 06:45 BUN/Creatinine Ratio 56.9 (10-20) H 08/30/22 06:45 Glucose 187 mg/dl (70-99(Fasting)) H 08/30/22 06:45 Calcium 8.4 mg/dl (8.5-10.1) L 08/30/22 06:45 Total Bilirubin 0.6 mg/dl (0.2-1.0) 08/27/22 02:57 AST 25 U/L (13-39) 08/27/22 02:57 ALT 18 U/L (7-52) 08/27/22 02:57 Alkaline Phosphatase 84 U/L (34-104) 08/27/22 02:57 Troponin I High Sens 9.3 pg/ml (0-14) 08/26/22 14:41 Total Protein 6.0 gm/dl (6.0-8.3) 08/27/22 02:57 Albumin 3.4 gm/dl (3.4-5.0) 08/27/22 02:57 Globulin 2.6 gm/dl (2.5-4.0) 08/27/22 02:57 Albumin/Globulin Ratio 1.3 (0.9-2) 08/27/22 02:57 Urine Color Dark Yellow 08/26/22 16:41 Urine Appearance Cloudy (Clear) A 08/26/22 16:41 Urine pH 5.5 (4.5-7.5) 08/26/22 16:41 Ur Specific [place] 1.032 (1.000-1.030) H 08/26/22 16:41 Urine Protein 1+ (Negative) H 08/26/22 16:41 Urine Glucose (UA) Negative (Negative) 08/26/22 16:41 Urine Ketones Trace (Negative) H 08/26/22 16:41 Urine Blood 2+ (Negative) H 08/26/22 16:41 Urine Nitrite Positive (Negative) A 08/26/22 16:41 Urine Bilirubin Negative (Negative) 08/26/22 16:41 Urine Urobilinogen Negative (Negative) 08/26/22 16:41 Ur Leukocyte Esterase Trace (Negative) H 08/26/22 16:41 Urine WBC (Auto) 10-30 /hpf (0-5) H 08/26/22 16:41 Urine RBC (Auto) 10-30 /hpf (0-4) H 08/26/22 16:41 U Hyaline Cast (Auto) 10-30 /lpf (0-5) H 08/26/22 16:41 U Epithel Cells (Auto) 20-30 /lpf (0-5) H 08/26/22 16:41 Urine Bacteria (Auto) 4+ (Negative) H 08/26/22 16:41 SARS-CoV-2 (PCR) NEGATIVE (Negative) 08/26/22 14:37 Influenza Type A (PCR) Negative (Neg) 08/26/22 14:37 Influenza Type B (PCR) Negative (Neg) 08/26/22 14:37 RSV (RT-PCR) Negative (Neg) 08/26/22 14:[address] 08/26/22 17:56 CT OF THE CHEST WITH IV CONTRAST CLINICAL HISTORY: 6.8cm cavitation COMPARISON STUDY: Chest radiograph May 29, 2020 and August 26, 2022. Treatment planning CT October 03, 2017. TECHNIQUE: Following IV administration of 86 mL of Optiray, helical axial images of the chest were obtained. Sagittal and coronal reconstructions were viewed as well as maximal intensity projections on an independent 3-D workstation. Automated exposure control was utilized for the study. A dose lowering technique was utilized adhering to the principles of ALARA. CT DOSE: 973.07 mGy.cm FINDINGS: There is no thoracic aortic dissection. There are multiple suspected small segmental pulmonary emboli within the left lung, suboptimally assessed on this exam due to respiratory motion. There is no pericardial effusion. A small right pleural effusion is noted. There is a cavitary mass-like opacity within the anterior segment of the right upper lobe that measures 7.2 x 3.8 cm. This corresponds to the finding on chest radiograph. Adjacent airspace opacity is present. This suspected mass extends to the mediastinum. In addition, there is extensive mediastinal and right hilar lymphadenopathy. This lymphadenopathy may be necrotic. Index subcarinal lymph node measures 3.6 x 2.3 cm. A right suprahilar lymph node measures 2.7 x 2 cm. A 1.6 cm lymph node adjacent to the mid descending thoracic aorta is present. In addition, there is bilateral supraclavicular lymphadenopathy. Index right supraclavicular lymph node measures 1.6 cm. The mediastinal lymphadenopathy results in mild to moderate distal tracheal narrowing. The lymphadenopathy also results in moderate narrowing of the lobar and segmental bronchi within the right lung. Suspected minimal invasion of the SVC is noted. Diffuse bronchial wall thickening is noted. There is mild interlobular septal thickening. Post therapy changes within the right breast are present. There is focal soft tissue thickening within the interspace between the right fourth and fifth ribs. A few suspected implants within the right upper quadrant of the abdomen are noted. These measure up to 1.6 cm. Pathologic gastrohepatic ligament lymphadenopathy is also present. There is trace perihepatic ascites. IMPRESSION: 1. 7.2 x 3.8 cm thick-walled mass-like cavitary opacity within the anterior segment of the right upper lobe. This is suggestive of a lung malignancy. 2. Extensive thoracic, lower cervical and upper abdominal lymphadenopathy, as described above. This represents karen spread of disease. Lymphadenopathy results in mild to moderate distal tracheal narrowing. Suspected minimal SVC invasion. 3. Several suspected segmental pulmonary emboli within the left lung. A PE protocol chest CT could be obtained for confirmation. 4. Mild interstitial pulmonary edema. Small right pleural effusion. ACT 112: Negative or not required by law. Electronically signed by: Toni Mccloud M.D. 08/26/2022 7:29 PM Hip/Pelvis X-Ray 08/26/22 17:56 XR hip LT 2V w pelvis CLINICAL HISTORY: Left hip pain. History of total hip arthroplasty. COMPARISON: Pelvis and left hip radiographs July 19, 2020. FINDINGS: Incidental note is made of contrast within the bladder from recent contrast-enhanced CT. Alignment of the hip arthroplasties is anatomic. No periprosthetic fracture or lucency is noted. Hardware is intact. IMPRESSION: 1. No acute fracture within the pelvis or hips. 2. Intact total bilateral hip arthroplasties. ACT 112: Negative or not required by law. Electronically signed by: Toni Mccloud M.D. 08/26/2022 7:[address] 08/26/22 18:29 CT OF THE HEAD WITHOUT CONTRAST CLINICAL HISTORY: Confusion; on eliquis COMPARISON STUDY: Head CT May 27, 2020. MRI of the brain November 19, 2008. TECHNIQUE: Helical axial images of the head were obtained without IV contrast. Automated exposure control was utilized for the study. A dose lowering technique was utilized adhering to the principles of ALARA. FINDINGS: No acute intracranial hemorrhage is present. Note is made of a hypodense 3.2 cm right frontoparietal lesion on axial image 24 of 32. Moderate associated vasogenic edema is present. There is mild mass effect with sulcal effacement, mild compression of the right lateral ventricle and minimal leftward midline shift. A few additional cystic/necrotic lesions within the anterior right frontal lobe measure up to 2.3 cm. Basal cisterns are patent. There are no extra-axial fluid collections. A small vessel disease is noted. There are no findings to suggest acute dural sinus thrombosis or acute territorial infarct. IMPRESSION: Multiple intraaxial lesions, the largest of which is a 3.2 cm right frontoparietal lesion with moderate associated vasogenic edema and mass effect. These are highly suggestive of metastases. An MRI of the brain with and without contrast could be obtained for further evaluation. ACT 112: Positive. There are findings on this exam that require communication between the performing entity and the patient following Patient Test Result Information Act ([place] Act 112[place] guidelines. Electronically signed by: Toni Mccloud M.D. 08/26/2022 7:04 PM Chest CTA 08/27/22 00:14 CT ANGIOGRAPHY OF THE CHEST, PULMONARY EMBOLUS PROTOCOL CLINICAL HISTORY: Suspected lung cancer. Possible pulmonary emboli on prior chest CT. COMPARISON STUDY: Chest radiograph and chest CT August 26, 2022. TECHNIQUE: Following IV administration of 114 mL of Optiray, helical axial images of the chest were obtained utilizing the pulmonary embolus protocol. Maximal intensity projections and sagittal and coronal reformats were viewed on an independent 3D workstation. IV contrast was administered without complication. Automated exposure control was utilized for the study. A dose lowering technique was utilized adhering to the principles of ALARA. FINDINGS: The study confirms multiple segmental pulmonary emboli within the left lung. There is no pericardial effusion. A small right pleural effusion has increased in size since prior exam. A trace left pleural effusion has developed. Pulmonary edema is again noted with interlobular septal thickening. The cavitary 7 cm thick-walled right upper lobe mass within the anterior segment is again noted. There is adjacent groundglass opacity. Extensive mediastinal and right hilar lymphadenopathy is noted. This exam is compromised by motion artifact however this adenopathy results in mild to moderate narrowing of the central airways. Suspected SVC invasion is also present. Lower cervical and upper abdominal lymphadenopathy is also noted. Post therapy changes within the right breast are present. A mild T12 compression fracture is noted. The abdomen and pelvis CT will be reported separately. IMPRESSION: 1. Multiple segmental pulmonary emboli within the left lung. 2. Redemonstration of a 7 cm thick-walled cavitary mass-like opacity within the anterior segment of the right upper lobe suggestive of lung malignancy. 3. Associated extensive mediastinal and hilar lymphadenopathy, as detailed above. This results in mild to moderate central airway narrowing. Suspected SVC invasion. 4. Interstitial pulmonary edema with increasing bilateral pleural effusions. ACT 112: Negative or not required by law. Electronically signed by: Toni Mccloud M.D. 08/27/2022 7:58 AM Abdomen/Pelvis CT 08/27/22 01:16 CT OF THE ABDOMEN AND PELVIS WITH CONTRAST CLINICAL HISTORY: lung cancer, mets? COMPARISON STUDY: CT of the abdomen and pelvis December 01, 2013 TECHNIQUE: Following IV administration of 114 mL of Optiray, axial images of the abdomen and pelvis were obtained from the lung bases to the proximal femurs. Images were reviewed in the axial, sagittal, and coronal planes. IV contrast was administered without complication. Automated exposure control was utilized for the study. A dose lowering technique was utilized adhering to the principles of ALARA. CT DOSE: 1560.92 mGy.cm FINDINGS: Interlobular septal thickening within the lungs represents pulmonary edema. Small bilateral pleural effusions, right larger left, are noted. Please note that the chest CT will be reported separately. Heterogeneity of the liver favors passive hepatic congestion. A hypodense focus within the medial segment favors focal fat. A small amount of perihepatic ascites noted. Moderate gallbladder wall thickening may also be due to volume overload/right heart dysfunction. There is a small amount of fluid adjacent to the proximal duodenum. No pneumatosis, free air or portal venous gas is present. A 1.9 cm right retr operitoneal implant on axial image 107 of 421 is noted. Pathologic gastrohepatic ligament nodes are noted. Index node measures 2.7 x 1.6 cm. There is no biliary or pancreatic ductal dilatation. There is pancreatic glandular atrophy. Spleen, adrenal glands and kidneys are unremarkable with the exception of a few suspected right renal cysts. There is no hydronephrosis. There is no evidence for a bowel obstruction. Images of the pelvis are degraded by streak artifact from hip arthroplasties. Contrast within the collecting systems, ureters and bladder from prior contrast enhanced CT. Small amount of pelvic ascites is present. A T12 fracture with mild loss of vertebral body height is noted. There is also a pathologic fracture within the right iliac bone due to an underlying lesion which measures approximately 3.3 cm. This extends into the adjacent musculature. IMPRESSION: 1. Evidence for metastatic disease, including upper abdominal lymphadenopathy, right retroperitoneal implants and a 3.3 cm right iliac bone metastasis with pathologic fracture. A mild T12 fracture may be benign or pathologic. 2. No bowel obstruction. No bowel wall thickening. 3. Interstitial pulmonary edema with bilateral pleural effusions and a small amount of ascites within the abdomen and pelvis. Heterogeneity of the liver favors passive hepatic congestion. 4. Moderate gallbladder wall thickening. Small amount of fluid adjacent to the duodenum. Although nonspecific, these findings may be related to volume overload/right heart dysfunction. ACT 112: Negative or not required by law. Electronically signed by: Toni Mccloud M.D. 08/27/2022 8:12 AM Brain MRI 08/27/22 19:12 MR brain wo/w con HISTORY: 76 years-old Female Concern for metastasis acutely altered mental status COMPARISON: Head CT 08/26/2022 TECHNIQUE: Multiplanar multisequence MRI the brain was obtained both with and without the use of 8 cc Gadavist FINDINGS: Strategic Marketing Manager localizer images demonstrate no gross extracranial abnormality. No restricted diffusion to suggest acute or subacute infarct. Motion degraded exam, notably the postcontrast series. Partially empty sella. No acute intracranial hemorrhage or abnormal extra-axial collection identified. 3 mm leftward midline shift. There are at least 8 peripherally enhancing intra-axial masses involving the right greater than left cerebral hemispheres, largest of which measures 3.5 x 3.0 x 3.4 cm within the right parietal lobe. These lesions demonstrate heterogeneously increased T2 signal. The largest lesion demonstrates restricted diffusion. Moderate associated vasogenic edema. Involutional changes with moderate to extensive chronic microvascular ischemic disease. The cerebral venous sinuses and major arterial flow voids appear patent. Prior bilateral lens repair. Minimal mucosal thickening of the paranasal sinuses. The mastoid air cells are clear. No acute calvarial fracture. Degenerative changes of the imaged cervical spine. IMPRESSION: 1. Motion degraded exam. 2. Numerous peripherally enhancing intra-axial mass lesions of the right greater than left cerebral hemispheres with moderate associated vasogenic edema, most pronounced within the right frontal and parietal lobes. Findings are compatible with metastatic disease. 3. 3 mm leftward midline shift. ACT 112: Negative or not required by law. The above report was generated using voice recognition software. It may contain grammatical, syntax or spelling errors. Electronically signed by: Anmol Jeter M.D. 08/27/2022 11:23 AM Venous Doppler Study 08/28/22 10:18 BILATERAL LOWER EXTREMITY VENOUS DOPPLER HISTORY: Lower extremity edema. Rule out DVT COMPARISON STUDY: None. FINDINGS: The bilateral common femoral and superficial femoral veins are patent. There is occlusive thrombus seen within the bilateral popliteal, right peroneal, and left posterior tibial veins. The remaining calf vessels are patent. IMPRESSION: Bilateral lower extremity DVT as described above. ACT 112: Negative or not required by law. Electronically signed by: Agusto Bourgeois M.D. 08/28/2022 12:10 PM Chest X-Ray 08/29/22 11:44 XR chest 1V portable HISTORY: 76 years-old Female increasing hypoxia acute hypoxia COMPARISON: CTA chest 08/27/2022 TECHNIQUE: AP view of the chest FINDINGS: Cavitary lesion of the right upper lobe redemonstrated. Cardiomegaly. Pulmonary vascular congestion. Small pleural effusions with mild right upper lung and right basilar airspace opacities. Degenerative changes of the shoulders and spine. IMPRESSION: 1. Cardiomegaly with pulmonary vascular congestion and small pleural effusions. 2. Cavitary right upper lobe mass redemonstrated. 3. Mild right upper lobe and right basilar airspace opacities may represent asymmetric pulmonary edema with atelectasis. ACT 112: Negative or not required by law. The above report was generated using voice recognition software. It may contain grammatical, syntax or spelling errors. Electronically signed by: Anmol Jeter M.D. 08/29/2022 1:00 PM
--- NOTE | 2022-08-30 11:10 | Palliative Care Progress Note ---
Date of Service August 30, 2022 Assessment & Plan (1) Palliative care encounter: Plan: Met family at room for planned family meeting at 1300. Mariola is not able to participate in discussion and family is overwhelmed at this point. They are requesting some more time to think about this. "Today is a bad day". Support provided. Will f/u on Sunday at 1300 per their request. Admission and Anticipated Discharge Date Admission Date: August 26, 2022 Subjective O2 requirement up to 10L with sats around 90. She is lethargic but arousable. Denies pain or discomfort. Wants to sleep. Daughters at bedside. Review of Systems Review of Systems: ESAS Pain 0/3 Dyspnea 0/3 Fatigue 2/3 Drowsiness 2/3 Physical Exam Constitutional: + ill appearing; no acute distress Respiratory: + uses accessory muscles Results & Data ([facility] Vital Signs (Past 12 Hours) Vital Signs Temp Pulse Pulse Resp BP BP Pulse Ox 08/30/22 07:00 131 H 08/30/22 07:00 08/30/22 07:43 97.7 F 118 H 18 130/60 08/30/22 07:29 119 H 22 82 L 08/30/22 06:20 123 H 126/85 08/30/22 03:26 115 H 21 92 08/30/22 03:25 115 H 21 92 08/30/22 03:15 97.3 F L 119 H 18 142/99 H 95 08/30/22 00:18 124 H 08/29/22 23:53 97.3 F L 118 H 18 110/72 91 08/29/22 23:51 123 H 21 92 08/29/22 23:29 115 H 20 91 O2 Del Method O2 Flow Rate FiO2 08/30/22 07:00 08/30/22 07:00 High Flow Nasal Cannula 10 08/30/22 07:43 Nasal Cannula 08/30/22 07:29 Room Air 08/30/22 06:20 08/30/22 03:26 BiPAP 50 08/30/22 03:25 50 08/30/22 03:15 BiPAP 08/30/22 00:18 08/29/22 23:53 BiPAP 08/29/22 23:51 50 08/29/22 23:29 Nasal Cannula 6 PG Care Time/CCT Total # of Minutes Spent Total Time Spent with Patient: Total time spent is greater than 50% in coordination of care (as documented) at patient's floor/unit and/or counseling patient: Coding Level of Care Code 61876 Subseq Hosp Care Lvl 1 Diagnoses Palliative care encounter Z51.5
[2022-08-30] MEDS: dexAMETHasone 8 MG in SYRINGE 0 ML IV SCH ×2 (12:41→19:48)
[2022-08-30] MEDS: buPROPion SR 100 MG TABCR PO SCH ×2 (12:41→21:00)
[2022-08-30] MEDS: DULoxetine HCL 30 MG CAP PO SCH (12:41)
[2022-08-30] MEDS: ATORVASTATIN 40 MG TAB PO SCH (12:41)
[2022-08-31] MEDS: dexAMETHasone 8 MG in SYRINGE 0 ML IV SCH ×4 (01:07→20:49)
[2022-08-31] MEDS: ALBUT/IPRATROP 3MG/0.5MG NEB 3 ML VIAL NEB SCH ×4 (02:55→11:01)
[2022-08-31] MEDS: cefTRIAXone SODIUM 2,000 MG in DEXTROSE 5% 50 ML IV SCH (06:26)
[2022-08-31] MEDS: BUDESONIDE 0.5 MG/2 ML VIAL (PULMICORT) NEB SCH (07:06)
[2022-08-31] MEDS: FORMOTEROL 20 MCG/2 ML VIAL NEB SCH (07:07)
[2022-08-31 07:11] LABS: Hematocrit (blood only) 44.5 % (34.1-44.9); Hemoglobin 13.4 g/dl (12.0-16.0); Immature Granulocytes # (auto) 0.06 K/uL (0.00-0.02); Immature Granulocytes % (auto) 0.8 %; Lymphocytes # (auto) 0.39 K/uL (1.2-3.4); Mean Corpuscular Hemoglobin 27.9 pg (25.0-34.0); Mean Corpuscular Hgb Conc 30.1 g/dL (32.0-36.0); Mean Corpuscular Volume 92.7 fL (80.0-100.0); Mean Platelet Volume 10.1 fL (9.4-12.3); Monocytes # (auto) 0.44 K/uL (0.24-0.82); Monocytes % (auto) 5.6 %; Neutrophils # (auto) 6.97 K/uL (1.4-6.5); Neutrophils % (auto) 88.6 %; Nucleated RBC # (auto) 0.03 K/uL (0-0); Nucleated RBC % (auto) 0.4 %; Platelet Count 302 K/uL (130-400); RDW Coefficient of Variation 16.1 % (11.5-14.5); RDW Standard Deviation 54.6 fL (36.4-46.3); White Blood Count 7.86 K/ul (4.8-10.8)
[2022-08-31] MEDS: SODIUM CHLOR 7% 4 ML NEB NEB SCH (07:19)
[2022-08-31 07:39] LABS: BUN Creatinine Ratio 53.1 (10-20); Calcium 8.3 mg/dl (8.5-10.1); Creatinine Clr Calc Pharmacy 67.5 ml/min; Est GFR (African American) 82.9 ml/min; Est GFR (Non-African American) 71.5 ml/min
[2022-08-31] MEDS: DULoxetine HCL 30 MG CAP PO SCH (08:56)
[2022-08-31] MEDS: buPROPion SR 100 MG TABCR PO SCH ×2 (08:56→20:49)
[2022-08-31] MEDS: ATORVASTATIN 40 MG TAB PO SCH (08:56)
[2022-08-31] MEDS: DOXYCYCLINE HYCLATE 100 MG CAP PO SCH ×2 (08:56→20:50)
[2022-08-31] MEDS: METOPROLOL TARTRATE 100 MG TAB PO SCH (08:57)
[2022-08-31] MEDS: HEPARIN SOD 5,000 UNIT/0.5 ML VIAL SQ SCH ×2 (08:57→20:50)
[2022-08-31 10:31] VITALS: BP 130/82; TEMP 97.3
[2022-08-31] MEDS ORDERED: HYDROmorphone INJ 0.5 MG/0.5 ML SYR IV STA (10:34)
[2022-08-31] MEDS ORDERED: HYDROmorphone INJ 0.5 MG/0.5 ML SYR IV PRN ×2 (10:41→13:40)
--- NOTE | 2022-08-31 10:42 | Hospitalist Progress Note ---
Date of Service August 31, 2022 Assessment & Plan (1) Confusion: (2) Lung mass: (3) Metastasis to brain: (4) Urinary tract infection: (5) COPD exacerbation: (6) Pulmonary emboli: (7) Acute hypercapnic respiratory failure: (8) Atrial fibrillation with RVR: Plan Patient brought to the hospital by her daughter due to confusion for last 2 weeks which has worsened recently. Patient took multiple doses of her home medication including Eliquis, Wellbutrin, metoprolol Initial chest x-ray on admission showed 6.8 cm right supraclavicular nodular opacity. Subsequent CT chest showed 7.2 into 3.8 thick-walled masslike cavity in right upper lobe suggestive of lung malignancy. Extensive lymphadenopathy was also seen. Several suspected segmental PE was also seen. Subsequent CT angios showed multiple segmental PE in left lung. CT head showed multiple intra-axial lesions largest of which is 3.2 cm right frontoparietal lesion with associated vasogenic edema MRI brain showed numerous peripherally enhancing intra-axial mass lesions of the right greater than left cerebral hemisphere with associated vasogenic edema. 3 mm leftward midline shift is present. CT abdomen/pelvis showed evidence of metastatic disease including upper abdominal lymphadenopathy, 3.3 cm right iliac bone metastasis with pathological fracture. On the night of the admission on August 26, patient developed acute hypercapnic respiratory failure. She was also found to have PE for which she was started on heparin 5000 twice daily as per oncology recommendation. She was placed on BiPAP as well. 1) Metastatic Lung Cancer Presented with 2-week history of confusion. Chest x-ray and CT finding on admission as above. CT abdomen, MRI brain done subsequently. Widespread cancer with lung primary most likely. Plan: -Patient and family has extensive discussion with pulmonology, oncology and palliative care regarding approach for metastatic cancer. They do not want to pursue biopsy or aggressive treatment at the moment. For now, plan is for radiation for brain metastasis, And, transition to hospice care at home eventually. Patient underwent CT stimulation on 08/29; no scheduled radiation yet . -On Evaluation of patient on 08/31, patient appears to be tachypneic and lethargic. Discussed with her daughter Em over the phone regarding use of opioids to decrease air hunger. She agrees for trial of opioids. She also agrees that patient is switched over to comfort care if she continues to show signs of decompensation with respiratory distress and lethargy. We will start her on Dilaudid 0.5 every 4 hours as needed as needed for dyspnea. -Increase dexamethasone to 8 mg every 6 hour as patient appears to be more confused today compared to yesterday. 2) COPD excerebration 3) Acute Hypercapnic Respiratory Failure Plan: Continue on duo nebs [id number], formoterol, budesonide, hypertonic saline nebulization along with IV dexamethasone. Continue on ceftriaxone. As needed oxygen to keep saturation above 92%. 4) Bilateral lower extremity DVT and left segmental PE Patient was previously on Eliquis at home. Stop on admission due to findings in the CT head/MRI brain. Plan; continue on heparin 5000 subcu every 12 hours. 5) A. fib with RVR On the night of 07/29; patient had A. fib with RVR. . Has been in and out of A. fib Plan; metoprolol increased 100 mg twice daily. 6) Urinary tract infection Urine culture positive for E. coli; sensitive to ceftriaxone. Plan; continue ceftriaxone for now. 7) Pathological fracture of right iliac bone Plan; orthopedic evaluation was completed; no intervention currently. PT OT ordered. 8) Overdose of multiple drugs, medicaments and biological substances: Unintentional -Patient took multiple doses of her home medications due to confusion. -EKG shows QTC of 464. Resume will provide, duloxetine. Irbesartan on hold. DNR/DNI DVT ppx Heparin Admission and Anticipated Discharge Date Admission Date: August 26, 2022 Subjective Patient seen and examined at bedside She is tachypneic and lethargic. She is requiring 10 L of high flow nasal cannula to maintain saturation. She intermittently takes off her oxygen resulting in desaturation. Telemetry shows atrial fibrillation with ventricular rate in 110s to 130s. Review of Systems Review of Systems: Unobtainable due to reduced consciousness Physical Exam Physical Exam: Constitutional: Lethargic, opens her eyes to voice. In moderate respiratory distress. Respiratory: Bilateral diffuse wheeze heard with prolonged expiration. Cardiovascular: Irregular no murmur, no edema Vessels: no JVD or carotid bruit Chest: normal inspection of chest Abdomen: normal bowel sounds, soft, nontender, no hepatosplenomegaly Musculoskeletal: no cyanosis or clubbing, Skin: no rashes, warm and dry normal turgor Neurologic: Lethargic; opens her eyes to voice. Able to move her extremities intermittently. Psychiatric: tired and lethargic Lymphatic: no cervical or axillary lymphadenopathy : deferred Results & Data Results & Data ([facility]) Vital Signs (Past 12 Hours) Vital Signs Temp Pulse Pulse Resp BP Pulse Ox O2 Del Method 08/31/22 10:30 36.3 C L 114 H 19 130/82 95 High Flow Nasal Cannula 08/31/22 08:14 High Flow Nasal Cannula 08/31/22 07:08 22 Nasal Cannula 08/31/22 06:50 109 H 08/31/22 06:44 36.6 C 110 H 21 117/71 92 High Flow Nasal Cannula 08/31/22 03:56 36.8 C 122 H 20 143/85 H 92 High Flow Nasal Cannula 08/31/22 02:59 132 H 90 Nasal Cannula 08/30/22 23:01 92 BiPAP 08/30/22 22:43 36.4 C L 93 H 22 125/65 92 BiPAP O2 Flow Rate FiO2 08/31/22 10:30 10 08/31/22 08:14 10 08/31/22 07:08 10 08/31/22 06:50 08/31/22 06:44 08/31/22 03:56 10 08/31/22 02:59 10 08/30/22 23:01 50 08/30/22 22:43 50 Laboratory Results Laboratory Results WBC 7.86 K/ul (4.8-10.8) 08/31/22 06:52 RBC 4.80 M/uL (3.93-5.22) 08/31/22 06:52 Hgb 13.4 g/dl (12.0-16.0) 08/31/22 06:52 POC Hgb 12.2 g/dl (12.0-16.0) 08/27/22 05:44 Hct 44.5 % (34.1-44.9) 08/31/22 06:52 POC Hct 36 % (37-47) L 08/27/22 05:44 MCV 92.7 fL (80.0-100.0) 08/31/22 06:52 MCH 27.9 pg (25.0-34.0) 08/31/22 06:52 MCHC 30.1 g/dL (32.0-36.0) L 08/31/22 06:52 RDW Std Deviation 54.6 fL (36.4-46.3) H 08/31/22 06:52 RDW Coeff of Cesilia 16.1 % (11.5-14.5) H 08/31/22 06:52 Plt Count 302 K/uL (130-400) 08/31/22 06:52 MPV 10.1 fL (9.4-12.3) 08/31/22 06:52 Immature Gran % (Auto) 0.8 % 08/31/22 06:52 Neut % (Auto) 88.6 % 08/31/22 06:52 Lymph % (Auto) 5.0 % 08/31/22 06:52 [place] % (Auto) 5.6 % 08/31/22 06:52 Eos % (Auto) 0.0 % 08/31/22 06:52 Baso % (Auto) 0.0 % 08/31/22 06:52 Neut # (Auto) 6.97 K/uL (1.4-6.5) H 08/31/22 06:52 Lymph # (Auto) 0.39 K/uL (1.2-3.4) L 08/31/22 06:52 [place] # (Auto) 0.44 K/uL (0.24-0.82) 08/31/22 06:52 Eos # (Auto) 0.00 K/uL (0-0.50) 08/31/22 06:52 Baso # (Auto) 0.00 K/uL (0-0.2) 08/31/22 06:52 Immature Gran # (Auto) 0.06 K/uL (0.00-0.02) H 08/31/22 06:52 Absolute Nucleated RBC 0.03 K/uL (0-0) H 08/31/22 06:52 Nucleated RBC % (auto) 0.4 % 08/31/22 06:52 PT 13.9 Seconds (9.0-12.0) H 08/27/22 02:57 INR 1.3 (0.9-1.1) H 08/27/22 02:57 Sample Site L Radial 08/27/22 05:44 POC pH 7.27 (7.35-7.45) L 08/27/22 05:44 POC pCO2 63 mmHg (35-46) H 08/27/22 05:44 POC pO2 78 mmHg (80-95) L 08/27/22 05:44 POC HCO3 29 jamee/L (19-24) H 08/27/22 05:44 POC Total CO2 31 mmol/L (24-31) 08/27/22 05:44 POC Base Excess 2.0 jamee/L (-9-1.8) H 08/27/22 05:44 ABG pH 7.33 (7.35-7.45) L 08/27/22 12:10 ABG pH (Temp Correct) 7.267 (7.35-7.45) L 08/27/22 05:44 ABG pCO2 55 mmHg (35-46) H 08/27/22 12:10 ABG pCO2 (Temp Corrct 63 mmHg (35-46) H 08/27/22 05:44 ABG pO2 69 mmHg (80-95) L 08/27/22 12:10 POC ABG pO2 at Pt Temp 78 08/27/22 05:44 ABG HCO3 29 mmol/L (19-24) H 08/27/22 12:10 POC ABG O2 Sat 93.0 % (90-95) 08/27/22 05:44 ABG O2 Saturation 94.6 % (90-95) 08/27/22 12:10 ABG Base Excess 1.9 mEq/L (-9-1.8) H 08/27/22 12:10 Ramez Test Pos (Pos) 08/27/22 12:10 Barometric Pressure Cancelled 08/27/22 10:25 Oxygen Given 12L 08/27/22 12:10 O2 Delivery Device BIPAP 08/27/22 05:44 POC O2 Rate 20 08/27/22 05:44 IPAP 14 08/27/22 05:44 POC Sodium 142 mmol/L (135-144) 08/27/22 05:44 Sodium 141 mmol/L (136-145) 08/31/22 06:52 POC Potassium 4.2 mmol/L (3.3-5.0) 08/27/22 05:44 Potassium 5.0 mmol/L (3.5-5.1) 08/31/22 06:52 Chloride 99 mmol/L (98-107) 08/31/22 06:52 Carbon Dioxide 37 mmol/L (21-32) H 08/31/22 06:52 Anion Gap 5 (3-11) 08/31/22 06:52 BUN 43 mg/dl (6-23) H 08/31/22 06:52 Creatinine 0.81 mg/dl (0.6-1.2) 08/31/22 06:52 Est Cr Clr Drug Dosing 67.5 ml/min 08/31/22 06:52 Est GFR ( Amer) 82.9 ml/min 08/31/22 06:52 Est GFR (Non-Af Amer) 71.5 ml/min 08/31/22 06:52 BUN/Creatinine Ratio 53.1 (10-20) H 08/31/22 06:52 Glucose 193 mg/dl (70-99(Fasting)) H 08/31/22 06:52 Calcium 8.3 mg/dl (8.5-10.1) L 08/31/22 06:52 Total Bilirubin 0.6 mg/dl (0.2-1.0) 08/27/22 02:57 AST 25 U/L (13-39) 08/27/22 02:57 ALT 18 U/L (7-52) 08/27/22 02:57 Alkaline Phosphatase 84 U/L (34-104) 08/27/22 02:57 Troponin I High Sens 9.3 pg/ml (0-14) 08/26/22 14:41 Total Protein 6.0 gm/dl (6.0-8.3) 08/27/22 02:57 Albumin 3.4 gm/dl (3.4-5.0) 08/27/22 02:57 Globulin 2.6 gm/dl (2.5-4.0) 08/27/22 02:57 Albumin/Globulin Ratio 1.3 (0.9-2) 08/27/22 02:57 Urine Color Dark Yellow 08/26/22 16:41 Urine Appearance Cloudy (Clear) A 08/26/22 16:41 Urine pH 5.5 (4.5-7.5) 08/26/22 16:41 Ur Specific [place] 1.032 (1.000-1.030) H 08/26/22 16:41 Urine Protein 1+ (Negative) H 08/26/22 16:41 Urine Glucose (UA) Negative (Negative) 08/26/22 16:41 Urine Ketones Trace (Negative) H 08/26/22 16:41 Urine Blood 2+ (Negative) H 08/26/22 16:41 Urine Nitrite Positive (Negative) A 08/26/22 16:41 Urine Bilirubin Negative (Negative) 08/26/22 16:41 Urine Urobilinogen Negative (Negative) 08/26/22 16:41 Ur Leukocyte Esterase Trace (Negative) H 08/26/22 16:41 Urine WBC (Auto) 10-30 /hpf (0-5) H 08/26/22 16:41 Urine RBC (Auto) 10-30 /hpf (0-4) H 08/26/22 16:41 U Hyaline Cast (Auto) 10-30 /lpf (0-5) H 08/26/22 16:41 U Epithel Cells (Auto) 20-30 /lpf (0-5) H 08/26/22 16:41 Urine Bacteria (Auto) 4+ (Negative) H 08/26/22 16:41 SARS-CoV-2 (PCR) NEGATIVE (Negative) 08/26/22 14:37 Influenza Type A (PCR) Negative (Neg) 08/26/22 14:37 Influenza Type B (PCR) Negative (Neg) 08/26/22 14:37 RSV (RT-PCR) Negative (Neg) 08/26/22 14:[address] 08/26/22 17:56 CT OF THE CHEST WITH IV CONTRAST CLINICAL HISTORY: 6.8cm cavitation COMPARISON STUDY: Chest radiograph May 29, 2020 and August 26, 2022. Treatment planning CT October 03, 2017. TECHNIQUE: Following IV administration of 86 mL of Optiray, helical axial images of the chest were obtained. Sagittal and coronal reconstructions were viewed as well as maximal intensity projections on an independent 3-D workstation. Automated exposure control was utilized for the study. A dose lowering technique was utilized adhering to the principles of ALARA. CT DOSE: 973.07 mGy.cm FINDINGS: There is no thoracic aortic dissection. There are multiple suspected small segmental pulmonary emboli within the left lung, suboptimally assessed on this exam due to respiratory motion. There is no pericardial effusion. A small right pleural effusion is noted. There is a cavitary mass-like opacity within the anterior segment of the right upper lobe that measures 7.2 x 3.8 cm. This corresponds to the finding on chest radiograph. Adjacent airspace opacity is present. This suspected mass extends to the mediastinum. In addition, there is extensive mediastinal and right hilar lymphadenopathy. This lymphadenopathy may be necrotic. Index subcarinal lymph node measures 3.6 x 2.3 cm. A right suprahilar lymph node measures 2.7 x 2 cm. A 1.6 cm lymph node adjacent to the mid descending thoracic aorta is present. In addition, there is bilateral supraclavicular lymphadenopathy. Index right supraclavicular lymph node measures 1.6 cm. The mediastinal lymphadenopathy results in mild to moderate distal tracheal narrowing. The lymphadenopathy also results in moderate narrowing of the lobar and segmental bronchi within the right lung. Suspected minimal invasion of the SVC is noted. Diffuse bronchial wall thickening is noted. There is mild interlobular septal thickening. Post therapy changes within the right breast are present. There is focal soft tissue thickening within the interspace between the right fourth and fifth ribs. A few suspected implants within the right upper quadrant of the abdomen are noted. These measure up to 1.6 cm. Pathologic gastrohepatic ligament lymphadenopathy is also present. There is trace perihepatic ascites. IMPRESSION: 1. 7.2 x 3.8 cm thick-walled mass-like cavitary opacity within the anterior segment of the right upper lobe. This is suggestive of a lung malignancy. 2. Extensive thoracic, lower cervical and upper abdominal lymphadenopathy, as described above. This represents karen spread of disease. Lymphadenopathy results in mild to moderate distal tracheal narrowing. Suspected minimal SVC invasion. 3. Several suspected segmental pulmonary emboli within the left lung. A PE protocol chest CT could be obtained for confirmation. 4. Mild interstitial pulmonary edema. Small right pleural effusion. ACT 112: Negative or not required by law. Electronically signed by: Toni Mccloud M.D. 08/26/2022 7:29 PM Hip/Pelvis X-Ray 08/26/22 17:56 XR hip LT 2V w pelvis CLINICAL HISTORY: Left hip pain. History of total hip arthroplasty. COMPARISON: Pelvis and left hip radiographs July 19, 2020. FINDINGS: Incidental note is made of contrast within the bladder from recent contrast-enhanced CT. Alignment of the hip arthroplasties is anatomic. No periprosthetic fracture or lucency is noted. Hardware is intact. IMPRESSION: 1. No acute fracture within the pelvis or hips. 2. Intact total bilateral hip arthroplasties. ACT 112: Negative or not required by law. Electronically signed by: Toni Mccloud M.D. 08/26/2022 7:[address] 08/26/22 18:29 CT OF THE HEAD WITHOUT CONTRAST CLINICAL HISTORY: Confusion; on eliquis COMPARISON STUDY: Head CT May 27, 2020. MRI of the brain November 19, 2008. TECHNIQUE: Helical axial images of the head were obtained without IV contrast. Automated exposure control was utilized for the study. A dose lowering technique was utilized adhering to the principles of ALARA. FINDINGS: No acute intracranial hemorrhage is present. Note is made of a hypodense 3.2 cm right frontoparietal lesion on axial image 24 of 32. Moderate associated vasogenic edema is present. There is mild mass effect with sulcal effacement, mild compression of the right lateral ventricle and minimal leftward midline shift. A few additional cystic/necrotic lesions within the anterior right frontal lobe measure up to 2.3 cm. Basal cisterns are patent. There are no extra-axial fluid collections. A small vessel disease is noted. There are no findings to suggest acute dural sinus thrombosis or acute territorial infarct. IMPRESSION: Multiple intraaxial lesions, the largest of which is a 3.2 cm right frontoparietal lesion with moderate associated vasogenic edema and mass effect. These are highly suggestive of metastases. An MRI of the brain with and without contrast could be obtained for further evaluation. ACT 112: Positive. There are findings on this exam that require communication between the performing entity and the patient following Patient Test Result Information Act ([place] Act 112[place] guidelines. Electronically signed by: Toni Mccloud M.D. 08/26/2022 7:04 PM Chest CTA 08/27/22 00:14 CT ANGIOGRAPHY OF THE CHEST, PULMONARY EMBOLUS PROTOCOL CLINICAL HISTORY: Suspected lung cancer. Possible pulmonary emboli on prior chest CT. COMPARISON STUDY: Chest radiograph and chest CT August 26, 2022. TECHNIQUE: Following IV administration of 114 mL of Optiray, helical axial images of the chest were obtained utilizing the pulmonary embolus protocol. Maximal intensity projections and sagittal and coronal reformats were viewed on an independent 3D workstation. IV contrast was administered without complication. Automated exposure control was utilized for the study. A dose lowering technique was utilized adhering to the principles of ALARA. FINDINGS: The study confirms multiple segmental pulmonary emboli within the left lung. There is no pericardial effusion. A small right pleural effusion has increased in size since prior exam. A trace left pleural effusion has developed. Pulmonary edema is again noted with interlobular septal thickening. The cavitary 7 cm thick-walled right upper lobe mass within the anterior segment is again noted. There is adjacent groundglass opacity. Extensive mediastinal and right hilar lymphadenopathy is noted. This exam is compromised by motion artifact however this adenopathy results in mild to moderate narrowing of the central airways. Suspected SVC invasion is also present. Lower cervical and upper abdominal lymphadenopathy is also noted. Post therapy changes within the right breast are present. A mild T12 compression fracture is noted. The abdomen and pelvis CT will be reported separately. IMPRESSION: 1. Multiple segmental pulmonary emboli within the left lung. 2. Redemonstration of a 7 cm thick-walled cavitary mass-like opacity within the anterior segment of the right upper lobe suggestive of lung malignancy. 3. Associated extensive mediastinal and hilar lymphadenopathy, as detailed above. This results in mild to moderate central airway narrowing. Suspected SVC invasion. 4. Interstitial pulmonary edema with increasing bilateral pleural effusions. ACT 112: Negative or not required by law. Electronically signed by: Toni Mccloud M.D. 08/27/2022 7:58 AM Abdomen/Pelvis CT 08/27/22 01:16 CT OF THE ABDOMEN AND PELVIS WITH CONTRAST CLINICAL HISTORY: lung cancer, mets? COMPARISON STUDY: CT of the abdomen and pelvis December 01, 2013 TECHNIQUE: Following IV administration of 114 mL of Optiray, axial images of the abdomen and pelvis were obtained from the lung bases to the proximal femurs. Images were reviewed in the axial, sagittal, and coronal planes. IV contrast was administered without complication. Automated exposure control was utilized for the study. A dose lowering technique was utilized adhering to the principles of ALARA. CT DOSE: 1560.92 mGy.cm FINDINGS: Interlobular septal thickening within the lungs represents pulmonary edema. Small bilateral pleural effusions, right larger left, are noted. Please note that the chest CT will be reported separately. Heterogeneity of the liver favors passive hepatic congestion. A hypodense focus within the medial segment favors focal fat. A small amount of perihepatic ascites noted. Moderate gallbladder wall thickening may also be due to volume overload/right heart dysfunction. There is a small amount of fluid adjacent to the proximal duodenum. No pneumatosis, free air or portal venous gas is present. A 1.9 cm right retrope ritoneal implant on axial image 107 of 421 is noted. Pathologic gastrohepatic ligament nodes are noted. Index node measures 2.7 x 1.6 cm. There is no biliary or pancreatic ductal dilatation. There is pancreatic glandular atrophy. Spleen, adrenal glands and kidneys are unremarkable with the exception of a few suspected right renal cysts. There is no hydronephrosis. There is no evidence for a bowel obstruction. Images of the pelvis are degraded by streak artifact from hip arthroplasties. Contrast within the collecting systems, ureters and bladder from prior contrast enhanced CT. Small amount of pelvic ascites is present. A T12 fracture with mild loss of vertebral body height is noted. There is also a pathologic fracture within the right iliac bone due to an underlying lesion which measures approximately 3.3 cm. This extends into the adjacent musculature. IMPRESSION: 1. Evidence for metastatic disease, including upper abdominal lymphadenopathy, right retroperitoneal implants and a 3.3 cm right iliac bone metastasis with pathologic fracture. A mild T12 fracture may be benign or pathologic. 2. No bowel obstruction. No bowel wall thickening. 3. Interstitial pulmonary edema with bilateral pleural effusions and a small amount of ascites within the abdomen and pelvis. Heterogeneity of the liver favors passive hepatic congestion. 4. Moderate gallbladder wall thickening. Small amount of fluid adjacent to the duodenum. Although nonspecific, these findings may be related to volume overload/right heart dysfunction. ACT 112: Negative or not required by law. Electronically signed by: Toni Mccloud M.D. 08/27/2022 8:12 AM Brain MRI 08/27/22 19:12 MR brain wo/w con HISTORY: 76 years-old Female Concern for metastasis acutely altered mental status COMPARISON: Head CT 08/26/2022 TECHNIQUE: Multiplanar multisequence MRI the brain was obtained both with and without the use of 8 cc Gadavist FINDINGS: Nurse Recruiter localizer images demonstrate no gross extracranial abnormality. No restricted diffusion to suggest acute or subacute infarct. Motion degraded exam, notably the postcontrast series. Partially empty sella. No acute intracranial hemorrhage or abnormal extra-axial collection identified. 3 mm leftward midline shift. There are at least 8 peripherally enhancing intra-axial masses involving the right greater than left cerebral hemispheres, largest of which measures 3.5 x 3.0 x 3.4 cm within the right parietal lobe. These lesions demonstrate heterogeneously increased T2 signal. The largest lesion demonstrates restricted diffusion. Moderate associated vasogenic edema. Involutional changes with moderate to extensive chronic microvascular ischemic disease. The cerebral venous sinuses and major arterial flow voids appear patent. Prior bilateral lens repair. Minimal mucosal thickening of the paranasal sinuses. The mastoid air cells are clear. No acute calvarial fracture. Degenerative changes of the imaged cervical spine. IMPRESSION: 1. Motion degraded exam. 2. Numerous peripherally enhancing intra-axial mass lesions of the right greater than left cerebral hemispheres with moderate associated vasogenic edema, most pronounced within the right frontal and parietal lobes. Findings are compatible with metastatic disease. 3. 3 mm leftward midline shift. ACT 112: Negative or not required by law. The above report was generated using voice recognition software. It may contain grammatical, syntax or spelling errors. Electronically signed by: Anmol Jeter M.D. 08/27/2022 11:23 AM Venous Doppler Study 08/28/22 10:18 BILATERAL LOWER EXTREMITY VENOUS DOPPLER HISTORY: Lower extremity edema. Rule out DVT COMPARISON STUDY: None. FINDINGS: The bilateral common femoral and superficial femoral veins are patent. There is occlusive thrombus seen within the bilateral popliteal, right peroneal, and left posterior tibial veins. The remaining calf vessels are patent. IMPRESSION: Bilateral lower extremity DVT as described above. ACT 112: Negative or not required by law. Electronically signed by: Agusto Bourgeois M.D. 08/28/2022 12:10 PM Chest X-Ray 08/29/22 11:44 XR chest 1V portable HISTORY: 76 years-old Female increasing hypoxia acute hypoxia COMPARISON: CTA chest 08/27/2022 TECHNIQUE: AP view of the chest FINDINGS: Cavitary lesion of the right upper lobe redemonstrated. Cardiomegaly. Pulmonary vascular congestion. Small pleural effusions with mild right upper lung and right basilar airspace opacities. Degenerative changes of the shoulders and spine. IMPRESSION: 1. Cardiomegaly with pulmonary vascular congestion and small pleural effusions. 2. Cavitary right upper lobe mass redemonstrated. 3. Mild right upper lobe and right basilar airspace opacities may represent asymmetric pulmonary edema with atelectasis. ACT 112: Negative or not required by law. The above report was generated using voice recognition software. It may contain grammatical, syntax or spelling errors. Electronically signed by: Anmol Jeter M.D. 08/29/2022 1:00 PM
[2022-08-31 11:02] VITALS: O2SAT 91
[2022-08-31] MEDS ORDERED: LORazepam 0.5 MG in SYRINGE 0 ML IV PRN (13:40)
[2022-08-31] MEDS ORDERED: LORazepam 0.5 MG TAB PO PRN (13:40)
[2022-08-31] MEDS ORDERED: ONDANSETRON 4 MG OD TAB SL PRN (13:40)
[2022-08-31] MEDS ORDERED: HYDROmorphone BOLUS from BAG IV PRN (13:40)
[2022-08-31] MEDS ORDERED: ONDANSETRON INJ 2 MG/ML 2 ML VIAL IV PRN (13:40)
[2022-08-31] MEDS ORDERED: ALBUT/IPRATROP 3MG/0.5MG NEB 3 ML VIAL NEB PRN (13:42)
[2022-08-31] MEDS ORDERED: HYDROmorphone/NSS 100 MG/100 ML BAG IV SCH (14:30)
[2022-08-31 18:36] VITALS: PULSE 102
[2022-09-01] MEDS: dexAMETHasone 8 MG in SYRINGE 0 ML IV SCH ×2 (01:29→06:06)
[2022-09-01] MEDS: cefTRIAXone SODIUM 2,000 MG in DEXTROSE 5% 50 ML IV SCH (06:05)
--- NOTE | 2022-09-01 06:25 | Communication Note ---
Date of Service: September 01, 2022
--- NOTE | 2022-09-01 06:26 | Discharge Summary ---
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 fib on Eliquis Last confinement in May 2020 with A. fib with RVR, left hip dislocation Patient was brought to the ED by her daughter due to increasing confusion since last 2 weeks. Patient's daughter had noticed patient being forgetful since last 2 days; today, patient was delirious and disoriented to time and place. Patient took 4 doses of her home medication from the pillbox; which include duloxetine, bupropion, Lipitor, Eliquis, irbesartan, metoprolol. Patient is lethargic; but he is able to have conversation. She is not sure why she is in the hospital. She denies any fever, chills, chest pain or cough. In the ED, patient was found to be hypertensive, afebrile and saturating well at 3 L via nasal cannula. CBC and CMP are unremarkable for any significant findings. Urinalysis is suggestive of infection. CXR showed 6.8 cm right suprahilar airway opacity. CT head showed multiple intraaxial lesions; 3.2 cm right frontoparietal lesion with associated edema and mass effect; highly suggestive metastases. Discussed with Oncology; plan to give steroids to reduce edema and also obtain CT abdomen and pelvis. Discharge Data Consultations 08/26/22 18:01 ED Decision to Admit Stat 08/26/22 20:01 Consult Oncology Routine 08/27/22 08:00 Consult Pulmonology Routine 08/27/22 12:51 Consult Palliative Care Routine 08/28/22 07:00 Consult Orthopedic Surgery Routine Consult Radiation Oncology Routine Hospital Course (1) Confusion: (2) Lung mass: (3) Metastasis to brain: (4) Urinary tract infection: (5) COPD exacerbation: (6) Pulmonary emboli: (7) Acute hypercapnic respiratory failure: (8) Atrial fibrillation with RVR: Plan Patient brought to the hospital by her daughter due to confusion for last 2 weeks which has worsened recently. Patient took multiple doses of her home medication including Eliquis, Wellbutrin, metoprolol Initial chest x-ray on admission showed 6.8 cm right supraclavicular nodular opacity. Subsequent CT chest showed 7.2 into 3.8 thick-walled masslike cavity in right upper lobe suggestive of lung malignancy. Extensive lymphadenopathy was also seen. Several suspected segmental PE was also seen. Subsequent CT angios showed multiple segmental PE in left lung. CT head showed multiple intra-axial lesions largest of which is 3.2 cm right frontoparietal lesion with associated vasogenic edema MRI brain showed numerous peripherally enhancing intra-axial mass lesions of the right greater than left cerebral hemisphere with associated vasogenic edema. 3 mm leftward midline shift is present. CT abdomen/pelvis showed evidence of metastatic disease including upper abdominal lymphadenopathy, 3.3 cm right iliac bone metastasis with pathological fracture. On the night of the admission on August 26, patient developed acute hypercapnic respiratory failure. She was also found to have PE for which she was started on heparin 5000 twice daily as per oncology recommendation. She was placed on BiPAP as well. 1) Metastatic Lung Cancer Presented with 2-week history of confusion. Chest x-ray and CT finding on admission as above. CT abdomen, MRI brain done subsequently. Widespread cancer with lung primary most likely. Plan: -Patient and family has extensive discussion with pulmonology, oncology and palliative care regarding approach for metastatic cancer. They do not want to pursue biopsy or aggressive treatment at the moment. For now, plan is for radiation for brain metastasis, And, transition to hospice care at home eventually. Patient underwent CT stimulation on 08/29; no scheduled radiation yet . -On Evaluation of patient on 08/31, patient appears to be tachypneic and lethargic. Discussed with her daughter Em over the phone regarding use of opioids to decrease air hunger. She agrees for trial of opioids. She also agrees that patient is switched over to comfort care if she continues to show signs of decompensation with respiratory distress and lethargy. We will start her on Dilaudid 0.5 every 4 hours as needed as needed for dyspnea. -Increase dexamethasone to 8 mg every 6 hour as patient appears to be more confused today compared to yesterday. 2) COPD excerebration 3) Acute Hypercapnic Respiratory Failure Plan: Continue on duo nebs [id number], formoterol, budesonide, hypertonic saline nebulization along with IV dexamethasone. Continue on ceftriaxone. As needed oxygen to keep saturation above 92%. 4) Bilateral lower extremity DVT and left segmental PE Patient was previously on Eliquis at home. Stop on admission due to findings in the CT head/MRI brain. Plan; continue on heparin 5000 subcu every 12 hours. 5) A. fib with RVR On the night of 07/29; patient had A. fib with RVR. . Has been in and out of A. fib Plan; metoprolol increased 100 mg twice daily. 6) Urinary tract infection Urine culture positive for E. coli; sensitive to ceftriaxone. Plan; continue ceftriaxone for now. 7) Pathological fracture of right iliac bone Plan; orthopedic evaluation was completed; no intervention currently. PT OT ordered. 8) Overdose of multiple drugs, medicaments and biological substances: Unintentional -Patient took multiple doses of her home medications due to confusion. -EKG shows QTC of 464. Resume will provide, duloxetine. Irbesartan on hold. DNR/DNI DVT ppx Heparin (Preceding documentation as per daytime provider.) 08/31/2022 Patient transitioned to comfort measures after discussion with family. 09/01/2022 Patient pronounced at 6:38 AM. Total time to prepare this discharge summary was less than 10 minutes.
--- NOTE | 2022-09-01 06:50 | Death Pronouncement Note ---
Date of Service September 01, 2022 Pronouncement Note Admission Date August 26, 2022 Date and Time of Date of : 09/01/22 Time of : 06:38 Additional Data Confirmation of : no pulse, no respirations, no heart sounds and pupils fixed and dilated Family: at bedside Attending/PCP notified?: Yes Attending physician: Shelton Carballo MD Was code activated?: No
== END 2022-09-01 12:15 | disposition expired | DRG 917 ==
LOC: ED 13:41 → SUATTDRO 18:00 → 2S 18:00
DX: C79.51 Secondary malignant neoplasm of bone; R41.0 Disorientation, unspecified; C79.49 Secondary malignant neoplasm of other parts of nervous system; C34.90 Malignant neoplasm of unspecified part of unspecified bronchus or lung; C79.31 Secondary malignant neoplasm of brain; T43.291A Poisoning by other antidepressants, accidental (unintentional), initial encounter; T45.511A Poisoning by anticoagulants, accidental (unintentional), initial encounter; Z79.01 Long term (current) use of anticoagulants; I48.91 Unspecified atrial fibrillation; M84.454A Pathological fracture, pelvis, initial encounter for fracture; M84.550A Pathological fracture in neoplastic disease, pelvis, initial encounter for fracture; N39.0 Urinary tract infection, site not specified; I26.94 Multiple subsegmental thrombotic pulmonary emboli without acute cor pulmonale; T46.6X1A Poisoning by antihyperlipidemic and antiarteriosclerotic drugs, accidental (unintentional), initial encounter; G92.8 Other toxic encephalopathy; C50.411 Malignant neoplasm of upper-outer quadrant of right female breast; T44.7X1A Poisoning by beta-adrenoreceptor antagonists, accidental (unintentional), initial encounter; B96.20 Unspecified Escherichia coli [E. coli] as the cause of diseases classified elsewhere; J96.02 Acute respiratory failure with hypercapnia; C78.6 Secondary malignant neoplasm of retroperitoneum and peritoneum; F17.210 Nicotine dependence, cigarettes, uncomplicated; Z66 Do not resuscitate; I82.4Z3 Acute embolism and thrombosis of unspecified deep veins of distal lower extremity, bilateral; I26.99 Other pulmonary embolism without acute cor pulmonale; E87.20 Acidosis, unspecified; J44.1 Chronic obstructive pulmonary disease with (acute) exacerbation; D68.69 Other thrombophilia; Z96.643 Presence of artificial hip joint, bilateral; Z51.5 Encounter for palliative care; Y92.009 Unspecified place in unspecified non-institutional (private) residence as the place of occurrence of the external cause; G93.6 Cerebral edema; F10.21 Alcohol dependence, in remission